=== PATIENT | male | born 1960 | race Two or more races ===

== ENCOUNTER 2021-09-04 03:56 | Emergency (ER) | payer MEDICAID, OTHER ==
[~2021-09-04] VITALS: Ht 170.2 cm; Wt 76.2 kg
[2021-09-04] MEDS ORDERED: HYDROcodone-ACET 5/325MG TAB PO ONE (05:15)
[2021-09-04 05:30] LABS: Basophils # (auto) 0.1 10 ^3/uL (0-0.2); Basophils % (auto) 1.8 % (0.0-2.0); Eosinophils # (auto) 0.2 10 ^3/uL (0-0.8); Eosinophils % (auto) 3.5 % (0.0-7.0); Hematocrit 42.6 % (41.0-53.0); Hemoglobin 14.8 g/dL (13.5-17.5); Lymphocytes # (auto) 1.6 10 ^3/uL (0.4-5.4); Lymphocytes % (auto) 29.8 % (10.0-50.0); Mean Corpuscular Hemoglobin 33.6 pg (28.0-32.0); Mean Corpuscular Hgb Conc. 34.7 g/dL (32.0-36.0); Mean Corpuscular Volume 96.8 fL (80.0-100.0); Monocytes # (auto) 0.4 10 ^3/uL (0-1.3); Monocytes % (auto) 7.5 % (0.0-12.0); Neutrophils # (auto) 3.1 10 ^3/uL (1.6-8.6); Neutrophils % (auto) 57.4 % (37.0-80.0); Nucleated Red Blood Cells % 0.2 %; Red Cell Distribution Width 12.7 % (11.8-14.3); White Blood Cell 5.4 10^3/uL (4.4-10.8)
[2021-09-04 05:43] LABS: Albumin 3.2 g/dL (3.4-5.0); Calcium 8.5 mg/dL (8.5-10.1); Potassium 3.3 mmol/L (3.5-5.1)
[2021-09-04 05:45] LABS: BUN/Creatinine Ratio 10.1
[2021-09-04 05:57] LABS: Bilirubin, Total 0.4 mg/dL (0.2-1.0); Total Protein 7.4 g/dL (6.4-8.2)
[2021-09-04] MEDS ORDERED: cefTRIAXone 1GM/50ML D5W 50 ML IV ONE (07:15)
[2021-09-04] MEDS ORDERED: CLINDAMYCIN 600MG IV 50 ML IV ONE (07:15)
[2021-09-04] MEDS ORDERED: ONDANSETRON HCL 4 MG/2 ML VIAL IV ONE (07:45)
[2021-09-04] MEDS ORDERED: MORPHINE SULFATE 4 MG/ML SYR/VIAL IV ONE (07:45)
[2021-09-04 07:57] LABS: Basophils # (auto) 0.1 10 ^3/uL (0-0.2); Basophils % (auto) 0.8 % (0.0-2.0); Eosinophils # (auto) 0.2 10 ^3/uL (0-0.8); Eosinophils % (auto) 2.9 % (0.0-7.0); Hematocrit 41.3 % (41.0-53.0); Hemoglobin 14.2 g/dL (13.5-17.5); Lymphocytes # (auto) 2.6 10 ^3/uL (0.4-5.4); Lymphocytes % (auto) 38.9 % (10.0-50.0); Mean Corpuscular Hemoglobin 33.5 pg (28.0-32.0); Mean Corpuscular Hgb Conc. 34.4 g/dL (32.0-36.0); Mean Corpuscular Volume 97.3 fL (80.0-100.0); Monocytes # (auto) 0.4 10 ^3/uL (0-1.3); Monocytes % (auto) 6.6 % (0.0-12.0); Neutrophils # (auto) 3.4 10 ^3/uL (1.6-8.6); Neutrophils % (auto) 50.8 % (37.0-80.0); Red Blood Cells 4.24 10^6/uL (4.5-5.90); Red Cell Distribution Width 12.9 % (11.8-14.3); White Blood Cell 6.6 10^3/uL (4.4-10.8)
[2021-09-04 08:14] LABS: Albumin 3.2 g/dL (3.4-5.0); Calcium 8.3 mg/dL (8.5-10.1)
[2021-09-04 08:18] LABS: BUN/Creatinine Ratio 11.2; Bilirubin, Total 0.3 mg/dL (0.2-1.0)
[2021-09-04 09:00] VITALS: BP 132/82
== END 2021-09-04 11:20 | disposition home or self-care (01) ==
LOC: ER 03:56
DX: L03.115 Cellulitis of right lower limb (principal); I10 Essential (primary) hypertension; F17.210 Nicotine dependence, cigarettes, uncomplicated
CPT/HCPCS: 36415; 71045; 73620; 80053; 83605; 83880; 84484; 85025; 93005; 96365; 96366; 96368; 96375; 99285; J0696; J2270; J2405; J3490

== ENCOUNTER 2023-06-13 05:48 | Inpatient (IN) | payer MEDICAID ==
[~2023-06-13] VITALS: Ht 170.2 cm; Wt 74.5 kg
[2023-06-13 06:21] LABS: Basophils # (auto) 0.1 10 ^3/uL (0-0.2); Basophils % (auto) 1.6 % (0.0-2.0); Eosinophils # (auto) 0.4 10 ^3/uL (0-0.8); Eosinophils % (auto) 6.2 % (0.0-7.0); Hematocrit 37.9 % (41.0-53.0); Hemoglobin 13.4 g/dL (13.5-17.5); Lymphocytes # (auto) 2.9 10 ^3/uL (0.4-5.4); Lymphocytes % (auto) 41.1 % (10.0-50.0); Mean Corpuscular Hgb Conc. 35.5 g/dL (32.0-36.0); Mean Corpuscular Volume 92.9 fL (80.0-100.0); Monocytes # (auto) 0.6 10 ^3/uL (0-1.3); Monocytes % (auto) 8.4 % (0.0-12.0); Neutrophils % (auto) 42.7 % (37.0-80.0); Red Blood Cells 4.08 10^6/uL (4.5-5.90); Red Cell Distribution Width 13.6 % (11.8-14.3); White Blood Cell 7.1 10^3/uL (4.4-10.8)
[2023-06-13 06:33] LABS: INR 1.06 (0.9-1.15); Partial Thromboplastin Time 26.2 SEC (24.5-34.5); Prothrombin Time 11.1 sec (9.3-11.8)
[2023-06-13 06:48] LABS: Alanine Aminotransferase 25 U/L (7-40); Albumin 4.8 g/dL (3.2-4.8); Alkaline Phosphatase 114 U/L (46-116); Anion Gap 9.9 (5-15); Aspartate Aminotransferase 37 U/L (13-40); BUN/Creatinine Ratio 8.7 (10.0-20.0); Blood Urea Nitrogen 11 mg/dL (9-23); Calcium 9.7 mg/dL (8.7-10.4); Carbon Dioxide 23.1 mmol/L (20-30); Chloride 104 mmol/L (98-107); Glucose 98 mg/dL (74-106); Magnesium 1.8 mg/dL (1.6-2.6); Potassium 3.6 mmol/L (3.5-5.1); Sodium 137 mmol/L (136-145)
[2023-06-13 06:49] LABS: Bilirubin, Total 0.6 mg/dL (0.2-1.0)
[2023-06-13] MEDS ORDERED: NITROGLYCERIN 0.4 MG SL TAB SL ONE (07:15)
[2023-06-13] MEDS ORDERED: ASPirin 325 MG TAB PO ONE (07:15)
[2023-06-13 08:57] VITALS: PULSE 90; RESP 18; O2SAT 95
[2023-06-13] MEDS ORDERED: MORPHINE SULFATE INJ 2 MG/ml SYRG IV PRN (10:15)
[2023-06-13] MEDS ORDERED: NITROGLYCERIN 0.4 MG SL TAB SL PRN (10:15)
[2023-06-13] MEDS ORDERED: DOCUSATE SOD 100 MG CAP PO PRN (10:15)
[2023-06-13] MEDS ORDERED: ACETAMINOPHEN 325 MG TAB PO PRN (10:15)
[2023-06-13 10:54] VITALS: PULSE 87; RESP 18; O2SAT 98
[2023-06-13] MEDS: ONDANSETRON HCL 4 MG/2 ML VIAL IV PRN ×3 (11:59→22:18)
[2023-06-13] MEDS: MORPHINE SULFATE INJ 2 MG/ml SYRG IV PRN ×2 (11:59→22:19)
[2023-06-13 12:21] LABS: Triglycerides 341 mg/dL (< 150)
[2023-06-13 12:22] LABS: LDL Cholesterol 108 mg/dL (< 100)
[2023-06-13 12:23] LABS: Cholesterol 196 mg/dL (< 200); HDL Cholesterol 57 mg/dL (40-59)
[2023-06-13] MEDS: HYDROcodone-ACET 5/325MG TAB PO PRN ×2 (13:19→18:00)
[2023-06-13 16:03] LABS: Urine Bacteria NONE SEEN /hpf (None Seen); Urine Blood Negative /uL (Negative); Urine Clarity Clear (Clear); Urine Color Colorless (Yellow); Urine Protein, UAD Negative (Negative); Urine Specific Gravity 1.008 (1.001-1.035); Urine Urobilinogen Normal (Negative); Urine WBC 1 /hpf (0 - 3); Urine pH 5.5 (5.0-8.0)
[2023-06-13 17:04] LABS: Amphetamine Screen, Urine Neg (NEGATIVE); Barbiturate Scree,Urine Neg (NEGATIVE); Benzodiazephine Screen, Urine Neg (NEGATIVE); Cannabinoid Screen, Urine Neg (NEGATIVE); Cocaine Screen, Urine Neg (NEGATIVE); Opiate Scree,Urine Neg (NEGATIVE); Phencyclidine Screen, Urine Neg (NEGATIVE)
[2023-06-13 19:25] VITALS: BP 119/73; PULSE 76; RESP 13; O2SAT 94
[2023-06-13 21:08] VITALS: PULSE 94; RESP 18; O2SAT 95
[2023-06-13 21:18] VITALS: PULSE 100; RESP 18; O2SAT 98
[2023-06-13] MEDS: IPRATROPIUM BROM 0.5 MG/2.5ML INH SOL NEB SCH (21:18)
[2023-06-13] MEDS: traZODone HCL 50 MG TAB PO SCH (22:11)
[2023-06-13] MEDS: CARVEDILOL 3.125 MG TAB PO SCH (22:12)
[2023-06-13] MEDS: ATORVASTATIN 20 MG TAB PO SCH (22:12)
[2023-06-14] VITALS (15 sets, daily range): BP systolic 106–147; BP diastolic 66–87; PULSE 58–91; RESP 15–22; TEMP 97.5–98.4; O2SAT 91–100
[2023-06-14] MEDS: IPRATROPIUM BROM 0.5 MG/2.5ML INH SOL NEB SCH ×3 (06:00→21:45)
[2023-06-14 06:36] LABS: Basophils # (auto) 0.1 10 ^3/uL (0-0.2); Eosinophils # (auto) 0.5 10 ^3/uL (0-0.8); Eosinophils % (auto) 8.2 % (0.0-7.0); Hematocrit 34.2 % (41.0-53.0); Hemoglobin 12.2 g/dL (13.5-17.5); Lymphocytes # (auto) 2.1 10 ^3/uL (0.4-5.4); Lymphocytes % (auto) 36.4 % (10.0-50.0); Mean Corpuscular Hemoglobin 33.1 pg (28.0-32.0); Mean Corpuscular Hgb Conc. 35.5 g/dL (32.0-36.0); Mean Corpuscular Volume 93.4 fL (80.0-100.0); Monocytes # (auto) 0.5 10 ^3/uL (0-1.3); Monocytes % (auto) 7.8 % (0.0-12.0); Neutrophils # (auto) 2.7 10 ^3/uL (1.6-8.6); Neutrophils % (auto) 46.6 % (37.0-80.0); Nucleated Red Blood Cells % 0.1 %; Red Blood Cells 3.67 10^6/uL (4.5-5.90); Red Cell Distribution Width 13.6 % (11.8-14.3); White Blood Cell 5.9 10^3/uL (4.4-10.8)
[2023-06-14 07:06] LABS: Alanine Aminotransferase 25 U/L (7-40); Alkaline Phosphatase 103 U/L (46-116); Anion Gap 8.8 (5-15); Blood Urea Nitrogen 15 mg/dL (9-23); Calcium 9.1 mg/dL (8.5-10.1); Carbon Dioxide 24.2 mmol/L (20-30); Chloride 107 mmol/L (98-107); Glucose 106 mg/dL (74-106); Magnesium 1.8 mg/dL (1.6-2.6); Potassium 3.9 mmol/L (3.5-5.1); Sodium 140 mmol/L (136-145)
[2023-06-14 07:07] LABS: Albumin 4.1 g/dL (3.2-4.8); Aspartate Aminotransferase 26 U/L (13-40); Bilirubin, Total 0.5 mg/dL (0.2-1.0)
[2023-06-14 07:08] LABS: Total Protein 6.7 g/dL (5.7-8.2)
[2023-06-14] MEDS ORDERED: IOHEXOL 350 MG/ML 100ML IJ ONE (07:32)
[2023-06-14] MEDS ORDERED: HEPARIN IN NS 1000Units/500mL 0 ML ONE (07:32)
[2023-06-14] MEDS ORDERED: LIDOCAINE 2%HCL (LOCAL ANESTH.) INJ 20ML MDV ONE ×2 (07:32→09:59)
[2023-06-14] MEDS: HYDROcodone-ACET 5/325MG TAB PO PRN ×4 (07:34→21:02)
[2023-06-14] MEDS: CARVEDILOL 3.125 MG TAB PO SCH ×3 (09:50→22:01)
[2023-06-14] MEDS: amLODIPine BESYLATE 5 MG TAB PO SCH (09:50)
[2023-06-14] MEDS: LOSARTAN POTASSIUM 50 MG TAB PO SCH (09:51)
[2023-06-14] MEDS ORDERED: HEPARIN SODIUM (PORCINE) 5000 UNITS/ML 1ML VIAL ONE (09:58)
[2023-06-14] MEDS ORDERED: ANGIOMAX 250 MG VIAL IV ONE (09:58)
[2023-06-14] MEDS ORDERED: VERAPAMIL 2.5MG/ML INJ 2ML VIAL IV ONE (09:58)
[2023-06-14] MEDS ORDERED: MIDAZOLAM HCL 2MG/2ML 2ml VIAL (1mg/ml) ONE (09:59)
[2023-06-14] MEDS ORDERED: fentaNYL CITRATE 100 MCG/2 ML VL ONE ×2 (09:59→11:12)
[2023-06-14] MEDS ORDERED: SODIUM CHL 0.9% 50 ML ONE ×2 (10:00→10:02)
[2023-06-14] MEDS: ENOXAPARIN SOD 40 MG/0.4 ML SYRINGE SC SCH (10:00)
[2023-06-14] MEDS: ASPirin 81 mg TAB PO SCH (10:00)
[2023-06-14] MEDS ORDERED: IODIXANOL 320MG/ML 100ML BTL IV ONE ×2 (10:00→10:43)
[2023-06-14] MEDS: LORATADINE 10 MG TAB PO SCH (10:00)
[2023-06-14] MEDS ORDERED: TICAGRELOR 90 MG TAB ONE (11:02)
[2023-06-14] MEDS ORDERED: ASPirin 325 MG TAB ONE (11:03)
[2023-06-14] MEDS: TICAGRELOR 90 MG TAB PO SCH (21:01)
[2023-06-14] MEDS: traZODone HCL 50 MG TAB PO SCH (21:01)
[2023-06-14] MEDS: ATORVASTATIN 20 MG TAB PO SCH (21:02)
[2023-06-15] VITALS (13 sets, daily range): BP systolic 100–139; BP diastolic 62–79; PULSE 71–95; RESP 14–20; TEMP 97.4–98.6; O2SAT 93–99
[2023-06-15 06:16] LABS: Basophils # (auto) 0.1 10 ^3/uL (0-0.2); Basophils % (auto) 0.8 % (0.0-2.0); Eosinophils # (auto) 0.5 10 ^3/uL (0-0.8); Eosinophils % (auto) 7.7 % (0.0-7.0); Hematocrit 34.8 % (41.0-53.0); Hemoglobin 12.1 g/dL (13.5-17.5); Lymphocytes # (auto) 2.3 10 ^3/uL (0.4-5.4); Mean Corpuscular Hemoglobin 32.7 pg (28.0-32.0); Mean Corpuscular Hgb Conc. 34.8 g/dL (32.0-36.0); Mean Corpuscular Volume 93.9 fL (80.0-100.0); Monocytes # (auto) 0.5 10 ^3/uL (0-1.3); Monocytes % (auto) 6.8 % (0.0-12.0); Neutrophils # (auto) 3.7 10 ^3/uL (1.6-8.6); Neutrophils % (auto) 52.7 % (37.0-80.0); Nucleated Red Blood Cells % 0.1 %; Red Blood Cells 3.71 10^6/uL (4.5-5.90); Red Cell Distribution Width 13.5 % (11.8-14.3); White Blood Cell 7.1 10^3/uL (4.4-10.8)
[2023-06-15 06:50] LABS: Alanine Aminotransferase 23 U/L (7-40); Albumin 4.3 g/dL (3.2-4.8); Alkaline Phosphatase 111 U/L (46-116); Anion Gap 6.7 (5-15); Aspartate Aminotransferase 25 U/L (13-40); Bilirubin, Total 0.6 mg/dL (0.2-1.0); Blood Urea Nitrogen 13 mg/dL (9-23); Calcium 9.2 mg/dL (8.7-10.4); Carbon Dioxide 25.3 mmol/L (20-30); Chloride 106 mmol/L (98-107); Glucose 104 mg/dL (74-106); Potassium 3.8 mmol/L (3.5-5.1); Sodium 138 mmol/L (136-145)
[2023-06-15 06:55] LABS: BUN/Creatinine Ratio 11.6 (10.0-20.0)
[2023-06-15] MEDS: IPRATROPIUM BROM 0.5 MG/2.5ML INH SOL NEB SCH ×3 (07:01→19:16)
[2023-06-15] MEDS: ASPirin 81 mg TAB PO SCH (08:46)
[2023-06-15] MEDS: LORazepam 0.5 MG TAB PO PRN ×2 (08:46→15:58)
[2023-06-15] MEDS: HYDROcodone-ACET 5/325MG TAB PO PRN ×3 (08:47→21:48)
[2023-06-15] MEDS: TICAGRELOR 90 MG TAB PO SCH ×2 (08:47→21:47)
[2023-06-15] MEDS: LOSARTAN POTASSIUM 50 MG TAB PO SCH (08:51)
[2023-06-15] MEDS: LORATADINE 10 MG TAB PO SCH (08:51)
[2023-06-15] MEDS: CARVEDILOL 3.125 MG TAB PO SCH (08:52)
[2023-06-15] MEDS: amLODIPine BESYLATE 5 MG TAB PO SCH (08:52)
[2023-06-15] MEDS: ENOXAPARIN SOD 40 MG/0.4 ML SYRINGE SC SCH (08:53)
[2023-06-15] MEDS ORDERED: AML5T PO (17:26)
[2023-06-15] MEDS ORDERED: TICA90TA PO (17:26)
[2023-06-15] MEDS ORDERED: ATOR20TA50 PO (17:26)
[2023-06-15] MEDS ORDERED: LOSA50TA46 PO (17:26)
[2023-06-15] MEDS ORDERED: ASPI-325 PO (17:26)
[2023-06-15] MEDS ORDERED: CAR3125T PO (17:26)
[2023-06-15] MEDS: traZODone HCL 50 MG TAB PO SCH (21:47)
[2023-06-15] MEDS: ATORVASTATIN 20 MG TAB PO SCH (21:47)
[2023-06-16] VITALS (10 sets, daily range): BP systolic 109–161; BP diastolic 63–96; PULSE 70–95; RESP 14–20; TEMP 98–98.7; O2SAT 94–99
[2023-06-16 06:27] LABS: Basophils # (auto) 0.1 10 ^3/uL (0-0.2); Basophils % (auto) 0.9 % (0.0-2.0); Eosinophils # (auto) 0.4 10 ^3/uL (0-0.8); Eosinophils % (auto) 6.7 % (0.0-7.0); Hematocrit 36.2 % (41.0-53.0); Hemoglobin 12.8 g/dL (13.5-17.5); Lymphocytes # (auto) 2.3 10 ^3/uL (0.4-5.4); Lymphocytes % (auto) 37.2 % (10.0-50.0); Mean Corpuscular Hgb Conc. 35.3 g/dL (32.0-36.0); Mean Corpuscular Volume 93.4 fL (80.0-100.0); Monocytes # (auto) 0.4 10 ^3/uL (0-1.3); Monocytes % (auto) 6.7 % (0.0-12.0); Neutrophils % (auto) 48.5 % (37.0-80.0); Red Blood Cells 3.88 10^6/uL (4.5-5.90); Red Cell Distribution Width 13.7 % (11.8-14.3); White Blood Cell 6.1 10^3/uL (4.4-10.8)
[2023-06-16 06:45] LABS: Calcium 9.7 mg/dL (8.7-10.4); Chloride 107 mmol/L (98-107); Potassium 3.7 mmol/L (3.5-5.1); Sodium 139 mmol/L (136-145)
[2023-06-16 06:46] LABS: Anion Gap 6.9 (5-15); Carbon Dioxide 25.1 mmol/L (20-30)
[2023-06-16 06:51] LABS: Glucose 98 mg/dL (74-106)
[2023-06-16 06:52] LABS: BUN/Creatinine Ratio 12.1 (10.0-20.0); Blood Urea Nitrogen 12 mg/dL (9-23)
[2023-06-16] MEDS: IPRATROPIUM BROM 0.5 MG/2.5ML INH SOL NEB SCH ×2 (07:11→14:09)
[2023-06-16] MEDS: TICAGRELOR 90 MG TAB PO SCH (10:06)
[2023-06-16] MEDS: LORATADINE 10 MG TAB PO SCH (10:06)
[2023-06-16] MEDS: LOSARTAN POTASSIUM 50 MG TAB PO SCH (10:06)
[2023-06-16] MEDS: ASPirin 81 mg TAB PO SCH (10:06)
[2023-06-16] MEDS: CARVEDILOL 3.125 MG TAB PO SCH (10:07)
[2023-06-16] MEDS: ENOXAPARIN SOD 40 MG/0.4 ML SYRINGE SC SCH (10:07)
[2023-06-16] MEDS: amLODIPine BESYLATE 5 MG TAB PO SCH (10:08)
[2023-06-16] MEDS: HYDROcodone-ACET 5/325MG TAB PO PRN ×2 (10:15→15:08)
[2023-06-16] MEDS: LORazepam 0.5 MG TAB PO PRN (10:15)
== END 2023-06-16 18:50 | disposition home or self-care (01) | DRG 175 ==
LOC: ER 05:48 → TELE 10:13 → TELE-WESTW 06-14 01:18
PROVIDERS: ADMIT Internal Medicine; ATTEND Student in an Organized Health Care Education/Training Program
PROC: 4A023N7 Measurement of Cardiac Sampling and Pressure, Left Heart, Percutaneous Approach (ICD-10-PCS; principal; 2023-06-14)
PROC: 027034Z Dilation of Coronary Artery, One Artery with Drug-eluting Intraluminal Device, Percutaneous Approach (ICD-10-PCS; 2023-06-14)
PROC: B211YZZ Fluoroscopy of Multiple Coronary Arteries using Other Contrast (ICD-10-PCS; 2023-06-14)
PROC: 4A033BC Measurement of Arterial Pressure, Coronary, Percutaneous Approach (ICD-10-PCS; 2023-06-14)
PROC: B240ZZ3 Ultrasonography of Single Coronary Artery, Intravascular (ICD-10-PCS; 2023-06-14)
DX: I20.0 Unstable angina (principal); E66.9 Obesity, unspecified; I10 Essential (primary) hypertension; E78.5 Hyperlipidemia, unspecified; F32.A Depression, unspecified; F41.9 Anxiety disorder, unspecified; Z68.25 Body mass index [BMI] 25.0-25.9, adult
CPT/HCPCS: 36415; 71045; 80048; 80053; 80061; 80307; 81001; 82306; 82607; 83036; 83735; 83880; 84443; 84484; 85025; 85379; 85610; 85730; 92928; 92978; 93005; 93306; 93458; 93571; 94640; 99152; 99153; G0378; J2250; J2405; Q9967

== ENCOUNTER → 2023-07-25 | Outpatient (CLI) | payer MEDICAID ==
[~2023-07-25] VITALS: Ht 170.2 cm; Wt 74.8 kg
[~2023-07-25] MED LIST: AML5T PO; ASPI-325 PO; ATOR20TA50 PO; CAR3125T PO; LOSA50TA46 PO; TICA90TA PO
== END | disposition home or self-care (01) ==
LOC: Rad HDHVI 08:11
PROVIDERS: ATTEND Internal Medicine Cardiovascular Disease
DX: I34.0 Nonrheumatic mitral (valve) insufficiency (principal); I10 Essential (primary) hypertension; I25.2 Old myocardial infarction; I25.10 Atherosclerotic heart disease of native coronary artery without angina pectoris; R06.02 Shortness of breath; E78.5 Hyperlipidemia, unspecified; Z98.61 Coronary angioplasty status; Z79.82 Long term (current) use of aspirin; Z79.899 Other long term (current) drug therapy
CPT/HCPCS: 78452; 93017; 96374; A9500

== ENCOUNTER 2023-11-02 08:16 | Emergency (ER) | payer MEDICAID ==
[~2023-11-02] VITALS: Ht 170.2 cm; Wt 75.0 kg
[2023-11-02] MEDS ORDERED: ASPirin 81 mg TAB PO ONE (12:15)
[2023-11-02] MEDS ORDERED: ALBUTEROL SULF 2.5 MG/0.5ML(0.5%) NEB SOLN NEB ONE (12:15)
[2023-11-02] MEDS ORDERED: LORazepam 0.5 MG TAB PO ONE (12:15)
[2023-11-02] MEDS ORDERED: SODIUM CHLORIDE 0.9% 1,000 ML IV ONE (12:15)
[2023-11-02] MEDS ORDERED: IPRATROPIUM BROM 0.5 MG/2.5ML INH SOL NEB ONE (12:15)
[2023-11-02 13:05] LABS: Basophils # (auto) 0.1 10 ^3/uL (0-0.2); Eosinophils # (auto) 0.4 10 ^3/uL (0-0.8); Eosinophils % (auto) 5.4 % (0.0-7.0); Hematocrit 40.7 % (41.0-53.0); Hemoglobin 13.8 g/dL (13.5-17.5); Lymphocytes # (auto) 3.2 10 ^3/uL (0.4-5.4); Lymphocytes % (auto) 43.3 % (10.0-50.0); Mean Corpuscular Hemoglobin 32.6 pg (28.0-32.0); Mean Corpuscular Volume 95.9 fL (80.0-100.0); Monocytes # (auto) 0.4 10 ^3/uL (0-1.3); Monocytes % (auto) 5.5 % (0.0-12.0); Neutrophils # (auto) 3.3 10 ^3/uL (1.6-8.6); Neutrophils % (auto) 44.8 % (37.0-80.0); Nucleated Red Blood Cells % 0.1 %; Red Blood Cells 4.24 10^6/uL (4.5-5.90); Red Cell Distribution Width 13.6 % (11.8-14.3); White Blood Cell 7.3 10^3/uL (4.4-10.8)
[2023-11-02 13:19] LABS: INR 1.06 (0.9-1.15); Partial Thromboplastin Time 26.9 SEC (24.5-34.5); Prothrombin Time 11.1 sec (9.3-11.8)
[2023-11-02 13:24] LABS: Alanine Aminotransferase 41 U/L (7-40); Albumin 5.1 g/dL (3.2-4.8); Alkaline Phosphatase 119 U/L (46-116); Anion Gap 11 (5-15); Aspartate Aminotransferase 32 U/L (13-40); BUN/Creatinine Ratio 14.1 (10.0-20.0); Blood Urea Nitrogen 13 mg/dL (9-23); Calcium 9.9 mg/dL (8.7-10.4); Carbon Dioxide 22 mmol/L (20-30); Chloride 107 mmol/L (98-107); Glucose 104 mg/dL (74-106); Magnesium 2.1 mg/dL (1.6-2.6); Potassium 3.8 mmol/L (3.5-5.1); Sodium 140 mmol/L (136-145)
[2023-11-02 13:25] LABS: Bilirubin, Total 0.8 mg/dL (0.2-1.0); Total Protein 7.9 g/dL (5.7-8.2)
[2023-11-02 14:39] LABS: Urine Bacteria NONE SEEN /hpf (None Seen); Urine Blood Negative /uL (Negative); Urine Clarity Clear (Clear); Urine Color Yellow (Yellow); Urine Mucus FEW (None Seen); Urine Protein, UAD 1+ (Negative); Urine Specific Gravity 1.022 (1.001-1.035); Urine Urobilinogen Normal (Negative); Urine WBC 1 /hpf (0 - 3); Urine pH 6.5 (5.0-8.0)
[2023-11-02] MEDS ORDERED: LORA-655 PO (16:42)
[2023-11-02] MEDS ORDERED: DEXT1SYP9 GT (16:42)
[2023-11-02] MEDS ORDERED: AZIT500T PO (16:42)
[2023-11-02 17:01] VITALS: BP 144/73; PULSE 88; RESP 16; TEMP 98.1; O2SAT 95
== END 2023-11-02 17:02 | disposition home or self-care (01) ==
LOC: ER 08:16
DX: J45.909 Unspecified asthma, uncomplicated (principal); R07.89 Other chest pain; F41.8 Other specified anxiety disorders; I25.10 Atherosclerotic heart disease of native coronary artery without angina pectoris; R74.8 Abnormal levels of other serum enzymes; I10 Essential (primary) hypertension; E78.5 Hyperlipidemia, unspecified; F17.210 Nicotine dependence, cigarettes, uncomplicated; Z79.82 Long term (current) use of aspirin; Z79.2 Long term (current) use of antibiotics; Z79.899 Other long term (current) drug therapy
CPT/HCPCS: 36415; 71046; 80053; 81001; 83735; 84443; 84484; 85025; 85379; 85610; 85730; 93005; 94640; 96360; 96361; 99285; J7030; J7644

== ENCOUNTER 2024-02-06 13:02 | Inpatient (IN) | payer MEDICAID ==
[~2024-02-06] VITALS: Ht 170.2 cm; Wt 72.6 kg
[~2024-02-06 13:02] MED LIST changes: +AZIT500T PO; -CAR3125T PO; +CARV-214 PO; +DEXT1SYP9 GT; +LORA-655 PO; +LOSA-534 PO; -LOSA50TA46 PO
[2024-02-06 13:37] LABS: Basophils # (auto) 0 10 ^3/uL (0-0.2); Basophils % (auto) 0.4 % (0.0-2.0); Eosinophils # (auto) 0 10 ^3/uL (0-0.8); Eosinophils % (auto) 0.2 % (0.0-7.0); Hematocrit 43.9 % (41.0-53.0); Hemoglobin 15.2 g/dL (13.5-17.5); Lymphocytes # (auto) 1.3 10 ^3/uL (0.4-5.4); Lymphocytes % (auto) 12.5 % (10.0-50.0); Mean Corpuscular Hemoglobin 31.4 pg (28.0-32.0); Mean Corpuscular Hgb Conc. 34.7 g/dL (32.0-36.0); Mean Corpuscular Volume 90.4 fL (80.0-100.0); Monocytes # (auto) 0.7 10 ^3/uL (0-1.3); Neutrophils # (auto) 8.1 10 ^3/uL (1.6-8.6); Neutrophils % (auto) 79.9 % (37.0-80.0); Red Blood Cells 4.86 10^6/uL (4.5-5.90); Red Cell Distribution Width 14.1 % (11.8-14.3); White Blood Cell 10.1 10^3/uL (4.4-10.8)
[2024-02-06 13:50] LABS: Alanine Aminotransferase 57 U/L (7-40); Albumin 4.9 g/dL (3.2-4.8); Alkaline Phosphatase 104 U/L (46-116); Anion Gap 11 (5-15); Aspartate Aminotransferase 64 U/L (13-40); BUN/Creatinine Ratio 10.3 (10.0-20.0); Blood Urea Nitrogen 12 mg/dL (9-23); Calcium 9.9 mg/dL (8.7-10.4); Carbon Dioxide 19 mmol/L (20-30); Chloride 106 mmol/L (98-107); Glucose 92 mg/dL (74-106); Sodium 136 mmol/L (136-145)
[2024-02-06 13:51] LABS: Bilirubin, Total 0.7 mg/dL (0.2-1.0); Total Protein 7.9 g/dL (5.7-8.2)
[2024-02-06] MEDS: IBUPROFEN 600 MG TAB PO ONE (18:12)
[2024-02-06 18:47] LABS: Urine Bacteria None Seen /hpf (None Seen)
[2024-02-06 19:16] LABS: Urine Blood TRACE /uL (Negative); Urine Clarity Clear (Clear); Urine Color Light-Yellow (Yellow); Urine Mucus FEW (None Seen); Urine Protein, UAD 1+ (Negative); Urine Urobilinogen Normal (Negative); Urine WBC 2 /hpf (0 - 3); Urine pH 5.5 (5.0-9.0)
[2024-02-06 21:29] VITALS: PULSE 89; RESP 20; O2SAT 95
[2024-02-06] MEDS ORDERED: NITROGLYCERIN 0.4 MG SL TAB SL PRN (21:30)
[2024-02-06] MEDS ORDERED: MORPHINE SULFATE 4 MG/ML SYR/VIAL IV ONE (21:30)
[2024-02-06] MEDS ORDERED: ONDANSETRON HCL 4 MG/2 ML VIAL IV PRN (21:30)
[2024-02-06] MEDS ORDERED: MORPHINE SULFATE INJ 2 MG/ml SYRG IV PRN (21:30)
[2024-02-06] MEDS ORDERED: LOS25T PO (21:31)
[2024-02-06 21:34] VITALS: BP 122/92; PULSE 112; RESP 18; TEMP 99.1; O2SAT 96
[2024-02-06] MEDS: MORPHINE SULFATE 4 MG/ML SYR/VIAL IV ONE (21:37)
[2024-02-06] MEDS: ONDANSETRON HCL 4 MG/2 ML VIAL IV ONE ×2 (21:38)
[2024-02-06] MEDS: CARVEDILOL 3.125 MG TAB PO SCH (21:42)
[2024-02-06] MEDS: methylPREDNISolone SOD SUCC 125 MG/2 ML VL IV ONE (21:42)
[2024-02-07] VITALS (16 sets, daily range): BP systolic 102–149; BP diastolic 68–81; PULSE 72–110; RESP 16–22; TEMP 97.4–98.7; O2SAT 94–100
[2024-02-07] MEDS: LEVALBUTEROL HCL 1.25 MG/3 ML NEB NEB SCH (00:03)
[2024-02-07] MEDS: IPRATROPIUM BROM 0.5 MG/2.5ML INH SOL NEB SCH (00:04)
[2024-02-07] MEDS: HYDROcodone-ACET 5/325MG TAB PO PRN (02:08)
[2024-02-07] MEDS ORDERED: ALBUTEROL SULF 2.5 MG/0.5ML(0.5%) NEB SOLN NEB SCH (06:00)
[2024-02-07] MEDS ORDERED: IPRATROPIUM BROM 0.5 MG/2.5ML INH SOL NEB SCH (06:00)
[2024-02-07 06:08] LABS: Basophils # (auto) 0 10 ^3/uL (0-0.2); Basophils % (auto) 0.1 % (0.0-2.0); Eosinophils # (auto) 0 10 ^3/uL (0-0.8); Hematocrit 43.4 % (41.0-53.0); Hemoglobin 15.1 g/dL (13.5-17.5); Lymphocytes % (auto) 11.2 % (10.0-50.0); Mean Corpuscular Hemoglobin 31.5 pg (28.0-32.0); Mean Corpuscular Hgb Conc. 34.8 g/dL (32.0-36.0); Mean Corpuscular Volume 90.6 fL (80.0-100.0); Monocytes # (auto) 0.2 10 ^3/uL (0-1.3); Monocytes % (auto) 2.6 % (0.0-12.0); Neutrophils # (auto) 7.7 10 ^3/uL (1.6-8.6); Neutrophils % (auto) 86.1 % (37.0-80.0); Red Blood Cells 4.79 10^6/uL (4.5-5.90); Red Cell Distribution Width 14.3 % (11.8-14.3)
[2024-02-07 06:23] LABS: Alanine Aminotransferase 46 U/L (7-40); Alkaline Phosphatase 94 U/L (46-116); Anion Gap 9 (5-15); BUN/Creatinine Ratio 10.9 (10.0-20.0); Blood Urea Nitrogen 15 mg/dL (9-23); Calcium 9.7 mg/dL (8.7-10.4); Carbon Dioxide 21 mmol/L (20-30); Chloride 100 mmol/L (98-107); Glucose 165 mg/dL (74-106); Potassium 4.1 mmol/L (3.5-5.1)
[2024-02-07 06:24] LABS: Albumin 4.9 g/dL (3.2-4.8); Aspartate Aminotransferase 56 U/L (13-40); Bilirubin, Total 0.6 mg/dL (0.2-1.0); Total Protein 8.2 g/dL (5.7-8.2)
[2024-02-07] MEDS: THROAT LOZENGES(CEPASTAT) MT PRN (06:34)
[2024-02-07 06:52] LABS: Sodium 130 mmol/L (136-145)
[2024-02-07] MEDS: MORPHINE SULFATE INJ 2 MG/ml SYRG IV PRN (07:32)
[2024-02-07] MEDS: ASPirin-EC 81 mg tab PO SCH (09:58)
[2024-02-07] MEDS: LOSARTAN POTASSIUM 25 MG TAB PO SCH (09:59)
[2024-02-07] MEDS ORDERED: AZITHROMYCIN 500MG/ 250ML 250 ML IV SCH (10:00)
[2024-02-07] MEDS: methylPREDNISolone SOD SUCC 40 MG/ML VL IV SCH ×2 (10:03→22:03)
[2024-02-07] MEDS: PANTOPRAZOLE 40 MG/10 ML VIAL INJ IV SCH (10:03)
[2024-02-07] MEDS: cefTRIAXone 1GM/50ML D5W 50 ML IV SCH (10:06)
[2024-02-07] MEDS: ENOXAPARIN SOD 40 MG/0.4 ML SYRINGE SC SCH (10:07)
[2024-02-07] MEDS: methylPREDNISolone SOD SUCC 125 MG/2 ML VL IV ONE (12:02)
[2024-02-07] MEDS: DOXYCYCLINE 100MG/250ML 250 ML IV SCH (12:08)
[2024-02-07] MEDS: SODIUM CHLORIDE 0.9% 1,000 ML IV SCH (12:14)
[2024-02-07] MEDS: LORazepam 2MG/ML-1ML VIAL IV PRN (17:52)
[2024-02-07] MEDS: ATORVASTATIN 20 MG TAB PO SCH (22:02)
[2024-02-07] MEDS: TICAGRELOR 90 MG TAB PO SCH (22:03)
[2024-02-08] VITALS (18 sets, daily range): BP systolic 86–132; BP diastolic 55–82; PULSE 72–123; RESP 17–23; TEMP 97.8–98.7; O2SAT 95–100
[2024-02-08 06:30] LABS: Basophils # (auto) 0 10 ^3/uL (0-0.2); Basophils % (auto) 0.1 % (0.0-2.0); Eosinophils # (auto) 0 10 ^3/uL (0-0.8); Hematocrit 37.5 % (41.0-53.0); Lymphocytes % (auto) 11.8 % (10.0-50.0); Mean Corpuscular Hemoglobin 31.3 pg (28.0-32.0); Mean Corpuscular Hgb Conc. 34.6 g/dL (32.0-36.0); Mean Corpuscular Volume 90.7 fL (80.0-100.0); Monocytes # (auto) 0.3 10 ^3/uL (0-1.3); Monocytes % (auto) 3.8 % (0.0-12.0); Neutrophils # (auto) 7.3 10 ^3/uL (1.6-8.6); Neutrophils % (auto) 84.3 % (37.0-80.0); Red Blood Cells 4.14 10^6/uL (4.5-5.90); White Blood Cell 8.7 10^3/uL (4.4-10.8)
[2024-02-08 06:38] LABS: Alanine Aminotransferase 38 U/L (7-40); Alkaline Phosphatase 77 U/L (46-116); Anion Gap 8 (5-15); BUN/Creatinine Ratio 18.4 (10.0-20.0); Blood Urea Nitrogen 21 mg/dL (9-23); Calcium 9.1 mg/dL (8.5-10.1); Carbon Dioxide 23 mmol/L (20-30); Chloride 102 mmol/L (98-107); Glucose 166 mg/dL (74-106); Potassium 4.3 mmol/L (3.5-5.1); Sodium 133 mmol/L (136-145)
[2024-02-08 06:39] LABS: Albumin 4.2 g/dL (3.2-4.8); Aspartate Aminotransferase 43 U/L (13-40); Bilirubin, Total 0.3 mg/dL (0.2-1.0); Total Protein 7.1 g/dL (5.7-8.2)
[2024-02-08] MEDS: guaiFENesin 200 MG/10 ML UD PO PRN (11:41)
[2024-02-08] MEDS: DOCUSATE SOD 100 MG CAP PO PRN (16:11)
[2024-02-08] MEDS: methylPREDNISolone SOD SUCC 40 MG/ML VL IV SCH (21:10)
[2024-02-09] VITALS (17 sets, daily range): BP systolic 109–132; BP diastolic 63–96; PULSE 67–126; RESP 17–20; TEMP 97.5–98.2; O2SAT 93–99
[2024-02-09 06:22] LABS: Basophils # (auto) 0 10 ^3/uL (0-0.2); Basophils % (auto) 0.1 % (0.0-2.0); Eosinophils # (auto) 0 10 ^3/uL (0-0.8); Hematocrit 40.6 % (41.0-53.0); Lymphocytes # (auto) 0.7 10 ^3/uL (0.4-5.4); Lymphocytes % (auto) 6.6 % (10.0-50.0); Mean Corpuscular Hemoglobin 31.3 pg (28.0-32.0); Mean Corpuscular Hgb Conc. 34.6 g/dL (32.0-36.0); Mean Corpuscular Volume 90.5 fL (80.0-100.0); Monocytes # (auto) 0.7 10 ^3/uL (0-1.3); Monocytes % (auto) 6.7 % (0.0-12.0); Neutrophils # (auto) 8.8 10 ^3/uL (1.6-8.6); Neutrophils % (auto) 86.6 % (37.0-80.0); Red Blood Cells 4.49 10^6/uL (4.5-5.90); Red Cell Distribution Width 13.6 % (11.8-14.3); White Blood Cell 10.2 10^3/uL (4.4-10.8)
[2024-02-09 06:32] LABS: Anion Gap 10 (5-15); Carbon Dioxide 20 mmol/L (20-30); Chloride 102 mmol/L (98-107); Potassium 4.4 mmol/L (3.5-5.1); Sodium 132 mmol/L (136-145)
[2024-02-09 06:34] LABS: Calcium 9.3 mg/dL (8.5-10.1)
[2024-02-09 06:39] LABS: BUN/Creatinine Ratio 16.8 (10.0-20.0); Blood Urea Nitrogen 17 mg/dL (9-23); Glucose 121 mg/dL (74-106)
[2024-02-09] MEDS: levoFLOXacin 750MG 150 ML IV SCH (10:33)
[2024-02-09] MEDS ORDERED: IOHEXOL 350 MG/ML 100ML IJ ONE (13:25)
[2024-02-09] MEDS: CARVEDILOL 3.125 MG TAB PO SCH (21:39)
[2024-02-09] MEDS: dilTIAZem 25 MG/5 ML VIAL IV ONE (23:45)
[2024-02-10] VITALS (28 sets, daily range): BP systolic 109–157; BP diastolic 63–101; PULSE 62–136; RESP 12–24; TEMP 97.4–100.8; O2SAT 91–100
[2024-02-10] MEDS: AMIODARONE BOLUS KIT 100 ML IV ONE (05:32)
[2024-02-10] MEDS: AMIODARONE 450mg/250ml AE 250 ML IV SCH ×2 (05:44→13:10)
[2024-02-10 07:16] LABS: Basophils # (auto) 0 10 ^3/uL (0-0.2); Basophils % (auto) 0.1 % (0.0-2.0); Eosinophils # (auto) 0 10 ^3/uL (0-0.8); Hematocrit 43.7 % (41.0-53.0); Hemoglobin 14.8 g/dL (13.5-17.5); Lymphocytes # (auto) 1.1 10 ^3/uL (0.4-5.4); Lymphocytes % (auto) 14.2 % (10.0-50.0); Mean Corpuscular Hemoglobin 30.7 pg (28.0-32.0); Mean Corpuscular Hgb Conc. 33.9 g/dL (32.0-36.0); Mean Corpuscular Volume 90.5 fL (80.0-100.0); Monocytes # (auto) 1.1 10 ^3/uL (0-1.3); Monocytes % (auto) 13.7 % (0.0-12.0); Neutrophils # (auto) 5.7 10 ^3/uL (1.6-8.6); Nucleated Red Blood Cells % 0.1 %; Red Blood Cells 4.83 10^6/uL (4.5-5.90); Red Cell Distribution Width 14.1 % (11.8-14.3)
[2024-02-10 07:22] LABS: Chloride 98 mmol/L (98-107); Potassium 4.3 mmol/L (3.5-5.1); Sodium 132 mmol/L (136-145)
[2024-02-10 07:23] LABS: Anion Gap 9 (5-15); Calcium 9.5 mg/dL (8.5-10.1); Carbon Dioxide 25 mmol/L (20-30)
[2024-02-10 07:26] LABS: INR 0.96 (0.9-1.15); Partial Thromboplastin Time 24.5 SEC (24.5-34.5); Prothrombin Time 10.2 sec (9.3-11.8)
[2024-02-10 07:28] LABS: BUN/Creatinine Ratio 12.5 (10.0-20.0); Blood Urea Nitrogen 13 mg/dL (9-23); Glucose 96 mg/dL (74-106)
[2024-02-10] MEDS: IODIXANOL 320MG/ML 100ML BTL IV ONE (08:22)
[2024-02-10] MEDS: LIDOCAINE 2%HCL (LOCAL ANESTH.) INJ 20ML MDV ONE (08:22)
[2024-02-10] MEDS: ANGIOMAX 250 MG VIAL IV ONE (08:29)
[2024-02-10] MEDS: HEPARIN SODIUM (PORCINE) 5000 UNITS/ML 1ML VIAL ONE (08:30)
[2024-02-10] MEDS: VERAPAMIL 2.5MG/ML INJ 2ML VIAL IV ONE (08:30)
[2024-02-10] MEDS: fentaNYL CITRATE 100 MCG/2 ML VL ONE (08:31)
[2024-02-10] MEDS: MIDAZOLAM HCL 2MG/2ML 2ml VIAL (1mg/ml) ONE (08:31)
[2024-02-10] MEDS: SODIUM CHL 0.9% 0 ML ONE (08:31)
[2024-02-10] MEDS: AMIODARONE HCL 200 MG TAB PO ONE (18:00)
[2024-02-10] MEDS: HYDROcodone-ACET 10/325MG TAB PO PRN (18:03)
[2024-02-10] MEDS: AMIODARONE HCL 200 MG TAB PO SCH (21:08)
[2024-02-10] MEDS: SACUBITRIL-VALSARTAN 24mg/26mg TAB PO SCH (21:08)
[2024-02-10] MEDS: APIXABAN 5 MG TAB PO SCH (21:09)
[2024-02-10] MEDS: METOPROLOL TARTRATE 25 MG TAB PO SCH (21:09)
[2024-02-10] MEDS: ACETAMINOPHEN 325 MG TAB PO PRN (21:11)
[2024-02-11] VITALS (20 sets, daily range): BP systolic 102–116; BP diastolic 64–76; PULSE 49–101; RESP 16–20; TEMP 97.3–98.9; O2SAT 87–99
[2024-02-11 01:32] LABS: Amphetamine Screen, Urine Neg (NEGATIVE); Barbiturate Scree,Urine Neg (NEGATIVE); Benzodiazephine Screen, Urine Pos (NEGATIVE); Cocaine Screen, Urine Neg (NEGATIVE); Opiate Scree,Urine Pos (NEGATIVE)
[2024-02-11 01:33] LABS: Cannabinoid Screen, Urine Neg (NEGATIVE); Phencyclidine Screen, Urine Neg (NEGATIVE)
[2024-02-11] MEDS: EMPAGLIFLOZIN 10 MG TAB PO SCH (09:37)
[2024-02-11] MEDS: SPIRONOLACTONE 25 MG TAB PO SCH (09:47)
[2024-02-11] MEDS: FUROSEMIDE 20 MG TAB PO SCH (09:47)
[2024-02-12] VITALS (20 sets, daily range): BP systolic 95–124; BP diastolic 56–83; PULSE 71–97; RESP 16–20; TEMP 97.4–98.7; O2SAT 90–100
[2024-02-12 05:22] LABS: Chloride 100 mmol/L (98-107); Potassium 4.3 mmol/L (3.5-5.1); Sodium 132 mmol/L (136-145)
[2024-02-12 05:23] LABS: Anion Gap 10 (5-15); Carbon Dioxide 22 mmol/L (20-30)
[2024-02-12 05:29] LABS: BUN/Creatinine Ratio 12.7 (10.0-20.0); Blood Urea Nitrogen 14 mg/dL (9-23); Glucose 161 mg/dL (74-106)
[2024-02-12 05:49] LABS: Basophils # (auto) 0 10 ^3/uL (0-0.2); Basophils % (auto) 0.1 % (0.0-2.0); Eosinophils # (auto) 0 10 ^3/uL (0-0.8); Hemoglobin 15.3 g/dL (13.5-17.5); Lymphocytes # (auto) 1.3 10 ^3/uL (0.4-5.4); Lymphocytes % (auto) 17.5 % (10.0-50.0); Mean Corpuscular Hemoglobin 30.7 pg (28.0-32.0); Mean Corpuscular Hgb Conc. 34.1 g/dL (32.0-36.0); Mean Corpuscular Volume 90.3 fL (80.0-100.0); Monocytes # (auto) 0.5 10 ^3/uL (0-1.3); Monocytes % (auto) 7.5 % (0.0-12.0); Neutrophils # (auto) 5.5 10 ^3/uL (1.6-8.6); Neutrophils % (auto) 74.9 % (37.0-80.0); Nucleated Red Blood Cells % 0.1 %; Red Blood Cells 4.99 10^6/uL (4.5-5.90); Red Cell Distribution Width 13.9 % (11.8-14.3); White Blood Cell 7.3 10^3/uL (4.4-10.8)
[2024-02-13] VITALS (14 sets, daily range): BP systolic 89–108; BP diastolic 56–73; PULSE 59–82; RESP 18–22; TEMP 96.9–98.4; O2SAT 92–100
[2024-02-13 06:24] LABS: Basophils # (auto) 0 10 ^3/uL (0-0.2); Basophils % (auto) 0.1 % (0.0-2.0); Eosinophils # (auto) 0 10 ^3/uL (0-0.8); Hematocrit 43.8 % (41.0-53.0); Hemoglobin 14.9 g/dL (13.5-17.5); Lymphocytes # (auto) 1.3 10 ^3/uL (0.4-5.4); Lymphocytes % (auto) 20.9 % (10.0-50.0); Mean Corpuscular Hemoglobin 30.6 pg (28.0-32.0); Mean Corpuscular Volume 89.9 fL (80.0-100.0); Monocytes # (auto) 0.5 10 ^3/uL (0-1.3); Monocytes % (auto) 8.9 % (0.0-12.0); Neutrophils # (auto) 4.3 10 ^3/uL (1.6-8.6); Neutrophils % (auto) 70.1 % (37.0-80.0); Nucleated Red Blood Cells % 0.1 %; Red Blood Cells 4.88 10^6/uL (4.5-5.90); Red Cell Distribution Width 13.8 % (11.8-14.3); White Blood Cell 6.2 10^3/uL (4.4-10.8)
[2024-02-13 06:29] LABS: Chloride 102 mmol/L (98-107); Potassium 4.5 mmol/L (3.5-5.1); Sodium 132 mmol/L (136-145)
[2024-02-13 06:30] LABS: Anion Gap 8 (5-15); Carbon Dioxide 22 mmol/L (20-30)
[2024-02-13 06:31] LABS: Calcium 9.6 mg/dL (8.7-10.4)
[2024-02-13 06:35] LABS: Glucose 136 mg/dL (74-106)
[2024-02-13 06:36] LABS: BUN/Creatinine Ratio 15.9 (10.0-20.0); Blood Urea Nitrogen 17 mg/dL (9-23)
[2024-02-13] MEDS: LIDOCAINE 5% TOPICAL PATCH TOP ONE (12:02)
[2024-02-14] VITALS (18 sets, daily range): BP systolic 98–142; BP diastolic 65–74; PULSE 69–93; RESP 14–22; TEMP 97.5–98; O2SAT 93–100
[2024-02-14 05:17] LABS: Basophils # (auto) 0 10 ^3/uL (0-0.2); Eosinophils # (auto) 0 10 ^3/uL (0-0.8); Hemoglobin 15.6 g/dL (13.5-17.5); Lymphocytes # (auto) 3.2 10 ^3/uL (0.4-5.4); Monocytes # (auto) 0.8 10 ^3/uL (0-1.3)
[2024-02-14 05:20] LABS: Basophils % (auto) 0.3 % (0.0-2.0); Eosinophils % (auto) 0.2 % (0.0-7.0); Lymphocytes % (auto) 38.7 % (10.0-50.0); Mean Corpuscular Hemoglobin 30.9 pg (28.0-32.0); Mean Corpuscular Hgb Conc. 34.7 g/dL (32.0-36.0); Mean Corpuscular Volume 89.3 fL (80.0-100.0); Monocytes % (auto) 10.3 % (0.0-12.0); Neutrophils # (auto) 4.2 10 ^3/uL (1.6-8.6); Neutrophils % (auto) 50.5 % (37.0-80.0); Nucleated Red Blood Cells % 0.1 %; Red Blood Cells 5.04 10^6/uL (4.5-5.90); Red Cell Distribution Width 14.1 % (11.8-14.3); White Blood Cell 8.2 10^3/uL (4.4-10.8)
[2024-02-14 05:27] LABS: Chloride 101 mmol/L (98-107); Potassium 4.3 mmol/L (3.5-5.1); Sodium 131 mmol/L (136-145)
[2024-02-14 05:28] LABS: Anion Gap 9 (5-15); Calcium 9.9 mg/dL (8.7-10.4); Carbon Dioxide 21 mmol/L (20-30)
[2024-02-14 05:33] LABS: BUN/Creatinine Ratio 17.5 (10.0-20.0); Blood Urea Nitrogen 20 mg/dL (9-23); Glucose 101 mg/dL (74-106)
[2024-02-14] MEDS: predniSONE 20 MG TAB PO SCH (09:51)
[2024-02-14] MEDS: PANTOPRAZOLE 40 MG TAB PO SCH (09:53)
[2024-02-14] MEDS: levoFLOXacin 500 MG TAB PO SCH (09:54)
[2024-02-14] MEDS: LIDOCAINE 5% TOPICAL PATCH TOP SCH (13:19)
[2024-02-15] VITALS (12 sets, daily range): BP systolic 92–112; BP diastolic 56–76; PULSE 70–87; RESP 14–18; TEMP 97–98.2; O2SAT 93–100
[2024-02-15] MEDS: predniSONE 20 MG TAB PO SCH (10:20)
[2024-02-15] MEDS ORDERED: EMPA1TAB PO (10:41)
[2024-02-15] MEDS ORDERED: PRED20TA2 PO (10:41)
[2024-02-15] MEDS ORDERED: FUR20T PO (10:41)
[2024-02-15] MEDS ORDERED: HYDR1TAB97 PO (10:41)
[2024-02-15] MEDS ORDERED: SPIR25TA PO (10:41)
[2024-02-15] MEDS ORDERED: AMIO200T33 PO (10:41)
[2024-02-15] MEDS ORDERED: SACU1TAB PO (10:41)
[2024-02-15] MEDS: diphenhdrAMINE HCL 50 MG/1 ML VL IV ONE (14:44)
[2024-02-15] MEDS ORDERED: IPRATROPIUM BROM 0.5 MG/2.5ML INH SOL ONE (17:58)
== END 2024-02-15 16:47 | disposition home or self-care (01) | DRG 720 ==
LOC: ER 13:02 → TELE 21:27 → TELE-EAST 02-07 05:23 → EAST 02-08 11:00 → TELE-EAST 02-09 23:06
PROVIDERS: ADMIT Nurse Practitioner Family; ATTEND Internal Medicine
PROC: 4A023N7 Measurement of Cardiac Sampling and Pressure, Left Heart, Percutaneous Approach (ICD-10-PCS; principal; 2024-02-10)
PROC: B211YZZ Fluoroscopy of Multiple Coronary Arteries using Other Contrast (ICD-10-PCS; 2024-02-10)
PROC: 4A033BC Measurement of Arterial Pressure, Coronary, Percutaneous Approach (ICD-10-PCS; 2024-02-10)
PROC: B41FYZZ Fluoroscopy of Right Lower Extremity Arteries using Other Contrast (ICD-10-PCS; 2024-02-10)
DX: A41.9 Sepsis, unspecified organism (principal); N17.0 Acute kidney failure with tubular necrosis; J96.01 Acute respiratory failure with hypoxia; I50.31 Acute diastolic (congestive) heart failure; J15.69 Pneumonia due to other Gram-negative bacteria; D68.69 Other thrombophilia; I24.9 Acute ischemic heart disease, unspecified; E87.1 Hypo-osmolality and hyponatremia; J15.9 Unspecified bacterial pneumonia; I25.110 Atherosclerotic heart disease of native coronary artery with unstable angina pectoris; J44.0 Chronic obstructive pulmonary disease with (acute) lower respiratory infection; J45.901 Unspecified asthma with (acute) exacerbation; I11.0 Hypertensive heart disease with heart failure; F17.210 Nicotine dependence, cigarettes, uncomplicated; J44.1 Chronic obstructive pulmonary disease with (acute) exacerbation; E78.5 Hyperlipidemia, unspecified; R74.01 Elevation of levels of liver transaminase levels; I48.0 Paroxysmal atrial fibrillation; Z79.84 Long term (current) use of oral hypoglycemic drugs; Z79.01 Long term (current) use of anticoagulants; Z79.899 Other long term (current) drug therapy; Z14.1 Cystic fibrosis carrier
CPT/HCPCS: 36415; 36600; 71045; 71046; 71275; 75710; 80048; 80053; 80307; 81001; 82805; 83880; 84484; 85025; 85379; 85610; 85730; 86850; 86900; 86901; 87070; 87205; 93005; 93306; 93458; 94640; 99152; C9113; G0378; J1956; J2250; J2405; J3490; Q9967

== ENCOUNTER 2024-02-21 23:48 | Inpatient (IN) | payer MEDICAID ==
[~2024-02-21] VITALS: Ht 171.4 cm; Wt 75.0 kg
[~2024-02-21 23:48] MED LIST changes: +AMIO200T33 PO; -AML5T PO; -ASPI-325 PO; -AZIT500T PO; +EMPA1TAB PO; +FUR20T PO; +HYDR1TAB97 PO; +HYDR2.5L TOP; -LOSA-534 PO; +PRED20TA2 PO; +SACU1TAB PO; +SPIR25TA PO
[2024-02-22] VITALS (7 sets, daily range): BP systolic 119; BP diastolic 71; PULSE 66–82; RESP 15–20; TEMP 97.5; O2SAT 96–100
[2024-02-22 00:28] LABS: Basophils # (auto) 0.1 10 ^3/uL (0-0.2); Eosinophils # (auto) 0.1 10 ^3/uL (0-0.8); Eosinophils % (auto) 0.9 % (0.0-7.0); Hematocrit 44.1 % (41.0-53.0); Hemoglobin 14.9 g/dL (13.5-17.5); Lymphocytes % (auto) 38.4 % (10.0-50.0); Mean Corpuscular Hemoglobin 30.6 pg (28.0-32.0); Mean Corpuscular Hgb Conc. 33.8 g/dL (32.0-36.0); Mean Corpuscular Volume 90.7 fL (80.0-100.0); Monocytes # (auto) 0.9 10 ^3/uL (0-1.3); Monocytes % (auto) 8.2 % (0.0-12.0); Neutrophils # (auto) 5.4 10 ^3/uL (1.6-8.6); Neutrophils % (auto) 51.5 % (37.0-80.0); Nucleated Red Blood Cells % 0.1 %; Red Blood Cells 4.86 10^6/uL (4.5-5.90); Red Cell Distribution Width 13.8 % (11.8-14.3); White Blood Cell 10.5 10^3/uL (4.4-10.8)
[2024-02-22 00:35] LABS: Chloride 95 mmol/L (98-107); Potassium 4.6 mmol/L (3.5-5.1); Sodium 126 mmol/L (136-145)
[2024-02-22 00:36] LABS: Anion Gap 10 (5-15); Calcium 9.3 mg/dL (8.7-10.4); Carbon Dioxide 21 mmol/L (20-30)
[2024-02-22 00:41] LABS: BUN/Creatinine Ratio 18.3 (10.0-20.0); Blood Urea Nitrogen 20 mg/dL (9-23); Glucose 106 mg/dL (74-106)
[2024-02-22] MEDS: MORPHINE SULFATE 4 MG/ML SYR/VIAL IV ONE (01:14)
[2024-02-22] MEDS: ONDANSETRON HCL 4 MG/2 ML VIAL IV ONE (01:16)
[2024-02-22] MEDS: SODIUM CHLORIDE 0.9% 500 ML IV ONE (03:25)
[2024-02-22 03:42] LABS: Urine Bacteria None Seen /hpf (None Seen); Urine WBC None Seen /hpf (0 - 3)
[2024-02-22 04:19] LABS: Urine Blood Negative /uL (Negative); Urine Clarity Clear (Clear); Urine Color Straw (Yellow); Urine Protein, UAD Negative (Negative); Urine Urobilinogen Normal (Negative)
[2024-02-22] MEDS: IOHEXOL 350 MG/ML 100ML IJ ONE (06:51)
[2024-02-22] MEDS: KETOROLAC TROMETH 30 MG/ML 1ML VIAL IV ONE (08:56)
[2024-02-22] MEDS ORDERED: ONDANSETRON HCL 4 MG/2 ML VIAL IV PRN (09:00)
[2024-02-22] MEDS ORDERED: MORPHINE SULFATE INJ 2 MG/ml SYRG IV PRN (09:00)
[2024-02-22] MEDS ORDERED: ACETAMINOPHEN 325 MG TAB PO PRN (09:00)
[2024-02-22] MEDS ORDERED: NITROGLYCERIN 0.4 MG SL TAB SL PRN (09:00)
[2024-02-22] MEDS ORDERED: SODIUM CHLORIDE 0.9% 1,000 ML IV SCH (09:00)
[2024-02-22] MEDS: ALBUMIN 5% 250 ML IV ONE (09:08)
[2024-02-22] MEDS: AMIODARONE HCL 200 MG TAB PO SCH (10:00)
[2024-02-22] MEDS: TICAGRELOR 90 MG TAB PO SCH (10:32)
[2024-02-22] MEDS: PANTOPRAZOLE 40 MG TAB PO SCH (10:33)
[2024-02-22] MEDS: HYDROcodone-ACET 5/325MG TAB PO PRN (11:33)
[2024-02-22] MEDS: ALBUTEROL SULF 2.5 MG/0.5ML(0.5%) NEB SOLN NEB PRN (13:29)
[2024-02-22] MEDS: IPRATROPIUM BROM 0.5 MG/2.5ML INH SOL NEB PRN (13:29)
[2024-02-22] MEDS: ATORVASTATIN 20 MG TAB PO SCH (21:19)
[2024-02-22] MEDS: MORPHINE SULFATE INJ 2 MG/ml SYRG IV PRN (21:19)
[2024-02-22] MEDS ORDERED: BUSP10TA90 PO (22:55)
[2024-02-22] MEDS ORDERED: QUET50TA27 PO (22:55)
[2024-02-22] MEDS ORDERED: HYDR-4902 PO (22:55)
[2024-02-22] MEDS ORDERED: FLUO10TA18 PO (22:55)
[2024-02-22] MEDS ORDERED: SPIR25TA8 PO (22:55)
[2024-02-23] VITALS (9 sets, daily range): BP systolic 105–147; BP diastolic 69–91; PULSE 70–85; RESP 18–22; TEMP 97.5–97.9; O2SAT 96–99
[2024-02-23] MEDS: HYDROcodone-ACET 7.5/325MG TAB PO ONE (02:33)
[2024-02-23 06:19] LABS: Basophils # (auto) 0.1 10 ^3/uL (0-0.2); Basophils % (auto) 0.9 % (0.0-2.0); Eosinophils # (auto) 0.1 10 ^3/uL (0-0.8); Eosinophils % (auto) 1.8 % (0.0-7.0); Hematocrit 38.2 % (41.0-53.0); Hemoglobin 12.9 g/dL (13.5-17.5); Lymphocytes # (auto) 1.5 10 ^3/uL (0.4-5.4); Lymphocytes % (auto) 26.5 % (10.0-50.0); Mean Corpuscular Hemoglobin 30.7 pg (28.0-32.0); Mean Corpuscular Hgb Conc. 33.8 g/dL (32.0-36.0); Mean Corpuscular Volume 90.9 fL (80.0-100.0); Monocytes # (auto) 0.4 10 ^3/uL (0-1.3); Monocytes % (auto) 7.5 % (0.0-12.0); Neutrophils # (auto) 3.6 10 ^3/uL (1.6-8.6); Neutrophils % (auto) 63.3 % (37.0-80.0); White Blood Cell 5.7 10^3/uL (4.4-10.8)
[2024-02-23 06:33] LABS: Alanine Aminotransferase 71 U/L (7-40); Albumin 3.8 g/dL (3.2-4.8); Alkaline Phosphatase 69 U/L (46-116); Anion Gap 8 (5-15); Aspartate Aminotransferase 37 U/L (13-40); BUN/Creatinine Ratio 15.9 (10.0-20.0); Bilirubin, Total 0.6 mg/dL (0.2-1.0); Blood Urea Nitrogen 17 mg/dL (9-23); Carbon Dioxide 21 mmol/L (20-30); Chloride 107 mmol/L (98-107); Glucose 91 mg/dL (74-106); Potassium 4.2 mmol/L (3.5-5.1); Sodium 136 mmol/L (136-145); Total Protein 6.2 g/dL (5.7-8.2)
[2024-02-23] MEDS ORDERED: ASPI1CHW5 PO (11:21)
[2024-02-23] MEDS ORDERED: HYDR-3682 PO (11:21)
[2024-02-23] MEDS ORDERED: LOSA-533 PO (11:21)
[2024-02-23] MEDS ORDERED: TRAM50TA2 PO (11:21)
[2024-02-23] MEDS: HYDROcodone-ACET 10/325MG TAB PO PRN (12:23)
[2024-02-23] MEDS: LORazepam 0.5 MG TAB PO PRN (14:34)
[2024-02-23] MEDS: CYCLOBENZAPRINE HCL 10 MG TAB PO PRN (16:11)
[2024-02-23] MEDS: SACUBITRIL-VALSARTAN 24mg/26mg TAB PO SCH (20:29)
[2024-02-24] VITALS (9 sets, daily range): BP systolic 98–134; BP diastolic 72–77; PULSE 73–90; RESP 16–22; TEMP 98–98.7; O2SAT 94–99
[2024-02-24] MEDS: FLUoxetine HCL 10 MG CAP PO SCH (09:58)
[2024-02-24] MEDS: busPIRone HCL 10 MG TAB PO SCH (09:59)
[2024-02-24] MEDS: SPIRONOLACTONE 25 MG TAB PO SCH (09:59)
[2024-02-24] MEDS ORDERED: LOSARTAN POTASSIUM 25 MG TAB PO SCH (10:00)
[2024-02-24] MEDS: EMPAGLIFLOZIN 10 MG TAB PO SCH (11:31)
[2024-02-25] VITALS (9 sets, daily range): BP systolic 106–120; BP diastolic 68–80; PULSE 75–83; RESP 18–20; TEMP 97.7–98.4; O2SAT 94–96
[2024-02-25] MEDS: CYCLOBENZAPRINE HCL 10 MG TAB PO PRN (08:49)
[2024-02-26] VITALS (8 sets, daily range): BP systolic 98–128; BP diastolic 61–89; PULSE 78–99; RESP 16–20; TEMP 97.5–98.4; O2SAT 94–98
[2024-02-27] VITALS (13 sets, daily range): BP systolic 100–120; BP diastolic 62–87; PULSE 76–96; RESP 16–18; TEMP 97.6–98.6; O2SAT 93–100
[2024-02-27] MEDS: DOCUSATE SOD 100 MG CAP PO PRN (09:21)
[2024-02-28] VITALS (11 sets, daily range): BP systolic 100–159; BP diastolic 64–83; PULSE 65–83; RESP 15–20; TEMP 97.6–97.9; O2SAT 95–98
[2024-02-28] MEDS: predniSONE 20 MG TAB PO SCH (09:11)
[2024-02-28] MEDS: GABAPENTIN 300 MG CAP PO ONE (13:22)
[2024-02-28] MEDS: GABAPENTIN 300 MG CAP PO SCH (22:17)
[2024-02-29] VITALS (8 sets, daily range): BP systolic 114–144; BP diastolic 70–93; PULSE 64–83; RESP 17–20; TEMP 97.9–98.4; O2SAT 94–96
[2024-02-29] MEDS ORDERED: ATOR20TA50 PO (14:08)
[2024-02-29] MEDS ORDERED: CYCL-839 PO (14:08)
[2024-02-29] MEDS ORDERED: EMPA1TAB PO (14:08)
[2024-02-29] MEDS ORDERED: AMIO200T33 PO (14:08)
[2024-02-29] MEDS ORDERED: SPIR25TA PO (14:08)
[2024-02-29] MEDS ORDERED: PRED20TA2 PO (14:08)
[2024-02-29] MEDS ORDERED: HYDR1TAB97 PO (14:08)
[2024-02-29] MEDS ORDERED: GABA-1250 PO (14:08)
[2024-02-29] MEDS ORDERED: SACU1TAB PO (14:08)
== END 2024-02-29 18:05 | disposition home or self-care (01) | DRG 347 ==
LOC: ER 23:48 → EDBD 23:48 → OVERFLOW 02-22 08:49 → WEST WING 02-22 22:38
PROVIDERS: ADMIT Internal Medicine; ATTEND Internal Medicine
DX: M54.50 Low back pain, unspecified (principal); D68.69 Other thrombophilia; I50.32 Chronic diastolic (congestive) heart failure; I11.0 Hypertensive heart disease with heart failure; M47.816 Spondylosis without myelopathy or radiculopathy, lumbar region; M48.061 Spinal stenosis, lumbar region without neurogenic claudication; E87.1 Hypo-osmolality and hyponatremia; I25.10 Atherosclerotic heart disease of native coronary artery without angina pectoris; I48.91 Unspecified atrial fibrillation; F17.210 Nicotine dependence, cigarettes, uncomplicated; J44.89 Other specified chronic obstructive pulmonary disease; E78.5 Hyperlipidemia, unspecified; I73.9 Peripheral vascular disease, unspecified; Z95.5 Presence of coronary angioplasty implant and graft
CPT/HCPCS: 36415; 71275; 72131; 72148; 75635; 80048; 80053; 81001; 82962; 83880; 84484; 85025; 85379; 87081; 93005; 93970; 94640; 96361; 96374; 96375; 97110; 97116; 97163; G0378; J1885; J2405

== ENCOUNTER 2024-08-16 04:22 | Inpatient (IN) | payer MEDICAID ==
[~2024-08-16] VITALS: Ht 172.7 cm; Wt 74.0 kg
[2024-08-16] VITALS (9 sets, daily range): BP systolic 131–133; BP diastolic 78–82; PULSE 81–99; RESP 16–22; TEMP 97.5–97.8; O2SAT 93–98
[~2024-08-16 04:22] MED LIST changes: +ASPI1CHW5 PO; +BUSP10TA90 PO; -CARV-214 PO; +CYCL-839 PO; -DEXT1SYP9 GT; +FLUO10TA18 PO; -FUR20T PO; +GABA-1250 PO; +HYDR-3682 PO; +HYDR-4902 PO; -HYDR2.5L TOP; +HYDR2.5L4 TOP; -LORA-655 PO; +LOSA-533 PO; +QUET50TA27 PO; -TICA90TA PO; +TRAM50TA2 PO
[2024-08-16] MEDS: ALBUTEROL SULF 2.5 MG/0.5ML(0.5%) NEB SOLN NEB ONE ×2 (05:03→09:59)
[2024-08-16] MEDS: IPRATROPIUM BROM 0.5 MG/2.5ML INH SOL NEB ONE (05:03)
[2024-08-16 05:23] LABS: Alanine Aminotransferase 47 U/L (7-40); Alkaline Phosphatase 155 U/L (46-116); Anion Gap 11 (5-15); Aspartate Aminotransferase 46 U/L (13-40); BUN/Creatinine Ratio 9.6 (10.0-20.0); Bilirubin, Total 0.8 mg/dL (0.2-1.0); Blood Urea Nitrogen 9 mg/dL (9-23); Calcium 9.5 mg/dL (8.7-10.4); Carbon Dioxide 20 mmol/L (20-31); Chloride 106 mmol/L (98-107); Glucose 122 mg/dL (74-106); Potassium 3.4 mmol/L (3.5-5.1); Sodium 137 mmol/L (136-145); Total Protein 7.9 g/dL (5.7-8.2)
[2024-08-16 05:31] LABS: Hematocrit 43.8 % (41.0-53.0); Mean Corpuscular Hemoglobin 33.1 pg (28.0-32.0); Mean Corpuscular Hgb Conc. 34.1 g/dL (32.0-36.0); Mean Corpuscular Volume 97.1 fL (80.0-100.0); Platelet Count (auto) 231 10^3/uL (140-450); Red Blood Cells 4.51 10^6/uL (4.5-5.90); Red Cell Distribution Width 14.3 % (11.8-14.3); White Blood Cell 8.9 10^3/uL (4.4-10.8)
[2024-08-16 05:45] LABS: Band Neutrophils % (manual) 0; Basophils % (manual) 0 (0.0-2.0); Blast Cells 0; Metamyelocytes % 0; Myelocytes % 0; Promyelocytes % 0; Reactive Lymphocytes 0
--- NOTE | 2024-08-16 06:24 | ECG ---
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
--- NOTE | 2024-08-16 06:29 | DVH ---
CHEST RADIOGRAPH Indication:CHEST PAIN Technique: Single frontal view of the chest was obtained Comparison: XY CHEST PORTABLE on DOS: 02/13/24 FINDINGS: Lines and Tubes: None Lungs: No focal consolidation. Pleura: No effusion. No pneumothorax. Cardiomediastinal contours: Unremarkable Bones: No acute osseous abnormality. IMPRESSION: 1. No acute cardiopulmonary disease.
[2024-08-16 07:20] LABS: Eosinophils % (manual) 24 (0-7); Lymphocytes % (manual) 25 (10.0-50.0); Monocytes % (manual) 14 (0-12)
--- NOTE | 2024-08-16 07:20 | ED.PDOC ---
HPI Comments 64y M who presents to the ED for chief complaint of chest pain. Pt states he has been having chest pain for the past 1 week but states earlie this AM, the pain woke him from his sleep. Pt states the pain is across his chest diffusely, constant, pressure like in nature, with pain radiating to the L arm and hand. Pt has associated L arm numbness and tingling and associated shortness of breath but denies diaphoresis, palpitaitons, nausea, vomiting, fever, cough, chills, headache or dizziness. Pt otherwise has noted vitals of 02 sat of 90% on room air and heart rate of 109 in the ED. Pt otherwise denies any other symptoms at this time. Chief Complaint: Chest Pain Time Seen by MD: 07:16 Primary Care Provider: JAMES Reviewed Notes: Medications, Allergies Allergies: Coded Allergies: NO KNOWN ALLERGIES (Unverified , 09/04/21) Home Meds Active Scripts Hydrocodone-Acetaminophen (Hydrocodone/Acetaminophen 5-325 mg) 1 Tab Tab, 1 TAB PO TIDP PRN for 8 Days, #24 TAB Prov:GUSTAVO FLOR MD 02/29/24 Cyclobenzaprine Hcl (Cyclobenzaprine Hcl) 10 Mg Tab, 10 MG PO TIDP PRN for 10 D ays, #30 TAB Prov:GUSTAVO FLOR MD 02/29/24 Amiodarone Hcl (Amiodarone Hcl) 200 Mg Tab, 200 MG PO BID for 30 Days, #60 TAB 3 Refills Prov:GUSTAVO FLOR MD 02/29/24 Gabapentin (Gabapentin) 300 Mg Cap, 300 MG PO BID for 30 Days, #60 CAP Prov:GUSTAVO FLOR MD 02/29/24 Atorvastatin Calcium (ATORVASTATIN CALCIUM) 20 Mg Tab, 40 MG PO HS for 30 Days, #30 TAB 3 Refills Prov:GUSTAVO FLOR MD 02/29/24 Spironolactone (Aldactone) 25 Mg Tab, 25 MG PO DAILY for 30 Days, #30 TAB 3 Refills Prov:GUSTAVO FLOR MD 02/29/24 Sacubitril-Valsartan (Entresto 24-26 mg) 1 Tab Tab, 0.5 TAB PO BID for 30 Days, #30 TAB 3 Refills Prov:GUSTAVO FLOR MD 02/29/24 Prednisone (Prednisone) 20 Mg Tab, 20 MG PO DAILY for 5 Days, #10 TAB Prov:GUSTAVO FLOR MD 02/29/24 Empagliflozin (Jardiance) 10 Mg Tab, 10 MG PO DAILY for 30 Days, #30 TAB 3 Refills Prov:GUSTAVO FLOR MD 02/29/24 Amiodarone Hcl (Amiodarone Hcl) 200 Mg Tab, 200 MG PO BID for 30 Days, #60 TAB 3 Refills Prov:GUSTAVO FLOR MD 02/15/24 Reported Medications Hydroxyzine Hcl (Hydroxyzine Hcl) 25 Mg Tab, 1 TAB PO TID PRN for ANXIETY 02/23/24 Losartan Potassium (Losartan Potassium) 25 Mg Tab, 1 TAB PO DAILY 02/23/24 Tramadol Hcl (Tramadol Hcl) 50 Mg Tab, 1 TAB PO DAILY PRN for PAIN 02/23/24 Aspirin (Chewable Aspirin) 81 Mg Chw, 1 TAB PO DAILY 02/23/24 Hydrocortisone (Topical) (Hydrocortisone) 2.5 % Lot, 1 APPLIC TOP BID APPLY EXTERNALLY TO THE AFFECTED AREA TWICE DAILY FOR 14 DAYS, THEN 2 WEEKS OFF. 02/23/24 Hydrocodone-Acetaminophen (Hydrocodone Bitartrate/AC 5-325 mg) 1 Tab Tab, 1 TAB PO Q4HP PRN for PAIN SCALE 7 THRU 10 02/22/24 Quetiapine Fumerate (QUETIAPINE FUMARATE) 50 Mg Tab, 1 TAB PO HS TAKE 1-2 TABS AT NIGHT. 02/22/24 Fluoxetine Hcl (Fluoxetine Hcl) 10 Mg Tab, 1 CAP PO DAILY 02/22/24 Buspirone Hcl (Buspirone Hcl) 10 Mg Tab, 1 TAB PO DAILY 02/22/24 Information Source: Patient Mode of Arrival: Wheelchair Brought in by: self Past Medical History PAST MEDICAL HISTORY: AFIB, CHF, COPD, High Lipids, HTN, [place] Surgical History: PTCA Family History Family History: No family hx of Heart gee Social History Smoker: Cigarettes Alcohol: Denies ETOH Use Drugs: Denies Drug Use Lives In: Home Constitutional: denies: chills, diaphoresis, fatigue, fever, malaise, sweats, weakness, others EENTM: denies: blurred vision, double vision, ear bleeding, ear discharge, ear drainage, ear pain, ear ringing, eye pain, eye redness, hearing loss, mouth pain, mouth swelling, nasal discharge, nose bleeding, nose congestion, nose pain, photophobia, tearing, throat pain, throat swelling, voice changes, others Respiratory: reports: shortness of breath; denies: cough, hemoptysis, orthopnea, SOB at rest, SOB with excertion, stridor, wheezing, others Cardiovascular: reports: chest pain; denies: dizzy spells, diaphoresis, Dyspnea on exertion, edema, irregular heart beat, left arm pain, lightheadedness, palpitations, PND, syncope, others Gastrointestinal: denies: abdomen distended, abdominal pain, blood streaked bowels, constipated, diarrhea, dysphagia, difficulty swallowing, hematemesis, melena, nausea, poor appetite, poor fluid intake, rectal bleeding, rectal pain, vomiting, others Genitourinary: denies: burning, dysuria, flank pain, frequency, hematuria, incontinence, penile discharge, penile sore, pain, testicle pain, testicle swelling, urgency, others Neurological: reports: numbness (L arm and hand); denies: dizziness, fainting, headache, left sided numbness, left sided weakness, paresthesia, pre-existing deficit, right sided numbness, right sided weakness, seizure, speech problems, tingling, tremors, weakness, others Musculoskeletal: denies: back pain, gout, joint pain, joint swelling, muscle pain, muscle stiffness, neck pain, others Integumetry: denies: bruises, change in color, change in hair/nails, dryness, laceration, lesions, lumps, rash, wounds, others Allergic/Immunocompromised: denies: Difficulty Healing, Frequent Infections, Hi ves, Itching, others Hematologic/Lymphatic: denies: anemia, blood clots, easy bleeding, easy bruising, swollen glands, others Endocrine: denies: excessive hunger, excessive sweating, excessive thirst, excessive urination, flushing, intolerance to cold, intolerance to heat, unexplained weight gain, unexplained weight loss, others Psychiatric: denies: anxiety, bipolar disorder, depression, hopeless, panic disorder, schizophrenia, sleepless, suicidal, others All Other Systems: Reviewed and Negative Physical Exam General Appearance: Moderate Distress HEENT: Normal ENT Inspection, Pharynx Normal, TMs Normal Neck: Full Range of Motion, Non-Tender, Normal, Normal Inspection Respiratory: Chest Non-Tender, No Accessory Muscle Use, Wheezing Cardiovascular: No Edema, No JVD, No Murmur, No Gallop, Normal Peripheral Pulses, Regular Rate/Rhythm Breast Exam: Deferred Gastrointestinal: No Organomegaly, Non Tender, No Pulsatile Mass, Normal Bowel Sounds, Soft Genitalia: Deferred Pelvic: Deferred Rectal: Deferred Extremities: No calf tenderness, Normal capillary refill, Normal inspection, Normal range of motion, Non-tender, No pedal edema Musculoskeletal : Apperance: Normal Neurologic: Alert, plug cutter II-XII nml as Tested, No Motor Deficits, Normal Affect, Normal Mood, No Sensory Deficits Cerebellar Function: NOT DONE Reflexes: NOT DONE Skin: Dry, Normal Color, Warm Peripheral Pulses: 3+ Radial (R), 3+ Radial (L) Lymphatic: No Adenopathy Was a procedure done? Was a procedure done?: No CP Differential Dx Differential Diagnosis: A-fib, A-Flutter, Angina, Atrial Dysrhythmia, AV Block 1st Degree, AV Block 2nd Degree, Electrolyte Disorder, Heart Failure, PVC's, Sinus Tachycardia Other Differential Diagnosis acute coronary syndrome Differential Diagnosis: HTN Essential, HTN Accelerated Differential Diagnosis: Chest Wall Pain, Costochondritis, Pericarditis, Pneumonia X-Ray, Labs, Meds, VS Vital Signs Date Time Temp Pulse Resp B/P (MAP) Pulse Ox O2 Delivery O2 Flow Rate FiO2 08/16/24 09:18 99 18 131/78 08/16/24 08:57 123/70 08/16/24 08:52 94 18 123/70 08/16/24 08:00 84 08/16/24 05:42 97.8 92 20 122/80 (94) 98 97.8 08/16/24 05:42 92 22 97 Nasal Cannula* 2 28 08/16/24 05:04 20 96 Nasal Cannula* 2 28 08/16/24 04:30 97.8 109 22 116/70 (85) 90 08/16/24 04:30 106 Lab Test 08/16/24 07:50 08/16/24 05:45 08/16/24 04:45 Range/Units Troponin I High Sensitivity < 3 L < 3 L < 3 L </=54 ng/L White Blood Count 8.9 4.4-10.8 10^3/uL Red Blood Count 4.51 4.5-5.90 10^6/uL Hemoglobin 15.0 13.5-17.5 g/dL Hematocrit 43.8 41.0-53.0 % Mean Corpuscular Volume 97.1 80.0-100.0 fL Mean Corpuscular Hemoglobin 33.1 H 28.0-32.0 pg Mean Corpuscular Hemoglobin Concent 34.1 32.0-36.0 g/dL Red Cell Distribution Width 14.3 11.8-14.3 % Platelet Count 231 140-450 10^3/uL Mean Platelet Volume 8.4 6.9-10.8 fL Neutrophils (%) (Auto) 37.0-80.0 % Lymphocytes (%) (Auto) 10.0-50.0 % Monocytes (%) (Auto) 0.0-12.0 % Eosinophils (%) (Auto) 0.0-7.0 % Basophils (%) (Auto) 0.0-2.0 % Neutrophils # (Auto) 1.6-8.6 10 ^3/uL Lymphocytes # (Auto) 0.4-5.4 10 ^3/uL Monocytes # (Auto) 0-1.3 10 ^3/uL Differential Total Cells Counted 100.0 100 Neutrophils % (Manual) 37 37.0-80.0 Band Neutrophils % (Manual) 0 Lymphocytes % (Manual) 25 10.0-50.0 Monocytes % (Manual) 14 H 0-12 Eosinophils % (Manual) 24 H 0-7 Basophils % (Manual) 0 0.0-2.0 Metamyelocytes % (manual) 0 Myelocytes % (Manual) 0 Promyelocytes % (Manual) 0 Blast Cells % (Manual) 0 Reactive Lymphocytes 0 Platelet Estimate Adequate Sodium Level 137 136-145 mmol/L Potassium Level 3.4 L 3.5-5.1 mmol/L Chloride Level 106 98-107 mmol/L Carbon Dioxide Level 20 20-31 mmol/L Anion Gap 11 5-15 Blood Urea Nitrogen 9 9-23 mg/dL Creatinine 0.94 0.700-1.30 mg/dL Glomerular Filtration Rate Calc 91 >90 mL/min BUN/Creatinine Ratio 9.6 L 10.0-20.0 Serum Glucose 122 H 74-106 mg/dL Calcium Level 9.5 8.7-10.4 mg/dL Total Bilirubin 0.8 0.2-1.0 mg/dL Aspartate Amino Transferase (AST) 46 H 13-40 U/L Alanine Aminotransferase (ALT) 47 H 7-40 U/L Alkaline Phosphatase 155 H 46-116 U/L Total Protein 7.9 5.7-8.2 g/dL Albumin 5.0 H 3.2-4.8 g/dL Current Medications Medications (Trade) Dose Ordered Sig/Parul Route Start Time Stop Time Status Last Admin Ipratropium [place] (Atrovent Medneb) 0.5 mg ONCE ONCE NEB 08/16/24 05:00 08/16/24 05:01 DC 08/16/24 05:03 Aspirin 325 mg ONCE ONCE PO 08/16/24 07:45 08/16/24 07:46 DC 08/16/24 08:51 Nitroglycerin (Ntrostat Sublingual) 0.4 mg ONCE ONCE SL 08/16/24 07:45 08/16/24 07:46 DC 08/16/24 08:57 Morphine Sulfate 4 mg ONCE ONCE IV 08/16/24 07:45 08/16/24 07:46 DC 08/16/24 08:52 Ondansetron HCl (Zofran) 4 mg ONCE ONCE IV 08/16/24 07:45 08/16/24 07:46 DC 08/16/24 08:53 Potassium Bicarbonate (Klor-Con/Ef) 50 meq ONCE ONCE PO 08/16/24 09:00 08/16/24 09:01 DC 08/16/24 09:02 CHEST RADIOGRAPH IMPRESSION: 1. No acute cardiopulmonary disease. Patient alert. Complaining of chest discomfort. Vitals stable. Answering all questions. Was given morphine. Was given Zofran. WBC within normal limits. Hemoglobin within normal limits. Chest x-ray reviewed does not show any acute changes. Liver profile elevated. Continues to have chest discomfort. EKG reviewed does not show any acute changes. Reviewed his previous visit. Explained to the patient. Time of 1ST Reevaluation: 07:45 Reevaluation 1ST: Unchanged Patient Education/Counseling: Diagnosis, Treatment Family Education/Counseling: No Family Present Departure 1 Departure Time of Disposition: 07:33 Impression: Primary Impression: Chest pain of unknown etiology Additional Impressions: Elevated liver enzymes Asthmatic bronchitis Qualified Codes: J45.40 - Moderate persistent asthma, uncomplicated Disposition: ADMITTED INPATIENT Admit to: Med Surg Condition: Guarded Critical Care Note Critical Care Time?: Yes (45 min-critical care time only) Stability Stability form required: No Heart Score Heart Score: Heart Score Response (Comments) Value History Slightly Suspicious 0 EKG Normal 0 Age 45-64 1 Risk Factors >3 or Hx ASHD 2 Troponin Normal limit 0 Total 3 I personally scribed for AMANDA MCCABE MD ([facility]) on 08/16/24 at 07:20. Electronically submitted by Uli Magana ([facility]). AMANDA MCCABE MD Aug 16, 2024 07:20
[2024-08-16 07:22] LABS: Platelet Estimate Adequate
[2024-08-16] MEDS: ASPirin 325 MG TAB PO ONE (08:51)
[2024-08-16] MEDS: MORPHINE SULFATE 4 MG/ML SYR/VIAL IV ONE (08:52)
[2024-08-16] MEDS: ONDANSETRON HCL 4 MG/2 ML VIAL IV ONE (08:53)
[2024-08-16] MEDS: NITROGLYCERIN 0.4 MG SL TAB SL ONE (08:57)
[2024-08-16] MEDS: POTASSIUM EFFERVESENT TAB 25 MEQ PO ONE (09:02)
--- NOTE | 2024-08-16 09:42 | DVHHP2 ---
Admitting Diagnosis: Chest pain History of Present Illness 64y M who presents to the ED for chief complaint of chest pain. Pt states he has been having chest pain for the past 1 week but states earlie this AM, the pain woke him from his sleep. Pt states the pain is across his chest diffusely, constant, pressure like in nature, with pain radiating to the L arm and hand. Pt has associated L arm numbness and tingling and associated shortness of breath but denies diaphoresis, palpitaitons, nausea, vomiting, fever, cough, chills, headache or dizziness. Pt otherwise has noted vitals of 02 sat of 90% on room air and heart rate of 109 in the ED. Pt otherwise denies any other symptoms at this time. PAST MEDICAL HISTORY: CHF, COPD, High Lipids, HTN, [place] Surgical History: PTCA Family History: No family hx of Heart gee Social History Smoker: Cigarettes Alcohol: Denies ETOH Use Drugs: Denies Drug Use Lives In: Home Patient Family History: Dementia G8 FATHER Allergies: Coded Allergies: NO KNOWN ALLERGIES (Unverified , 09/04/21) Home Meds Active Scripts Hydrocodone-Acetaminophen (Hydrocodone/Acetaminophen 5-325 mg) 1 Tab Tab, 1 TAB PO TIDP PRN for 8 Days, #24 TAB Prov:GUSTAVO FLOR MD 02/29/24 Cyclobenzaprine Hcl (Cyclobenzaprine Hcl) 10 Mg Tab, 10 MG PO TIDP PRN for 10 Days, #30 TAB Prov:GUSTAVO FLOR MD 02/29/24 Amiodarone Hcl (Amiodarone Hcl) 200 Mg Tab, 200 MG PO BID for 30 Days, #60 TAB 3 Refills Prov:GUSTAVO FLOR MD 02/29/24 Gabapentin (Gabapentin) 300 Mg Cap, 300 MG PO BID for 30 Days, #60 CAP Prov:GUSTAVO FLOR MD 02/29/24 Atorvastatin Calcium (ATORVASTATIN CALCIUM) 20 Mg Tab, 40 MG PO HS for 30 Days, #30 TAB 3 Refills Prov:GUSTAVO FLOR MD 02/29/24 Spironolactone (Aldactone) 25 Mg Tab, 25 MG PO DAILY for 30 Days, #30 TAB 3 Refills Prov:GUSTAVO FLOR MD 02/29/24 Sacubitril-Valsartan (Entresto 24-26 mg) 1 Tab Tab, 0.5 TAB PO BID for 30 Days, #30 TAB 3 Refills Prov:GUSTAVO FLOR MD 02/29/24 Prednisone (Prednisone) 20 Mg Tab, 20 MG PO DAILY for 5 Days, #10 TAB Prov:GUSTAVO FLOR MD 02/29/24 Empagliflozin (Jardiance) 10 Mg Tab, 10 MG PO DAILY for 30 Days, #30 TAB 3 Refills Prov:GUSTAVO FLOR MD 02/29/24 Amiodarone Hcl (Amiodarone Hcl) 200 Mg Tab, 200 MG PO BID for 30 Days, #60 TAB 3 Refills Prov:GUSTAVO FLOR MD 02/15/24 Reported Medications Hydroxyzine Hcl (Hydroxyzine Hcl) 25 Mg Tab, 1 TAB PO TID PRN for ANXIETY 02/23/24 Losartan Potassium (Losartan Potassium) 25 Mg Tab, 1 TAB PO DAILY 02/23/24 Tramadol Hcl (Tramadol Hcl) 50 Mg Tab, 1 TAB PO DAILY PRN for PAIN 02/23/24 Aspirin (Chewable Aspirin) 81 Mg Chw, 1 TAB PO DAILY 02/23/24 Hydrocortisone (Topical) (Hydrocortisone) 2.5 % Lot, 1 APPLIC TOP BID APPLY EXTERNALLY TO THE AFFECTED AREA TWICE DAILY FOR 14 DAYS, THEN 2 WEEKS OFF. 02/23/24 Hydrocodone-Acetaminophen (Hydrocodone Bitartrate/AC 5-325 mg) 1 Tab Tab, 1 TAB PO Q4HP PRN for PAIN SCALE 7 THRU 10 02/22/24 Quetiapine Fumerate (QUETIAPINE FUMARATE) 50 Mg Tab, 1 TAB PO HS TAKE 1-2 TABS AT NIGHT. 02/22/24 Fluoxetine Hcl (Fluoxetine Hcl) 10 Mg Tab, 1 CAP PO DAILY 02/22/24 Buspirone Hcl (Buspirone Hcl) 10 Mg Tab, 1 TAB PO DAILY 02/22/24 Current Medications Current Medications Medications (Trade) Dose Ordered Sig/Parul Route PRN Reason Start Time Stop Time Status Last Admin Albuterol (Ventolin Medneb) 2.5 mg Q6H NEB 08/16/24 09:45 UNV Ipratropium [place] (Atrovent Medneb) 0.5 mg Q6H NEB 08/16/24 09:45 UNV Methylprednisolone Sodium Succinate (Solu Medrol) 62.5 mg Q6H IV 08/16/24 09:45 UNV Sodium Chloride (Saline Lock Ns) 10 ml Q8HR IV 08/16/24 14:00 UNV Docusate Sodium (Colace Capsule) 100 mg BIDPRN PRN PO FOR CONSTIPATION 08/16/24 09:45 UNV Acetaminophen (Tylenol Tablet) 650 mg Q6HP PRN PO PAIN SCALE 1-3 OR TEMP>100.4 08/16/24 09:45 UNV Acetaminophen/ Hydrocodone Bitart ([place] 5/325MG Tab) 1 tab Q4HP PRN PO MODERATE PAIN (4-6 PAIN SCALE) 08/16/24 09:45 UNV Hydromorphone HCl (Dilaudid Injection) 0.5 mg Q4HP PRN IV SEVERE PAIN (7-10 PAIN SCALE) 08/16/24 09:45 UNV Ondansetron HCl (Zofran) 4 mg Q4HP PRN IV NAUSEA / VOMITING 08/16/24 09:45 UNV Enoxaparin Sodium (Lovenox) 40 mg DAILY SC 08/16/24 10:00 UNV Nitroglycerin (Ntrostat Sublingual) 0.4 mg Q5MINP PRN SL FOR CHEST PAIN 08/16/24 09:45 UNV Morphine Sulfate 2 mg Q30M PRN IV FOR CHEST PAIN 08/16/24 09:45 UNV Amiodarone HCl (Cordarone Tablet) 200 mg BID PO 08/16/24 10:00 UNV Buspirone HCl (Buspar Tablet) 10 mg DAILY PO 08/16/24 10:00 UNV Empaglifozin (Jardiance) 10 mg DAILY PO 08/16/24 10:00 UNV Spironolactone (Aldactone) 25 mg DAILY PO 08/16/24 10:00 UNV Patient Own Medication 1 tab DAILY PO 08/16/24 10:00 UNV Patient Own Medication 1 tab HS PO 08/16/24 22:00 UNV Vital Signs Vital Signs Date Time Temp Pulse Resp B/P (MAP) Pulse Ox O2 Delivery O2 Flow Rate FiO2 08/16/24 09:42 131/78 08/16/24 09:18 99 18 08/16/24 05:42 97.8 98 97.8 10/31/24 05:42 Nasal Cannula* 2 28 Physical Exam 64 years old man, well nourished well developed. Mild distress HEENT-atraumatic normocephalic Heart-regular rate and rhythm Lungs diffuse wheezing Abdomen soft nontender nondistended Musculoskeletal-no edema cyanosis Neuro-AO x3, no focal deficits Results Labs Test 08/16/24 07:50 08/16/24 04:45 Range/Units Troponin I High Sensitivity < 3 L </=54 ng/L White Blood Count 8.9 4.4-10.8 10^3/uL Red Blood Count 4.51 4.5-5.90 10^6/uL Hemoglobin 15.0 13.5-17.5 g/dL Hematocrit 43.8 41.0-53.0 % Mean Corpuscular Volume 97.1 80.0-100.0 fL Mean Corpuscular Hemoglobin 33.1 H 28.0-32.0 pg Mean Corpuscular Hemoglobin Concent 34.1 32.0-36.0 g/dL Red Cell Distribution Width 14.3 11.8-14.3 % Platelet Count 231 140-450 10^3/uL Mean Platelet Volume 8.4 6.9-10.8 fL Neutrophils (%) (Auto) 37.0-80.0 % Lymphocytes (%) (Auto) 10.0-50.0 % Monocytes (%) (Auto) 0.0-12.0 % Eosinophils (%) (Auto) 0.0-7.0 % Basophils (%) (Auto) 0.0-2.0 % Neutrophils # (Auto) 1.6-8.6 10 ^3/uL Lymphocytes # (Auto) 0.4-5.4 10 ^3/uL Monocytes # (Auto) 0-1.3 10 ^3/uL Differential Total Cells Counted 100.0 100 Neutrophils % (Manual) 37 37.0-80.0 Band Neutrophils % (Manual) 0 Lymphocytes % (Manual) 25 10.0-50.0 Monocytes % (Manual) 14 H 0-12 Eosinophils % (Manual) 24 H 0-7 Basophils % (Manual) 0 0.0-2.0 Metamyelocytes % (manual) 0 Myelocytes % (Manual) 0 Promyelocytes % (Manual) 0 Blast Cells % (Manual) 0 Reactive Lymphocytes 0 Platelet Estimate Adequate Sodium Level 137 136-145 mmol/L Potassium Level 3.4 L 3.5-5.1 mmol/L Chloride Level 106 98-107 mmol/L Carbon Dioxide Level 20 20-31 mmol/L Anion Gap 11 5-15 Blood Urea Nitrogen 9 9-23 mg/dL Creatinine 0.94 0.700-1.30 mg/dL Glomerular Filtration Rate Calc 91 >90 mL/min BUN/Creatinine Ratio 9.6 L 10.0-20.0 Serum Glucose 122 H 74-106 mg/dL Calcium Level 9.5 8.7-10.4 mg/dL Total Bilirubin 0.8 0.2-1.0 mg/dL Aspartate Amino Transferase (AST) 46 H 13-40 U/L Alanine Aminotransferase (ALT) 47 H 7-40 U/L Alkaline Phosphatase 155 H 46-116 U/L Total Protein 7.9 5.7-8.2 g/dL Albumin 5.0 H 3.2-4.8 g/dL Primary Diagnosis Chest pain rule out ACS Elevated LFTs Acute on chronic COPD exacerbation Plan Troponin negative. EKG shows sinus rhythm with a prolonged QT. Held Seroquel Cardiology consult Check echo of the heart Status post Solu-Medrol and in ED. Continue Solu-Medrol 62.5 mg q.6 hours, ipratropium and albuterol nebulizer q.6 hours Pulmonology consult for acute hypoxic respiratory failure due to acute on chronic COPD exacerbation Oxygen saturation greater than 90% Check BNP. If elevated start Lasix 40 mg b.i.d. for CHF Full code Cardiac diet Lovenox for DVT prophylaxis PPI for GI ppx Plan discussed with: Patient Problems List: (1) Chest pain, rule out acute myocardial infarction (2) Acute exacerbation of chronic obstructive pulmonary disease (COPD) (3) Acute hypoxic respiratory failure (4) Elevated liver enzymes Status: Acute Date of Service: Aug 16, 2024 Billing Provider: DONNA SORENSEN MD Common Visit Codes: [id number] INP/OBS CARE (HIGH) DONNA SORENSEN MD Aug 16, 2024 09:42
[2024-08-16] MEDS ORDERED: ALBUTEROL SULF 2.5 MG/0.5ML(0.5%) NEB SOLN NEB SCH ×2 (09:45→12:00)
[2024-08-16] MEDS ORDERED: IPRATROPIUM BROM 0.5 MG/2.5ML INH SOL NEB SCH (09:45)
[2024-08-16] MEDS ORDERED: NITROGLYCERIN 0.4 MG SL TAB SL PRN (09:45)
[2024-08-16] MEDS ORDERED: ONDANSETRON HCL 4 MG/2 ML VIAL IV PRN (09:45)
[2024-08-16] MEDS: methylPREDNISolone SOD SUCC 125 MG/2 ML VL IV SCH (09:45)
[2024-08-16] MEDS ORDERED: PATIENTS OWN MEDICATION (Aspirin (Chewable Aspirin) 1 TAB) PO SCH (10:00)
[2024-08-16] MEDS: EMPAGLIFLOZIN 10 MG TAB PO SCH (10:00)
[2024-08-16] MEDS: ENOXAPARIN SOD 40 MG/0.4 ML SYRINGE SC SCH (10:54)
[2024-08-16] MEDS: methylPREDNISolone SOD SUCC 125 MG/2 ML VL IV ONE (10:55)
[2024-08-16] MEDS: PANTOPRAZOLE 40 MG/10 ML VIAL INJ IV SCH (10:55)
[2024-08-16] MEDS: FLUoxetine HCL 10 MG CAP PO SCH (10:56)
[2024-08-16] MEDS: busPIRone HCL 10 MG TAB PO SCH (10:56)
[2024-08-16] MEDS: GABAPENTIN 300 MG CAP PO SCH (10:56)
[2024-08-16] MEDS: AMIODARONE HCL 200 MG TAB PO SCH (10:56)
[2024-08-16] MEDS: SPIRONOLACTONE 25 MG TAB PO SCH (10:57)
[2024-08-16] MEDS: SACUBITRIL-VALSARTAN 24mg/26mg TAB PO SCH (11:00)
[2024-08-16 11:41] LABS: Urine Bacteria None Seen /hpf (None Seen)
[2024-08-16] MEDS: HYDROcodone-ACET 5/325MG TAB PO PRN (11:45)
[2024-08-16 11:51] LABS: Urine Blood Negative /uL (Negative); Urine Clarity Clear (Clear); Urine Color Light-Yellow (Yellow); Urine Protein, UAD Negative (Negative); Urine Specific Gravity 1.012 (1.001-1.035); Urine Urobilinogen Normal (Negative); Urine WBC 1 /hpf (0 - 3); Urine pH 5.5 (5.0-9.0)
[2024-08-16] MEDS: LEVALBUTEROL HCL 1.25 MG/3 ML NEB NEB SCH (12:15)
[2024-08-16] MEDS: IPRATROPIUM BROM 0.5 MG/2.5ML INH SOL NEB SCH (12:16)
[2024-08-16] MEDS: SODIUM CHLOR 0.9% PF (SALINE LOCK) 10ML VIAL/SYR IV SCH (14:06)
[2024-08-16] MEDS: HYDROmorphone HCL 2 MG/ML VL/or syr IV PRN (15:24)
--- NOTE | 2024-08-16 17:05 | DVHINCON2 ---
Date Seen: Aug 16, 2024 Referring Physician MD Bobby Reason for Consultation Chest pain History of Present Illness This is a 64-year-old man who presented to the emergency room with a chief complaint of chest pain for one week. Describes his chest pain as left-sided, stabbing like, intermittent, radiating to his left arm as a numbness sensation, associated with shortness of breath with exhalation making his chest pain worse. The pain was reproducible upon palpation over the left chest wall area. Serial troponin levels are negative. A 12 lead electrocardiogram revealed a sinus rhythm with a evidence of ischemia and a prolonged QTc at 525 ms. Follows up in the outpatient setting with Dr. Carrion with last appointment on 07/02/2024. At that time, he was scheduled for a cardiac catheterization which is pending at this time. Significant medical history includes PTCA and IVUS guided PCI of the proximal to mid diagonal branch including 1DES on 06/14/2023 and on Plavix therapy, paroxysmal atrial fibrillation on amiodarone and Eliquis therapy, i schemic cardiomyopathy, hypertension, dyslipidemia, COPD, depression, and history of tobacco use. Past Medical History Past medical history reviewed. No other significant than mentioned above. Past Surgical History PTCA with stent placement on 05/2023 Family History: Dementia G8 FATHER Family History Family history reviewed. Social History Denies the use of illicit drugs, alcohol, or tobacco use. Allergies: Coded Allergies: NO KNOWN ALLERGIES (Unverified , 09/04/21) Home Meds Active Scripts Hydrocodone-Acetaminophen (Hydrocodone/Acetaminophen 5-325 mg) 1 Tab Tab, 1 TAB PO TIDP PRN for 8 Days, #24 TAB Prov:GUSTAVO FLOR MD 02/29/24 Cyclobenzaprine Hcl (Cyclobenzaprine Hcl) 10 Mg Tab, 10 MG PO TIDP PRN for 10 Days, #30 TAB Prov:GUSTAVO FLOR MD 02/29/24 Amiodarone Hcl (Amiodarone Hcl) 200 Mg Tab, 200 MG PO BID for 30 Days, #60 TAB 3 Refills Prov:GUSTAVO FLOR MD 02/29/24 Gabapentin (Gabapentin) 300 Mg Cap, 300 MG PO BID for 30 Days, #60 CAP Prov:GUSTAVO FLOR MD 02/29/24 Atorvastatin Calcium (ATORVASTATIN CALCIUM) 20 Mg Tab, 40 MG PO HS for 30 Days, #30 TAB 3 Refills Prov:GUSTAVO FLOR MD 02/29/24 Spironolactone (Aldactone) 25 Mg Tab, 25 MG PO DAILY for 30 Days, #30 TAB 3 Refills Prov:GUSTAVO FLOR MD 02/29/24 Sacubitril-Valsartan (Entresto 24-26 mg) 1 Tab Tab, 0.5 TAB PO BID for 30 Days, #30 TAB 3 Refills Prov:GUSTAVO FLOR MD 02/29/24 Prednisone (Prednisone) 20 Mg Tab, 20 MG PO DAILY for 5 Days, #10 TAB Prov:GUSTAVO FLOR MD 02/29/24 Empagliflozin (Jardiance) 10 Mg Tab, 10 MG PO DAILY for 30 Days, #30 TAB 3 Refills Prov:GUSTAVO FLOR MD 02/29/24 Amiodarone Hcl (Amiodarone Hcl) 200 Mg Tab, 200 MG PO BID for 30 Days, #60 TAB 3 Refills Prov:GUSTAVO FLOR MD 02/15/24 Reported Medications Hydroxyzine Hcl (Hydroxyzine Hcl) 25 Mg Tab, 1 TAB PO TID PRN for ANXIETY 02/23/24 Losartan Potassium (Losartan Potassium) 25 Mg Tab, 1 TAB PO DAILY 02/23/24 Tramadol Hcl (Tramadol Hcl) 50 Mg Tab, 1 TAB PO DAILY PRN for PAIN 02/23/24 Aspirin (Chewable Aspirin) 81 Mg Chw, 1 TAB PO DAILY 02/23/24 Hydrocortisone (Topical) (Hydrocortisone) 2.5 % Lot, 1 APPLIC TOP BID APPLY EXTERNALLY TO THE AFFECTED AREA TWICE DAILY FOR 14 DAYS, THEN 2 WEEKS OFF. 02/23/24 Hydrocodone-Acetaminophen (Hydrocodone Bitartrate/AC 5-325 mg) 1 Tab Tab, 1 TAB PO Q4HP PRN for PAIN SCALE 7 THRU 10 02/22/24 Quetiapine Fumerate (QUETIAPINE FUMARATE) 50 Mg Tab, 1 TAB PO HS TAKE 1-2 TABS AT NIGHT. 02/22/24 Fluoxetine Hcl (Fluoxetine Hcl) 10 Mg Tab, 1 CAP PO DAILY 02/22/24 Buspirone Hcl (Buspirone Hcl) 10 Mg Tab, 1 TAB PO DAILY 02/22/24 Home Meds Home medications reviewed. Current Medications Current Medications Medications (Trade) Dose Ordered Sig/Parul Route PRN Reason Start Time Stop Time Status Last Admin Albuterol (Ventolin Medneb) 2.5 mg Q6H NEB 08/16/24 09:45 08/16/24 10:38 DC Ipratropium [place] (Atrovent Medneb) 0.5 mg Q6H NEB 08/16/24 09:45 08/16/24 10:37 DC Methylprednisolone Sodium Succinate (Solu Medrol) 62.5 mg Q6H IV 08/16/24 09:45 08/16/24 15:17 Sodium Chloride (Saline Lock Ns) 10 ml Q8HR IV 08/16/24 14:00 08/16/24 14:06 Docusate Sodium (Colace Capsule) 100 mg BIDPRN PRN PO FOR CONSTIPATION 08/16/24 09:45 Acetaminophen (Tylenol Tablet) 650 mg Q6HP PRN PO PAIN SCALE 1-3 OR TEMP>100.4 08/16/24 09:45 Acetaminophen/ Hydrocodone Bitart ([place] 5/325MG Tab) 1 tab Q4HP PRN PO MODERATE PAIN (4-6 PAIN SCALE) 08/16/24 09:45 08/16/24 11:45 Hydromorphone HCl (Dilaudid Injection) 0.5 mg Q4HP PRN IV SEVERE PAIN (7-10 PAIN SCALE) 08/16/24 09:45 08/16/24 15:24 Ondansetron HCl (Zofran) 4 mg Q4HP PRN IV NAUSEA / VOMITING 08/16/24 09:45 Enoxaparin Sodium (Lovenox) 40 mg DAILY SC 08/16/24 10:00 08/16/24 10:54 Nitroglycerin (Ntrostat Sublingual) 0.4 mg Q5MINP PRN SL FOR CHEST PAIN 08/16/24 09:45 Morphine Sulfate 2 mg Q30M PRN IV FOR CHEST PAIN 08/16/24 09:45 Amiodarone HCl (Cordarone Tablet) 200 mg BID PO 08/16/24 10:00 08/16/24 10:56 Buspirone HCl (Buspar Tablet) 10 mg DAILY PO 08/16/24 10:00 08/16/24 10:56 Empaglifozin (Jardiance) 10 mg DAILY PO 08/16/24 10:00 08/16/24 10:00 Fluoxetine HCl (PROzac CAPSULE) 10 mg DAILY PO 08/16/24 10:00 08/16/24 10:56 Gabapentin (Neurontin Capsule) 300 mg BID PO 08/16/24 10:00 08/16/24 10:56 Sacubitril/ Valsartan (Entresto 24-26 Mg tab) 0.5 tab BID PO 08/16/24 10:00 08/16/24 11:00 Spironolactone (Aldactone) 25 mg DAILY PO 08/16/24 10:00 08/16/24 10:57 Patient Own Medication 1 tab DAILY PO 08/16/24 10:00 UNV Patient Own Medication 1 tab HS PO 08/16/24 22:00 08/16/24 09:43 DC Pantoprazole Sodium (Protonix) 40 mg DAILY IV 08/16/24 10:00 08/16/24 10:55 Albuterol (Ventolin Medneb) 2.5 mg Q6H NEB 08/16/24 12:00 Cancel Ipratropium [place] (Atrovent Medneb) 0.5 mg Q6H NEB 08/16/24 12:00 08/16/24 12:16 Aspirin 81 mg DAILY PO 08/17/24 10:00 Levalbuterol HCl (Xopenex Medneb) 0.625 mg Q6HR NEB 08/16/24 12:00 08/16/24 12:15 Review of Systems Constitutional: No symptom reported Ears, Nose, & Throat: No symptom reported Eyes: No symptom reported Neurological: No symptoms reported Pulmonary/Respiratory: SOB Cardiovascular: Chest pain Gastrointestinal: No symptom reported Genitourinary: No symptom reported Musculoskeletal: No symptom reported Skin: No symptom reported Psychiatric: No symptom reported Endocrine: No symptom reported Hemotologic/Lymphatic: No symptom reported Vital Signs Vital Signs Date Time Temp Pulse Resp B/P (MAP) Pulse Ox O2 Delivery O2 Flow Rate FiO2 08/16/24 15:24 97 16 113/67 08/16/24 13:52 97.8 97 97.8 08/16/24 13:52 Room Air 08/16/24 12:16 2 28 Physical Exam General Appearance: Cooperative. Well developed. Well nourished. In no acute distress Head Exam: Normal inspection Neck Exam: Normal inspection. Non-tender. Normal alignment Pulmonary/Respiratory: Chest non-tender. Expiratory wheezing/coarse to bilateral breath sounds Cardiovascular/Chest: Regular rate and rhythm. S1, S2. Sinus tachycardia with prolonged QTc at 525 ms. No murmurs. No JVD. Peripheral Pulses: 2+ Radial (R). 2+ Radial (L). 2+ Pedal (R). 2+ Pedal (L) Abdominal Exam: Normal bowel sounds. Soft. Nontender. No hepatospenomegaly. No masses Ankle Exam: Negative ankle edema Lower extremities: Negative lower extremity edema Neuro/Mental Status: A&O x4. Coherent Thoughts/Psych: Normal thought pattern. Appropriate mood and affect. Anxious Appearance: In no acute distress Skin Exam: Normal inspection. Normal color. Warm. Dry Labs/Diagnostic Data Labs Test 08/16/24 10:32 08/16/24 07:50 08/16/24 04:45 Range/Units Urine Color Light-yellow Yellow Urine Clarity Clear Clear Urine pH 5.5 5.0-9.0 Urine Specific [place] 1.012 1.001-1.035 Urine Protein Negative Negative Urine Ketones Negative Negative Urine Blood Negative Negative /uL Urine Nitrite Negative Negative Urine Bilirubin Negative Negative Urine Urobilinogen Normal Negative mg/dL Urine Leukocyte Esterase Negative Negative /uL Urine RBC 1 0 - 3 /hpf Urine WBC 1 0 - 3 /hpf Urine Squamous Epithelial Cells None seen <5 /hpf Urine Bacteria None seen None Seen /hpf Urine Glucose Normal Normal mg/dL Troponin I High Sensitivity < 3 L </=54 ng/L White Blood Count 8.9 4.4-10.8 10^3/uL Red Blood Count 4.51 4.5-5.90 10^6/uL Hemoglobin 15.0 13.5-17.5 g/dL Hematocrit 43.8 41.0-53.0 % Mean Corpuscular Volume 97.1 80.0-100.0 fL Mean Corpuscular Hemoglobin 33.1 H 28.0-32.0 pg Mean Corpuscular Hemoglobin Concent 34.1 32.0-36.0 g/dL Red Cell Distribution Width 14.3 11.8-14.3 % Platelet Count 231 140-450 10^3/uL Mean Platelet Volume 8.4 6.9-10.8 fL Neutrophils (%) (Auto) 37.0-80.0 % Lymphocytes (%) (Auto) 10.0-50.0 % Monocytes (%) (Auto) 0.0-12.0 % Eosinophils (%) (Auto) 0.0-7.0 % Basophils (%) (Auto) 0.0-2.0 % Neutrophils # (Auto) 1.6-8.6 10 ^3/uL Lymphocytes # (Auto) 0.4-5.4 10 ^3/uL Monocytes # (Auto) 0-1.3 10 ^3/uL Differential Total Cells Counted 100.0 100 Neutrophils % (Manual) 37 37.0-80.0 Band Neutrophils % (Manual) 0 Lymphocytes % (Manual) 25 10.0-50.0 Monocytes % (Manual) 14 H 0-12 Eosinophils % (Manual) 24 H 0-7 Basophils % (Manual) 0 0.0-2.0 Metamyelocytes % (manual) 0 Myelocytes % (Manual) 0 Promyelocytes % (Manual) 0 Blast Cells % (Manual) 0 Reactive Lymphocytes 0 Platelet Estimate Adequate Sodium Level 137 136-145 mmol/L Potassium Level 3.4 L 3.5-5.1 mmol/L Chloride Level 106 98-107 mmol/L Carbon Dioxide Level 20 20-31 mmol/L Anion Gap 11 5-15 Blood Urea Nitrogen 9 9-23 mg/dL Creatinine 0.94 0.700-1.30 mg/dL Glomerular Filtration Rate Calc 91 >90 mL/min BUN/Creatinine Ratio 9.6 L 10.0-20.0 Serum Glucose 122 H 74-106 mg/dL Calcium Level 9.5 8.7-10.4 mg/dL Total Bilirubin 0.8 0.2-1.0 mg/dL Aspartate Amino Transferase (AST) 46 H 13-40 U/L Alanine Aminotransferase (ALT) 47 H 7-40 U/L Alkaline Phosphatase 155 H 46-116 U/L B-Type Natriuretic Peptide 20.21 0-100 pg/mL Total Protein 7.9 5.7-8.2 g/dL Albumin 5.0 H 3.2-4.8 g/dL Assessment Pleuritic chest pain COPD exacerbation with acute hypoxic respiratory failure Compensated ischemic cardiomyopathy with an EF of 40% Paroxysmal atrial fibrillation, on amiodarone/Eliquis at home Coronary artery disease status post PTCA including one JOSIANE Hypertension Dyslipidemia Hx tobacco use Plan/Recommendation (Dr. Carrion) The patient presents with pleuritic chest pain likely secondary to COPD exacerbation. Nevertheless, this patient was scheduled for an outpatient cardiac catheterization and coronary angiogram which will be completed during this hospital stay. We will also obtain a transthoracic echocardiogram to reassess left ventricular function. In the meantime, continue single- antiplatelet therapy, lipid lowering agent, and therapeutic Lovenox (hold day of procedure). Continue GDMT for CHF and uptitrate as tolerated. Monitor ECG changes and notify. Thank you for allowing us to participate in this patient's care. Please call if you have any questions or concerns. This medical document was created using an electronic medical record system with voice recognition software and computerized dictation system. Although this document has been carefully reviewed, there might still be some phonetic and typographical errors. Occasional wrong-word or ``sound-alike substitutions may have occurred due to the inherent limitations of voice recognition software. These areas are purely typographical due to imperfections of the software programs and do not reflect any compromise in the patient's medical care. Please read the chart carefully and recognize, using context, where these substitutions have occurred. Plan discussed with: Patient, Other Date of Service: Aug 16, 2024 Billing Provider: SHELLY CARRION MD Cardiology Common Codes: 68561-[id number] INP/OBS CARE (High) MICHAEL WHEELER [facility] Aug 16, 2024 17:05
[2024-08-16 17:22] LABS: Magnesium 2.1 mg/dL (1.6-2.6)
--- NOTE | 2024-08-16 17:26 | DVHINCON2 ---
Date of service: Aug 16, [address] Quevedo Reason for Consultation Asthma exacerbation History of Present Illness 64-year-old man history of atrial fibrillation, CHF, COPD, hyperlipidemia, hypertension, myocardial infarction, CAD status post PTCA who presented with a chief complaint of chest pain. The pain woke him up from sleep. It has been going on for the last week. The pain is across his chest diffusely. It was a constant pressure-like in nature. It radiates to his left arm and hand. It was associated with left arm numbness and tingling. It was associated with shortness of breath. Pulmonary consultation is called due to hypoxia and shortness of breath. Review of systems: 14 point review of systems is negative unless otherwise noted above. Past medical history:atrial fibrillation, CHF, COPD, hyperlipidemia, hypertension, myocardial infarction, Past surgical history: CAD status post PTCA Medications: Reviewed Allergies: No known drug allergies. Family history: No family history of premature CAD. No family history of lung disease Social history: Cigarette smoker. No alcohol or illicit drug use. Lives at home. Family History: Dementia G8 FATHER Allergies: Coded Allergies: NO KNOWN ALLERGIES (Unverified , 09/04/21) Home Meds Active Scripts Hydrocodone-Acetaminophen (Hydrocodone/Acetaminophen 5-325 mg) 1 Tab Tab, 1 TAB PO TIDP PRN for 8 Days, #24 TAB Prov:GUSTAVO FLOR MD 02/29/24 Cyclobenzaprine Hcl (Cyclobenzaprine Hcl) 10 Mg Tab, 10 MG PO TIDP PRN for 10 Days, #30 TAB Prov:GUSTAVO FLOR MD 02/29/24 Amiodarone Hcl (Amiodarone Hcl) 200 Mg Tab, 200 MG PO BID for 30 Days, #60 TAB 3 Refills Prov:GUSTAVO FLOR MD 02/29/24 Gabapentin (Gabapentin) 300 Mg Cap, 300 MG PO BID for 30 Days, #60 CAP Prov:GUSTAVO FLOR MD 02/29/24 Atorvastatin Calcium (ATORVASTATIN CALCIUM) 20 Mg Tab, 40 MG PO HS for 30 Days, #30 TAB 3 Refills Prov:GUSTAVO FLOR MD 02/29/24 Spironolactone (Aldactone) 25 Mg Tab, 25 MG PO DAILY for 30 Days, #30 TAB 3 Refills Prov:GUSTAVO FLOR MD 02/29/24 Sacubitril-Valsartan (Entresto 24-26 mg) 1 Tab Tab, 0.5 TAB PO BID for 30 Days, #30 TAB 3 Refills Prov:GUSTAVO FLOR MD 02/29/24 Prednisone (Prednisone) 20 Mg Tab, 20 MG PO DAILY for 5 Days, #10 TAB Prov:GUSTAVO FLOR MD 02/29/24 Empagliflozin (Jardiance) 10 Mg Tab, 10 MG PO DAILY for 30 Days, #30 TAB 3 Refills Prov:GUSTAVO FLOR MD 02/29/24 Amiodarone Hcl (Amiodarone Hcl) 200 Mg Tab, 200 MG PO BID for 30 Days, #60 TAB 3 Refills Prov:GUSTAVO FLOR MD 02/15/24 Reported Medications Hydroxyzine Hcl (Hydroxyzine Hcl) 25 Mg Tab, 1 TAB PO TID PRN for ANXIETY 02/23/24 Losartan Potassium (Losartan Potassium) 25 Mg Tab, 1 TAB PO DAILY 02/23/24 Tramadol Hcl (Tramadol Hcl) 50 Mg Tab, 1 TAB PO DAILY PRN for PAIN 02/23/24 Aspirin (Chewable Aspirin) 81 Mg Chw, 1 TAB PO DAILY 02/23/24 Hydrocortisone (Topical) (Hydrocortisone) 2.5 % Lot, 1 APPLIC TOP BID APPLY EXTERNALLY TO THE AFFECTED AREA TWICE DAILY FOR 14 DAYS, THEN 2 WEEKS OFF. 02/23/24 Hydrocodone-Acetaminophen (Hydrocodone Bitartrate/AC 5-325 mg) 1 Tab Tab, 1 TAB PO Q4HP PRN for PAIN SCALE 7 THRU 10 02/22/24 Quetiapine Fumerate (QUETIAPINE FUMARATE) 50 Mg Tab, 1 TAB PO HS TAKE 1-2 TABS AT NIGHT. 02/22/24 Fluoxetine Hcl (Fluoxetine Hcl) 10 Mg Tab, 1 CAP PO DAILY 02/22/24 Buspirone Hcl (Buspirone Hcl) 10 Mg Tab, 1 TAB PO DAILY 02/22/24 Current Medications Current Medications Medications (Trade) Dose Ordered Sig/Parul Route PRN Reason Start Time Stop Time Status Last Admin Albuterol (Ventolin Medneb) 2.5 mg Q6H NEB 08/16/24 09:45 08/16/24 10:38 DC Ipratropium [place] (Atrovent Medneb) 0.5 mg Q6H NEB 08/16/24 09:45 08/16/24 10:37 DC Methylprednisolone Sodium Succinate (Solu Medrol) 62.5 mg Q6H IV 08/16/24 09:45 08/16/24 15:17 Sodium Chloride (Saline Lock Ns) 10 ml Q8HR IV 08/16/24 14:00 08/16/24 14:06 Docusate Sodium (Colace Capsule) 100 mg BIDPRN PRN PO FOR CONSTIPATION 08/16/24 09:45 Acetaminophen (Tylenol Tablet) 650 mg Q6HP PRN PO PAIN SCALE 1-3 OR TEMP>100.4 08/16/24 09:45 Acetaminophen/ Hydrocodone Bitart ([place] 5/325MG Tab) 1 tab Q4HP PRN PO MODERATE PAIN (4-6 PAIN SCALE) 08/16/24 09:45 08/16/24 11:45 Hydromorphone HCl (Dilaudid Injection) 0.5 mg Q4HP PRN IV SEVERE PAIN (7-10 PAIN SCALE) 08/16/24 09:45 08/16/24 17:00 DC 08/16/24 15:24 Ondansetron HCl (Zofran) 4 mg Q4HP PRN IV NAUSEA / VOMITING 08/16/24 09:45 Enoxaparin Sodium (Lovenox) 40 mg DAILY SC 08/16/24 10:00 08/16/24 17:00 DC 08/16/24 10:54 Nitroglycerin (Ntrostat Sublingual) 0.4 mg Q5MINP PRN SL FOR CHEST PAIN 08/16/24 09:45 Morphine Sulfate 2 mg Q30M PRN IV FOR CHEST PAIN 08/16/24 09:45 Amiodarone HCl (Cordarone Tablet) 200 mg BID PO 08/16/24 10:00 08/16/24 10:56 Buspirone HCl (Buspar Tablet) 10 mg DAILY PO 08/16/24 10:00 08/16/24 10:56 Empaglifozin (Jardiance) 10 mg DAILY PO 08/16/24 10:00 08/16/24 10:00 Fluoxetine HCl (PROzac CAPSULE) 10 mg DAILY PO 08/16/24 10:00 08/16/24 10:56 Gabapentin (Neurontin Capsule) 300 mg BID PO 08/16/24 10:00 08/16/24 10:56 Sacubitril/ Valsartan (Entresto 24-26 Mg tab) 0.5 tab BID PO 08/16/24 10:00 08/16/24 11:00 Spironolactone (Aldactone) 25 mg DAILY PO 08/16/24 10:00 08/16/24 17:04 DC 08/16/24 10:57 Patient Own Medication 1 tab DAILY PO 08/16/24 10:00 UNV Patient Own Medication 1 tab HS PO 08/16/24 22:00 08/16/24 09:43 DC Pantoprazole Sodium (Protonix) 40 mg DAILY IV 08/16/24 10:00 08/16/24 10:55 Albuterol (Ventolin Medneb) 2.5 mg Q6H NEB 08/16/24 12:00 Cancel Ipratropium [place] (Atrovent Medneb) 0.5 mg Q6H NEB 08/16/24 12:00 08/16/24 12:16 Aspirin 81 mg DAILY PO 08/17/24 10:00 08/16/24 17:00 DC Levalbuterol HCl (Xopenex Medneb) 0.625 mg Q6HR NEB 08/16/24 12:00 08/16/24 12:15 Clopidogrel Bisulfate (Plavix) 75 mg DAILY PO 08/17/24 10:00 Enoxaparin Sodium (Lovenox) 80 mg Q12HR SC 08/16/24 22:00 UNV Furosemide (Lasix Tablet) 20 mg DAILY PO 08/17/24 10:00 Spironolactone (Aldactone) 12.5 mg DAILY PO 08/17/24 10:00 Metoprolol Succinate (Toprol Xl) 25 mg DAILY PO 08/17/24 10:00 Vital Signs Vital Signs Date Time Temp Pulse Resp B/P (MAP) Pulse Ox O2 Delivery O2 Flow Rate FiO2 08/16/24 16:38 89 16 101/69 (80) 95 08/16/24 13:52 97.8 97.8 08/16/24 13:52 Room Air 08/16/24 12:16 2 28 Physical Exam Gen.: Patient lying in bed in no apparent distress. On supplemental oxygen. Head: Normocephalic, atraumatic Eyes: EOMI/PERRLA. Ears: Normal hearing. Normal anatomy. Neck/trachea: Trachea midline, supple. Nose: Normal external anatomy. Mouth: Moist mucous membranes. Chest: Fair air entry bilaterally. Positive wheezing. No rhonchi. Cardio vascular: Positive S1, positive S2. Regular rate and rhythm. Abdomen: Positive bowel sounds in all 4 quadrants. Soft, non-tender, non- distended. : Deferred. Rectal: Deferred Skin: Warm, dry. Extremities: 2+ radial pulses bilaterally. No lower extremity edema. Neuro: Awake, alert, oriented x3. No gross motor or sensory deficits. Cranial nerves II through XII intact. Gait not assessed. Labs/Diagnostic Data Labs Test 08/16/24 10:32 08/16/24 07:50 08/16/24 04:45 Range/Units Urine Color Light-yellow Yellow Urine Clarity Clear Clear Urine pH 5.5 5.0-9.0 Urine Specific [place] 1.012 1.001-1.035 Urine Protein Negative Negative Urine Ketones Negative Negative Urine Blood Negative Negative /uL Urine Nitrite Negative Negative Urine Bilirubin Negative Negative Urine Urobilinogen Normal Negative mg/dL Urine Leukocyte Esterase Negative Negative /uL Urine RBC 1 0 - 3 /hpf Urine WBC 1 0 - 3 /hpf Urine Squamous Epithelial Cells None seen <5 /hpf Urine Bacteria None seen None Seen /hpf Urine Glucose Normal Normal mg/dL Troponin I High Sensitivity < 3 L </=54 ng/L White Blood Count 8.9 4.4-10.8 10^3/uL Red Blood Count 4.51 4.5-5.90 10^6/uL Hemoglobin 15.0 13.5-17.5 g/dL Hematocrit 43.8 41.0-53.0 % Mean Corpuscular Volume 97.1 80.0-100.0 fL Mean Corpuscular Hemoglobin 33.1 H 28.0-32.0 pg Mean Corpuscular Hemoglobin Concent 34.1 32.0-36.0 g/dL Red Cell Distribution Width 14.3 11.8-14.3 % Platelet Count 231 140-450 10^3/uL Mean Platelet Volume 8.4 6.9-10.8 fL Neutrophils (%) (Auto) 37.0-80.0 % Lymphocytes (%) (Auto) 10.0-50.0 % Monocytes (%) (Auto) 0.0-12.0 % Eosinophils (%) (Auto) 0.0-7.0 % Basophils (%) (Auto) 0.0-2.0 % Neutrophils # (Auto) 1.6-8.6 10 ^3/uL Lymphocytes # (Auto) 0.4-5.4 10 ^3/uL Monocytes # (Auto) 0-1.3 10 ^3/uL Differential Total Cells Counted 100.0 100 Neutrophils % (Manual) 37 37.0-80.0 Band Neutrophils % (Manual) 0 Lymphocytes % (Manual) 25 10.0-50.0 Monocytes % (Manual) 14 H 0-12 Eosinophils % (Manual) 24 H 0-7 Basophils % (Manual) 0 0.0-2.0 Metamyelocytes % (manual) 0 Myelocytes % (Manual) 0 Promyelocytes % (Manual) 0 Blast Cells % (Manual) 0 Reactive Lymphocytes 0 Platelet Estimate Adequate Sodium Level 137 136-145 mmol/L Potassium Level 3.4 L 3.5-5.1 mmol/L Chloride Level 106 98-107 mmol/L Carbon Dioxide Level 20 20-31 mmol/L Anion Gap 11 5-15 Blood Urea Nitrogen 9 9-23 mg/dL Creatinine 0.94 0.700-1.30 mg/dL Glomerular Filtration Rate Calc 91 >90 mL/min BUN/Creatinine Ratio 9.6 L 10.0-20.0 Serum Glucose 122 H 74-106 mg/dL Calcium Level 9.5 8.7-10.4 mg/dL Total Bilirubin 0.8 0.2-1.0 mg/dL Aspartate Amino Transferase (AST) 46 H 13-40 U/L Alanine Aminotransferase (ALT) 47 H 7-40 U/L Alkaline Phosphatase 155 H 46-116 U/L B-Type Natriuretic Peptide 20.21 0-100 pg/mL Total Protein 7.9 5.7-8.2 g/dL Albumin 5.0 H 3.2-4.8 g/dL Assessment Impression: Acute hypoxic respiratory failure 2/2 AE COPD COPD exacerbation Nicotine dependence Chest pain, rule out ACS Elevated liver function tests CAD s/p PTCA Plan: Chest x-ray imaging report reviewed. No acute opacities. No pleural effusion or pneumothorax. Supplemental oxygen on 2 liters/minute via nasal cannula earlier today. Taper to room air. Monitor O2 saturations closely. Wheezing noted Recommend bronchodilators Steroids On amnio p.o. Cardiology recommendations appreciated. Currently on therapeutic Lovenox. Maintain euvolemia with Lasix Monitor ins and outs. Monitor renal function Monitor electrolytes Supplement as necessary. Bronchodilators Smoking cessation discussed for greater than 10 minutes. IV steroids for asthma versus COPD exacerbation. GI prophylaxis-Protonix DVT prophylaxis-on therapeutic Lovenox Prognosis: Poor given multiple comorbidities. Rest of plan per hospitalist and other consultants. Thank you Dr. Quevedo for allowing me to participate in this patient's care. Further recommendations will depend on patient's clinical course. Please do not hesitate to contact me if you have any questions or concerns. This medical document was created using an electronic medical record system with [employer] dictation system. Although this document has been carefully reviewed, there may still be some phonetic and typographical errors. These areas are purely typographical due to imperfections of the software programs, and do not reflect any compromise in the patient's medical care. Plan discussed with: Patient, Other (RN, MD) BRIANDA KAY MD Aug 16, 2024 17:26
[2024-08-16] MEDS ORDERED: PATIENTS OWN MEDICATION (Quetiapine Fumerate (Quetiapine Fumarate) 1 TAB) PO SCH (22:00)
[2024-08-16] MEDS: ENOXAPARIN SOD 80 MG/0.8ML SYRINGE SC SCH (22:18)
[2024-08-16] MEDS: MORPHINE SULFATE INJ 2 MG/ml SYRG IV PRN (23:27)
[2024-08-16] MEDS: LORazepam 0.5 MG TAB PO PRN (23:28)
[2024-08-17] VITALS (21 sets, daily range): BP systolic 100–115; BP diastolic 60–76; PULSE 80–139; RESP 12–22; TEMP 97.7–99.4; O2SAT 92–100
[2024-08-17 06:02] LABS: Basophils # (auto) 0 10 ^3/uL (0-0.2); Basophils % (auto) 0.1 % (0.0-2.0); Eosinophils # (auto) 0 10 ^3/uL (0-0.8); Eosinophils % (auto) 0.1 % (0.0-7.0); Hematocrit 40.8 % (41.0-53.0); Hemoglobin 14.2 g/dL (13.5-17.5); Lymphocytes # (auto) 1.1 10 ^3/uL (0.4-5.4); Lymphocytes % (auto) 14.3 % (10.0-50.0); Mean Corpuscular Hemoglobin 33.7 pg (28.0-32.0); Mean Corpuscular Hgb Conc. 34.8 g/dL (32.0-36.0); Mean Corpuscular Volume 96.9 fL (80.0-100.0); Monocytes # (auto) 0.1 10 ^3/uL (0-1.3); Monocytes % (auto) 1.1 % (0.0-12.0); Neutrophils # (auto) 6.3 10 ^3/uL (1.6-8.6); Neutrophils % (auto) 84.4 % (37.0-80.0); Platelet Count (auto) 250 10^3/uL (140-450); Red Blood Cells 4.21 10^6/uL (4.5-5.90); Red Cell Distribution Width 13.9 % (11.8-14.3); White Blood Cell 7.5 10^3/uL (4.4-10.8)
[2024-08-17 06:18] LABS: INR 1.08 (0.9-1.15); Partial Thromboplastin Time 27.6 SEC (24.5-34.5); Prothrombin Time 11.4 sec (9.3-11.8)
[2024-08-17 06:24] LABS: Alanine Aminotransferase 45 U/L (7-40); Albumin 4.7 g/dL (3.2-4.8); Alkaline Phosphatase 130 U/L (46-116); Anion Gap 13 (5-15); Aspartate Aminotransferase 41 U/L (13-40); BUN/Creatinine Ratio 16.1 (10.0-20.0); Bilirubin, Total 0.7 mg/dL (0.2-1.0); Blood Urea Nitrogen 18 mg/dL (9-23); Calcium 9.6 mg/dL (8.7-10.4); Carbon Dioxide 20 mmol/L (20-31); Chloride 103 mmol/L (98-107); Glucose 180 mg/dL (74-106); Potassium 3.7 mmol/L (3.5-5.1); Sodium 136 mmol/L (136-145); Total Protein 7.8 g/dL (5.7-8.2)
[2024-08-17] MEDS: LEVALBUTEROL HCL 1.25 MG/3 ML NEB NEB SCH (07:01)
[2024-08-17] MEDS: IPRATROPIUM BROM 0.5 MG/2.5ML INH SOL NEB SCH (07:01)
[2024-08-17] MEDS: CLOPIDOGREL BISULFATE 75 MG TAB PO SCH (10:00)
[2024-08-17] MEDS: METOPROLOL SUCCINATE XL 50 MG TAB PO SCH (10:00)
[2024-08-17] MEDS ORDERED: ASPirin 81 mg TAB PO SCH (10:00)
[2024-08-17] MEDS: FUROSEMIDE 20 MG TAB PO SCH (10:00)
--- NOTE | 2024-08-17 10:08 | DVHPNRES ---
Progress Note Date Seen: Aug 17, 2024 Resident Creating Document: MALACHI BRITTON RESIDENT Medical Necessity Reason Pt with a Central, PICC or Fol: No Subjective Review of Systems Patient is a 64-year-old male with past medical history of COPD, paroxysmal atrial fibrillation, chronic diastolic heart failure, CAD s/p PCI, 1 stent in May 2023, hypertension, dyslipidemia, depression who came in due to dyspnea and shortness of breaths. Patient says that for the past 2 weeks he has also been experiencing a chest pain that has been progressively worsening and increasing in intensity. According to the patient, on 08/16/2024 his chest pain got worse and he could not get up, he describes the pain as sharp, constant and localized to midepigastric area. Shortly after as he finished a breathing treatment for his COPD, he started feeling more and more shortness of breath along with gasping for air which prompted this visit to the hospital. Past surgical history: PTCA Home medications: Amiodarone, simvastatin, buspirone, Jardiance, gabapentin, losartan, prednisolone, quetiapine, Entresto, spironolactone, tramadol Past Hospitalization: In February 2024 for COPD exacerbation Social & Personal history: Patient lives with his . Quit smoking 2 years ago, prior to that was smoking 3 cigarettes per day for 12 years. Denies using alcohol or drugs. Allergies: Denies Patient seen and examined at bedside. Patient is alert and oriented to time, place person and responding to all questions. Patient is short of breaths, having frequent coughing spells accompanied with chest pain. General: Fatigue and fevers Eyes: No Pain, No Vision change, No Conjunctivae inflammation, No Eyelid inflammation, No Other, No Redness ENT: No Ear pain, No Ear discharge, No Nose pain, No Nose discharge, No Nose congestion, No Mouth pain, No Mouth swelling, No Throat pain, No Throat swelling, No Other Cardiovascular: Chest Pain, Palpitations, No Orthopnea, Dyspnea, No Edema, No Lt Headedness, No Other Respiratory: Cough productive of yellowish phlegm, Shortness of breath, SOB with exertion, No Wheezing, No Hemoptysis, No Pleuritic Pain, No Sputum, No Other Gastrointestinal: No Nausea, No Vomiting, No Abdominal Pain, No Diarrhea, No Constipation, No Melena, No Hematochezia, No Other Genitourinary: No Dysuria, No Frequency, No Incontinence, No Hematuria, No Retention, No Other Musculoskeletal: No other, No neck pain, No shoulder pain, No arm pain, No back pain, No hand pain, No leg pain, No foot pain Skin: No Rash, No Lesions, No Jaundice, No Bruising, No Other Objective vital signs Vital Sign Date Time Temp Pulse Resp B/P (MAP) Pulse Ox O2 Delivery O2 Flow Rate FiO2 08/17/24 08:50 98.4 93 22 109/71 (84) 93 98.4 08/17/24 07:01 Nasal Cannula 4.0 08/17/24 07:01 36 Total Intake and Output 08/16/24 08/16/24 08/17/24 15:00 23:00 07:00 Intake Total 700 ml Balance 700 ml medications Current Medications Medications Dose Ordered Sig/Parul Route Start Time Stop Time Status Last Admin Dose Admin Methylprednisolone Sodium Succinate 62.5 mg Q6H IV 08/16/24 09:45 08/17/24 03:31 62.5 MG Sodium Chloride 10 ml Q8HR IV 08/16/24 14:00 08/17/24 06:00 10 ML Docusate Sodium 100 mg BIDPRN PRN PO 08/16/24 09:45 Acetaminophen 650 mg Q6HP PRN PO 08/16/24 09:45 Acetaminophen/ Hydrocodone Bitart 1 tab Q4HP PRN PO 08/16/24 09:45 08/16/24 21:14 1 TAB Ondansetron HCl 4 mg Q4HP PRN IV 08/16/24 09:45 Nitroglycerin 0.4 mg Q5MINP PRN SL 08/16/24 09:45 Morphine Sulfate 2 mg Q30M PRN IV 08/16/24 09:45 08/17/24 04:45 2 MG Amiodarone HCl 200 mg BID PO 08/16/24 10:00 08/16/24 22:18 200 MG Buspirone HCl 10 mg DAILY PO 08/16/24 10:00 08/16/24 10:56 10 MG Empaglifozin 10 mg DAILY PO 08/16/24 10:00 08/16/24 10:00 10 MG Fluoxetine HCl 10 mg DAILY PO 08/16/24 10:00 08/16/24 10:56 10 MG Gabapentin 300 mg BID PO 08/16/24 10:00 08/16/24 22:18 300 MG Sacubitril/ Valsartan 0.5 tab BID PO 08/16/24 10:00 08/16/24 22:18 0.5 TAB Patient Own Medication 1 tab DAILY PO 08/16/24 10:00 UNV Pantoprazole Sodium 40 mg DAILY IV 08/16/24 10:00 08/16/24 10:55 40 MG Albuterol 2.5 mg Q6H NEB 08/16/24 12:00 Cancel Clopidogrel Bisulfate 75 mg DAILY PO 08/17/24 10:00 Enoxaparin Sodium 80 mg Q12HR SC 08/16/24 22:00 08/16/24 22:18 80 MG Furosemide 20 mg DAILY PO 08/17/24 10:00 Spironolactone 12.5 mg DAILY PO 08/17/24 10:00 Metoprolol Succinate 25 mg DAILY PO 08/17/24 10:00 Lorazepam 0.5 mg Q8HP PRN PO 08/16/24 23:15 08/17/24 09:37 0.5 MG Ipratropium [place] 0.5 mg Q4HR [facility] 08/17/24 10:00 08/17/24 07:01 0.5 MG Levalbuterol HCl 0.625 mg Q4HR NEB 08/17/24 10:00 08/17/24 07:01 0.625 MG Examination General Appearance: Cooperative. Well developed. Well nourished. In moderate distress, coughing Head Exam: Normal inspection Neck Exam: Normal inspection. Non-tender. Normal alignment Pulmonary/Respiratory: Chest non-tender. Decreased bilateral breath sounds, no crackles, wheezing. Cardiovascular/Chest: Regular rate and rhythm. No murmurs. No JVD. Peripheral Pulses: 2+ Radial (R). 2+ Radial (L). 2+ Pedal (R). 2+ Pedal (L) Abdominal Exam: Normal bowel sounds. Soft. normal abdomen, no visible veins, Nontender. No hepatospenomegaly. No masses Ankle Exam: Negative ankle edema Lower extremities: Negative lower extremity edema Neuro/Mental Status: A&O x4. Coherent. Thoughts/Psych: Normal thought pattern. Appropriate mood and affect. Good judgement and insight Skin Exam: Normal inspection. Normal color. Warm. Dry laboratory and microbiology Laboratory Tests 08/17/24 05:04 Test 08/17/24 05:04 Range/Units Serum Glucose 180 H 74-106 mg/dL Problem List/Assessment/Plan Problem List/Assessment/Plan Acute hypoxic respiratory failure Acute exacerbation of COPD Pruritic Chest pain - CXR: No acute cardiopulmonary disease - ipratropium and levalbuterol med nebs - IV methylprednisolone 40 mg Q 8 hours Acute on chronic diastolic heart failure with ejection fraction 40% Coronary artery disease, s/p PTCA x1 stent in May 2023 Possible coronary stent thrombosis, ruled out - IV furosemide 40 mg b.i.d. - metoprolol succinate 25 mg p.o. daily, Entresto 0.5 mg b.i.d., spironolactone 12.5 mg p.o. daily - completed left heart catheterization with successful PCI to mid LAD lesion using a single drug-eluting stent. Widely patent stent to the diagonal branch from previous angioplasty. Paroxysmal atrial fibrillation, currently in sinus rhythm - amiodarone 200 mg p.o. b.i.d. - apixaban 5 mg p.o. b.i.d. Hypertension Dyslipidemia - clopidogrel 75 mg p.o. daily Depression, likely MDD vs atypical depression - buspirone 10 mg p.o. daily - fluoxetine 10 mg p.o. daily - quetiapine p.o. daily PUD prophylaxis: protonix 40mg DVT prophylaxis: Patient already on Eliquis 5 mg p.o. b.i.d. Goals of care: Full code, discussed for >16 minutes on 08/17/24 Plan discussed with patient Plan discussed with Dr. Yeager Plan discussed with: Patient, Spouse, Other (RN) Date of Service: Aug 17, 2024 Billing Provider: RODNEY YEAGER MD Common Visit Codes: [id number] INP/OBS CARE (HIGH) MALACHI BRITTON Aug 17, 2024 10:08 RODNEY YEAGER MD Aug 18, 2024 12:41
[2024-08-17] MEDS: HEPARIN IN NS 1000Units/500mL 1,500 ML ONE (10:51)
[2024-08-17] MEDS: LIDOCAINE 2%HCL (LOCAL ANESTH.) INJ 20ML MDV ONE (10:51)
[2024-08-17] MEDS: ANGIOMAX 250 MG VIAL IV ONE (10:59)
[2024-08-17] MEDS: HEPARIN SODIUM (PORCINE) 5000 UNITS/ML 1ML VIAL ONE (10:59)
[2024-08-17] MEDS: VERAPAMIL 2.5MG/ML INJ 2ML VIAL IV ONE (10:59)
[2024-08-17] MEDS: fentaNYL CITRATE 100 MCG/2 ML VL ONE (11:00)
[2024-08-17] MEDS: NITROGLYCERIN 50MG/250ML 250 ML IV ONE (11:00)
[2024-08-17] MEDS: MIDAZOLAM HCL 2MG/2ML 2ml VIAL (1mg/ml) ONE ×2 (11:00→11:15)
[2024-08-17] MEDS: SODIUM CHL 0.9% 50 ML ONE (11:00)
[2024-08-17] MEDS: IODIXANOL 320MG/ML 100ML BTL IV ONE ×2 (11:30→11:42)
[2024-08-17] MEDS: CLOPIDOGREL BISULFATE 75 MG TAB ONE (11:46)
--- NOTE | 2024-08-17 11:56 | DVHOP2 ---
Operative Report -Cardiology Report Details Date: 08/17/24 Preop Diagnosis: Angina pectoralis Postop Diagnosis: Coronary angiography revealed widely patent stent in the diagonal branch, however there is a mid lesion to the mid LAD at 80-90% for which was stented with a single drug-eluting stent. He has borderline left main 30%. Patient needs aggressive medical therapy with a crit protocol. Surgeon: Que aHy MD Anesthesiologist: Conscious sedation using25 mcg of fentanyl as well as a mg IV midazolam. It was given under the direct supervision of myself the primary deposit clerk as well as the attending nurses. Patient observed for total of35 minutes without obvious complication. Anesthesia: Local Consent: The patient was informed of the risks and benefits of the procedure. These include but are not limited to complications of anesthesia, postoperative infection, incomplete relief of symptoms, recurrence of symptoms, damage to blood vessels, nerves and tendons, deep venous thrombosis, pulmonary embolism and possible need for repeat surgery in the future. Indications for Surgery: This is a 64-year-old man who presented to the emergency room with a chief complaint of chest pain for one week. Describes his chest pain as left-sided, stabbing like, intermittent, radiating to his left arm as a numbness sensation, associated with shortness of breath with exhalation making his chest pain worse. The pain was reproducible upon palpation over the left chest wall area. Serial troponin levels are negative. A 12 lead electrocardiogram revealed a sinus rhythm with a evidence of ischemia and a prolonged QTc at 525 ms. Follows up in the outpatient setting with Dr. Hay with last appointment on 07/02/2024. At that time, he was scheduled for a cardiac catheterization which is pending at this time. Significant medical history includes PTCA and IVUS guided PCI of the proximal to mid diagonal branch including 1DES on 06/14/2023 and on Plavix therapy, paroxysmal atrial fibrillation on amiodarone and Eliquis therapy, ischemic cardiomyopathy, hypertension, dyslipidemia, COPD, depression, and history of tobacco use. Name of Procedure Performed 1. Left heart catheterization with left ventricular end-diastolic pressure measurement. 2. Selective right and left coronary angiography utilizing right transradial approach. 3. Conscious sedation using25 mcg of fentanyl as well as a mg of midazolam. 4. PCI to mid LAD lesion with single drug-eluting stent it was 2.5 x 26 akira [place] JOSIANE Procedure Details Procedure Details: Procedure note: After informed consent was obtained, risks, benefits, complications, and alternatives were discussed in details with the patient who agrees to have the procedure done. At the beginning of the procedure, the right wrist in the right groin area were prepped and draped in the regular sterile fashion. Patient received conscious sedation with 25 mcg of fentanyl as well as a mg IV midazolam. He then received total of 2 cc of 1% xylocaine to the right wrist area before a six [place] sheath was placed using modified Seldinger technique. A cocktail of 2.5 mg of verapamil as well as 100 mcg of nitrogly cerin were given intra-arterial to prevent vasospasm. Patient received 3000 heparin once the J-tip wire across the aortic arch. Findings were as follows: 1. Left heart catheterization with left ventricular end-diastolic pressure measurement: With the help of a tiger five [place] catheter as well as a J-tip wire we were able to cross the aortic valve and measured left ventricular end-diastolic pressure which was elevated at 17 mm of mercury. There was no gradient across the aortic valve on the pullback. 2. Selective right and left coronary angiography utilizing right transradial approach: 1. The right coronary artery comes off the right coronary cusp it is a large dominant system it bifurcated distally into large posterior descending artery as well as large posterolateral branch. At the proximal part of the right coronary artery there is mild disease of 30-40%. 2. The left main comes off the left coronary cusp it is a large vessels at the distal part of the left main there is a disease at 30%. It bifurcates then into a large LAD as well as medium-sized left circumflex vessel. 3. The left anterior descending artery is a large vessel with transapical course, it gives rise to a very large diagonal branch that had bifurcates into two branches. There is a stent is widely patent in the diagonal branch. However in the mid segment of the LAD after the takeoff of the diagonal branch there is a disease at 80-90% with a haziness. Likely the culprit of the rhonda ent's presentation. 4. The left circumflex artery is a medium-sized vessel it gives rise to two obtuse marginal branches has no significant atherosclerotic stenosis or disease. 3. Angioplasty to the mid LAD using single drug-eluting stent: The diagnostic catheter was exchanged for an XB 3-0 guiding catheter, a two wires of Rui nadine wires were used to engage the diagonal as well as the LAD. The lesion to the LAD was then pre-dilated using two 0 x 20 balloon up to 12 atmospheric pressure and then stented using 2.5 x 26 mm stent with excellent final result. No obvious complication was noted. ED flow re-established. Patient has no chest pain. Antiplatelet and anticoagulation during the procedure: Patient received loading dose of 300 of Plavix in addition to 162 mg of aspirin. Anticoagulation achieved using continuous infusion of IV bivalirudin Angiomax during the procedure without complication. Impression and plan: 1. Successful PCI to mid LAD lesion using single drug-eluting stent. 2. Widely patent stent to the diagonal branch from previous angioplasty. 3. [id number] left main disease at 30% for continuous colon cancer surveillance. 4. Patient would need aggressive medical therapy with risk factor modification LDL target of less than 50 mg/dL. Condition Good [facility] Clinical Frailty Scale [facility] Clinical Frailty Scale: Managing Well Stress Test Stress Test Performed: No Dominance Dominance: Right ED ED Flow: Post- Intervention (ED-3), Pre-Intervention (ED-2) Lesion Lesion Complexity: High/C Residual Stenosis post procedu: 0% Disposition QUE HAY MD Aug 17, 2024 11:56
[2024-08-17] MEDS: SPIRONOLACTONE 25 MG TAB PO SCH (14:08)
--- NOTE | 2024-08-17 14:55 | DVHPN2 ---
Consult Progress Note Date Seen: Aug 17, 2024 Subjective Review of Systems: CVS:Normal, RESPIRATORY:Abnormal, NEURO:Normal Other Systems: C/o pleuritic chest pain Objective vital signs Vital Sign Date Time Temp Pulse Resp B/P (MAP) Pulse Ox O2 Delivery O2 Flow Rate FiO2 08/17/24 13:56 97.7 88 20 101/65 (77) 95 97.7 08/17/24 07:01 Nasal Cannula 4.0 08/17/24 07:01 36 Total Intake and Output 08/16/24 08/16/24 08/17/24 15:00 23:00 07:00 Intake Total 700 ml Balance 700 ml medications Current Medications Medications Dose Ordered Sig/Parul Route Start Time Stop Time Status Last Admin Dose Admin Methylprednisolone Sodium Succinate 62.5 mg Q6H IV 08/16/24 09:45 08/17/24 14:07 62.5 MG Sodium Chloride 10 ml Q8HR IV 08/16/24 14:00 08/17/24 14:22 10 ML Docusate Sodium 100 mg BIDPRN PRN PO 08/16/24 09:45 Acetaminophen 650 mg Q6HP PRN PO 08/16/24 09:45 Acetaminophen/ Hydrocodone Bitart 1 tab Q4HP PRN PO 08/16/24 09:45 08/17/24 13:10 1 TAB Ondansetron HCl 4 mg Q4HP PRN IV 08/16/24 09:45 Nitroglycerin 0.4 mg Q5MINP PRN SL 08/16/24 09:45 Morphine Sulfate 2 mg Q30M PRN IV 08/16/24 09:45 08/17/24 04:45 2 MG Amiodarone HCl 200 mg BID PO 08/16/24 10:00 08/16/24 22:18 200 MG Buspirone HCl 10 mg DAILY PO 08/16/24 10:00 08/17/24 14:07 10 MG Empaglifozin 10 mg DAILY PO 08/16/24 10:00 08/16/24 10:00 10 MG Fluoxetine HCl 10 mg DAILY PO 08/16/24 10:00 08/16/24 10:56 10 MG Gabapentin 300 mg BID PO 08/16/24 10:00 08/17/24 14:06 300 MG Sacubitril/ Valsartan 0.5 tab BID PO 08/16/24 10:00 11/1/24 14:07 0.5 TAB Patient Own Medication 1 tab DAILY PO 08/16/24 10:00 UNV Pantoprazole Sodium 40 mg DAILY IV 08/16/24 10:00 08/17/24 14:06 40 MG Albuterol 2.5 mg Q6H NEB 08/16/24 12:00 Cancel Clopidogrel Bisulfate 75 mg DAILY PO 08/17/24 10:00 Enoxaparin Sodium 80 mg Q12HR SC 08/16/24 22:00 08/16/24 22:18 80 MG Furosemide 20 mg DAILY PO 08/17/24 10:00 Spironolactone 12.5 mg DAILY PO 08/17/24 10:00 08/17/24 14:08 12.5 MG Metoprolol Succinate 25 mg DAILY PO 08/17/24 10:00 Lorazepam 0.5 mg Q8HP PRN PO 08/16/24 23:15 08/17/24 13:10 0.5 MG Ipratropium [place] 0.5 mg Q4HR NEB 08/17/24 10:00 08/17/24 14:27 0.5 MG Levalbuterol HCl 0.625 mg Q4HR NEB 08/17/24 10:00 08/17/24 14:27 0.625 MG Examination: LUNGS:Abnormal (+wheezing, coarse), CVS:Normal, NEURO:Normal laboratory and microbiology Laboratory Tests 08/17/24 05:04 Test 08/17/24 05:04 Range/Units Serum Glucose 180 H 74-106 mg/dL Problem List/Assessment/Plan Problem List/Assessment/Plan Pleuritic chest pain COPD exacerbation with acute hypoxic respiratory failure Compensated ischemic cardiomyopathy with an EF of 40% Paroxysmal atrial fibrillation, on amiodarone/Eliquis at home Coronary artery disease status post PTCA including two JOSIANE (05/2023, 08/2024) Hypertension Dyslipidemia Hx tobacco use Plan/Recommendation (Dr. Carrion) The patient presents with pleuritic chest pain likely secondary to COPD exacerbation. Nevertheless, he underwent a cardiac catheterization and coronary angiogram which was scheduled as an outpatient. He underwent a successful PCI to the mid LAD lesion using a single JOSIANE. The study also showed a widely patent stent to the diagonal branch from a previous PCI. Transthoracic echocardiogram is pending at this time. Continue Plavix and Eliquis therapy. Continue lipid lowering agent, amiodarone, and GDMT for CHF (up-titrate as tolerated). Follow- up on echocardiogram results with Dr. Carrion on 08/27/2024 at 1445. There is no further cardiac work-up indicated at this time. Please call if in need to re-consult. Thank you for allowing us to participate in this patient's care. This medical document was created using an electronic medical record system with voice recognition software and computerized dictation system. Although this document has been carefully reviewed, there might still be some phonetic and typographical errors. Occasional wrong-word or ``sound-alike substitutions may have occurred due to the inherent limitations of voice recognition software. These areas are purely typographical due to imperfections of the software programs and do not reflect any compromise in the patient's medical care. Please read the chart carefully and recognize, using context, where these substitutions have occurred. Plan discussed with: Patient, Spouse, Other Date of Service: Aug 17, 2024 Billing Provider: SHELLY CARRION MD Cardiology Common Codes: [id number] INP/OBS CARE(Mod) MICHAEL WHEELER [facility] Aug 17, 2024 14:55
--- NOTE | 2024-08-17 14:56 | DVH ---
CHEST RADIOGRAPH Indication:dyspnea Technique: Single frontal view of the chest was obtained Comparison: XY CHEST PORTABLE on DOS: 08/16/24, XY CHEST PORTABLE on DOS: 02/13/24, XY CHEST PORTABLE on DOS: 02/08/24, XY CHEST PORTABLE on DOS: 06/13/23, CHEST PORTABLE on DOS: 09/04/21 FINDINGS: Lines and Tubes: None Lungs: No focal consolidation. Pleura: No effusion. No pneumothorax. Cardiomediastinal contours: Unremarkable Bones: No acute osseous abnormality. IMPRESSION: No acute cardiopulmonary disease.
[2024-08-17] MEDS: FUROSEMIDE 40 MG/4 ML VIAL IV SCH (18:11)
[2024-08-17] MEDS: methylPREDNISolone SOD SUCC 40 MG/ML VL IV SCH (21:02)
[2024-08-17] MEDS: APIXABAN 5 MG TAB PO SCH (21:03)
--- NOTE | 2024-08-17 22:12 | DVHPN2 ---
Progress Note - Dictate Medical Necessity Reason Pt with a Central, PICC or Fol: No vital signs Vital Sign Date Time Temp Pulse Resp B/P (MAP) Pulse Ox O2 Delivery O2 Flow Rate FiO2 08/17/24 20:58 98.1 100 18 103/63 (76) 93 98.1 08/17/24 20:00 Nasal Cannula* 4 36 Total Intake and Output 08/16/24 08/16/24 08/17/24 14:59 22:59 06:59 Intake Total 700 ml Balance 700 ml medications Current Medications Medications Dose Ordered Sig/Parul Route Start Time Stop Time Status Last Admin Dose Admin Sodium Chloride 10 ml Q8HR IV 08/16/24 14:00 08/17/24 21:03 10 ML Docusate Sodium 100 mg BIDPRN PRN PO 08/16/24 09:45 Acetaminophen 650 mg Q6HP PRN PO 08/16/24 09:45 Acetaminophen/ Hydrocodone Bitart 1 tab Q4HP PRN PO 08/16/24 09:45 08/17/24 13:10 1 TAB Ondansetron HCl 4 mg Q4HP PRN IV 08/16/24 09:45 Nitroglycerin 0.4 mg Q5MINP PRN SL 08/16/24 09:45 Morphine Sulfate 2 mg Q30M PRN IV 08/16/24 09:45 08/17/24 20:03 2 MG Amiodarone HCl 200 mg BID PO 08/16/24 10:00 08/17/24 21:03 200 MG Buspirone HCl 10 mg DAILY PO 08/16/24 10:00 08/17/24 14:07 10 MG Fluoxetine HCl 10 mg DAILY PO 08/16/24 10:00 08/17/24 15:40 10 MG Sacubitril/ Valsartan 0.5 tab BID PO 08/16/24 10:00 08/17/24 21:02 0.5 TAB Patient Own Medication 1 tab DAILY PO 08/16/24 10:00 UNV Pantoprazole Sodium 40 mg DAILY IV 08/16/24 10:00 08/17/24 14:06 40 MG Albuterol 2.5 mg Q6H NEB 08/16/24 12:00 Cancel Clopidogrel Bisulfate 75 mg DAILY PO 08/17/24 10:00 Spironolactone 12.5 mg DAILY PO 08/17/24 10:00 08/17/24 14:08 12.5 MG Metoprolol Succinate 25 mg DAILY PO 08/17/24 10:00 Lorazepam 0.5 mg Q8HP PRN PO 08/16/24 23:15 08/17/24 21:03 0.5 MG Ipratropium [place] 0.5 mg Q4HR NEB 08/17/24 10:00 08/17/24 22:09 0.5 MG Levalbuterol HCl 0.625 mg Q4HR NEB 08/17/24 10:00 08/17/24 22:10 0.625 MG Apixaban 5 mg BID PO 08/17/24 22:00 08/17/24 21:03 5 MG Furosemide 40 mg BIDD IV 08/17/24 18:00 08/17/24 18:11 40 MG Methylprednisolone Sodium Succinate 40 mg Q8HR IV 08/17/24 22:00 08/17/24 21:02 40 MG laboratory and microbiology Laboratory Tests 08/17/24 05:04 Test 08/17/24 05:04 Range/Units Serum Glucose 180 H 74-106 mg/dL MICHAEL HARLEY [facility] Aug 17, 2024 22:11
--- NOTE | 2024-08-17 22:14 | DVHPN2 ---
Progress Note - Dictate Date Seen: Aug 17, 2024 Medical Necessity Reason Pt with a Central, PICC or Fol: No vital signs Vital Sign Date Time Temp Pulse Resp B/P (MAP) Pulse Ox O2 Delivery O2 Flow Rate FiO2 08/17/24 20:58 98.1 100 18 103/63 (76) 93 98.1 08/17/24 20:00 Nasal Cannula* 4 36 Total Intake and Output 08/16/24 08/16/24 08/17/24 14:59 22:59 06:59 Intake Total 700 ml Balance 700 ml medications Current Medications Medications Dose Ordered Sig/Parul Route Start Time Stop Time Status Last Admin Dose Admin Sodium Chloride 10 ml Q8HR IV 08/16/24 14:00 08/17/24 21:03 10 ML Docusate Sodium 100 mg BIDPRN PRN PO 08/16/24 09:45 Acetaminophen 650 mg Q6HP PRN PO 08/16/24 09:45 Acetaminophen/ Hydrocodone Bitart 1 tab Q4HP PRN PO 08/16/24 09:45 08/17/24 13:10 1 TAB Ondansetron HCl 4 mg Q4HP PRN IV 08/16/24 09:45 Nitroglycerin 0.4 mg Q5MINP PRN SL 08/16/24 09:45 Morphine Sulfate 2 mg Q30M PRN IV 08/16/24 09:45 08/17/24 20:03 2 MG Amiodarone HCl 200 mg BID PO 08/16/24 10:00 08/17/24 21:03 200 MG Buspirone HCl 10 mg DAILY PO 08/16/24 10:00 08/17/24 14:07 10 MG Fluoxetine HCl 10 mg DAILY PO 08/16/24 10:00 08/17/24 15:40 10 MG Sacubitril/ Valsartan 0.5 tab BID PO 08/16/24 10:00 08/17/24 21:02 0.5 TAB Patient Own Medication 1 tab DAILY PO 08/16/24 10:00 UNV Pantoprazole Sodium 40 mg DAILY IV 08/16/24 10:00 08/17/24 14:06 40 MG Albuterol 2.5 mg Q6H NEB 08/16/24 12:00 Cancel Clopidogrel Bisulfate 75 mg DAILY PO 08/17/24 10:00 Spironolactone 12.5 mg DAILY PO 08/17/24 10:00 08/17/24 14:08 12.5 MG Metoprolol Succinate 25 mg DAILY PO 08/17/24 10:00 Lorazepam 0.5 mg Q8HP PRN PO 08/16/24 23:15 08/17/24 21:03 0.5 MG Ipratropium [place] 0.5 mg Q4HR NEB 08/17/24 10:00 08/17/24 22:09 0.5 MG Levalbuterol HCl 0.625 mg Q4HR NEB 08/17/24 10:00 08/17/24 22:10 0.625 MG Apixaban 5 mg BID PO 08/17/24 22:00 08/17/24 21:03 5 MG Furosemide 40 mg BIDD IV 08/17/24 18:00 08/17/24 18:11 40 MG Methylprednisolone Sodium Succinate 40 mg Q8HR IV 08/17/24 22:00 08/17/24 21:02 40 MG laboratory and microbiology Laboratory Tests 08/17/24 05:04 Test 08/17/24 05:04 Range/Units Serum Glucose 180 H 74-106 mg/dL MICHAEL HARLEY [facility] Aug 17, 2024 22:14
[2024-08-17] MEDS: guaiFENesin-DM 100/10mg/5ml SYR PO PRN (22:58)
[2024-08-18] VITALS (20 sets, daily range): BP systolic 92–136; BP diastolic 51–86; PULSE 83–130; RESP 16–20; TEMP 97.8–98.1; O2SAT 90–100
[2024-08-18 06:09] LABS: Basophils # (auto) 0 10 ^3/uL (0-0.2); Basophils % (auto) 0.1 % (0.0-2.0); Eosinophils # (auto) 0 10 ^3/uL (0-0.8); Hematocrit 39.5 % (41.0-53.0); Hemoglobin 13.7 g/dL (13.5-17.5); Lymphocytes % (auto) 8.4 % (10.0-50.0); Mean Corpuscular Hemoglobin 33.6 pg (28.0-32.0); Mean Corpuscular Hgb Conc. 34.6 g/dL (32.0-36.0); Mean Corpuscular Volume 97.1 fL (80.0-100.0); Monocytes # (auto) 0.4 10 ^3/uL (0-1.3); Monocytes % (auto) 3.7 % (0.0-12.0); Neutrophils # (auto) 10.1 10 ^3/uL (1.6-8.6); Neutrophils % (auto) 87.8 % (37.0-80.0); Nucleated Red Blood Cells % 0.1 %; Platelet Count (auto) 255 10^3/uL (140-450); Red Blood Cells 4.07 10^6/uL (4.5-5.90); Red Cell Distribution Width 13.9 % (11.8-14.3); White Blood Cell 11.5 10^3/uL (4.4-10.8)
[2024-08-18 06:36] LABS: Alanine Aminotransferase 49 U/L (7-40); Albumin 4.8 g/dL (3.2-4.8); Alkaline Phosphatase 117 U/L (46-116); Anion Gap 11 (5-15); Aspartate Aminotransferase 37 U/L (13-40); Blood Urea Nitrogen 23 mg/dL (9-23); Calcium 9.7 mg/dL (8.7-10.4); Carbon Dioxide 21 mmol/L (20-31); Chloride 102 mmol/L (98-107); Glucose 153 mg/dL (74-106); Potassium 3.9 mmol/L (3.5-5.1); Sodium 134 mmol/L (136-145)
[2024-08-18 06:37] LABS: Bilirubin, Total 0.6 mg/dL (0.2-1.0); Total Protein 7.5 g/dL (5.7-8.2)
--- NOTE | 2024-08-18 10:24 | DVHPN2 ---
Progress Note - Dictate Date Seen: Aug 17, 2024 Medical Necessity Reason Pt with a Central, PICC or Fol: No Subjective Patient seen and examined at bedside. Remains on supplemental oxygen Overnight events reviewed. vital signs Vital Sign Date Time Temp Pulse Resp B/P (MAP) Pulse Ox O2 Delivery O2 Flow Rate FiO2 08/18/24 09:57 95 20 100 08/18/24 09:51 Nasal Cannula 2.0 08/18/24 09:51 28 08/18/24 09:35 112/67 08/18/24 09:35 97.8 97.8 Total Intake and Output 08/17/24 08/17/24 08/18/24 15:00 23:00 07:00 Intake Total 331 ml 400 ml Balance 331 ml 400 ml medications Current Medications Medications Dose Ordered Sig/Parul Route Start Time Stop Time Status Last Admin Dose Admin Sodium Chloride 10 ml Q8HR IV 08/16/24 14:00 08/18/24 04:51 10 ML Docusate Sodium 100 mg BIDPRN PRN PO 08/16/24 09:45 Acetaminophen 650 mg Q6HP PRN PO 08/16/24 09:45 Acetaminophen/ Hydrocodone Bitart 1 tab Q4HP PRN PO 08/16/24 09:45 08/18/24 03:15 1 TAB Ondansetron HCl 4 mg Q4HP PRN IV 08/16/24 09:45 Nitroglycerin 0.4 mg Q5MINP PRN SL 08/16/24 09:45 Morphine Sulfate 2 mg Q30M PRN IV 08/16/24 09:45 08/18/24 09:35 2 MG Amiodarone HCl 200 mg BID PO 08/16/24 10:00 08/18/24 09:38 200 MG Buspirone HCl 10 mg DAILY PO 08/16/24 10:00 08/18/24 09:38 10 MG Fluoxetine HCl 10 mg DAILY PO 08/16/24 10:00 08/17/24 15:40 10 MG Sacubitril/ Valsartan 0.5 tab BID PO 08/16/24 10:00 08/18/24 09:36 0.5 TAB Patient Own Medication 1 tab DAILY PO 08/16/24 10:00 UNV Pantoprazole Sodium 40 mg DAILY IV 08/16/24 10:00 08/18/24 09:35 40 MG Albuterol 2.5 mg Q6H NEB 08/16/24 12:00 Cancel Clopidogrel Bisulfate 75 mg DAILY PO 08/17/24 10:00 08/18/24 09:38 75 MG Spironolactone 12.5 mg DAILY PO 08/17/24 10:00 08/18/24 09:39 12.5 MG Metoprolol Succinate 25 mg DAILY PO 08/17/24 10:00 Lorazepam 0.5 mg Q8HP PRN PO 08/16/24 23:15 08/17/24 21:03 0.5 MG Ipratropium [place] 0.5 mg Q4HR NEB 08/17/24 10:00 08/18/24 09:51 0.5 MG Levalbuterol HCl 0.625 mg Q4HR NEB 08/17/24 10:00 08/18/24 09:51 0.625 MG Apixaban 5 mg BID PO 08/17/24 22:00 08/18/24 09:39 5 MG Furosemide 40 mg BIDD IV 08/17/24 18:00 08/18/24 04:51 40 MG Methylprednisolone Sodium Succinate 40 mg Q8HR IV 08/17/24 22:00 08/18/24 04:51 40 MG Guaifenesin/ Dextromethorphan 10 ml Q6HPRN PRN PO 08/17/24 23:00 08/18/24 04:51 10 ML objective Gen.: Patient lying in bed in no apparent distress. On supplemental oxygen Head: Normocephalic, atraumatic. Eyes: EOMI/PERRLA. Ears: Normal hearing. Normal anatomy. Neck/trachea: Trachea midline, supple. Nose: Normal external anatomy. Mouth: Moist mucous membranes. Chest: Decreased air entry bilaterally. Expiratory wheezing throughout. No rhonchi. Cardiovascular: Positive S1, positive S2. Regular rate and rhythm. Abdomen: Positive bowel sounds in all 4 quadrants. Soft, non-tender, non- distended. : Deferred. Rectal: Deferred. Skin: Warm, dry. Intact. Extremities: 2+ radial pulses bilaterally. No lower extremity edema. Neuro: Awake, alert, oriented x3. No gross motor or sensory deficits. Cranial nerves II through XII intact. Gait not assessed. laboratory and microbiology Laboratory Tests 08/18/24 05:36 Test 08/18/24 05:36 Range/Units Serum Glucose 153 H 74-106 mg/dL Assessment/Plan Impression: Acute hypoxic respiratory failure 2/2 AE COPD COPD exacerbation Nicotine dependence Chest pain, rule out ACS Elevated liver function tests CAD s/p PTCA Events: Remains on supplemental oxygen on 3.5 LPM NC. Taper O2 as tolerated Continue bronchodilators - Xopenex, Atrovent Continue steroids - Solu-Medrol Productive cough - Antitussive PRN. Incentive spirometry F/u sputum cultures Protonix for GI prophylaxis Diurese w/ Lasix QD Monitor renal function Plan: Chest x-ray imaging report reviewed. No acute opacities. No pleural effusion or pneumothorax. Supplemental oxygen on 3.5 liters/minute via nasal cannula Taper O2 as tolerated Wheezing noted Bronchodilators Steroids On amiodarone PO. Cardiology recommendations appreciated. Currently on therapeutic Lovenox. Maintain euvolemia with Lasix Monitor ins and outs. Monitor renal function Monitor electrolytes Supplement as necessary. Bronchodilators Smoking cessation discussed for greater than 10 minutes. IV steroids for asthma versus COPD exacerbation. GI prophylaxis-Protonix DVT prophylaxis-on therapeutic Lovenox Prognosis: Poor given multiple comorbidities. Rest of plan per hospitalist and other consultants. Thank you Dr. Quevedo for allowing me to participate in this patient's care. Further recommendations will depend on patient's clinical course. Please do not hesitate to contact me if you have any questions or concerns. This medical document was created using an electronic medical record system with [employer] dictation system. Although this document has been carefully reviewed, there may still be some phonetic and typographical errors. These areas are purely typographical due to imperfections of the software programs, and do not reflect any compromise in the patient's medical care. Plan discussed with: Patient, Other (JONO Rodriguez) BRIANDA KAY MD Aug 18, 2024 10:24
--- NOTE | 2024-08-18 10:52 | DVHPNRES ---
Progress Note Date Seen: Aug 18, 2024 Resident Creating Document: JENNY MEZA RESIDENT Medical Necessity Reason Pt with a Central, PICC or Fol: No Subjective Review of Systems Saw the patient at bedside. Patient is violently coughing, productive cough with occasional phlegm yellow color. Patient looks flushed and uncomfortable with cough. Otherwise hemodynamically stable, on 2-3 L of nasal cannula oxygen. Patient reports: No new complaints, Feels better Changes from previous H/P or p: No Changes Review of Systems: HEENT:Normal, CVS:Normal, RESPIRATORY:Abnormal (Continued to have cough, dry throat, constantly dictation dyspnea, shortness of breath), GI:Normal, :Normal, MSK:Normal, NEURO:Normal Objective vital signs Vital Sign Date Time Temp Pulse Resp B/P (MAP) Pulse Ox O2 Delivery O2 Flow Rate FiO2 08/18/24 09:57 95 20 100 08/18/24 09:51 Nasal Cannula 2.0 08/18/24 09:51 28 08/18/24 09:35 112/67 08/18/24 09:35 97.8 97.8 Total Intake and Output 08/17/24 08/17/24 08/18/24 15:00 23:00 07:00 Intake Total 331 ml 400 ml Balance 331 ml 400 ml medications Current Medications Medications Dose Ordered Sig/Parul Route Start Time Stop Time Status Last Admin Dose Admin Sodium Chloride 10 ml Q8HR IV 08/16/24 14:00 08/18/24 04:51 10 ML Docusate Sodium 100 mg BIDPRN PRN PO 08/16/24 09:45 Acetaminophen 650 mg Q6HP PRN PO 08/16/24 09:45 Acetaminophen/ Hydrocodone Bitart 1 tab Q4HP PRN PO 08/16/24 09:45 08/18/24 03:15 1 TAB Ondansetron HCl 4 mg Q4HP PRN IV 08/16/24 09:45 Nitroglycerin 0.4 mg Q5MINP PRN SL 08/16/24 09:45 Morphine Sulfate 2 mg Q30M PRN IV 08/16/24 09:45 08/18/24 09:35 2 MG Amiodarone HCl 200 mg BID PO 08/16/24 10:00 08/18/24 09:38 200 MG Buspirone HCl 10 mg DAILY PO 08/16/24 10:00 08/18/24 09:38 10 MG Fluoxetine HCl 10 mg DAILY PO 08/16/24 10:00 08/17/24 15:40 10 MG Sacubitril/ Valsartan 0.5 tab BID PO 08/16/24 10:00 08/18/24 09:36 0.5 TAB Patient Own Medication 1 tab DAILY PO 08/16/24 10:00 UNV Pantoprazole Sodium 40 mg DAILY IV 08/16/24 10:00 08/18/24 09:35 40 MG Albuterol 2.5 mg Q6H NEB 08/16/24 12:00 Cancel Clopidogrel Bisulfate 75 mg DAILY PO 08/17/24 10:00 08/18/24 09:38 75 MG Spironolactone 12.5 mg DAILY PO 08/17/24 10:00 08/18/24 09:39 12.5 MG Metoprolol Succinate 25 mg DAILY PO 08/17/24 10:00 Lorazepam 0.5 mg Q8HP PRN PO 08/16/24 23:15 08/17/24 21:03 0.5 MG Ipratropium [place] 0.5 mg Q4HR NEB 08/17/24 10:00 08/18/24 09:51 0.5 MG Levalbuterol HCl 0.625 mg Q4HR NEB 08/17/24 10:00 08/18/24 09:51 0.625 MG Apixaban 5 mg BID PO 08/17/24 22:00 08/18/24 09:39 5 MG Furosemide 40 mg BIDD IV 08/17/24 18:00 08/18/24 04:51 40 MG Methylprednisolone Sodium Succinate 40 mg Q8HR IV 08/17/24 22:00 08/18/24 04:51 40 MG Guaifenesin/ Dextromethorphan 10 ml Q6HPRN PRN PO 08/17/24 23:00 08/18/24 04:51 10 ML Examination: GENERAL:Normal, HEENT:Normal, NECK:Normal, LUNGS:Normal, LUNGS:Abnormal (On 3.5 L to 2 L of oxygen throughout the day. Bilateral crackles, rales and bronchial breath sounds noted), CVS:Normal, ABDOMEN:Normal, MSK:Normal (Right wrist catheter port site normal, no distal complication noted.), SKIN:Normal, NEURO:Normal laboratory and microbiology Laboratory Tests 08/18/24 05:36 Test 08/18/24 05:36 Range/Units Serum Glucose 153 H 74-106 mg/dL Microbiology Date/Time Source Procedure Growth Status 08/17/24 07:40 Sputum Gram Stain Pending Resulted 08/17/24 07:40 Sputum Respiratory Culture - Preliminary Resulted Labs and/or images reviewed: Labs reviewed by me, Image(s) reviewed by me Problem List/Assessment/Plan Problem List/Assessment/Plan Hospital course: 64-year-old male with a history of COPD, paroxysmal atrial fibrillation, chronic diastolic heart failure, CAD with a stent placed in May 2023, hypertension, dyslipidemia, and depression. He presented with dyspnea and worsening chest pain over the past two weeks, which became severe on 08/16/2024, described as sharp and constant in the midepigastric area. After a COPD breathing treatment, he experienced increased shortness of breath and gasping for air, prompting his hospital visit. His past surgical history includes PTCA, and his home medications are amiodarone, simvastatin, buspirone, Jardiance, gabapentin, losartan, prednisolone, quetiapine, Entresto, spironolactone, and tramadol. He was hospitalized in February 2024 for a COPD exacerbation. He lives with his , quit smoking two years ago after smoking three cigarettes per day for 12 years, and denies alcohol or drug use # Acute exacerbation of COPD: wheezing noted,CXR shows no acute cardiopulmonary disease; treated with ipratropium and levalbuterol> albuterol med nebs, and IV methylprednisolone 40 mg Q 8 hours. pulmonology on board appreciate input. Incentive spirometry to continue. Acetylcysteine nebulization along with Robitussin to continue, # ?aspiration pneumonia/CAP: Previous chest x-ray unremarkable, elevating white count likely due to steroid use but increasing productive cough with noted yellow thick phlegm (could be due to the underlying COPD as well), we will start on IV ceftriaxone and azithromycin with presumed community-acquired pneumonia. Respiratory culture pending, in case of negative culture consider discontinuing antibiotics. # Acute on Chronic Diastolic Heart Failure with Ejection Fraction 40%: IV furosemide 40 mg b.i.d. continue, change to IV furosemide 20 b.i.d. GDM T Metoprolol succinate 25 mg p.o. daily, Entresto 0.5 mg b.i.d., spironolactone 12.5 mg p.o. daily # Extensive coronary artery disease: Completed left heart catheterization with successful PCI to mid LAD lesion using a single drug-eluting stent. Widely patent stent to the diagonal branch from previous angioplasty . # Acute Hypoxic Respiratory Failure: likely Multifactorial, Due to Above. Remains on supplemental oxygen on 3.5 LPM NC. Taper O2 as tolerated to keep SpO2 around 92%. sputum culture to follow. # Coronary artery disease, s/p PTCA x1 stent: in May 2023 on clopidogrel and Eliquis # Pruritic chest pain: ? pleurisy: likely steroid we will help, as needed Tylenol. Check CRP ESR # coronary stent thrombosis, ruled out # Paroxysmal Atrial Fibrillation, Currently in Sinus Rhythm: Amiodarone 200 mg p.o. b.i.d., Apixaban 5 mg p.o. b.i.d. atenolol # Dyslipidemia : Statin to continue # Prior history of smoking, as per patient quit smoking 2 years ago. # Depression, Likely MDD vs Atypical Depression: Buspirone 10 mg p.o. daily, Fluoxetine 10 mg p.o. daily, Quetiapine p.o. daily # PUD Prophylaxis: Protonix 40 mg IV daily # DVT Prophylaxis: Patient already on Eliquis 5 mg p.o. b.i.d. Off of Lovenox Discussed with Dr. Hernandez Code status: Full code. Care discussion needed 41 minutes of discussion. Barriers to discharge: Medical workup and management are ongoing. Earliest discharge planning at recovery. patient lives at home with his . Plan discussed with: Patient, Other (Primary team, RN.) Laboratory Results Laboratory Tests 08/18/24 05:36 Chemistry Test 08/18/24 05:36 Albumin 4.8 g/dL (3.2-4.8) Calcium Level 9.7 mg/dL (8.7-10.4) Total Protein 7.5 g/dL (5.7-8.2) LFT Test 08/18/24 05:36 Alanine Aminotransferase (ALT) 49 U/L (7-40) H Alkaline Phosphatase 117 U/L (46-116) H Aspartate Amino Transferase (AST) 37 U/L (13-40) Total Bilirubin 0.6 mg/dL (0.2-1.0) Urinalysis Test 08/16/24 10:32 Urine Color Light-yellow (Yellow) Urine Clarity Clear (Clear) Urine pH 5.5 (5.0-9.0) Urine Specific [place] 1.012 (1.001-1.035) Urine Protein Negative (Negative) Urine Ketones Negative (Negative) Urine Blood Negative /uL (Negative) Urine Nitrite Negative (Negative) Urine Bilirubin Negative (Negative) Urine Urobilinogen Normal mg/dL (Negative) Urine Leukocyte Esterase Negative /uL (Negative) Urine RBC 1 /hpf (0 - 3) Urine WBC 1 /hpf (0 - 3) Urine Squamous Epithelial Cells None seen /hpf (<5) Urine Bacteria None seen /hpf (None Seen) Urine Glucose Normal mg/dL (Normal) Microbiology Microbiology Date/Time Source Procedure Growth Status 08/17/24 07:40 Sputum Gram Stain Pending Resulted 08/17/24 07:40 Sputum Respiratory Culture - Preliminary Resulted Date of Service: Aug 18, 2024 Billing Provider: STEFFANY HERNANDEZ MD Common Visit Codes: [id number] INP/OBS CARE(HIGH) JENNY MEZA RESIDENT Aug 18, 2024 10:52 STEFFANY HERNANDEZ MD Aug 18, 2024 21:04
--- NOTE | 2024-08-18 13:26 | DVHSR ---
APPROVED REPORT EXAM: LIMITED Two-dimensional and M-mode echocardiogram with Doppler and color Doppler. Blood Pressure: 121/70 mmHg INDICATION Chest Pain rule out ACS RISK FACTORS Height: 5' 8", Weight: 165 DIMENSIONS LVDd4.6 (3.8-5.7cm)LA (2D)3.7 (1.9-4.0cm)Aortic Root2.8 (2.0-3.7cm) LVDs3.4 (2.5-4.0cm)LA (MM) (1.9-4.0cm)Aortic Cusp Exc1.6 (1.5-2.0cm) EF (%) 50.0 (55-70%)Rt. Atrium3.9 (1.9-4.0cm)Asc. Aorta cm IVSd0.9 (0.7-1.1cm)RV (D) (1.8-2.4cm) PWd0.9 (0.7-1.1cm) Mitral Valve MitralMitral Stenosis E wave0.70m/sMV Mean GR.mmHg A wave0.80m/sMV Peak GR.mmHg E/A ratio0.92D MVAcm2 Aortic Valve Aortic ValveAortic Stenosis V11.00m/Larry Mean GR.3mmHg V21.10m/[place] GR.5mmHg LVOT Diameter2.2 (1.8-2.4cm)Doppler AVA3.45cm2 Conclusion Normal left ventricular size and dimension. Normal left ventricular systolic function with ejection fraction estimated at 50%. There is grade 1 diastolic dysfunction. Normal right ventricular size and dimension. Normal right ventricular systolic function. Normal biatrial size and dimension. Normal aortic valve structure and function. Normal mitral valve structure and function. Normal tricuspid valve structure and function. The pulmonary valve is grossly normal. No pericardial effusion.
[2024-08-18] MEDS: guaiFENesin-DM 100/10mg/5ml SYR PO PRN (18:03)
[2024-08-18 18:18] LABS: Erythrocyte Sedimentation Rate 7 mm/hr (0-20)
[2024-08-18] MEDS: ALBUTEROL SULF 2.5 MG/0.5ML(0.5%) NEB SOLN NEB SCH (19:02)
[2024-08-18] MEDS: ACETYLCYSTEINE 20%(200MG/ML) SOL 4ML NEB ONE (19:02)
[2024-08-18] MEDS: AZITHROMYCIN 500MG/ 250ML 250 ML IV SCH (19:05)
[2024-08-19] VITALS (19 sets, daily range): BP systolic 104–118; BP diastolic 52–88; PULSE 74–114; RESP 17–20; TEMP 97.9–98.2; O2SAT 90–99
[2024-08-19 07:14] LABS: Basophils # (auto) 0 10 ^3/uL (0-0.2); Basophils % (auto) 0.1 % (0.0-2.0); Eosinophils # (auto) 0 10 ^3/uL (0-0.8); Hemoglobin 15.1 g/dL (13.5-17.5); Lymphocytes # (auto) 2.2 10 ^3/uL (0.4-5.4); Mean Corpuscular Hemoglobin 33.4 pg (28.0-32.0); Mean Corpuscular Hgb Conc. 34.4 g/dL (32.0-36.0); Mean Corpuscular Volume 97.2 fL (80.0-100.0); Monocytes # (auto) 0.8 10 ^3/uL (0-1.3); Monocytes % (auto) 6.7 % (0.0-12.0); Neutrophils # (auto) 9.2 10 ^3/uL (1.6-8.6); Neutrophils % (auto) 75.2 % (37.0-80.0); Nucleated Red Blood Cells % 0.1 %; Platelet Count (auto) 330 10^3/uL (140-450); Red Blood Cells 4.53 10^6/uL (4.5-5.90); Red Cell Distribution Width 14.4 % (11.8-14.3); White Blood Cell 12.3 10^3/uL (4.4-10.8)
[2024-08-19 07:35] LABS: Alanine Aminotransferase 59 U/L (7-40); Albumin 5.3 g/dL (3.2-4.8); Alkaline Phosphatase 119 U/L (46-116); Anion Gap 11 (5-15); Aspartate Aminotransferase 41 U/L (13-40); BUN/Creatinine Ratio 24.1 (10.0-20.0); Bilirubin, Total 0.5 mg/dL (0.2-1.0); Blood Urea Nitrogen 27 mg/dL (9-23); Calcium 10.2 mg/dL (8.7-10.4); Carbon Dioxide 22 mmol/L (20-31); Chloride 102 mmol/L (98-107); Glucose 137 mg/dL (74-106); Potassium 3.9 mmol/L (3.5-5.1); Sodium 135 mmol/L (136-145); Total Protein 8.2 g/dL (5.7-8.2)
--- NOTE | 2024-08-19 08:53 | ECG ---
[facility] Test Date: 2024-08-18 Test Time: 04:18:21 Pat Name: NATHALIE WEBBER Department: Respiratoy Room: [address] [place] [address] 8 Gender: M [employer] Bal[employer] Technician: STEVEN DE LA CRUZ : 1960 Requested By: MICHAEL WHEELER Order Number: [id number] Reading MD: Que Hay Measurements Intervals [place] Rate: 149 P: 0 ID: 0 QRS: 83 QRSD: 100 T: 39 QT: 318 QTc: 501 Interpretive Statements Atrial fibrillation Ventricular premature complex Borderline right axis deviation Abnormal R-wave progression, early transition Prolonged QT interval Baseline wander in lead(s) V1,V2 Electronically Signed On 08-20-2024 17:24:37 PST by Que Hay Please click the below link to view image of tracing.
[2024-08-19] MEDS: cefTRIAXone 1GM/50ML D5W 50 ML IV SCH (09:08)
[2024-08-19] MEDS: DOCUSATE SOD 100 MG CAP PO PRN (09:08)
--- NOTE | 2024-08-19 14:55 | DVHPNRES ---
Progress Note Date Seen: Aug 19, 2024 Resident Creating Document: MALACHI BRITTON RESIDENT Medical Necessity Reason Pt with a Central, PICC or Fol: No Subjective Review of Systems Patient is a 64-year-old male with past medical history of COPD, paroxysmal atrial fibrillation, chronic diastolic heart failure, CAD s/p PCI, 1 stent in May 2023, hypertension, dyslipidemia, depression who came in due to dyspnea and shortness of breaths. Patient says that for the past 2 weeks he has also been experiencing a chest pain that has been progressively worsening and increasing in intensity. According to the patient, on 08/16/2024 his chest pain got worse and he could not get up, he describes the pain as sharp, constant and localized to midepigastric area. Shortly after as he finished a breathing treatment for his COPD, he started feeling more and more shortness of breath along with gasping for air which prompted this visit to the hospital. Past surgical history: PTCA Home medications: Amiodarone, simvastatin, buspirone, Jardiance, gabapentin, losartan, prednisolone, quetiapine, Entresto, spironolactone, tramadol Past Hospitalization: In February 2024 for COPD exacerbation Social & Personal history: Patient lives with his . Quit smoking 2 years ago, prior to that was smoking 3 cigarettes per day for 12 years. Denies using alcohol or drugs. Allergies: Denies Patient seen and examined at bedside. Patient is alert and oriented to time, place person and responding to all questions. Patient is short of breaths, having frequent coughing spells accompanied with chest pain. Objective vital signs Vital Sign Date Time Temp Pulse Resp B/P (MAP) Pulse Ox O2 Delivery O2 Flow Rate FiO2 08/19/24 10:34 82 18 99 08/19/24 10:28 Nasal Cannula 3.0 08/19/24 10:28 32 08/19/24 09:55 117/72 08/19/24 09:10 98.0 98.0 Total Intake and Output 08/18/24 08/18/24 08/19/24 15:00 23:00 07:00 Intake Total 1000 ml 500 ml Balance 1000 ml 500 ml medications Current Medications Medications Dose Ordered Sig/Parul Route Start Time Stop Time Status Last Admin Dose Admin Sodium Chloride 10 ml Q8HR IV 08/16/24 14:00 08/19/24 14:00 10 ML Docusate Sodium 100 mg BIDPRN PRN PO 08/16/24 09:45 08/19/24 09:08 100 MG Acetaminophen 650 mg Q6HP PRN PO 08/16/24 09:45 Acetaminophen/ Hydrocodone Bitart 1 tab Q4HP PRN PO 08/16/24 09:45 08/19/24 13:21 1 TAB Ondansetron HCl 4 mg Q4HP PRN IV 08/16/24 09:45 Nitroglycerin 0.4 mg Q5MINP PRN SL 08/16/24 09:45 Morphine Sulfate 2 mg Q30M PRN IV 08/16/24 09:45 08/19/24 09:25 2 MG Amiodarone HCl 200 mg BID PO 08/16/24 10:00 08/19/24 09:08 200 MG Buspirone HCl 10 mg DAILY PO 08/16/24 10:00 08/19/24 09:08 10 MG Fluoxetine HCl 10 mg DAILY PO 08/16/24 10:00 08/19/24 10:05 10 MG Sacubitril/ Valsartan 0.5 tab BID PO 08/16/24 10:00 08/19/24 10:05 0.5 TAB Patient Own Medication 1 tab DAILY PO 08/16/24 10:00 UNV Pantoprazole Sodium 40 mg DAILY IV 08/16/24 10:00 08/19/24 09:13 40 MG Albuterol 2.5 mg Q6H NEB 08/16/24 12:00 Cancel Clopidogrel Bisulfate 75 mg DAILY PO 08/17/24 10:00 08/19/24 09:12 75 MG Spironolactone 12.5 mg DAILY PO 08/17/24 10:00 08/19/24 09:09 12.5 MG Metoprolol Succinate 25 mg DAILY PO 08/17/24 10:00 08/19/24 09:09 25 MG Lorazepam 0.5 mg Q8HP PRN PO 08/16/24 23:15 08/19/24 13:21 0.5 MG Ipratropium [place] 0.5 mg Q4HR NEB 08/17/24 10:00 08/19/24 14:50 0.5 MG Apixaban 5 mg BID PO 08/17/24 22:00 08/19/24 09:08 5 MG Furosemide 40 mg BIDD IV 08/17/24 18:00 08/19/24 05:57 40 MG Methylprednisolone Sodium Succinate 40 mg Q8HR IV 08/17/24 22:00 08/19/24 05:50 40 MG Guaifenesin/ Dextromethorphan 10 ml Q4HP PRN PO 08/18/24 17:30 08/19/24 10:06 10 ML Albuterol 1.25 mg Q4HR NEB 08/18/24 18:00 08/19/24 14:50 1.25 MG Piperacillin Sod/ Tazobactam Sod 100 ml @ 25 mls/hr Q8HR IV 08/19/24 18:00 Morphine Sulfate 2 mg Q2HPRN PRN IV 08/19/24 14:45 UNV Examination General Appearance: Cooperative. Well developed. Well nourished. In moderate distress, coughing Head Exam: Normal inspection Neck Exam: Normal inspection. Non-tender. Normal alignment Pulmonary/Respiratory: Chest non-tender. Decreased bilateral breath sounds, no crackles, wheezing. Cardiovascular/Chest: Regular rate and rhythm. No murmurs. No JVD. Peripheral Pulses: 2+ Radial (R). 2+ Radial (L). 2+ Pedal (R). 2+ Pedal (L) Abdominal Exam: Normal bowel sounds. Soft. normal abdomen, no visible veins, Nontender. No hepatospenomegaly. No masses Ankle Exam: Negative ankle edema Lower extremities: Negative lower extremity edema Neuro/Mental Status: A&O x4. Coherent. Thoughts/Psych: Normal thought pattern. Appropriate mood and affect. Good judgement and insight Skin Exam: Normal inspection. Normal color. Warm. Dry laboratory and microbiology Laboratory Tests 08/19/24 06:20 Test 08/19/24 06:20 Range/Units Serum Glucose 137 H 74-106 mg/dL Microbiology Date/Time Source Procedure Growth Status 08/17/24 07:40 Sputum Gram Stain - Final Complete 08/17/24 07:40 Respiratory Culture - Final Pseudomonas aeruginosa Complete Problem List/Assessment/Plan Problem List/Assessment/Plan Acute hypoxic respiratory failure Acute exacerbation of COPD Pruritic Chest pain - CXR: No acute cardiopulmonary disease - ipratropium and levalbuterol med nebs - IV methylprednisolone 40 mg Q 8 hours - respiratory culture came back positive for Pseudomonas aeruginosa - -discontinued azithromycin and Rocephin - started on IV Zosyn - guaifenesin-codeine 10 mL q.6 as needed Acute on chronic diastolic heart failure with ejection fraction 40% Coronary artery disease, s/p PTCA x1 stent in May 2023 Possible coronary stent thrombosis, ruled out - IV furosemide 40 mg b.i.d. - metoprolol succinate 25 mg p.o. daily, Entresto 0.5 mg b.i.d., spironolactone 12.5 mg p.o. daily - completed left heart catheterization with successful PCI to mid LAD lesion using a single drug-eluting stent. Widely patent stent to the diagonal branch from previous angioplasty. Paroxysmal atrial fibrillation, currently in sinus rhythm - amiodarone 200 mg p.o. b.i.d. - apixaban 5 mg p.o. b.i.d. Hypertension Dyslipidemia - clopidogrel 75 mg p.o. daily Depression, likely MDD vs atypical depression - buspirone 10 mg p.o. daily - fluoxetine 10 mg p.o. daily - quetiapine p.o. daily - resumed home dose gabapentin 300 mg b.i.d. PUD prophylaxis: protonix 40mg DVT prophylaxis: Patient already on Eliquis 5 mg p.o. b.i.d. Goals of care: Full code, discussed for >16 minutes on 08/17/24 Plan discussed with patient Plan discussed with Dr. Hernandez Plan discussed with: Patient, Other (RN) My Orders My Orders Orders - MALACHI BRITTON Procedure Category Date Status Time Piperacillin-Tazob PHA 08/19/24 In Process 3.375gm (Zosyn 3.375g 18:00 Date of Service: Aug 19, 2024 Billing Provider: STEFFANY HERNANDEZ MD Common Visit Codes: [id number] INP/OBS CARE(HIGH) MALACHI BRITTON Aug 19, 2024 14:55 STEFFANY HERNANDEZ MD Aug 20, 2024 20:53
[2024-08-19] MEDS: MORPHINE SULFATE INJ 2 MG/ml SYRG IV PRN (16:19)
[2024-08-19] MEDS: guaiFENesin-CODEINE Liq 5 ML UD PO PRN (17:45)
[2024-08-19] MEDS: PIPERACILLIN-TAZOB 3.375GM 100 ML IV SCH (17:46)
[2024-08-19] MEDS: GABAPENTIN 300 MG CAP PO SCH (17:47)
[2024-08-19] MEDS ORDERED: PIPERACILLIN-TAZO 4.5GM 100 ML IV SCH (18:00)
[2024-08-20] VITALS (21 sets, daily range): BP systolic 101–107; BP diastolic 59–71; PULSE 67–86; RESP 14–24; TEMP 97.4–97.9; O2SAT 92–100
[2024-08-20 06:46] LABS: Basophils # (auto) 0 10 ^3/uL (0-0.2); Eosinophils # (auto) 0 10 ^3/uL (0-0.8); Eosinophils % (auto) 0.1 % (0.0-7.0); Hematocrit 40.4 % (41.0-53.0); Hemoglobin 13.8 g/dL (13.5-17.5); Lymphocytes # (auto) 1.2 10 ^3/uL (0.4-5.4); Lymphocytes % (auto) 16.3 % (10.0-50.0); Mean Corpuscular Hemoglobin 33.4 pg (28.0-32.0); Mean Corpuscular Hgb Conc. 34.2 g/dL (32.0-36.0); Mean Corpuscular Volume 97.7 fL (80.0-100.0); Monocytes # (auto) 0.5 10 ^3/uL (0-1.3); Neutrophils # (auto) 5.8 10 ^3/uL (1.6-8.6); Neutrophils % (auto) 76.6 % (37.0-80.0); Nucleated Red Blood Cells % 0.1 %; Platelet Count (auto) 263 10^3/uL (140-450); Red Blood Cells 4.13 10^6/uL (4.5-5.90); Red Cell Distribution Width 14.1 % (11.8-14.3); White Blood Cell 7.6 10^3/uL (4.4-10.8)
[2024-08-20 07:00] LABS: Alanine Aminotransferase 65 U/L (7-40); Albumin 4.6 g/dL (3.2-4.8); Alkaline Phosphatase 96 U/L (46-116); Anion Gap 9 (5-15); Aspartate Aminotransferase 38 U/L (13-40); BUN/Creatinine Ratio 25.4 (10.0-20.0); Bilirubin, Total 0.5 mg/dL (0.2-1.0); Blood Urea Nitrogen 30 mg/dL (9-23); Calcium 9.3 mg/dL (8.7-10.4); Carbon Dioxide 26 mmol/L (20-31); Chloride 101 mmol/L (98-107); Glucose 129 mg/dL (74-106); Potassium 3.7 mmol/L (3.5-5.1); Sodium 136 mmol/L (136-145)
[2024-08-20] MEDS: ALBUTEROL SULF 2.5 MG/0.5ML(0.5%) NEB SOLN NEB SCH (10:06)
--- NOTE | 2024-08-20 13:29 | DVHPNRES ---
Progress Note Date Seen: Aug 20, 2024 Resident Creating Document: MALACHI BRITTON RESIDENT Medical Necessity Reason Pt with a Central, PICC or Fol: No Subjective Review of Systems Patient is a 64-year-old male with past medical history of COPD, paroxysmal atrial fibrillation, chronic diastolic heart failure, CAD s/p PCI, 1 stent in May 2023, hypertension, dyslipidemia, depression who came in due to dyspnea and shortness of breaths. Patient says that for the past 2 weeks he has also been experiencing a chest pain that has been progressively worsening and increasing in intensity. According to the patient, on 08/16/2024 his chest pain got worse and he could not get up, he describes the pain as sharp, constant and localized to midepigastric area. Shortly after as he finished a breathing treatment for his COPD, he started feeling more and more shortness of breath along with gasping for air which prompted this visit to the hospital. Past surgical history: PTCA Home medications: Amiodarone, simvastatin, buspirone, Jardiance, gabapentin, losartan, prednisolone, quetiapine, Entresto, spironolactone, tramadol Past Hospitalization: In February 2024 for COPD exacerbation Social & Personal history: Patient lives with his . Quit smoking 2 years ago, prior to that was smoking 3 cigarettes per day for 12 years. Denies using alcohol or drugs. Allergies: Denies Patient seen and examined at bedside. Patient is alert and oriented to time, place person and responding to all questions. Patient is short of breaths, having frequent coughing spells. Complains of anterior abdominal wall and anterior chest pain, reproducible on palpation Objective vital signs Vital Sign Date Time Temp Pulse Resp B/P (MAP) Pulse Ox O2 Delivery O2 Flow Rate FiO2 08/20/24 10:14 77 16 100 08/20/24 09:28 112/65 08/20/24 09:00 97.6 97.6 08/20/24 07:38 Nasal Cannula* 4 36 Total Intake and Output 08/19/24 08/19/24 08/20/24 15:00 23:00 07:00 Intake Total 900 ml 600 ml Output Total 401 ml Balance 900 ml 199 ml medications Current Medications Medications Dose Ordered Sig/Parul Route Start Time Stop Time Status Last Admin Dose Admin Sodium Chloride 10 ml Q8HR IV 08/16/24 14:00 08/20/24 06:31 10 ML Docusate Sodium 100 mg BIDPRN PRN PO 08/16/24 09:45 08/19/24 09:08 100 MG Acetaminophen 650 mg Q6HP PRN PO 08/16/24 09:45 Acetaminophen/ Hydrocodone Bitart 1 tab Q4HP PRN PO 08/16/24 09:45 08/20/24 12:29 1 TAB Ondansetron HCl 4 mg Q4HP PRN IV 08/16/24 09:45 Nitroglycerin 0.4 mg Q5MINP PRN SL 08/16/24 09:45 Morphine Sulfate 2 mg Q30M PRN IV 08/16/24 09:45 08/19/24 09:25 2 MG Amiodarone HCl 200 mg BID PO 08/16/24 10:00 08/20/24 09:20 200 MG Buspirone HCl 10 mg DAILY PO 08/16/24 10:00 08/20/24 09:23 10 MG Fluoxetine HCl 10 mg DAILY PO 08/16/24 10:00 08/20/24 12:29 10 MG Sacubitril/ Valsartan 0.5 tab BID PO 08/16/24 10:00 08/19/24 21:56 0.5 TAB Patient Own Medication 1 tab DAILY PO 08/16/24 10:00 UNV Pantoprazole Sodium 40 mg DAILY IV 08/16/24 10:00 08/20/24 09:19 40 MG Albuterol 2.5 mg Q6H NEB 08/16/24 12:00 Cancel Clopidogrel Bisulfate 75 mg DAILY PO 08/17/24 10:00 08/20/24 09:21 75 MG Spironolactone 12.5 mg DAILY PO 08/17/24 10:00 08/20/24 09:20 12.5 MG Metoprolol Succinate 25 mg DAILY PO 08/17/24 10:00 08/20/24 09:22 25 MG Lorazepam 0.5 mg Q8HP PRN PO 08/16/24 23:15 08/20/24 06:41 0.5 MG Ipratropium [place] 0.5 mg Q4HR NEB 08/17/24 10:00 08/20/24 10:06 0.5 MG Apixaban 5 mg BID PO 08/17/24 22:00 08/20/24 09:19 5 MG Furosemide 40 mg BIDD IV 08/17/24 18:00 08/20/24 06:30 40 MG Methylprednisolone Sodium Succinate 40 mg Q8HR IV 08/17/24 22:00 08/20/24 06:30 40 MG Piperacillin Sod/ Tazobactam Sod 100 ml @ 25 mls/hr Q8HR IV 08/19/24 18:00 08/20/24 06:25 25 MLS/HR Morphine Sulfate 2 mg Q2HPRN PRN IV 08/19/24 14:45 08/20/24 09:28 2 MG Gabapentin 300 mg BID PO 08/19/24 22:00 08/20/24 09:21 300 MG Guaifenesin/ Codeine Phosphate 10 ml Q6HPRN PRN PO 08/19/24 15:00 08/20/24 09:19 10 ML Albuterol 2.5 mg Q4HR NEB 08/20/24 10:00 08/20/24 10:06 2.5 MG Examination General Appearance: Cooperative. Well developed. Well nourished. In moderate distress, coughing Head Exam: Normal inspection Neck Exam: Normal inspection. Non-tender. Normal alignment Pulmonary/Respiratory: Chest non-tender. Decreased bilateral breath sounds, no crackles, wheezing. Cardiovascular/Chest: Regular rate and rhythm. No murmurs. No JVD. Peripheral Pulses: 2+ Radial (R). 2+ Radial (L). 2+ Pedal (R). 2+ Pedal (L) Abdominal Exam: Normal bowel sounds. Soft. normal abdomen, no visible veins, Nontender. No hepatospenomegaly. No masses Ankle Exam: Negative ankle edema Lower extremities: Negative lower extremity edema Neuro/Mental Status: A&O x4. Coherent. Thoughts/Psych: Normal thought pattern. Appropriate mood and affect. Good judgement and insight Skin Exam: Normal inspection. Normal color. Warm. Dry laboratory and microbiology Laboratory Tests 08/20/24 06:20 Test 08/20/24 06:20 Range/Units Serum Glucose 129 H 74-106 mg/dL Microbiology Date/Time Source Procedure Growth Status 08/17/24 07:40 Sputum Gram Stain - Final Complete 08/17/24 07:40 Respiratory Culture - Final Pseudomonas aeruginosa Complete Problem List/Assessment/Plan Problem List/Assessment/Plan Acute hypoxic respiratory failure Acute exacerbation of COPD possible gram -ve pneumonia Pruritic Chest pain - CXR: No acute cardiopulmonary disease - ipratropium and levalbuterol med nebs - IV methylprednisolone 40 mg Q 8 hours - respiratory culture came back positive for Pseudomonas aeruginosa - -discontinued azithromycin and Rocephin - started on IV Zosyn - guaifenesin-codeine 10 mL q.6 as needed - chest physical therapy Acute on chronic diastolic heart failure with ejection fraction 40% Coronary artery disease, s/p PTCA x1 stent in May 2023 Possible coronary stent thrombosis, ruled out - IV furosemide 40 mg b.i.d. - metoprolol succinate 25 mg p.o. daily, Entresto 0.5 mg b.i.d., spironolactone 12.5 mg p.o. daily - completed left heart catheterization with successful PCI to mid LAD lesion using a single drug-eluting stent. Widely patent stent to the diagonal branch from previous angioplasty. Paroxysmal atrial fibrillation, currently in sinus rhythm - amiodarone 200 mg p.o. b.i.d. - apixaban 5 mg p.o. b.i.d. Hypertension Dyslipidemia - clopidogrel 75 mg p.o. daily Depression, likely MDD vs atypical depression - buspirone 10 mg p.o. daily - fluoxetine 10 mg p.o. daily - quetiapine p.o. daily - resumed home dose gabapentin 300 mg b.i.d. PUD prophylaxis: protonix 40mg DVT prophylaxis: Patient already on Eliquis 5 mg p.o. b.i.d. Goals of care: Full code, discussed for >16 minutes on 08/17/24 Plan discussed with patient Plan discussed with Dr. Garcia Plan discussed with: Patient, Spouse, Other (RN) My Orders My Orders Orders - MALACHI BRITTON Procedure Category Date Status Time Piperacillin-Tazob PHA 08/19/24 In Process 3.375gm (Zosyn 3.375g 18:00 Gabapentin Capsule PHA 08/19/24 In Process (Neurontin Capsule) 22:00 Guaifenesin-Codeine PHA 08/19/24 In Process Liquid (Robitussin/C 15:00 Date of Service: Aug 20, 2024 Billing Provider: LUIS GARCIA MD Common Visit Codes: [id number] INP/OBS CARE(HIGH), PROCEDURE ONLY (Chest point of care ultrasound [id number]) Coding Comment Comment I saw and evaluated the patient. I reviewed the residents note and agree with findings and plan as documented in the residents note. POCUS done today and interpreted by me Lung: No B-lines, no pleural effusion Abdomen: Bilateral kidney equal in size, no marcella hydronephrosis, small acoustic shadow? MALACHI BRITTON Aug 20, 2024 13:29 ULIS GARCIA MD Aug 20, 2024 21:12
[2024-08-20] MEDS: LEVALBUTEROL HCL 1.25 MG/3 ML NEB NEB SCH (18:49)
[2024-08-20] MEDS: ACETYLCYSTEINE 20%(200MG/ML) SOL 4ML NEB SCH (18:50)
--- NOTE | 2024-08-20 20:25 | DVHPN2 ---
Progress Note - Dictate Date Seen: Aug 20, 2024 Medical Necessity Reason Pt with a Central, PICC or Fol: No Subjective Patient seen and examined at bedside. Remains on supplemental oxygen Overnight events reviewed. vital signs Vital Sign Date Time Temp Pulse Resp B/P (MAP) Pulse Ox O2 Delivery O2 Flow Rate FiO2 08/20/24 19:04 82 22 98 08/20/24 18:49 Nasal Cannula 3.0 08/20/24 18:49 32 08/20/24 18:08 112/65 08/20/24 17:32 97.4 97.4 Total Intake and Output 08/19/24 08/19/24 08/20/24 15:00 23:00 07:00 Intake Total 900 ml 600 ml Output Total 401 ml Balance 900 ml 199 ml medications Current Medications Medications Dose Ordered Sig/Parul Route Start Time Stop Time Status Last Admin Dose Admin Sodium Chloride 10 ml Q8HR IV 08/16/24 14:00 08/20/24 14:00 10 ML Docusate Sodium 100 mg BIDPRN PRN PO 08/16/24 09:45 08/19/24 09:08 100 MG Acetaminophen 650 mg Q6HP PRN PO 08/16/24 09:45 Acetaminophen/ Hydrocodone Bitart 1 tab Q4HP PRN PO 08/16/24 09:45 08/20/24 19:31 1 TAB Ondansetron HCl 4 mg Q4HP PRN IV 08/16/24 09:45 Nitroglycerin 0.4 mg Q5MINP PRN SL 08/16/24 09:45 Morphine Sulfate 2 mg Q30M PRN IV 08/16/24 09:45 08/20/24 18:07 2 MG Amiodarone HCl 200 mg BID PO 08/16/24 10:00 08/20/24 09:20 200 MG Buspirone HCl 10 mg DAILY PO 08/16/24 10:00 08/20/24 09:23 10 MG Fluoxetine HCl 10 mg DAILY PO 08/16/24 10:00 08/20/24 12:29 10 MG Sacubitril/ Valsartan 0.5 tab BID PO 08/16/24 10:00 08/19/24 21:56 0.5 TAB Patient Own Medication 1 tab DAILY PO 08/16/24 10:00 UNV Pantoprazole Sodium 40 mg DAILY IV 08/16/24 10:00 11/4/24 09:19 40 MG Albuterol 2.5 mg Q6H NEB 08/16/24 12:00 Cancel Clopidogrel Bisulfate 75 mg DAILY PO 08/17/24 10:00 08/20/24 09:21 75 MG Spironolactone 12.5 mg DAILY PO 08/17/24 10:00 08/20/24 09:20 12.5 MG Metoprolol Succinate 25 mg DAILY PO 08/17/24 10:00 08/20/24 09:22 25 MG Lorazepam 0.5 mg Q8HP PRN PO 08/16/24 23:15 08/20/24 15:49 0.5 MG Ipratropium [place] 0.5 mg Q4HR NEB 08/17/24 10:00 08/20/24 18:49 0.5 MG Apixaban 5 mg BID PO 08/17/24 22:00 08/20/24 09:19 5 MG Furosemide 40 mg BIDD IV 08/17/24 18:00 08/20/24 18:08 40 MG Methylprednisolone Sodium Succinate 40 mg Q8HR IV 08/17/24 22:00 08/20/24 15:49 40 MG Piperacillin Sod/ Tazobactam Sod 100 ml @ 25 mls/hr Q8HR IV 08/19/24 18:00 08/20/24 15:49 25 MLS/HR Morphine Sulfate 2 mg Q2HPRN PRN IV 08/19/24 14:45 08/20/24 14:03 2 MG Gabapentin 300 mg BID PO 08/19/24 22:00 08/20/24 09:21 300 MG Guaifenesin/ Codeine Phosphate 10 ml Q6HPRN PRN PO 08/19/24 15:00 08/20/24 15:48 10 ML Levalbuterol HCl 1.25 mg Q4HR NEB 08/20/24 18:00 08/20/24 18:49 1.25 MG Acetylcysteine 200 mg Q8HR NEB 08/20/24 15:30 08/20/24 18:50 200 MG objective Gen.: Patient lying in bed in no apparent distress. On supplemental oxygen Head: Normocephalic, atraumatic. Eyes: EOMI/PERRLA. Ears: Normal hearing. Normal anatomy. Neck/trachea: Trachea midline, supple. Nose: Normal external anatomy. Mouth: Moist mucous membranes. Chest: Decreased air entry bilaterally. Wheezing noted. No rhonchi. Cardiovascular: Positive S1, positive S2. Regular rate and rhythm. Abdomen: Positive bowel sounds in all 4 quadrants. Soft, non-tender, non- distended. : Deferred. Rectal: Deferred. Skin: Warm, dry. Intact. Extremities: 2+ radial pulses bilaterally. No lower extremity edema. Neuro: Awake, alert, oriented x3. No gross motor or sensory deficits. Cranial nerves II through XII intact. Gait not assessed. laboratory and microbiology Laboratory Tests 08/20/24 06:20 Test 08/20/24 06:20 Range/Units Serum Glucose 129 H 74-106 mg/dL Assessment/Plan Impression: Acute hypoxic respiratory failure 2/2 AE COPD COPD exacerbation Nicotine dependence Chest pain, rule out ACS Elevated liver function tests CAD s/p PTCA Events: Remains on supplemental oxygen on 3 LPM NC. Taper O2 as tolerated Continue bronchodilators - Xopenex, Atrovent Mucomyst Continue abx - Zosyn Continue IV steroids d/t wheezing- Solu-Medrol Productive cough - Antitussive PRN. Incentive spirometry Sputum cultures grew Pseudomonas aeruginosa. Protonix for GI prophylaxis Diurese to euvolemia w/ Lasix QD Monitor renal function Plan: Chest x-ray imaging report reviewed. No acute opacities. No pleural effusion or pneumothorax. Supplemental oxygen on 3 liters/minute via nasal cannula Taper O2 as tolerated Wheezing noted Bronchodilators Steroids On amiodarone PO. Cardiology recommendations appreciated. Currently on therapeutic Lovenox. Maintain euvolemia with Lasix Monitor ins and outs. Monitor renal function Monitor electrolytes Supplement as necessary. Bronchodilators Smoking cessation discussed for greater than 10 minutes. IV steroids for asthma versus COPD exacerbation. GI prophylaxis-Protonix DVT prophylaxis-on therapeutic Lovenox Prognosis: Poor given multiple comorbidities. Rest of plan per hospitalist and other consultants. Thank you Dr. Quevedo for allowing me to participate in this patient's care. Further recommendations will depend on patient's clinical course. Please do not hesitate to contact me if you have any questions or concerns. This medical document was created using an electronic medical record system with [email or web address] system. Although this document has been carefully reviewed, there may still be some phonetic and typographical errors. These areas are purely typographical due to imperfections of the software programs, and do not reflect any compromise in the patient's medical care. Plan discussed with: Patient, Other (JONO Barrera) BRIANDA KAY MD Aug 20, 2024 20:25
[2024-08-21] VITALS (19 sets, daily range): BP systolic 103–118; BP diastolic 63–71; PULSE 66–90; RESP 14–22; TEMP 97.6–98.3; O2SAT 92–100
[2024-08-21 06:39] LABS: Basophils # (auto) 0 10 ^3/uL (0-0.2); Eosinophils # (auto) 0 10 ^3/uL (0-0.8); Hematocrit 38.8 % (41.0-53.0); Hemoglobin 13.4 g/dL (13.5-17.5); Lymphocytes # (auto) 1.1 10 ^3/uL (0.4-5.4); Lymphocytes % (auto) 18.2 % (10.0-50.0); Mean Corpuscular Hemoglobin 33.5 pg (28.0-32.0); Mean Corpuscular Hgb Conc. 34.5 g/dL (32.0-36.0); Mean Corpuscular Volume 97.3 fL (80.0-100.0); Monocytes # (auto) 0.4 10 ^3/uL (0-1.3); Monocytes % (auto) 7.6 % (0.0-12.0); Neutrophils # (auto) 4.4 10 ^3/uL (1.6-8.6); Neutrophils % (auto) 74.2 % (37.0-80.0); Nucleated Red Blood Cells % 0.1 %; Platelet Count (auto) 259 10^3/uL (140-450); Red Blood Cells 3.99 10^6/uL (4.5-5.90); Red Cell Distribution Width 13.9 % (11.8-14.3); White Blood Cell 5.9 10^3/uL (4.4-10.8)
[2024-08-21 06:57] LABS: Alanine Aminotransferase 70 U/L (7-40); Albumin 4.4 g/dL (3.2-4.8); Alkaline Phosphatase 88 U/L (46-116); Anion Gap 7 (5-15); Aspartate Aminotransferase 34 U/L (13-40); BUN/Creatinine Ratio 23.3 (10.0-20.0); Blood Urea Nitrogen 28 mg/dL (9-23); Calcium 8.9 mg/dL (8.7-10.4); Carbon Dioxide 27 mmol/L (20-31); Chloride 100 mmol/L (98-107); Glucose 142 mg/dL (74-106); Sodium 134 mmol/L (136-145)
[2024-08-21 06:58] LABS: Bilirubin, Total 0.5 mg/dL (0.2-1.0); Total Protein 6.8 g/dL (5.7-8.2)
[2024-08-21] MEDS ORDERED: HYDROcodone-ACET 5/325MG TAB PO PRN (11:00)
--- NOTE | 2024-08-21 11:13 | DVH ---
Exam: CT CHST AB PEL WO CON-NO IV/ORAL History: Chest pain and cough Comparison Study: None available at time of dictation. Technique: Multidetector spiral CT of the chest, abdomen and pelvis was performed from lower neck to pubic symphysis Axial, coronal and sagittal multiplanar reformats were performed by the technologist on a separate workstation. Radiation Dose : 1. Chest/Abdomen/Pelvis: CTDIvol 8.49 mGy, DLP 647.97 mGy*cm. Findings: Lower neck: Normal thyroid. Lungs: No focal consolidation, pleural effusion or pneumothorax. Heart/Vascular Structures: Normal heart size. No pericardial effusion. Moderate coronary artery disea se. Lymph Nodes: No adenopathy Pleura: No pleural effusion or significant pneumothorax. Liver: Subcentimeter hepatic cyst. Gallbladder and Biliary Tree: Sludge in the gallbladder. Spleen: Unremarkable Pancreas: The pancreas is normal in appearance without focal lesions or abnormal enhancement. Adrenal Glands: Unremarkable Kidneys: Subcentimeter right renal cyst. No hydronephrosis. Bladder: Unremarkable Bowel: The stomach is grossly normal in appearance. Small bowel and colon are normal in caliber and d istribution. The appendix is not visualized; however, no secondary findings of acute appendicitis id entified. Ascites: Absent Lymphadenopathy: No mesenteric, retroperitoneal or periportal lymphadenopathy. Abdominal Wall and Mesentery: Small bilateral inguinal hernias containing fat and bladder on the left . Vasculature: Focal ectasis of the infrarenal abdominal aortic measuring up to 26mm. Calcified atheros clerotic disease. Pelvic Organs: Unremarkable Musculoskeletal: No aggressive focal bony lesions, acute fractures or dislocation. IMPRESSION: 1. No acute findings involving the chest, abdomen or pelvis. Tiny hepatic cyst. Sludge in the gallbla dder. Right renal cyst. Focal ectasis of the infrarenal abdominal aorta. Bilateral inguinal hernias. HS:Y
[2024-08-21] MEDS: ACETAMINOPHEN 325 MG TAB PO PRN (12:14)
[2024-08-21] MEDS: KETOROLAC TROMETH 30 MG/ML 1ML VIAL IV SCH (14:36)
--- NOTE | 2024-08-21 15:34 | DVHPNRES ---
Progress Note Date Seen: Aug 21, 2024 Resident Creating Document: MALACHI BRITTON RESIDENT Medical Necessity Reason Pt with a Central, PICC or Fol: No Subjective Review of Systems Patient is a 64-year-old male with past medical history of COPD, paroxysmal atrial fibrillation, chronic diastolic heart failure, CAD s/p PCI, 1 stent in May 2023, hypertension, dyslipidemia, depression who came in due to dyspnea and shortness of breaths. Patient says that for the past 2 weeks he has also been experiencing a chest pain that has been progressively worsening and increasing in intensity. According to the patient, on 08/16/2024 his chest pain got worse and he could not get up, he describes the pain as sharp, constant and localized to midepigastric area. Shortly after as he finished a breathing treatment for his COPD, he started feeling more and more shortness of breath along with gasping for air which prompted this visit to the hospital. Past surgical history: PTCA Home medications: Amiodarone, simvastatin, buspirone, Jardiance, gabapentin, losartan, prednisolone, quetiapine, Entresto, spironolactone, tramadol Past Hospitalization: In February 2024 for COPD exacerbation Social & Personal history: Patient lives with his . Quit smoking 2 years ago, prior to that was smoking 3 cigarettes per day for 12 years. Denies using alcohol or drugs. Allergies: Denies Patient seen and examined at bedside. Patient is alert and oriented to time, place person and responding to all questions. Frequency of coughing episodes decreasing. Complains of anterior abdominal wall and anterior chest pain, reproducible on palpation. Objective vital signs Vital Sign Date Time Temp Pulse Resp B/P (MAP) Pulse Ox O2 Delivery O2 Flow Rate FiO2 08/21/24 14:32 78 14 100 08/21/24 13:14 98.3 08/21/24 10:39 121/63 08/21/24 08:00 Nasal Cannula* 4 36 Total Intake and Output 08/20/24 08/20/24 08/21/24 15:00 23:00 07:00 Intake Total 1100 ml 1900 ml Output Total 404 ml 1200 ml Balance 696 ml 700 ml medications Current Medications Medications Dose Ordered Sig/Parul Route Start Time Stop Time Status Last Admin Dose Admin Sodium Chloride 10 ml Q8HR IV 08/16/24 14:00 08/21/24 14:00 10 ML Docusate Sodium 100 mg BIDPRN PRN PO 08/16/24 09:45 08/19/24 09:08 100 MG Acetaminophen 650 mg Q6HP PRN PO 08/16/24 09:45 08/21/24 12:14 650 MG Ondansetron HCl 4 mg Q4HP PRN IV 08/16/24 09:45 Nitroglycerin 0.4 mg Q5MINP PRN SL 08/16/24 09:45 Morphine Sulfate 2 mg Q30M PRN IV 08/16/24 09:45 08/21/24 06:32 2 MG Amiodarone HCl 200 mg BID PO 08/16/24 10:00 08/21/24 10:10 200 MG Buspirone HCl 10 mg DAILY PO 08/16/24 10:00 08/21/24 10:10 10 MG Fluoxetine HCl 10 mg DAILY PO 08/16/24 10:00 08/21/24 12:05 10 MG Sacubitril/ Valsartan 0.5 tab BID PO 08/16/24 10:00 08/19/24 21:56 0.5 TAB Patient Own Medication 1 tab DAILY PO 08/16/24 10:00 UNV Pantoprazole Sodium 40 mg DAILY IV 08/16/24 10:00 08/21/24 10:11 40 MG Albuterol 2.5 mg Q6H NEB 08/16/24 12:00 Cancel Clopidogrel Bisulfate 75 mg DAILY PO 08/17/24 10:00 08/21/24 10:10 75 MG Spironolactone 12.5 mg DAILY PO 08/17/24 10:00 08/21/24 10:10 12.5 MG Metoprolol Succinate 25 mg DAILY PO 08/17/24 10:00 08/21/24 10:09 25 MG Lorazepam 0.5 mg Q8HP PRN PO 08/16/24 23:15 08/21/24 12:05 0.5 MG Ipratropium [place] 0.5 mg Q4HR NEB 08/17/24 10:00 08/21/24 14:17 0.5 MG Apixaban 5 mg BID PO 08/17/24 22:00 08/21/24 10:09 5 MG Furosemide 40 mg BIDD IV 08/17/24 18:00 08/21/24 06:24 40 MG Methylprednisolone Sodium Succinate 40 mg Q8HR IV 08/17/24 22:00 08/21/24 14:36 40 MG Piperacillin Sod/ Tazobactam Sod 100 ml @ 25 mls/hr Q8HR IV 08/19/24 18:00 08/21/24 14:35 25 MLS/HR Morphine Sulfate 2 mg Q2HPRN PRN IV 08/19/24 14:45 08/21/24 10:09 2 MG Gabapentin 300 mg BID PO 08/19/24 22:00 08/21/24 10:10 300 MG Guaifenesin/ Codeine Phosphate 10 ml Q6HPRN PRN PO 08/19/24 15:00 08/21/24 12:05 10 ML Levalbuterol HCl 1.25 mg Q4HR NEB 08/20/24 18:00 08/21/24 14:17 1.25 MG Acetylcysteine 200 mg Q8HR NEB 08/20/24 15:30 08/21/24 06:21 200 MG Acetaminophen/ Hydrocodone Bitart 1 tab BID PO 08/21/24 22:00 Acetaminophen/ Hydrocodone Bitart 1 tab Q12HP PRN PO 08/21/24 11:00 Ketorolac Tromethamine 15 mg BID IV 08/21/24 11:00 08/26/24 10:59 08/21/24 14:36 15 MG Examination General Appearance: Cooperative. Well developed. Well nourished. NAD Head Exam: Normal inspection Neck Exam: Normal inspection. Non-tender. Normal alignment Pulmonary/Respiratory: Chest non-tender. Decreased bilateral breath sounds, no crackles, wheezing. Cardiovascular/Chest: Regular rate and rhythm. No murmurs. No JVD. Peripheral Pulses: 2+ Radial (R). 2+ Radial (L). 2+ Pedal (R). 2+ Pedal (L) Abdominal Exam: Normal bowel sounds. Soft. normal abdomen, no visible veins, Nontender. No hepatospenomegaly. No masses Ankle Exam: Negative ankle edema Lower extremities: Negative lower extremity edema Neuro/Mental Status: A&O x4. Coherent. Thoughts/Psych: Normal thought pattern. Appropriate mood and affect. Good judgement and insight Skin Exam: Normal inspection. Normal color. Warm. Dry laboratory and microbiology Laboratory Tests 08/21/24 05:46 Test 08/21/24 05:46 Range/Units Serum Glucose 142 H 74-106 mg/dL Microbiology Date/Time Source Procedure Growth Status 08/17/24 07:40 Sputum Gram Stain - Final Complete 08/17/24 07:40 Respiratory Culture - Final Pseudomonas aeruginosa Complete Labs and/or images reviewed: Labs reviewed by me, Image(s) reviewed by me Problem List/Assessment/Plan Problem List/Assessment/Plan Acute hypoxic respiratory failure Acute exacerbation of COPD possible gram -ve pneumonia Pleuritic Chest pain - CXR: No acute cardiopulmonary disease - ipratropium and levalbuterol med nebs - IV methylprednisolone 40 mg Q 8 hours - respiratory culture came back positive for Pseudomonas aeruginosa - -discontinued azithromycin and Rocephin - started on IV Zosyn - guaifenesin-codeine 10 mL q.6 as needed - chest physical therapy - CT abdomen pelvis: No acute findings involving the chest, abdomen or pelvis. Tiny hepatic cysts. Sludge in the gallbladder. Right renal cyst. Focal ectasis of the infrarenal abdominal aorta. Bilateral inguinal hernias. Anterior chest wall/anterior abdominal pain, likely due to repeated coughing - IV Toradol 15 mg b.i.d. - [place] 5 b.i.d. scheduled - [place] 5 mg q.12 hours as needed for severe pain Acute on chronic diastolic heart failure with ejection fraction 40% Coronary artery disease, s/p PTCA x1 stent in May 2023 Possible coronary stent thrombosis, ruled out - IV furosemide 40 mg b.i.d. - metoprolol succinate 25 mg p.o. daily, Entresto 0.5 mg b.i.d., spironolactone 12.5 mg p.o. daily - completed left heart catheterization with successful PCI to mid LAD lesion using a single drug-eluting stent. Widely patent stent to the diagonal branch from previous angioplasty. Paroxysmal atrial fibrillation, currently in sinus rhythm - amiodarone 200 mg p.o. b.i.d. - apixaban 5 mg p.o. b.i.d. Hypertension Dyslipidemia - clopidogrel 75 mg p.o. daily Depression, likely MDD vs atypical depression - buspirone 10 mg p.o. daily - fluoxetine 10 mg p.o. daily - quetiapine p.o. daily - resumed home dose gabapentin 300 mg b.i.d. PUD prophylaxis: protonix 40mg DVT prophylaxis: Patient already on Eliquis 5 mg p.o. b.i.d. Goals of care: Full code, discussed for >16 minutes on 08/17/24 Plan discussed with patient Plan discussed with Dr. Garcia Plan discussed with: Patient My Orders My Orders Orders - MALACHI BRITTON RESIDENT Procedure Category Date Status Time Hydrocodone-Acet PHA 08/21/24 In Process 5/325mg Tab ([place] 22:00 Hydrocodone-Acet PHA 08/21/24 In Process 5/325mg Tab ([place] 11:00 Ketorolac Injection PHA 08/21/24 In Process (Toradol Injection) 11:00 Dietary Evaluation Review Comments: Continue current plan of care Expected Outcomes/Goals: F/U in 3-5 days Date of Service: Aug 21, 2024 Billing Provider: LUIS GARCIA MD Common Visit Codes: [id number] INP/OBS CARE(HIGH) Coding Comment Comment I saw and evaluated the patient. I reviewed the residents note and agree with findings and plan as documented in the residents note. MALACHI BRITTON RESIDENT Aug 21, 2024 15:34 LUIS GARCIA MD Aug 21, 2024 20:34
--- NOTE | 2024-08-21 20:55 | DVHPN2 ---
Progress Note - Dictate Date Seen: Aug 21, 2024 Medical Necessity Reason Pt with a Central, PICC or Fol: No Subjective Patient seen and examined at bedside. Remains on supplemental oxygen Overnight events reviewed. vital signs Vital Sign Date Time Temp Pulse Resp B/P (MAP) Pulse Ox O2 Delivery O2 Flow Rate FiO2 08/21/24 20:12 98.3 70 16 114/66 (82) 97 98.3 08/21/24 19:50 Nasal Cannula* 3 32 Total Intake and Output 08/20/24 08/20/24 08/21/24 15:00 23:00 07:00 Intake Total 1100 ml 1900 ml Output Total 404 ml 1200 ml Balance 696 ml 700 ml medications Current Medications Medications Dose Ordered Sig/Parul Route Start Time Stop Time Status Last Admin Dose Admin Sodium Chloride 10 ml Q8HR IV 08/16/24 14:00 08/21/24 14:00 10 ML Docusate Sodium 100 mg BIDPRN PRN PO 08/16/24 09:45 08/19/24 09:08 100 MG Acetaminophen 650 mg Q6HP PRN PO 08/16/24 09:45 08/21/24 12:14 650 MG Ondansetron HCl 4 mg Q4HP PRN IV 08/16/24 09:45 Nitroglycerin 0.4 mg Q5MINP PRN SL 08/16/24 09:45 Morphine Sulfate 2 mg Q30M PRN IV 08/16/24 09:45 08/21/24 06:32 2 MG Amiodarone HCl 200 mg BID PO 08/16/24 10:00 08/21/24 10:10 200 MG Buspirone HCl 10 mg DAILY PO 08/16/24 10:00 08/21/24 10:10 10 MG Fluoxetine HCl 10 mg DAILY PO 08/16/24 10:00 08/21/24 12:05 10 MG Sacubitril/ Valsartan 0.5 tab BID PO 08/16/24 10:00 08/19/24 21:56 0.5 TAB Patient Own Medication 1 tab DAILY PO 08/16/24 10:00 UNV Pantoprazole Sodium 40 mg DAILY IV 08/16/24 10:00 08/21/24 10:11 40 MG Albuterol 2.5 mg Q6H NEB 08/16/24 12:00 Cancel Clopidogrel Bisulfate 75 mg DAILY PO 08/17/24 10:00 08/21/24 10:10 75 MG Spironolactone 12.5 mg DAILY PO 08/17/24 10:00 08/21/24 10:10 12.5 MG Metoprolol Succinate 25 mg DAILY PO 08/17/24 10:00 08/21/24 10:09 25 MG Lorazepam 0.5 mg Q8HP PRN PO 08/16/24 23:15 08/21/24 20:09 0.5 MG Ipratropium [place] 0.5 mg Q4HR NEB 08/17/24 10:00 08/21/24 18:48 0.5 MG Apixaban 5 mg BID PO 08/17/24 22:00 08/21/24 10:09 5 MG Furosemide 40 mg BIDD IV 08/17/24 18:00 08/21/24 17:54 40 MG Methylprednisolone Sodium Succinate 40 mg Q8HR IV 08/17/24 22:00 08/21/24 14:36 40 MG Piperacillin Sod/ Tazobactam Sod 100 ml @ 25 mls/hr Q8HR IV 08/19/24 18:00 08/21/24 14:35 25 MLS/HR Morphine Sulfate 2 mg Q2HPRN PRN IV 08/19/24 14:45 08/21/24 17:54 2 MG Gabapentin 300 mg BID PO 08/19/24 22:00 08/21/24 10:10 300 MG Guaifenesin/ Codeine Phosphate 10 ml Q6HPRN PRN PO 08/19/24 15:00 08/21/24 12:05 10 ML Levalbuterol HCl 1.25 mg Q4HR NEB 08/20/24 18:00 08/21/24 18:48 1.25 MG Acetylcysteine 200 mg Q8HR NEB 08/20/24 15:30 08/21/24 06:21 200 MG Acetaminophen/ Hydrocodone Bitart 1 tab BID PO 08/21/24 22:00 Acetaminophen/ Hydrocodone Bitart 1 tab Q12HP PRN PO 08/21/24 11:00 Ketorolac Tromethamine 15 mg BID IV 08/21/24 11:00 08/26/24 10:59 08/21/24 14:36 15 MG objective Gen.: Patient lying in bed in no apparent distress. On supplemental oxygen Head: Normocephalic, atraumatic. Eyes: EOMI/PERRLA. Ears: Normal hearing. Normal anatomy. Neck/trachea: Trachea midline, supple. Nose: Normal external anatomy. Mouth: Moist mucous membranes. Chest: Decreased air entry bilaterally. Wheezing noted. No rhonchi. Cardiovascular: Positive S1, positive S2. Regular rate and rhythm. Abdomen: Positive bowel sounds in all 4 quadrants. Soft, non-tender, non- distended. : Deferred. Rectal: Deferred. Skin: Warm, dry. Intact. Extremities: 2+ radial pulses bilaterally. No lower extremity edema. Neuro: Awake, alert, oriented x3. No gross motor or sensory deficits. Cranial nerves II through XII intact. Gait not assessed. laboratory and microbiology Laboratory Tests 08/21/24 05:46 Test 08/21/24 05:46 Range/Units Serum Glucose 142 H 74-106 mg/dL Assessment/Plan Impression: Acute hypoxic respiratory failure 2/2 AE COPD COPD exacerbation Nicotine dependence Chest pain, rule out ACS Elevated liver function tests CAD s/p PTCA Events: Remains on supplemental oxygen on 4 LPM NC. Taper O2 as tolerated CT chest demonstrates no acute opacities;sludge in the gallbladder. Continue bronchodilators - Xopenex, Atrovent Mucomyst Sputum cultures grew Pseudomonas aeruginosa. Continue abx - Zosyn WBC within normal limits. Continue IV steroids - Solu-Medrol Antitussive PRN. Incentive spirometry Continue Eliquis and Amiodarone for AFib. Diurese to euvolemia w/ Lasix QD Monitor renal function Pain control Avoid oversedation Protonix for GI prophylaxis Eliquis for DVT prophylaxis. Rest of plan as noted below. Plan: Chest x-ray imaging report reviewed. No acute opacities. No pleural effusion or pneumothorax. Supplemental oxygen on 4 liters/minute via nasal cannula Taper O2 as tolerated Wheezing noted Bronchodilators Steroids On amiodarone PO. Cardiology recommendations appreciated. Currently on therapeutic Lovenox. Maintain euvolemia with Lasix Monitor ins and outs. Monitor renal function Monitor electrolytes Supplement as necessary. Bronchodilators Smoking cessation discussed for greater than 10 minutes. IV steroids for asthma versus COPD exacerbation. GI prophylaxis-Protonix Eliquis for DVT prophylaxis Prognosis: Poor given multiple comorbidities. Rest of plan per hospitalist and other consultants. Thank you Dr. Quevedo for allowing me to participate in this patient's care. Further recommendations will depend on patient's clinical course. Please do not hesitate to contact me if you have any questions or concerns. This medical document was created using an electronic medical record system with [employer] dictation system. Although this document has been carefully reviewed, there may still be some phonetic and typographical errors. These areas are purely typographical due to imperfections of the software programs, and do not reflect any compromise in the patient's medical care. Dietary Evaluation Review Comments: Continue current plan of care Expected Outcomes/Goals: F/U in 3-5 days Plan discussed with: Patient, Other (RN) BRIANDA KAY MD Aug 21, 2024 20:55
[2024-08-21] MEDS: HYDROcodone-ACET 5/325MG TAB PO SCH (22:17)
[2024-08-22] VITALS (19 sets, daily range): BP systolic 75–135; BP diastolic 45–78; PULSE 63–94; RESP 17–20; TEMP 97.6–97.9; O2SAT 90–99
[2024-08-22 06:45] LABS: Basophils # (auto) 0 10 ^3/uL (0-0.2); Basophils % (auto) 0.1 % (0.0-2.0); Eosinophils # (auto) 0 10 ^3/uL (0-0.8); Hematocrit 40.4 % (41.0-53.0); Hemoglobin 14.1 g/dL (13.5-17.5); Lymphocytes # (auto) 1.4 10 ^3/uL (0.4-5.4); Mean Corpuscular Hemoglobin 33.6 pg (28.0-32.0); Mean Corpuscular Volume 96.1 fL (80.0-100.0); Monocytes # (auto) 0.8 10 ^3/uL (0-1.3); Monocytes % (auto) 8.8 % (0.0-12.0); Neutrophils # (auto) 6.6 10 ^3/uL (1.6-8.6); Neutrophils % (auto) 75.1 % (37.0-80.0); Nucleated Red Blood Cells % 0.1 %; Platelet Count (auto) 291 10^3/uL (140-450); Red Blood Cells 4.21 10^6/uL (4.5-5.90); Red Cell Distribution Width 13.8 % (11.8-14.3); White Blood Cell 8.7 10^3/uL (4.4-10.8)
[2024-08-22] MEDS ORDERED: guaiFENesin-CODEINE Liq 5 ML UD PO PRN (08:00)
[2024-08-22] MEDS: BUDESONIDE (INHALATION) 0.5 MG/2 ML NEB NEB SCH (09:41)
[2024-08-22] MEDS: guaiFENesin-CODEINE Liq 5 ML UD PO SCH (13:19)
[2024-08-22] MEDS ORDERED: CLOP75TA28 PO (13:24)
[2024-08-22] MEDS ORDERED: APIX5TAB PO (13:24)
[2024-08-22] MEDS ORDERED: PRED20TA2 PO (13:24)
[2024-08-22] MEDS ORDERED: CEFD300C2 PO (13:24)
[2024-08-22] MEDS ORDERED: SACU1TAB PO (13:38)
[2024-08-22] MEDS ORDERED: METO25TA93 PO (13:38)
[2024-08-22] MEDS ORDERED: ATOR40TA52 PO (13:38)
[2024-08-22] MEDS ORDERED: AMIO200T33 PO (13:38)
[2024-08-22] MEDS ORDERED: SPIR25TA8 PO (13:38)
[2024-08-22] MEDS ORDERED: EMPA1TAB PO (13:38)
[2024-08-22] MEDS ORDERED: ALBU0.084 NEB (15:35)
[2024-08-22] MEDS ORDERED: SILDENAFIL CITRATE 20 MG TAB PO ONE (15:45)
--- NOTE | 2024-08-22 16:57 | DVHDSRES ---
Discharge Summary Date of Admission Resident Creating Document: MALACHI BRITTON RESIDENT Aug 16, 2024 at 09:41 Date of Discharge: Aug 22, 2024 Admitting Diagnosis Shortness of breath Labs/Diagnostic Data: Laboratory Results Test 08/22/24 05:56 08/21/24 05:46 08/18/24 05:36 08/17/24 05:04 White Blood Count 8.7 10^3/uL (4.4-10.8) Red Blood Count 4.21 10^6/uL (4.5-5.90) Hemoglobin 14.1 g/dL (13.5-17.5) Hematocrit 40.4 % (41.0-53.0) Mean Corpuscular Volume 96.1 fL (80.0-100.0) Mean Corpuscular Hemoglobin 33.6 pg (28.0-32.0) Mean Corpuscular Hemoglobin Concent 35.0 g/dL (32.0-36.0) Red Cell Distribution Width 13.8 % (11.8-14.3) Platelet Count 291 10^3/uL (140-450) Mean Platelet Volume 8.7 fL (6.9-10.8) Neutrophils (%) (Auto) 75.1 % (37.0-80.0) Lymphocytes (%) (Auto) 16.0 % (10.0-50.0) Monocytes (%) (Auto) 8.8 % (0.0-12.0) Eosinophils (%) (Auto) 0.0 % (0.0-7.0) Basophils (%) (Auto) 0.1 % (0.0-2.0) Neutrophils # (Auto) 6.6 10 ^3/uL (1.6-8.6) Lymphocytes # (Auto) 1.4 10 ^3/uL (0.4-5.4) Monocytes # (Auto) 0.8 10 ^3/uL (0-1.3) Eosinophils # (Auto) 0 10 ^3/uL (0-0.8) Basophils # (Auto) 0 10 ^3/uL (0-0.2) Nucleated Red Blood Cells 0.1 % Sodium Level 134 mmol/L (136-145) Potassium Level 4.0 mmol/L (3.5-5.1) Chloride Level 100 mmol/L (98-107) Carbon Dioxide Level 27 mmol/L (20-31) Anion Gap 7 (5-15) Blood Urea Nitrogen 28 mg/dL (9-23) Creatinine 1.20 mg/dL (0.700-1.30) Glomerular Filtration Rate Calc 68 mL/min (>90) BUN/Creatinine Ratio 23.3 (10.0-20.0) Serum Glucose 142 mg/dL (74-106) Calcium Level 8.9 mg/dL (8.7-10.4) Total Bilirubin 0.5 mg/dL (0.2-1.0) Aspartate Amino Transferase (AST) 34 U/L (13-40) Alanine Aminotransferase (ALT) 70 U/L (7-40) Alkaline Phosphatase 88 U/L (46-116) Total Protein 6.8 g/dL (5.7-8.2) Albumin 4.4 g/dL (3.2-4.8) Erythrocyte Sedimentation Rate 7 mm/hr (0-20) C-Reactive Protein High Sensitivity 0.03 mg/dL (<1.0) Prothrombin Time 11.4 sec (9.3-11.8) Prothrombin Time INR 1.08 (0.9-1.15) Activated Partial Thromboplast Time 27.6 SEC (24.5-34.5) Test 08/16/24 10:32 08/16/24 07:50 08/16/24 04:45 Urine Color Light-yellow (Yellow) Urine Clarity Clear (Clear) Urine pH 5.5 (5.0-9.0) Urine Specific [place] 1.012 (1.001-1.035) Urine Protein Negative (Negative) Urine Ketones Negative (Negative) Urine Blood Negative /uL (Negative) Urine Nitrite Negative (Negative) Urine Bilirubin Negative (Negative) Urine Urobilinogen Normal mg/dL (Negative) Urine Leukocyte Esterase Negative /uL (Negative) Urine RBC 1 /hpf (0 - 3) Urine WBC 1 /hpf (0 - 3) Urine Squamous Epithelial Cells None seen /hpf (<5) Urine Bacteria None seen /hpf (None Seen) Urine Glucose Normal mg/dL (Normal) Troponin I High Sensitivity < 3 ng/L (</=54) Differential Total Cells Counted 100.0 (100) Neutrophils % (Manual) 37 (37.0-80.0) Band Neutrophils % (Manual) 0 Lymphocytes % (Manual) 25 (10.0-50.0) Monocytes % (Manual) 14 (0-12) Eosinophils % (Manual) 24 (0-7) Basophils % (Manual) 0 (0.0-2.0) Metamyelocytes % (manual) 0 Myelocytes % (Manual) 0 Promyelocytes % (Manual) 0 Blast Cells % (Manual) 0 Reactive Lymphocytes 0 Platelet Estimate Adequate Hemoglobin A1c 5.5 % A1C (<5.7) Magnesium Level 2.1 mg/dL (1.6-2.6) B-Type Natriuretic Peptide 20.21 pg/mL (0-100) Triglycerides Level 245 mg/dL (< 150) Cholesterol Level 240 mg/dL (< 200) LDL Cholesterol 148 mg/dL (< 100) HDL Cholesterol 73 mg/dL (40-59) Thyroid Stimulating Hormone (TSH) 0.99 uIU/mL (0.55-4.78) Other Laboratory Tests 08/22/24 05:56 08/21/24 05:46 Brief Hx & Hospital Course: Patient is a 64-year-old male with past medical history of COPD, paroxysmal atrial fibrillation, chronic diastolic heart failure, CAD s/p PCI, 1 stent in May 2023, hypertension, dyslipidemia, depression who came in due to dyspnea and shortness of breaths. Patient says that for the past 2 weeks he has also been experiencing a chest pain that has been progressively worsening and increasing in intensity. According to the patient, on 08/16/2024 his chest pain got worse and he could not get up, he describes the pain as sharp, constant and localized to midepigastric area. Shortly after as he finished a breathing treatment for his COPD, he started feeling more and more shortness of breath along with gasping for air which prompted this visit to the hospital. Hospital course: Patient completed left heart catheterization with the placement of successful PCI to mid LAD using using a single drug-eluting stent along with a widely patent stent to the diagonal branch from previous angioplasty. Chest x-ray showed no acute cardiopulmonary disease, CT abdomen pelvis showed no acute findings involving the chest, abdomen or pelvis. Tiny hepatic cysts. Sludge in the gallbladder. Right renal cyst. Focal ectasia is of the infrarenal abdominal aorta. Bilateral inguinal hernias. Patient was started on ipratropium and levalbuterol med nebs along with IV methylprednisolone 40 mg Q 8 hours. Respiratory cultures came back positive for Pseudomonas which led to discontinuation of azithromycin and Rocephin and starting of IV Zosyn. Patient was also given Robitussin with codeine 10 mL for intractable cough along with chest physical therapy. Violent coughing paroxysms led to patient having anterior chest wall anterior abdominal pain which was managed with IV Toradol 50 mg b.i.d., [place] 5 mg b.i.d. scheduled and [place] 5 mg q.12 hours as needed for severe pain. Patient was also diuresed to euvolemia with IV furosemide 40 mg b.i.d.. He was also continued on metoprolol succinate, Entresto and spironolactone. For his paroxysmal atrial fibrillation, patient was managed with amiodarone 200 mg p.o. b.i.d. and apixaban 5 mg p.o. b.i.d.. Patient was also continued on home medication buspirone, fluoxetine, quetiapine and gabapentin. On the day of discharge, patient appeared well and had stable vital signs. Patient is medication Plavix, statin, amiodarone, Eliquis, spironolactone, Entresto, Jardiance and metoprolol was prescribed an ordered at bedside for patient. His hospital course was uncomplicated. General Appearance: Cooperative. Well developed. Well nourished. NAD Head Exam: Normal inspection Neck Exam: Normal inspection. Non-tender. Normal alignment Pulmonary/Respiratory: Chest non-tender. Decreased bilateral breath sounds, no crackles, wheezing. Cardiovascular/Chest: Regular rate and rhythm. No murmurs. No JVD. Peripheral Pulses: 2+ Radial (R). 2+ Radial (L). 2+ Pedal (R). 2+ Pedal (L) Abdominal Exam: Normal bowel sounds. Soft. normal abdomen, no visible veins, Nontender. No hepatospenomegaly. No masses Ankle Exam: Negative ankle edema Lower extremities: Negative lower extremity edema Neuro/Mental Status: A&O x4. Coherent. Thoughts/Psych: Normal thought pattern. Appropriate mood and affect. Good judgement and insight Skin Exam: Normal inspection. Normal color. Warm. Dry Condition at Discharge: Good Final Diagnosis/Problems List Acute hypoxic respiratory failure Acute exacerbation of COPD possible gram -ve pneumonia Pleuritic Chest pain Anterior chest wall/entire abdominal pain, likely due to repeated coughing Acute on chronic diastolic heart failure with ejection fraction 40% Coronary artery disease, s/p PTCA x1 stent in May 2023 Possible coronary stent thrombosis, ruled out Paroxysmal atrial fibrillation, currently in sinus rhythm Hypertension Dyslipidemia Depression, likely MDD vs atypical depression Discharge Disposition: Home Discharge Instruct/Medications Diet: Consistent carbohydrate Activity: No Restrictions, As Tolerated Follow Up/Referral: Please follow up with Cardiology on 08/27/2024 Please follow up with primary care in 1-2 weeks Please follow up in discharge clinic Medications: Amiodarone 200 mg twice a day Apixaban 5 mg twice a day Atorvastatin 40 mg once a day Cefdinir 300 mg twice a day for 5 days Clopidogrel 75 mg once a day Empagliflozin 10 mg once daily Metoprolol succinate 25 mg twice a day Prednisolone 20 mg, 2 tablets daily for 5 days Entresto half a tablet daily Spironolactone half a tablet daily Discharge Statement: "Patient was advised to return to the ER or call 911 if any headaches, dizziness, shortness of breath, chest pain, abdominal pain, bleeding, fevers, or worsening of medical condition. Patient was counseled about treatment plan, medications, possible side effects, patientverbalized understanding. All questions were answered to the best of my ability. This discharge took greater then 30 minutes in planning, reviewing documentation, counseling the patient, and discussing with other team members." ASSESSMENT ASSESSMENT Assessment Coronary angiography revealed widely patent stent in the diagonal branch,however there is a mid lesion to the mid LAD at 80-90% for which wasstented with a single drug-eluting stent. He has borderline left main30%. Patient needs aggressive medical therapy with a crit protocol. Date of Service: Aug 22, 2024 Billing Provider: LUIS GARCIA MD Common Visit Codes: 22584-ORE/OBS DISCH DAY >30min Coding Comment Comment I saw and evaluated the patient. I reviewed the residents note and agree with findings and plan as documented in the residents note. MALACHI BRITTON Aug 22, 2024 16:56 LUIS GARCIA MD Aug 22, 2024 20:54
[2024-08-22] MEDS: BUDESONIDE (INHALATION) 0.5 MG/2 ML NEB ONE (18:05)
[2024-08-22] MEDS: LEVALBUTEROL HCL 1.25 MG/3 ML NEB ONE (18:05)
[2024-08-22] MEDS: IPRATROPIUM BROM 0.5 MG/2.5ML INH SOL ONE (18:05)
--- NOTE | 2024-08-22 19:49 | DVHPN2 ---
Progress Note - Dictate Date Seen: Aug 22, 2024 Medical Necessity Reason Pt with a Central, PICC or Fol: No Subjective Patient seen and examined at bedside. Remains on supplemental oxygen Overnight events reviewed. vital signs Vital Sign Date Time Temp Pulse Resp B/P (MAP) Pulse Ox O2 Delivery O2 Flow Rate FiO2 08/22/24 18:18 77 18 97 08/22/24 18:05 Room Air* 0 21 08/22/24 17:10 99/75 08/22/24 17:00 97.6 97.6 Total Intake and Output 08/21/24 08/21/24 08/22/24 15:00 23:00 07:00 Intake Total 950 ml 995 ml Balance 950 ml 995 ml medications Current Medications Medications Dose Ordered Sig/Parul Route Start Time Stop Time Status Last Admin Dose Admin Sodium Chloride 10 ml Q8HR IV 08/16/24 14:00 08/22/24 14:00 10 ML Docusate Sodium 100 mg BIDPRN PRN PO 08/16/24 09:45 08/19/24 09:08 100 MG Acetaminophen 650 mg Q6HP PRN PO 08/16/24 09:45 08/21/24 12:14 650 MG Ondansetron HCl 4 mg Q4HP PRN IV 08/16/24 09:45 Nitroglycerin 0.4 mg Q5MINP PRN SL 08/16/24 09:45 Morphine Sulfate 2 mg Q30M PRN IV 08/16/24 09:45 08/22/24 16:40 2 MG Amiodarone HCl 200 mg BID PO 08/16/24 10:00 08/22/24 09:46 200 MG Buspirone HCl 10 mg DAILY PO 08/16/24 10:00 08/22/24 09:46 10 MG Fluoxetine HCl 10 mg DAILY PO 08/16/24 10:00 08/22/24 09:45 10 MG Sacubitril/ Valsartan 0.5 tab BID PO 08/16/24 10:00 08/19/24 21:56 0.5 TAB Patient Own Medication 1 tab DAILY PO 08/16/24 10:00 UNV Pantoprazole Sodium 40 mg DAILY IV 08/16/24 10:00 08/22/24 09:45 40 MG Albuterol 2.5 mg Q6H NEB 08/16/24 12:00 Cancel Clopidogrel Bisulfate 75 mg DAILY PO 08/17/24 10:00 08/22/24 09:46 75 MG Spironolactone 12.5 mg DAILY PO 08/17/24 10:00 08/22/24 09:47 12.5 MG Metoprolol Succinate 25 mg DAILY PO 08/17/24 10:00 08/22/24 09:48 25 MG Lorazepam 0.5 mg Q8HP PRN PO 08/16/24 23:15 08/21/24 20:09 0.5 MG Ipratropium [place] 0.5 mg Q4HR NEB 08/17/24 10:00 08/22/24 18:05 0.5 MG Apixaban 5 mg BID PO 08/17/24 22:00 08/22/24 09:46 5 MG Furosemide 40 mg BIDD IV 08/17/24 18:00 08/22/24 16:41 40 MG Methylprednisolone Sodium Succinate 40 mg Q8HR IV 08/17/24 22:00 08/22/24 16:39 40 MG Piperacillin Sod/ Tazobactam Sod 100 ml @ 25 mls/hr Q8HR IV 08/19/24 18:00 08/22/24 16:39 25 MLS/HR Morphine Sulfate 2 mg Q2HPRN PRN IV 08/19/24 14:45 08/22/24 11:31 2 MG Gabapentin 300 mg BID PO 08/19/24 22:00 08/22/24 09:46 300 MG Levalbuterol HCl 1.25 mg Q4HR NEB 08/20/24 18:00 08/22/24 18:05 1.25 MG Acetylcysteine 200 mg Q8HR NEB 08/20/24 15:30 08/22/24 13:53 200 MG Acetaminophen/ Hydrocodone Bitart 1 tab BID PO 08/21/24 22:00 08/22/24 18:12 1 TAB Acetaminophen/ Hydrocodone Bitart 1 tab Q12HP PRN PO 08/21/24 11:00 Ketorolac Tromethamine 15 mg BID IV 08/21/24 11:00 08/26/24 10:59 08/22/24 09:45 15 MG Budesonide 0.5 mg BID NEB 08/22/24 10:00 08/22/24 18:05 0.5 MG Guaifenesin/ Codeine Phosphate 10 ml BID PO 08/22/24 11:45 08/22/24 13:19 10 ML objective Gen.: Patient lying in bed in no apparent distress. On supplemental oxygen Head: Normocephalic, atraumatic. Eyes: EOMI/PERRLA. Ears: Normal hearing. Normal anatomy. Neck/trachea: Trachea midline, supple. Nose: Normal external anatomy. Mouth: Moist mucous membranes. Chest: Decreased air entry bilaterally. Wheezing noted. No rhonchi. Cardiovascular: Positive S1, positive S2. Regular rate and rhythm. Abdomen: Positive bowel sounds in all 4 quadrants. Soft, non-tender, non- distended. : Deferred. Rectal: Deferred. Skin: Warm, dry. Intact. Extremities: 2+ radial pulses bilaterally. No lower extremity edema. Neuro: Awake, alert, oriented x3. No gross motor or sensory deficits. Cranial nerves II through XII intact. Gait not assessed. laboratory and microbiology Laboratory Tests 08/22/24 05:56 08/21/24 05:46 Test 08/21/24 05:46 Range/Units Serum Glucose 142 H 74-106 mg/dL Assessment/Plan Impression: Acute hypoxic respiratory failure 2/2 AE COPD COPD exacerbation Nicotine dependence Chest pain, rule out ACS Elevated liver function tests CAD s/p PTCA Events: Remains on supplemental oxygen on 3 LPM NC. Arrange for home O2. Continue bronchodilators - Xopenex, Atrovent Mucomyst Continue abx - Zosyn Continue IV steroids - Solu-Medrol Started Pulmicort BID Antitussive PRN. Incentive spirometry Continue Eliquis and Amiodarone for AFib. Diurese to euvolemia w/ Lasix QD Monitor renal function Pain control Avoid oversedation Protonix for GI prophylaxis Eliquis for DVT prophylaxis. Patient is stable for discharge from the pulmonary standpoint. Follow up in 1-2 weeks in Pulmonary Clinic. F/u with Rheumatology, Dr. Obando. Rest of plan as noted below. Plan: Chest x-ray imaging report reviewed. No acute opacities. No pleural effusion or pneumothorax. Supplemental oxygen on 3 liters/minute via nasal cannula Taper O2 as tolerated Wheezing noted Bronchodilators Steroids On amiodarone PO. Cardiology recommendations appreciated. Currently on therapeutic Lovenox. Maintain euvolemia with Lasix Monitor ins and outs. Monitor renal function Monitor electrolytes Supplement as necessary. Bronchodilators Smoking cessation discussed for greater than 10 minutes. IV steroids for asthma versus COPD exacerbation. GI prophylaxis-Protonix Eliquis for DVT prophylaxis Prognosis: Poor given multiple comorbidities. Rest of plan per hospitalist and other consultants. Thank you Dr. Quevedo for allowing me to participate in this patient's care. Further recommendations will depend on patient's clinical course. Please do not hesitate to contact me if you have any questions or concerns. This medical document was created using an electronic medical record system with [employer] dictation system. Although this document has been carefully reviewed, there may still be some phonetic and typographical errors. These areas are purely typographical due to imperfections of the software programs, and do not reflect any compromise in the patient's medical care. Dietary Evaluation Review Comments: Continue current plan of care Expected Outcomes/Goals: F/U in 3-5 days Plan discussed with: Patient, Other (JONO Enciso) BRIANDA KAY MD Aug 22, 2024 19:49
== END 2024-08-22 20:20 | disposition home or self-care (01) | DRG 175 ==
LOC: ER 04:22 → TELE 09:41 → TELE-E-ADS 22:40 → TELE-EAST 08-21 19:57
PROVIDERS: ADMIT Student in an Organized Health Care Education/Training Program; ATTEND Emergency Medicine
PROC: 027034Z Dilation of Coronary Artery, One Artery with Drug-eluting Intraluminal Device, Percutaneous Approach (ICD-10-PCS; principal; 2024-08-17)
PROC: B211YZZ Fluoroscopy of Multiple Coronary Arteries using Other Contrast (ICD-10-PCS; 2024-08-17)
PROC: 4A023N7 Measurement of Cardiac Sampling and Pressure, Left Heart, Percutaneous Approach (ICD-10-PCS; 2024-08-17)
PROC: B215YZZ Fluoroscopy of Left Heart using Other Contrast (ICD-10-PCS; 2024-08-17)
DX: I11.0 Hypertensive heart disease with heart failure (principal); J96.01 Acute respiratory failure with hypoxia; J15.69 Pneumonia due to other Gram-negative bacteria; J44.0 Chronic obstructive pulmonary disease with (acute) lower respiratory infection; J44.1 Chronic obstructive pulmonary disease with (acute) exacerbation; I25.10 Atherosclerotic heart disease of native coronary artery without angina pectoris; I50.33 Acute on chronic diastolic (congestive) heart failure; I25.5 Ischemic cardiomyopathy; I48.0 Paroxysmal atrial fibrillation; E78.5 Hyperlipidemia, unspecified; F17.210 Nicotine dependence, cigarettes, uncomplicated; F32.9 Major depressive disorder, single episode, unspecified; Z95.5 Presence of coronary angioplasty implant and graft; Z79.01 Long term (current) use of anticoagulants; I25.2 Old myocardial infarction; Z79.899 Other long term (current) drug therapy; Z79.82 Long term (current) use of aspirin; Z81.8 Family history of other mental and behavioral disorders
CPT/HCPCS: 36415; 71045; 71250; 74176; 80053; 80061; 81001; 83036; 83735; 83880; 84443; 84484; 85007; 85025; 85027; 85610; 85652; 85730; 86141; 86850; 86900; 86901; 87070; 87077; 87186; 87205; 92920; 93005; 93306; 93458; 94640; 94668; 99152; 99291; C1874; G0378; J1885; J2250; J2405; J2470; J2543; Q9967

== ENCOUNTER 2025-01-22 08:58 | Inpatient (IN) | payer MEDICAID ==
[~2025-01-22] VITALS: Ht 170.2 cm; Wt 80.0 kg
[~2025-01-22 08:58] MED LIST changes: +ALBU0.084 NEB; +APIX5TAB PO; -ATOR20TA50 PO; +ATOR40TA52 PO; +CEFD300C2 PO; +CLOP75TA28 PO; -HYDR-4902 PO; -HYDR1TAB97 PO; -HYDR2.5L4 TOP; +METO25TA93 PO; -SPIR25TA PO; +SPIR25TA8 PO
--- NOTE | 2025-01-22 09:27 | ED.PDOC ---
HPI Comments 64 year old male presents to the ED with a chief complaint of chest pain onset 1 month. Patient states he has been experiencing chest pain for the past month as well as nausea, vomiting, loss of appetite, shortness of breath. Last full meal was Tuesday afternoon, has not been able to eat due to nausea/vomiting. Patient had cardiac stents placed 08/24/2024, feels a pressure sensation on chest. PMHx KS, HTN, HLD, a-fib, CHF, COPD. Denies headache, dizziness, abdominal pain, dysuria, hematuria, fever, chills. No other symptoms or modifying factors present at this time. Chief Complaint: Chest Pain Time Seen by MD: 09:10 Primary Care Provider: RAMIREZ Reviewed Notes: Medications, Allergies Allergies: Coded Allergies: NO KNOWN ALLERGIES (Unverified , 09/04/21) Home Meds Active Scripts Albuterol Sulfate (Albuterol Sulfate) 0.083 % Neb, 1 VIAL NEB Q4HPRN for 14 Days, #50 VIAL Prov:MALACHI BRITTON [facility] 08/22/24 Empagliflozin (Jardiance) 10 Mg Tab, 10 MG PO DAILY for 30 Days, #30 TAB Prov:MALACHI BRITTON [facility] 08/22/24 Spironolactone (Spironolactone) 25 Mg Tab, 0.5 TAB PO DAILY for 30 Days, #15 TAB 1 Refill Prov:MALACHI BRITTON [facility] 08/22/24 Sacubitril-Valsartan (Entresto 24-26 mg) 1 Tab Tab, 0.5 TAB PO DAILY for 30 Days, #15 TAB Prov:MALACHI BRITTON [facility] 08/22/24 Metoprolol Succinate (Metoprolol Succinate Er) 25 Mg Tab, 1 TAB PO BID for 30 Days, #60 TAB 5 Refills Prov:MALACHI BRITTON [facility] 08/22/24 Atorvastatin Calcium (ATORVASTATIN CALCIUM) 40 Mg Tab, 1 TAB PO QPM for 30 Days, #30 TAB 3 Refills Prov:MALACHI BRITTON [facility] 08/22/24 Amiodarone Hcl (Amiodarone Hcl) 200 Mg Tab, 1 TAB PO BID for 30 Days, #60 TAB 1 Refill Prov:MALACHI BRITTON [facility] 08/22/24 Prednisone (Prednisone) 20 Mg Tab, 20 MG PO ONCE for 5 Days, #10 MG Prov:MALACHI BRITTON [facility] 08/22/24 Cefdinir (Cefdinir) 300 Mg Cap, 1 CAP PO BID for 5 Days, #14 CAP Prov:MALACHI BRITTON [facility] 08/22/24 Clopidogrel Bisulfate (Plavix) 75 Mg Tab, 1 TAB PO DAILY for 30 Days, #30 TAB 1 Refill Prov:MALACHI BRITTON [facility] 08/22/24 Apixaban Base (ELIQUIS) 5 Mg Tab, 5 MG PO BID for 30 Days, #60 TAB Prov:MALACHI BRITTON [facility] 08/22/24 Cyclobenzaprine Hcl (Cyclobenzaprine Hcl) 10 Mg Tab, 10 MG PO TIDP PRN for 10 Days, #30 TAB Prov:GUSTAVO FLOR MD 02/29/24 Gabapentin (Gabapentin) 300 Mg Cap, 300 MG PO BID for 30 Days, #60 CAP Prov:GUSTAVO FLOR MD 02/29/24 Reported Medications Hydroxyzine Hcl (Hydroxyzine Hcl) 25 Mg Tab, 1 TAB PO TID PRN for ANXIETY 02/23/24 Losartan Potassium (Losartan Potassium) 25 Mg Tab, 1 TAB PO DAILY 02/23/24 Tramadol Hcl (Tramadol Hcl) 50 Mg Tab, 1 TAB PO DAILY PRN for PAIN 02/23/24 Aspirin (Chewable Aspirin) 81 Mg Chw, 1 TAB PO DAILY 02/23/24 Quetiapine Fumerate (QUETIAPINE FUMARATE) 50 Mg Tab, 1 TAB PO HS TAKE 1-2 TABS AT NIGHT. 02/22/24 Fluoxetine Hcl (Fluoxetine Hcl) 10 Mg Tab, 1 CAP PO DAILY 02/22/24 Buspirone Hcl (Buspirone Hcl) 10 Mg Tab, 1 TAB PO DAILY 02/22/24 Information Source: Patient Mode of Arrival: Ambulatory Severity: Moderate Timing: Months Duration: Since onset Prehospital treatment: None Location: Chest (L) Radiation: No Radiation Quality: Pressure Onset: At Rest Cardiac Risk Factors: Smoker, Hyperlipidemia, HTN PE Risk Factors: None History of: KS Modifying Factors: Nothing Associated Signs and Symptoms: SOB, N/V Past Medical History PAST MEDICAL HISTORY: AFIB, CHF, COPD, High Lipids, HTN, KS Surgical History: PTCA Family History Family History: No family hx of Heart gee Social History Smoker: Cigarettes Alcohol: Denies ETOH Use Drugs: Denies Drug Use Lives In: Home Constitutional: denies: chills, diaphoresis, fatigue, fever, malaise, sweats, weakness, others EENTM: denies: blurred vision, double vision, ear bleeding, ear discharge, ear drainage, ear pain, ear ringing, eye pain, eye redness, hearing loss, mouth pain, mouth swelling, nasal discharge, nose bleeding, nose congestion, nose pain, photophobia, tearing, throat pain, throat swelling, voice changes, others Respiratory: reports: shortness of breath; denies: cough, hemoptysis, orthopnea, SOB at rest, SOB with excertion, stridor, wheezing, others Cardiovascular: reports: chest pain; denies: dizzy spells, diaphoresis, Dyspnea on exertion, edema, irregular heart beat, left arm pain, lightheadedness, palpitations, PND, syncope, others Gastrointestinal: reports: nausea, poor appetite, vomiting; denies: abdomen distended, abdominal pain, blood streaked bowels, constipated, diarrhea, dysphagia, difficulty swallowing, hematemesis, melena, poor fluid intake, rectal bleeding, rectal pain, others Genitourinary: denies: burning, dysuria, flank pain, frequency, hematuria, in continence, penile discharge, penile sore, pain, testicle pain, testicle swelling, urgency, others Neurological: denies: dizziness, fainting, headache, left sided numbness, left sided weakness, numbness, paresthesia, pre-existing deficit, right sided numbness, right sided weakness, seizure, speech problems, tingling, tremors, weakness, others Musculoskeletal: denies: back pain, gout, joint pain, joint swelling, muscle pain, muscle stiffness, neck pain, others Integumetry: denies: bruises, change in color, change in hair/nails, dryness, laceration, lesions, lumps, rash, wounds, others Allergic/Immunocompromised: denies: Difficulty Healing, Frequent Infections, Hives, Itching, others Hematologic/Lymphatic: denies: anemia, blood clots, easy bleeding, easy bruising, swollen glands, others Endocrine: denies: excessive hunger, excessive sweating, excessive thirst, excessive urination, flushing, intolerance to cold, intolerance to heat, unexplained weight gain, unexplained weight loss, others Psychiatric: denies: anxiety, bipolar disorder, depression, hopeless, panic disorder, schizophrenia, sleepless, suicidal, others All Other Systems: Reviewed and Negative Physical Exam General Appearance: No Apparent Distress, Normal HEENT: Normal ENT Inspection, Pharynx Normal, TMs Normal Neck: Full Range of Motion, Non-Tender, Normal, Normal Inspection Respiratory: Chest Non-Tender, Lungs Clear, No Accessory Muscle Use, No Respiratory Distress, Normal Breath Sounds Cardiovascular: No Edema, No JVD, No Murmur, No Gallop, Normal Peripheral Pulses, Regular Rate/Rhythm Breast Exam: Deferred Gastrointestinal: No Organomegaly, Non Tender, No Pulsatile Mass, Normal Bowel Sounds, Soft Genitalia: Deferred Pelvic: Deferred Rectal: Deferred Extremities: No calf tenderness, Normal capillary refill, Normal inspection, Normal range of motion, Non-tender, No pedal edema Musculoskeletal : Apperance: Normal 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 Was a procedure done?: No CP Differential Dx Differential Diagnosis: KS, PAC's Differential Diagnosis: HTN Essential, HTN Accelerated Differential Diagnosis: Chest Wall Pain, Gastritis, Myocardial Infarction X-Ray, Labs, Meds, VS Vital Signs Date Time Temp Pulse Resp B/P (MAP) Pulse Ox O2 Delivery O2 Flow Rate FiO2 01/22/25 10:52 61 22 149/98 01/22/25 10:07 97 01/22/25 09:10 98.0 110 17 147/88 (107) 95 98.0 01/22/25 09:06 101 Lab Test 01/22/25 10:13 01/22/25 09:11 Range/Units Troponin I High Sensitivity < 3 L < 3 L </=54 ng/L White Blood Count 6.8 4.4-10.8 10^3/uL Red Blood Count 4.42 L 4.5-5.90 10^6/uL Hemoglobin 15.1 13.5-17.5 g/dL Hematocrit 43.2 41.0-53.0 % Mean Corpuscular Volume 97.7 80.0-100.0 fL Mean Corpuscular Hemoglobin 34.2 H 28.0-32.0 pg Mean Corpuscular Hemoglobin Concent 35.0 32.0-36.0 g/dL Red Cell Distribution Width 14.5 H 11.8-14.3 % Platelet Count 215 140-450 10^3/uL Mean Platelet Volume 8.3 6.9-10.8 fL Neutrophils (%) (Auto) 35.1 L 37.0-80.0 % Lymphocytes (%) (Auto) 46.4 10.0-50.0 % Monocytes (%) (Auto) 4.7 0.0-12.0 % Eosinophils (%) (Auto) 12.8 H 0.0-7.0 % Basophils (%) (Auto) 1.0 0.0-2.0 % Neutrophils # (Auto) 2.4 1.6-8.6 10 ^3/uL Lymphocytes # (Auto) 3.2 0.4-5.4 10 ^3/uL Monocytes # (Auto) 0.3 0-1.3 10 ^3/uL Eosinophils # (Auto) 0.9 H 0-0.8 10 ^3/uL Basophils # (Auto) 0.1 0-0.2 10 ^3/uL Nucleated Red Blood Cells 0.2 % Sodium Level 139 136-145 mmol/L Potassium Level 3.2 L 3.5-5.1 mmol/L Chloride Level 105 98-107 mmol/L Carbon Dioxide Level 22 20-31 mmol/L Anion Gap 12 5-15 Blood Urea Nitrogen 10 9-23 mg/dL Creatinine 1.04 0.700-1.30 mg/dL Glomerular Filtration Rate Calc 80 >90 mL/min BUN/Creatinine Ratio 9.6 L 10.0-20.0 Serum Glucose 150 H 74-106 mg/dL Calcium Level 9.9 8.7-10.4 mg/dL Current Medications Medications (Trade) Dose Ordered Sig/Parul Route Start Time Stop Time Status Last Admin Morphine Sulfate 4 mg ONCE ONCE IV 01/22/25 10:30 01/22/25 10:32 DC 01/22/25 10:52 Ondansetron HCl (Zofran) 4 mg ONCE ONCE IV 01/22/25 10:30 01/22/25 10:32 DC 01/22/25 10:52 Time of 1ST Reevaluation: 09:40 Reevaluation 1ST: Unchanged Patient Education/Counseling: Diagnosis, Treatment, Prognosis Family Education/Counseling: No Family Present Additional Information The following tests were ordered, and results were reviewed by me: TROP -x3, EKG -x3, BMP, CBC, XY CHEST I reviewed and agreed with the following test results read by other providers: XY CHEST I discussed treatment and results with medical personnel and: Patient Comprehensive systems review obtained and negative except for what is stated in the HPI. Departure 1 Departure Time of Disposition: 11:01 (Patient presented with acute shortness of breath concerning for acute on chronic COPD Exacerbation, Pneumonia, ACS, CHF, Pneumothorax. Less likely PE, Dissection. Data: 1. I ordered and reviewed the result of at least 3 labs including a CBC, BMP, and Troponin. 2. I independently interpreted the following tests: Chest X-ray shows benign chest .Risk:This patient has a high risk of morbidity due to further diagnostic testing or treatment and may suffer from respiratory or cardiac etiology . Workup reveals a likely COPD Exacerbation and patient should be admitted for further workup. and possible expert consultation.) Impression: Primary Impression: Chest pain, rule out acute myocardial infarction Additional Impression: Acute exacerbation of chronic obstructive pulmonary disease (COPD) Disposition: ADMITTED INPATIENT Admit to: Med Surg Condition: Serious Critical Care Note Critical Care Time?: Yes Critical care comment: Acute chest pain Authorized and Performed by: Leslie Simons MD Total critical care time: Approximately 39 minutes Due to a high probability of clinically significant, life threatening deterioration, the patient required my highest level of preparedness to intervene emergently and I personally spent this critical care time directly and personally managing the patient. This critical care time included obtaining a history; examining the patient; pulse oximetry; ordering and review of studies; arranging urgent treatment with development of a management plan; evaluation of patient's response to treatment; frequent reassessment; and, discussions with other providers. This critical care time was performed to assess and manage the high probability of imminent, life-threatening deterioration that could result in multi-organ failure. It was exclusive of separately billable procedures and treating other patients and teaching time. Please see my other sections and the rest of the note for further information on patient assessment and treatment. Stability Stability form required: No Heart Score Heart Score: Heart Score Response (Comments) Value History Slightly Suspicious 0 EKG Repolarization Disturb 1 Age 45-64 1 Risk Factors >3 or Hx ASHD 2 Troponin Normal limit 0 Total 4 I personally scribed for LESLIE SIMONS MD ([email or web address]) on 01/22/25 at 09:26. Electronically submitted by Anya Sims ([email or web address]). I personally scribed for LESLIE SIMONS MD ([email or web address]) on 01/22/25 at 09:36. Electronically submitted by Anya Sims ([email or web address]). LESLIE SIMONS MD Jan 22, 2025 09:26
--- NOTE | 2025-01-22 09:48 | DVH ---
CHEST RADIOGRAPH Indication: chest pain, sob Technique: Single frontal view of the chest was obtained Comparison: XY CHEST XRAY 1 VIEW on DOS: 08/17/24 FINDINGS: Lines and Tubes: None Lungs: No focal consolidation. Pleura: No effusion. No pneumothorax. Cardiomediastinal contours: Unremarkable Bones: No acute osseous abnormality. IMPRESSION: 1. No acute cardiopulmonary disease.
[2025-01-22 09:52] LABS: Basophils # (auto) 0.1 10 ^3/uL (0-0.2); Eosinophils # (auto) 0.9 10 ^3/uL (0-0.8); Hemoglobin 15.1 g/dL (13.5-17.5)
[2025-01-22 09:54] LABS: Eosinophils % (auto) 12.8 % (0.0-7.0); Hematocrit 43.2 % (41.0-53.0); Lymphocytes # (auto) 3.2 10 ^3/uL (0.4-5.4); Lymphocytes % (auto) 46.4 % (10.0-50.0); Mean Corpuscular Hemoglobin 34.2 pg (28.0-32.0); Mean Corpuscular Volume 97.7 fL (80.0-100.0); Monocytes # (auto) 0.3 10 ^3/uL (0-1.3); Monocytes % (auto) 4.7 % (0.0-12.0); Neutrophils # (auto) 2.4 10 ^3/uL (1.6-8.6); Neutrophils % (auto) 35.1 % (37.0-80.0); Nucleated Red Blood Cells % 0.2 %; Platelet Count (auto) 215 10^3/uL (140-450); Red Blood Cells 4.42 10^6/uL (4.5-5.90); Red Cell Distribution Width 14.5 % (11.8-14.3); White Blood Cell 6.8 10^3/uL (4.4-10.8)
[2025-01-22 10:07] LABS: Chloride 105 mmol/L (98-107); Sodium 139 mmol/L (136-145)
[2025-01-22 10:08] LABS: Anion Gap 12 (5-15); Calcium 9.9 mg/dL (8.7-10.4); Carbon Dioxide 22 mmol/L (20-31); Potassium 3.2 mmol/L (3.5-5.1)
[2025-01-22 10:13] LABS: BUN/Creatinine Ratio 9.6 (10.0-20.0); Blood Urea Nitrogen 10 mg/dL (9-23); Glucose 150 mg/dL (74-106)
[2025-01-22 10:45] VITALS: PULSE 61; RESP 22; O2SAT 97
[2025-01-22] MEDS: MORPHINE SULFATE 4 MG/ML SYR/VIAL IV ONE (10:52)
[2025-01-22] MEDS: ONDANSETRON HCL 4 MG/2 ML VIAL IV ONE (10:52)
[2025-01-22] MEDS: AZITHROMYCIN 250 MG TAB PO ONE (11:11)
[2025-01-22] MEDS: methylPREDNISolone SOD SUCC 125 MG/2 ML VL IV ONE (11:12)
[2025-01-22] MEDS: ALBUTEROL SULF 2.5 MG/0.5ML(0.5%) NEB SOLN NEB ONE (11:20)
[2025-01-22] MEDS: IPRATROPIUM BROM 0.5 MG/2.5ML INH SOL NEB ONE ×2 (11:20→15:45)
--- NOTE | 2025-01-22 14:23 | DVHHP2 ---
History of Present Illness Reason for Visit: Chest pain History of Present Illness 64-year-old male past medical history cardiac stents August 24, 2024 [place] hypertension hyperlipidemia AFib with CHF COPD PTCA chief complaint patient comes in with chest pain and pressure he has been going on for about one month. Patient states the pain in his chest is like a pressure-like pain. Nothing makes it worse nothing makes it better he states lately he has been a nausea or vomiting with this pain patient states he did have stent placed in August of [address] Maxwell. When evaluating patient's chart patient had an echo August 18, 2024 EF 50% he currently still smoking. CBC was unremarkable potassium was 3.2 glucose was 150 troponin x3 was negative chest x-ray was unremarkable. With these findings we will admit patient for further workup and care and ask for Cardiology evaluation Past Medical History See HPI above Past Surgical History PTCA cardiac stent x2 in August of 2024 Family History Reviewed, non-contributory to the management of this case. Past Social History Patient was smoking by history but denies drug or alcohol use Review of Systems Constitutional: No: Fever, Chills, Sweats, Weakness, Malaise, Other Eyes: No: Pain, Vision change, Conjunctivae inflammation, Eyelid inflammation, Other, Redness ENT: No: Ear pain, Ear discharge, Nose pain, Nose discharge, Nose congestion, Mouth pain, Mouth swelling, Throat pain, Throat swelling, Other Respiratory: Shortness of breath, SOB with excertion; No: Cough, Dry, Wheezing, Hemoptysis, Pleuritic Pain, Sputum, Wheezing, Other Cardiovascular: Chest Pain; No: Palpitations, Orthopnea, Paroxysmal Noc. Dyspnea, Edema, Lt Headedness, Other Gastrointestinal: No: Nausea, Vomiting, Abdominal Pain, Diarrhea, Constipation, Melena, Hematochezia, Other Genitourinary: No Dysuria, No Frequency, No Incontinence, No Hematuria, No Retention, No Other Musculoskeletal: No: other, neck pain, shoulder pain, arm pain, back pain, hand pain, leg pain, foot pain Skin: No: Rash, Lesions, Jaundice, Bruising, Other Neurological: No: Weakness, Numbness, Incoordination, Change in speech, Confusion, Seizures, Other Allergies: Coded Allergies: NO KNOWN ALLERGIES (Unverified , 09/04/21) Exam Vital Signs Vital Signs Date Time Temp Pulse Resp B/P (MAP) Pulse Ox O2 Delivery O2 Flow Rate FiO2 01/22/25 12:01 83 01/22/25 11:45 18 134/79 01/22/25 11:15 95 Nasal Cannula* 2 28 01/22/25 10:45 97.7 97.7 General Appearance: Alert, Oriented X3, Cooperative, mild distress HEENT: Atraumatic, PERRLA, EOMI, Mucous membr. moist/pink Respiratory: Other (coarse wheezes throughout) Cardiovascular: Regular rate, Normal S1, Normal S2, No murmurs Abdominal: Normal bowel sounds, Soft, No tenderness, No hepatospenomegaly, No masses Extremities: No clubbing, No cyanosis, No edema, Normal pulses, No tenderness/swelling Skin: No rashes, No breakdown, No significant lesion Neuro: Normal gait, Normal speech, Strength at 5/5 X4 ext, Normal tone, Sensation intact, Cranial nerves 3-12 NL Psych/Mental Status: Mental status NL, Mood NL Labs/Xrays Chest x-ray unremarkable I reviewed labs, imaging CT scan abdomen pelvis, EKG and all diagnostic studies on this patient from ED records and the medical chart Labs Test 01/22/25 11:59 01/22/25 09:11 Range/Units Troponin I High Sensitivity < 3 L </=54 ng/L White Blood Count 6.8 4.4-10.8 10^3/uL Red Blood Count 4.42 L 4.5-5.90 10^6/uL Hemoglobin 15.1 13.5-17.5 g/dL Hematocrit 43.2 41.0-53.0 % Mean Corpuscular Volume 97.7 80.0-100.0 fL Mean Corpuscular Hemoglobin 34.2 H 28.0-32.0 pg Mean Corpuscular Hemoglobin Concent 35.0 32.0-36.0 g/dL Red Cell Distribution Width 14.5 H 11.8-14.3 % Platelet Count 215 140-450 10^3/uL Mean Platelet Volume 8.3 6.9-10.8 fL Neutrophils (%) (Auto) 35.1 L 37.0-80.0 % Lymphocytes (%) (Auto) 46.4 10.0-50.0 % Monocytes (%) (Auto) 4.7 0.0-12.0 % Eosinophils (%) (Auto) 12.8 H 0.0-7.0 % Basophils (%) (Auto) 1.0 0.0-2.0 % Neutrophils # (Auto) 2.4 1.6-8.6 10 ^3/uL Lymphocytes # (Auto) 3.2 0.4-5.4 10 ^3/uL Monocytes # (Auto) 0.3 0-1.3 10 ^3/uL Eosinophils # (Auto) 0.9 H 0-0.8 10 ^3/uL Basophils # (Auto) 0.1 0-0.2 10 ^3/uL Nucleated Red Blood Cells 0.2 % Sodium Level 139 136-145 mmol/L Potassium Level 3.2 L 3.5-5.1 mmol/L Chloride Level 105 98-107 mmol/L Carbon Dioxide Level 22 20-31 mmol/L Anion Gap 12 5-15 Blood Urea Nitrogen 10 9-23 mg/dL Creatinine 1.04 0.700-1.30 mg/dL Glomerular Filtration Rate Calc 80 >90 mL/min BUN/Creatinine Ratio 9.6 L 10.0-20.0 Serum Glucose 150 H 74-106 mg/dL Calcium Level 9.9 8.7-10.4 mg/dL Assessment/Plan Assessment/Plan Acute chest pain r/o nstemi trop x3 negative ekg no stemi ordered Cards consult pending eval and recs ordered asa atorvastatin echo completed 08/18/24 ef 50% ordered ddimer fu results ordered morphine as needed for pain, ordered nitro prn acute hypokalemia ordered replete k ordered mag fu results tobacco dependence enc abstinence chronic problems with continuation of home medication cardiac stents mi htn hld afib cont eliquis chf copd ordered albuterol/atrovent prn sob and solumedrol atc FEN/PPx protonix eliquis SCDs Diet Plan admit to telemetry cards consult follow-up recs Plan discussed with: Patient Date of Service: Jan 22, 2025 Billing Provider: LIZET DOS SANTOS DNP Common Visit Codes: [id number] INP/OBS CARE (HIGH) LIZET DOS SANTOS DNP Jan 22, 2025 14:23
--- NOTE | 2025-01-22 14:29 | ECG ---
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
[2025-01-22] MEDS: MORPHINE SULFATE INJ 2 MG/ml SYRG IV ONE (15:17)
[2025-01-22] MEDS: LEVALBUTEROL HCL 1.25 MG/3 ML NEB NEB ONE (15:45)
[2025-01-22] MEDS ORDERED: ONDANSETRON HCL 4 MG/2 ML VIAL IV PRN (16:00)
[2025-01-22] MEDS ORDERED: NITROGLYCERIN 0.4 MG SL TAB SL PRN (16:00)
[2025-01-22] MEDS: POTASSIUM EFFERVESENT TAB 25 MEQ PO ONE (17:11)
--- NOTE | 2025-01-22 17:22 | DVHINCON2 ---
Date Seen: Jan 22, 2025 Referring Physician GERRY Dee Reason for Consultation Chest pain History of Present Illness This is a 64-year-old male patient who presents to emergency room with chief complaint of chest pain for 10 days. He describes the pain as unprovoked, intermittent, pressure-like in nature, left-sided and nonradiating. Associated symptoms include nausea, vomiting, and shortness of breath. Initial twelve lead electrocardiogram reveals sinus tachycardia with prolonged QTc and artifact seen in multiple leads. Serial troponin levels have been negative. Significant past medical history includes coronary artery disease status post multiple PTCAs X 2 JOSIANE (Plavix), paroxysmal atrial fibrillation (on Eliquis), congestive heart failure, hypertension, dyslipidemia, COPD, anxiety, depression, and history of tobacco use. 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 Past Medical History Past medical history reviewed. No other significant than mentioned above. Past Surgical History Denies all previous surgeries Family History: Dementia G8 FATHER FH: smoking G8 FATHER FH: throat cancer G8 FATHER Hypertension G8 MOTHER Family History Family history reviewed. Social History Patient has a seven pack-year history, quit smoking approximately 1.5 years ago Denies any illicit drug use Denies any alcohol use Allergies: Coded Allergies: NO KNOWN ALLERGIES (Unverified , 09/04/21) Home Meds Active Scripts Albuterol Sulfate (Albuterol Sulfate) 0.083 % Neb, 1 VIAL NEB Q4HPRN for 14 Days, #50 VIAL Prov:MALACHI BRITTON RESIDENT 08/22/24 Empagliflozin (Jardiance) 10 Mg Tab, 10 MG PO DAILY for 30 Days, #30 TAB Prov:MALACHI BRITTON RESIDENT 08/22/24 Spironolactone (Spironolactone) 25 Mg Tab, 0.5 TAB PO DAILY for 30 Days, #15 TAB 1 Refill Prov:MALACHI BRITTON [facility] 08/22/24 Sacubitril-Valsartan (Entresto 24-26 mg) 1 Tab Tab, 0.5 TAB PO DAILY for 30 Days, #15 TAB Prov:MALACHI BRITTON [facility] 08/22/24 Metoprolol Succinate (Metoprolol Succinate Er) 25 Mg Tab, 1 TAB PO BID for 30 Days, #60 TAB 5 Refills Prov:MALACHI BRITTON [facility] 08/22/24 Atorvastatin Calcium (ATORVASTATIN CALCIUM) 40 Mg Tab, 1 TAB PO QPM for 30 Days, #30 TAB 3 Refills Prov:MALACHI BRITTON [facility] 08/22/24 Amiodarone Hcl (Amiodarone Hcl) 200 Mg Tab, 1 TAB PO BID for 30 Days, #60 TAB 1 Refill Prov:MALACHI BRITTON [facility] 08/22/24 Prednisone (Prednisone) 20 Mg Tab, 20 MG PO ONCE for 5 Days, #10 MG Prov:MALACHI BRITTON [facility] 08/22/24 Cefdinir (Cefdinir) 300 Mg Cap, 1 CAP PO BID for 5 Days, #14 CAP Prov:MALACHI BRITTON [facility] 08/22/24 Clopidogrel Bisulfate (Plavix) 75 Mg Tab, 1 TAB PO DAILY for 30 Days, #30 TAB 1 Refill Prov:MALACHI BRITTON [facility] 08/22/24 Apixaban Base (ELIQUIS) 5 Mg Tab, 5 MG PO BID for 30 Days, #60 TAB Prov:MALACHI BRITTON [facility] 08/22/24 Cyclobenzaprine Hcl (Cyclobenzaprine Hcl) 10 Mg Tab, 10 MG PO TIDP PRN for 10 Days, #30 TAB Prov:GUSTAVO FLOR MD 02/29/24 Gabapentin (Gabapentin) 300 Mg Cap, 300 MG PO BID for 30 Days, #60 CAP Prov:GUSTAVO FLOR MD 02/29/24 Reported Medications Hydroxyzine Hcl (Hydroxyzine Hcl) 25 Mg Tab, 1 TAB PO TID PRN for ANXIETY 02/23/24 Losartan Potassium (Losartan Potassium) 25 Mg Tab, 1 TAB PO DAILY 02/23/24 Tramadol Hcl (Tramadol Hcl) 50 Mg Tab, 1 TAB PO DAILY PRN for PAIN 02/23/24 Aspirin (Chewable Aspirin) 81 Mg Chw, 1 TAB PO DAILY 02/23/24 Quetiapine Fumerate (QUETIAPINE FUMARATE) 50 Mg Tab, 1 TAB PO HS TAKE 1-2 TABS AT NIGHT. 02/22/24 Fluoxetine Hcl (Fluoxetine Hcl) 10 Mg Tab, 1 CAP PO DAILY 02/22/24 Buspirone Hcl (Buspirone Hcl) 10 Mg Tab, 1 TAB PO DAILY 02/22/24 Home Meds Home medications reviewed. Current Medications Current Medications Medications (Trade) Dose Ordered Sig/Parul Route PRN Reason Start Time Stop Time Status Last Admin Levalbuterol HCl (Xopenex Medneb) 0.625 mg Q4HR NEB 01/22/25 18:00 UNV Ipratropium [place] (Atrovent Medneb) 0.5 mg Q4HR NEB 01/22/25 18:00 UNV Amiodarone HCl (Cordarone Tablet) 200 mg BID PO 01/22/25 22:00 UNV Apixaban (Eliquis) 5 mg BID PO 01/22/25 22:00 UNV Buspirone HCl (Buspar Tablet) 10 mg DAILY PO 01/23/25 10:00 UNV Clopidogrel Bisulfate (Plavix) 75 mg DAILY PO 01/23/25 10:00 UNV Cyclobenzaprine HCl (Flexeril Tablet) 10 mg TIDP PRN PO PAIN SCALE 7 THRU 10 01/22/25 16:00 UNV Empaglifozin (Jardiance) 10 mg DAILY PO 01/23/25 10:00 UNV Fluoxetine HCl (PROzac CAPSULE) 10 mg DAILY PO 01/23/25 10:00 UNV Gabapentin (Neurontin Capsule) 300 mg BID PO 01/22/25 22:00 UNV Losartan Potassium (Cozaar Tablet) 25 mg DAILY PO 01/23/25 10:00 UNV Sacubitril/ Valsartan (Entresto 24-26 Mg tab) 0.5 tab DAILY PO 01/23/25 10:00 UNV Spironolactone (Aldactone) 12.5 mg DAILY PO 01/23/25 10:00 UNV Patient Own Medication 1 tab DAILY PO 01/23/25 10:00 UNV Patient Own Medication 1 tab QPM PO 01/22/25 18:00 UNV Patient Own Medication 1 tab BID PO 01/22/25 22:00 UNV Patient Own Medication 1 tab HS PO 01/22/25 22:00 UNV Atorvastatin Calcium (Lipitor) 40 mg HS PO 01/22/25 22:00 UNV Morphine Sulfate 2 mg Q30MP PRN IV FOR CHEST PAIN 01/22/25 16:00 UNV Nitroglycerin (Ntrostat Sublingual) 0.4 mg Q5MINP PRN SL FOR CHEST PAIN 01/22/25 16:00 01/22/25 16:13 DC Ondansetron HCl (Zofran) 4 mg Q4HP PRN IV NAUSEA / VOMITING 01/22/25 16:00 UNV Nitroglycerin (Ntrostat Sublingual) 0.4 mg Q5MINP PRN SL FOR CHEST PAIN 01/22/25 16:00 UNV Methylprednisolone Sodium Succinate (Solu Medrol) 40 mg Q8HR IV 01/22/25 22:00 UNV Review of Systems Constitutional: No symptom reported Ears, Nose, & Throat: No symptom reported Eyes: No symptom reported Neurological: No symptoms reported Pulmonary/Respiratory: Shortness of breath Cardiovascular: Chest pain Gastrointestinal: Nausea and vomiting Genitourinary: No symptom reported Musculoskeletal: No symptom reported Skin: No symptom reported Psychiatric: No symptom reported Endocrine: No symptom reported Hematologic/Lymphatic: No symptom reported Vital Signs Vital Signs Date Time Temp Pulse Resp B/P (MAP) Pulse Ox O2 Delivery O2 Flow Rate FiO2 01/22/25 15:45 19 97 Nasal Cannula* 2 28 01/22/25 15:17 89 130/86 01/22/25 15:10 98.0 98.0 Physical Exam General Appearance: Cooperative. Well-developed. Well-nourished. No acute distress. Pulmonary/Respiratory: Bilateral expiratory wheezes Cardiovascular/Chest: Regular rate and rhythm. Peripheral Pulses: 2+ Radial (R). 2+ Radial (L). 2+ Pedal (R). 2+ Pedal (L) Abdominal Exam: Normal bowel sounds. Ankle Exam: Negative ankle edema Lower extremities: Negative lower extremity edema Neuro/Mental Status: A/OX4, coherent. Thoughts/Psych: Normal thought pattern. Appropriate mood and affect. Good judgment and insight. Appearance: No acute distress. Skin Exam: Normal inspection. Normal color. Warm and dry. Labs/Diagnostic Data Labs Test 01/22/25 16:18 01/22/25 09:11 Range/Units White Blood Count 6.8 4.4-10.8 10^3/uL Red Blood Count 4.42 L 4.5-5.90 10^6/uL Hemoglobin 15.1 13.5-17.5 g/dL Hematocrit 43.2 41.0-53.0 % Mean Corpuscular Volume 97.7 80.0-100.0 fL Mean Corpuscular Hemoglobin 34.2 H 28.0-32.0 pg Mean Corpuscular Hemoglobin Concent 35.0 32.0-36.0 g/dL Red Cell Distribution Width 14.5 H 11.8-14.3 % Platelet Count 215 140-450 10^3/uL Mean Platelet Volume 8.3 6.9-10.8 fL Neutrophils (%) (Auto) 35.1 L 37.0-80.0 % Lymphocytes (%) (Auto) 46.4 10.0-50.0 % Monocytes (%) (Auto) 4.7 0.0-12.0 % Eosinophils (%) (Auto) 12.8 H 0.0-7.0 % Basophils (%) (Auto) 1.0 0.0-2.0 % Neutrophils # (Auto) 2.4 1.6-8.6 10 ^3/uL Lymphocytes # (Auto) 3.2 0.4-5.4 10 ^3/uL Monocytes # (Auto) 0.3 0-1.3 10 ^3/uL Eosinophils # (Auto) 0.9 H 0-0.8 10 ^3/uL Basophils # (Auto) 0.1 0-0.2 10 ^3/uL Nucleated Red Blood Cells 0.2 % Sodium Level 139 136-145 mmol/L Potassium Level 3.2 L 3.5-5.1 mmol/L Chloride Level 105 98-107 mmol/L Carbon Dioxide Level 22 20-31 mmol/L Anion Gap 12 5-15 Blood Urea Nitrogen 10 9-23 mg/dL Creatinine 1.04 0.700-1.30 mg/dL Glomerular Filtration Rate Calc 80 >90 mL/min BUN/Creatinine Ratio 9.6 L 10.0-20.0 Serum Glucose 150 H 74-106 mg/dL Calcium Level 9.9 8.7-10.4 mg/dL Assessment Chest pain, rule out coronary ischemia Coronary artery disease status post multiple PTCAs X 2 JOSIANE (on Plavix) Paroxysmal atrial fibrillation (on Eliquis) Chronic compensated HFimEF, NYHA class II (last echo 08/18/24 EF 50%, previous echo 02/07/24 EF 40%) Hypertension Dyslipidemia COPD Anxiety History of tobacco use Plan/Recommendation We will continue with the following plan/recommendations (Dr. Dougherty): * Transthoracic echocardiogram from 08/18/2024 reveals EF 50% * Chest pain protocol * HEART score: 4 points * Continue single antiplatelet therapy and lipid-lowering agent * BP control * Close Cardiac surveillance * Nuclear stress The patient was recently seen in the Cardiology outpatient Clinic with on 12/21/2024. During that time, the patient was also complaining of chest pain in which he was scheduled for an outpatient stress test. Since the patient comes now to the emergency room and is admitted, we will proceed with doing a nuclear stress test while inpatient. Thank you for allowing us to care for this patient. Please call with any questions or concerns. Critical care time spent: 44 minutes This medical document was created using an electronic medical record system with voice recognition software and computerized dictation system. Although this document has been carefully reviewed, there might still be some phonetic and typographical errors. Occasional wrong-word or ``sound-alike substitutions may have occurred due to the inherent limitations of voice recognition software. These areas are purely typographical due to imperfections of the software programs and do not reflect any compromise in the patient's medical care. Please read the chart carefully and recognize, using context, where these substitutions have occurred. Plan discussed with: Patient NYHA Physical activity limitations: Class2(Slight)fatigue,sob (palpitatns, angina w activityv) Date of Service: Jan 22, 2025 Billing Provider: KEYUR MOLINA Cardiology Common Codes: [id number] INP/OBS CARE (High) Cardiology Consultation Codes: [id number] CONSULT <45MIN KEYUR MOLINA Jan 22, 2025 17:22
[2025-01-22] MEDS ORDERED: PATIENTS OWN MEDICATION (Atorvastatin Calcium 1 TAB) PO SCH (18:00)
[2025-01-22 19:46] VITALS: PULSE 92; RESP 18; O2SAT 98
[2025-01-22] MEDS: IPRATROPIUM BROM 0.5 MG/2.5ML INH SOL NEB SCH (19:48)
[2025-01-22] MEDS: LEVALBUTEROL HCL 1.25 MG/3 ML NEB NEB SCH (19:48)
[2025-01-22 19:56] VITALS: PULSE 98; RESP 19; O2SAT 100
[2025-01-22 21:15] VITALS: BP 118/71; PULSE 98; RESP 19; TEMP 97.6; O2SAT 100
[2025-01-22] MEDS: PANTOPRAZOLE 40 MG/10 ML VIAL INJ IV ONE (21:28)
[2025-01-22] MEDS ORDERED: PATIENTS OWN MEDICATION (Metoprolol Succinate (Metoprolol Succinate Er) 1 TAB) PO SCH (22:00)
[2025-01-22] MEDS ORDERED: PATIENTS OWN MEDICATION (Quetiapine Fumerate (Quetiapine Fumarate) 1 TAB) PO SCH (22:00)
[2025-01-22] MEDS: ATORVASTATIN 20 MG TAB PO SCH ×2 (22:00→23:13)
[2025-01-22 22:16] VITALS: PULSE 86; RESP 16; O2SAT 97
[2025-01-22 22:25] VITALS: PULSE 88; RESP 16; O2SAT 100
[2025-01-22] MEDS: methylPREDNISolone SOD SUCC 40 MG/ML VL IV SCH (23:11)
[2025-01-22] MEDS: CYCLOBENZAPRINE HCL 10 MG TAB PO PRN (23:12)
[2025-01-22] MEDS: GABAPENTIN 300 MG CAP PO SCH (23:13)
[2025-01-22] MEDS: METOPROLOL SUCCINATE XL 50 MG TAB PO SCH (23:16)
[2025-01-22] MEDS: AMIODARONE HCL 200 MG TAB PO SCH (23:16)
[2025-01-22] MEDS: APIXABAN 5 MG TAB PO SCH (23:16)
[2025-01-22] MEDS: QUEtiapine FUMARATE 25 MG TAB PO SCH (23:16)
[2025-01-23] VITALS (19 sets, daily range): BP systolic 95–118; BP diastolic 58–69; PULSE 70–95; RESP 16–20; TEMP 96.7–98.7; O2SAT 94–100
[2025-01-23] MEDS: NITROGLYCERIN 0.4 MG SL TAB SL PRN (05:14)
--- NOTE | 2025-01-23 06:46 | ECG ---
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
--- NOTE | 2025-01-23 06:46 | ECG ---
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
[2025-01-23 07:20] LABS: Basophils # (auto) 0 10 ^3/uL (0-0.2); Basophils % (auto) 0.2 % (0.0-2.0); Eosinophils # (auto) 0 10 ^3/uL (0-0.8); Lymphocytes # (auto) 1.4 10 ^3/uL (0.4-5.4); Monocytes # (auto) 0.1 10 ^3/uL (0-1.3); Red Cell Distribution Width 13.9 % (11.8-14.3)
[2025-01-23 07:24] LABS: Hematocrit 38.4 % (41.0-53.0); Hemoglobin 13.5 g/dL (13.5-17.5); Lymphocytes % (auto) 22.3 % (10.0-50.0); Mean Corpuscular Hemoglobin 34.5 pg (28.0-32.0); Mean Corpuscular Hgb Conc. 35.2 g/dL (32.0-36.0); Mean Corpuscular Volume 98.1 fL (80.0-100.0); Monocytes % (auto) 1.7 % (0.0-12.0); Neutrophils # (auto) 4.7 10 ^3/uL (1.6-8.6); Neutrophils % (auto) 75.8 % (37.0-80.0); Platelet Count (auto) 213 10^3/uL (140-450); Red Blood Cells 3.92 10^6/uL (4.5-5.90); White Blood Cell 6.2 10^3/uL (4.4-10.8)
[2025-01-23 07:46] LABS: Alanine Aminotransferase 36 U/L (7-40); Albumin 4.6 g/dL (3.2-4.8); Alkaline Phosphatase 90 U/L (46-116); Anion Gap 10 (5-15); BUN/Creatinine Ratio 14.4 (10.0-20.0); Blood Urea Nitrogen 14 mg/dL (9-23); Calcium 9.4 mg/dL (8.7-10.4); Chloride 105 mmol/L (98-107); Magnesium 2.2 mg/dL (1.6-2.6); Potassium 4.1 mmol/L (3.5-5.1); Total Protein 7.2 g/dL (5.7-8.2)
[2025-01-23 07:47] LABS: Bilirubin, Total 0.4 mg/dL (0.2-1.0)
[2025-01-23 07:48] LABS: Aspartate Aminotransferase 46 U/L (13-40); Carbon Dioxide 20 mmol/L (20-31); Glucose 162 mg/dL (74-106); Sodium 135 mmol/L (136-145)
[2025-01-23 08:11] LABS: Triglycerides 117 mg/dL (< 150)
[2025-01-23 08:13] LABS: Cholesterol 227 mg/dL (< 200); LDL Cholesterol 154 mg/dL (< 100)
[2025-01-23 08:16] LABS: HDL Cholesterol 63 mg/dL (40-59)
--- NOTE | 2025-01-23 08:25 | ECG ---
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
[2025-01-23] MEDS: REGADENOSON 0.4 MG/5 ML SYRG IV ONE ×2 (09:49→09:50)
[2025-01-23] MEDS ORDERED: SACUBITRIL-VALSARTAN 24mg/26mg TAB PO SCH (10:00)
[2025-01-23] MEDS ORDERED: ASPirin 81 mg TAB PO SCH (10:00)
[2025-01-23] MEDS ORDERED: LOSARTAN POTASSIUM 25 MG TAB PO SCH (10:00)
[2025-01-23] MEDS ORDERED: PATIENTS OWN MEDICATION (Aspirin (Chewable Aspirin) 1 TAB) PO SCH (10:00)
[2025-01-23] MEDS: EMPAGLIFLOZIN 10 MG TAB PO SCH (10:31)
[2025-01-23] MEDS: busPIRone HCL 10 MG TAB PO SCH (10:32)
[2025-01-23] MEDS: CLOPIDOGREL BISULFATE 75 MG TAB PO SCH (10:32)
[2025-01-23] MEDS: FLUoxetine HCL 10 MG CAP PO SCH (10:32)
[2025-01-23] MEDS: PANTOPRAZOLE 40 MG/10 ML VIAL INJ IV SCH (10:33)
[2025-01-23] MEDS: ENOXAPARIN SOD 80 MG/0.8ML SYRINGE SC SCH (10:33)
[2025-01-23] MEDS: SPIRONOLACTONE 25 MG TAB PO SCH (10:33)
[2025-01-23] MEDS: guaiFENesin-DM 100/10mg/5ml SYR PO PRN (17:47)
[2025-01-24] VITALS (20 sets, daily range): BP systolic 96–122; BP diastolic 58–74; PULSE 71–92; RESP 14–20; TEMP 97.5–98.8; O2SAT 93–100
[2025-01-24] MEDS: MORPHINE SULFATE 4 MG/ML SYR/VIAL IV PRN (11:52)
--- NOTE | 2025-01-24 11:56 | DVHPN2 ---
Subjective The patient is seen and examined at bedside. Still complain of severe chest pain. Reviewed: Care Plan, H&P, Labs, Medications, Previous Orders, Radiology Changes from previous H/P or p: No Changes Eyes: No Pain, No Vision change, No Conjunctivae inflammation, No Eyelid inflammation, No Other, No Redness ENT: No Ear pain, No Ear discharge, No Nose pain, No Nose discharge, No Nose congestion, No Mouth pain, No Mouth swelling, No Throat pain, No Throat swelling, No Other Cardiovascular: Chest Pain; No Palpitations, No Orthopnea, No Paroxysmal Noc. Dyspnea, No Edema, No Lt Headedness, No Other Respiratory: No Cough, No Dry; Shortness of breath, SOB with excertion; No Wheezing, No Hemoptysis, No Pleuritic Pain, No Sputum, No Other Gastrointestinal: No Nausea, No Vomiting, No Abdominal Pain, No Diarrhea, No Constipation, No Melena, No Hematochezia, No Other Genitourinary: No Dysuria, No Frequency, No Incontinence, No Hematuria, No Retention, No Other Musculoskeletal: No other, No neck pain, No shoulder pain, No arm pain, No back pain, No hand pain, No leg pain, No foot pain Skin: No Rash, No Lesions, No Jaundice, No Bruising, No Other Objective Vitals Vital Signs Date Time Temp Pulse Resp B/P (MAP) Pulse Ox O2 Delivery O2 Flow Rate FiO2 01/24/25 11:52 80 18 100/60 01/24/25 10:55 94 01/24/25 10:55 Room Air* 0 21 01/24/25 09:00 98.3 98.3 Intake/Output Intake and Output 01/24/25 07:00 Intake Total 2250 ml Balance 2250 ml Intake Oral 2250 ml # Voids 4 General Appearance: Alert, Oriented X3, Cooperative, No acute distress HEENT: Atraumatic, PERRLA, EOMI, Mucous membr. moist/pink Neck: Supple Lungs: Clear to auscultation, Normal air movement Cardiovascular: Regular rate, Normal S1, Normal S2, No murmurs, Gallops, Rubs Abdomen: Normal bowel sounds, Soft, No tenderness, No hepatospenomegaly Neuro: Cranial nerves 3-12 NL Psych/Mental Status: Mental status NL Medications Current Medications Medications Dose Ordered Sig/Parul Route Start Time Stop Time Status Last Admin Dose Admin Levalbuterol HCl 0.625 mg Q4HR NEB 01/22/25 18:00 01/24/25 10:55 0.625 MG Ipratropium [place] 0.5 mg Q4HR NEB 01/22/25 18:00 01/24/25 10:53 0.5 MG Amiodarone HCl 200 mg BID PO 01/22/25 22:00 01/24/25 09:39 200 MG Buspirone HCl 10 mg DAILY PO 01/23/25 10:00 01/24/25 09:39 10 MG Clopidogrel Bisulfate 75 mg DAILY PO 01/23/25 10:00 01/24/25 09:40 75 MG Cyclobenzaprine HCl 10 mg TIDP PRN PO 01/22/25 16:00 01/24/25 06:27 10 MG Empaglifozin 10 mg DAILY PO 01/23/25 10:00 Fluoxetine HCl 10 mg DAILY PO 01/23/25 10:00 01/24/25 09:40 10 MG Gabapentin 300 mg BID PO 01/22/25 22:00 01/24/25 09:39 300 MG Losartan Potassium 25 mg DAILY PO 01/23/25 10:00 Hold Sacubitril/ Valsartan 0.5 tab DAILY PO 01/23/25 10:00 Hold Spironolactone 12.5 mg DAILY PO 01/23/25 10:00 01/24/25 09:39 12.5 MG Patient Own Medication 1 tab DAILY PO 01/23/25 10:00 UNV Patient Own Medication 1 tab QPM PO 01/22/25 18:00 UNV Patient Own Medication 1 tab BID PO 01/22/25 22:00 UNV Patient Own Medication 1 tab HS PO 01/22/25 22:00 UNV Atorvastatin Calcium 40 mg HS PO 01/22/25 22:00 01/23/25 22:32 40 MG Morphine Sulfate 2 mg Q30MP PRN IV 01/22/25 16:00 01/24/25 11:52 2 MG Ondansetron HCl 4 mg Q4HP PRN IV 01/22/25 16:00 Nitroglycerin 0.4 mg Q5MINP PRN SL 01/22/25 16:00 01/23/25 05:14 0.4 MG Methylprednisolone Sodium Succinate 40 mg Q8HR IV 01/22/25 22:00 01/24/25 06:22 40 MG Quetiapine Fumarate 50 mg HS PO 01/22/25 22:00 01/23/25 22:32 50 MG Metoprolol Succinate 25 mg BID PO 01/22/25 22:00 01/23/25 22:53 25 MG Pantoprazole Sodium 40 mg DAILY IV 01/23/25 10:00 01/24/25 09:39 40 MG Enoxaparin Sodium 80 mg Q12HR SC 01/23/25 10:00 01/24/25 09:40 80 MG Guaifenesin/ Dextromethorphan 10 ml Q4HP PRN PO 01/23/25 17:45 01/24/25 09:41 10 ML Acetaminophen/ Hydrocodone Bitart 1 tab Q4HPRN PRN PO 01/24/25 11:30 UNV Laboratory Results Laboratory Tests 01/23/25 05:22 Labs and/or images reviewed: Labs reviewed by me Assessment/Plan Assessment/Plan Acute chest pain r/o nstemi trop x3 negative ekg no stemi acute hypokalemia tobacco dependence Coronary artery disease status post cardiac stents History of [place] Hypertension Hyperlipidemia Atrial fibrillation Congestive heart failure COPD Continuing current management. Advised the patient to stop smoking more than 15 minutes. Continuing with aspirin, pain medication, anticoagulation, hypertensive medication, Solu-Medrol and nebulizer. Waiting for property disposal officer to see the patient. Replace electrolytes as needed. This medical document was created using an electronic medical record system with [employer] direct computerized dictation system. Although this document has been carefully reviewed, there may still be some phonetic and typographical errors. These areas are purely typographical due to imperfections of the software programs, and do not reflect any compromise in the patient's medical care. Plan discussed with: Patient My Orders Orders - STEFFANY VARGAS MD Procedure Category Date Status Time Guaifenesin-Dextromet PHA 01/23/25 In Process Liquid (Robitussin 17:45 Hydrocodone-Acet PHA 01/24/25 Logged 5/325mg Tab ([place] 11:30 Date of Service: Jan 24, 2025 Billing Provider: STEFFANY VARGAS MD Common Visit Codes: [id number] INP/OBS CARE(HIGH) STEFFANY VARGAS MD Jan 24, 2025 11:56
--- NOTE | 2025-01-24 11:56 | DVHPN2 ---
Subjective The patient is seen and examined at bedside. Complain of severe chest pain. Reviewed: Care Plan, H&P, Labs, Medications, Previous Orders, Radiology Changes from previous H/P or p: No Changes Eyes: No Pain, No Vision change, No Conjunctivae inflammation, No Eyelid inflammation, No Other, No Redness ENT: No Ear pain, No Ear discharge, No Nose pain, No Nose discharge, No Nose congestion, No Mouth pain, No Mouth swelling, No Throat pain, No Throat swelling, No Other Cardiovascular: Chest Pain; No Palpitations, No Orthopnea, No Paroxysmal Noc. Dyspnea, No Edema, No Lt Headedness, No Other Respiratory: No Cough, No Dry; Shortness of breath, SOB with excertion; No Wheezing, No Hemoptysis, No Pleuritic Pain, No Sputum, No Other Gastrointestinal: No Nausea, No Vomiting, No Abdominal Pain, No Diarrhea, No Constipation, No Melena, No Hematochezia, No Other Genitourinary: No Dysuria, No Frequency, No Incontinence, No Hematuria, No Retention, No Other Musculoskeletal: No other, No neck pain, No shoulder pain, No arm pain, No back pain, No hand pain, No leg pain, No foot pain Skin: No Rash, No Lesions, No Jaundice, No Bruising, No Other Objective Vitals Vital Signs Date Time Temp Pulse Resp B/P (MAP) Pulse Ox O2 Delivery O2 Flow Rate FiO2 01/23/25 11:52 80 18 100/60 01/23/25 10:55 94 01/23/25 10:55 Room Air* 0 21 01/23/25 09:00 98.3 98.3 Intake/Output Intake and Output 01/24/25 07:00 Intake Total 2250 ml Balance 2250 ml Intake Oral 2250 ml # Voids 4 General Appearance: Alert, Oriented X3, Cooperative, No acute distress Neck: Supple Lungs: Clear to auscultation, Normal air movement Cardiovascular: Regular rate, Normal S1, Normal S2, No murmurs, Gallops, Rubs Abdomen: Normal bowel sounds, Soft, No tenderness Neuro: Cranial nerves 3-12 NL Psych/Mental Status: Mental status NL Medications Current Medications Medications Dose Ordered Sig/Parul Route Start Time Stop Time Status Last Admin Dose Admin Levalbuterol HCl 0.625 mg Q4HR NEB 01/22/25 18:00 01/24/25 10:55 0.625 MG Ipratropium [place] 0.5 mg Q4HR NEB 01/22/25 18:00 01/24/25 10:53 0.5 MG Amiodarone HCl 200 mg BID PO 01/22/25 22:00 01/24/25 09:39 200 MG Buspirone HCl 10 mg DAILY PO 01/23/25 10:00 01/24/25 09:39 10 MG Clopidogrel Bisulfate 75 mg DAILY PO 01/23/25 10:00 01/24/25 09:40 75 MG Cyclobenzaprine HCl 10 mg TIDP PRN PO 01/22/25 16:00 01/24/25 06:27 10 MG Empaglifozin 10 mg DAILY PO 01/23/25 10:00 Fluoxetine HCl 10 mg DAILY PO 01/23/25 10:00 01/24/25 09:40 10 MG Gabapentin 300 mg BID PO 01/22/25 22:00 01/24/25 09:39 300 MG Losartan Potassium 25 mg DAILY PO 01/23/25 10:00 Hold Sacubitril/ Valsartan 0.5 tab DAILY PO 01/23/25 10:00 Hold Spironolactone 12.5 mg DAILY PO 01/23/25 10:00 01/24/25 09:39 12.5 MG Patient Own Medication 1 tab DAILY PO 01/23/25 10:00 UNV Patient Own Medication 1 tab QPM PO 01/22/25 18:00 UNV Patient Own Medication 1 tab BID PO 01/22/25 22:00 UNV Patient Own Medication 1 tab HS PO 01/22/25 22:00 UNV Atorvastatin Calcium 40 mg HS PO 01/22/25 22:00 01/23/25 22:32 40 MG Morphine Sulfate 2 mg Q30MP PRN IV 01/22/25 16:00 01/24/25 11:52 2 MG Ondansetron HCl 4 mg Q4HP PRN IV 01/22/25 16:00 Nitroglycerin 0.4 mg Q5MINP PRN SL 01/22/25 16:00 01/23/25 05:14 0.4 MG Methylprednisolone Sodium Succinate 40 mg Q8HR IV 01/22/25 22:00 01/24/25 06:22 40 MG Quetiapine Fumarate 50 mg HS PO 01/22/25 22:00 01/23/25 22:32 50 MG Metoprolol Succinate 25 mg BID PO 01/22/25 22:00 01/23/25 22:53 25 MG Pantoprazole Sodium 40 mg DAILY IV 01/23/25 10:00 01/24/25 09:39 40 MG Enoxaparin Sodium 80 mg Q12HR SC 01/23/25 10:00 01/24/25 09:40 80 MG Guaifenesin/ Dextromethorphan 10 ml Q4HP PRN PO 01/23/25 17:45 01/24/25 09:41 10 ML Acetaminophen/ Hydrocodone Bitart 1 tab Q4HPRN PRN PO 01/24/25 11:30 UNV Laboratory Results Laboratory Tests 01/23/25 05:22 Labs and/or images reviewed: Labs reviewed by me Assessment/Plan Assessment/Plan Acute chest pain r/o nstemi trop x3 negative ekg no stemi acute hypokalemia tobacco dependence Coronary artery disease status post cardiac stents History of [place] Hypertension Hyperlipidemia Atrial fibrillation Congestive heart failure COPD Continuing current management. Advised the patient to stop smoking more than 15 minutes. Continuing with aspirin, pain medication, anticoagulation, hypertensive medication, Solu-Medrol and nebulizer. Waiting for identification officer to see the patient. Replace electrolytes as needed. This medical document was created using an electronic medical record system with [employer] direct computerized dictation system. Although this document has been carefully reviewed, there may still be some phonetic and typographical errors. These areas are purely typographical due to imperfections of the software programs, and do not reflect any compromise in the patient's medical care. Plan discussed with: Patient My Orders Orders - STEFFANY VARGAS MD Procedure Category Date Status Time Guaifenesin-Dextromet PHA 01/23/25 In Process Liquid (Robitussin 17:45 Hydrocodone-Acet PHA 01/24/25 Logged 5/325mg Tab ([place] 11:30 Date of Service: Jan 23, 2025 Billing Provider: STEFFANY VARGAS MD Common Visit Codes: [id number] INP/OBS CARE(HIGH) STEFFANY VARGAS MD Jan 24, 2025 11:56
[2025-01-24] MEDS: HYDROcodone-ACET 5/325MG TAB PO PRN (15:06)
--- NOTE | 2025-01-24 15:31 | DVHPN2 ---
Consult Progress Note Subjective Other Systems: The patient is still experiencing intermittent chest pain. Objective vital signs Vital Sign Date Time Temp Pulse Resp B/P (MAP) Pulse Ox O2 Delivery O2 Flow Rate FiO2 01/24/25 13:55 98.1 85 20 109/73 (85) 94 98.1 01/24/25 13:35 Room Air* 0 21 Total Intake and Output 01/23/25 01/23/25 01/24/25 15:00 23:00 07:00 Intake Total 1300 ml 950 ml Balance 1300 ml 950 ml medications Current Medications Medications Dose Ordered Sig/Parul Route Start Time Stop Time Status Last Admin Dose Admin Levalbuterol HCl 0.625 mg Q4HR NEB 01/22/25 18:00 01/24/25 13:31 0.625 MG Ipratropium [place] 0.5 mg Q4HR NEB 01/22/25 18:00 01/24/25 13:31 0.5 MG Amiodarone HCl 200 mg BID PO 01/22/25 22:00 01/24/25 09:39 200 MG Buspirone HCl 10 mg DAILY PO 01/23/25 10:00 01/24/25 09:39 10 MG Clopidogrel Bisulfate 75 mg DAILY PO 01/23/25 10:00 01/24/25 09:40 75 MG Cyclobenzaprine HCl 10 mg TIDP PRN PO 01/22/25 16:00 01/24/25 06:27 10 MG Empaglifozin 10 mg DAILY PO 01/23/25 10:00 Fluoxetine HCl 10 mg DAILY PO 01/23/25 10:00 01/24/25 09:40 10 MG Gabapentin 300 mg BID PO 01/22/25 22:00 01/24/25 09:39 300 MG Losartan Potassium 25 mg DAILY PO 01/23/25 10:00 Hold Sacubitril/ Valsartan 0.5 tab DAILY PO 01/23/25 10:00 Hold Spironolactone 12.5 mg DAILY PO 01/23/25 10:00 01/24/25 09:39 12.5 MG Patient Own Medication 1 tab DAILY PO 01/23/25 10:00 UNV Patient Own Medication 1 tab QPM PO 01/22/25 18:00 UNV Patient Own Medication 1 tab BID PO 01/22/25 22:00 UNV Patient Own Medication 1 tab HS PO 01/22/25 22:00 UNV Atorvastatin Calcium 40 mg HS PO 01/22/25 22:00 01/23/25 22:32 40 MG Morphine Sulfate 2 mg Q30MP PRN IV 01/22/25 16:00 01/24/25 11:52 2 MG Ondansetron HCl 4 mg Q4HP PRN IV 01/22/25 16:00 Nitroglycerin 0.4 mg Q5MINP PRN SL 01/22/25 16:00 01/23/25 05:14 0.4 MG Methylprednisolone Sodium Succinate 40 mg Q8HR IV 01/22/25 22:00 01/24/25 14:40 40 MG Quetiapine Fumarate 50 mg HS PO 01/22/25 22:00 01/23/25 22:32 50 MG Metoprolol Succinate 25 mg BID PO 01/22/25 22:00 01/23/25 22:53 25 MG Pantoprazole Sodium 40 mg DAILY IV 01/23/25 10:00 01/24/25 09:39 40 MG Enoxaparin Sodium 80 mg Q12HR SC 01/23/25 10:00 01/24/25 09:40 80 MG Guaifenesin/ Dextromethorphan 10 ml Q4HP PRN PO 01/23/25 17:45 01/24/25 09:41 10 ML Acetaminophen/ Hydrocodone Bitart 1 tab Q4HPRN PRN PO 01/24/25 11:30 01/24/25 15:06 1 TAB Examination: GENERAL:Normal, LUNGS:Normal, CVS:Normal, NEURO:Normal laboratory and microbiology Laboratory Tests 01/23/25 05:22 Test 01/23/25 05:22 Range/Units Serum Glucose 162 H 74-106 mg/dL Problem List/Assessment/Plan Problem List/Assessment/Plan Chest pain, rule out progressive coronary artery disease Positive nuclear stress test Coronary artery disease status post multiple PTCAs X 2 JOSIANE (on Plavix) Paroxysmal atrial fibrillation (on Eliquis) Chronic compensated HFimEF, NYHA class II (last echo 08/18/24 EF 50%, previous echo 02/07/24 EF 40%) Hypertension Dyslipidemia COPD Anxiety History of tobacco use Plan/Recommendation (Dr. Dougherty): Case discussed with . Transthoracic echocardiogram from 08/18/2024 reveals an EF of 50%. The patient underwent a nuclear stress test in which findings are positive for ischemia. We will recommend for the patient undergo a coronary angiogram with left heart catheterization.The procedure was discussed with the patient in full detail including risks and benefits. Risks include but are not limited to bleeding, contrast-induced nephropathy, stroke, and even . The patient understands and is agreeable to undergo the procedure. We will schedule the patient at first availability on 01/25/2025. In the meantime, continue with chest pain protocol, continue with guideline directed medical therapy for CHF, single antiplatelet therapy, lipid-lowering agent, and closely monitor ECG for any changes. Thank you for allowing us to care for this patient. Please call with any questions or concerns. This medical document was created using an electronic medical record system with voice recognition software and computerized dictation system. Although this document has been carefully reviewed, there might still be some phonetic and typographical errors. Occasional wrong-word or ``sound-alike substitutions may have occurred due to the inherent limitations of voice recognition software. These areas are purely typographical due to imperfections of the software programs and do not reflect any compromise in the patient's medical care. Please read the chart carefully and recognize, using context, where these substitutions have occurred. Plan discussed with: Patient, Spouse Date of Service: Jan 24, 2025 Billing Provider: KEYUR MOLINA Common Visit Codes: [id number] INP/OBS CARE(HIGH) KEYUR MOLINA Jan 24, 2025 15:31
--- NOTE | 2025-01-24 16:09 | DVHSR ---
APPROVED REPORT Exam: Nuclear Stress Test Indication: CHEST PAIN BMI: 0 Medical History Medical History: HTN, HLD, Atrial Fibrillation, VA, CHF, COPD Stress Test Details Stress Test: Pharmacologic stress testing performed using 0.4 mg of regadenoson per 5 mL given IV ov er 10 seconds. HR Resting HR: 74 bpmMax Heart Rate (APMHR): 156.400480 bpm Max HR Achieved: 92 bpmTarget HR (85% APMHR): 132.768916 bpm % of APMHR: 58.97 Recovery HR: 82 bpm BP Resting BP: 100/61 mmHg Recovery BP: 113/62 mmHg ECG Resting ECG: Sinus Rhythm Clinical Reason for Termination: Completed protocol Stress ECG Conclusion lvef 46% inferior wall ischemia is noted NM EXAM: Myocardial Perfusion REST/STRESS Imaging Protocol: Rest Tc-99m/Stress Tc-99m 1 day Resting Data Rest SPECT myocardial perfusion imaging was performed in supine position 60 minutes following the int ravenous injection of 14 mCi of Tc-99m Sestamibi. Time of rest injection: 07:47 Time of rest imagin:47 Administration Route: IV Administration Site: Left Arm Pharmacologic Stress Pharmacologic stress test was performed by injecting Regadenoson 0.4 mg IV push followed by the intra venous injection of 32 mCi of Tc-99m Sestamibi. Time of stress injection: 09:50 Time of stress imagin:50 Administration Route: IV Administration Site: Left Arm Gated Stress SPECT was performed 60 minutes after stress injection. The images were gated to evaluate regional wall motion and calculate left ventricular ejection fracti on. Stress only was performed in the Supine position. Nuclear Conclusion Nuclear Findings: positive for ischemia lvef 46% inferior wall ischemia is noted
[2025-01-25] VITALS (20 sets, daily range): BP systolic 111–138; BP diastolic 69–90; PULSE 63–88; RESP 12–20; TEMP 97.4–98.9; O2SAT 90–100
[2025-01-25] MEDS ORDERED: MELATONIN 5 MG TAB PO ONE (01:58)
[2025-01-25 06:54] LABS: Basophils # (auto) 0 10 ^3/uL (0-0.2); Basophils % (auto) 0.1 % (0.0-2.0); Eosinophils # (auto) 0 10 ^3/uL (0-0.8); Hematocrit 40.5 % (41.0-53.0); Hemoglobin 13.4 g/dL (13.5-17.5); Lymphocytes % (auto) 14.5 % (10.0-50.0); Mean Corpuscular Hemoglobin 33.3 pg (28.0-32.0); Mean Corpuscular Volume 100.9 fL (80.0-100.0); Monocytes # (auto) 0.3 10 ^3/uL (0-1.3); Monocytes % (auto) 3.6 % (0.0-12.0); Neutrophils # (auto) 5.9 10 ^3/uL (1.6-8.6); Neutrophils % (auto) 81.8 % (37.0-80.0); Nucleated Red Blood Cells % 0.1 %; Platelet Count (auto) 198 10^3/uL (140-450); Red Blood Cells 4.01 10^6/uL (4.5-5.90); Red Cell Distribution Width 14.5 % (11.8-14.3); White Blood Cell 7.2 10^3/uL (4.4-10.8)
[2025-01-25 07:00] LABS: Anion Gap 10 (5-15); Carbon Dioxide 21 mmol/L (20-31); Chloride 106 mmol/L (98-107); Potassium 4.5 mmol/L (3.5-5.1); Sodium 137 mmol/L (136-145)
[2025-01-25 07:07] LABS: BUN/Creatinine Ratio 26.4 (10.0-20.0)
[2025-01-25 07:09] LABS: INR 1.06 (0.9-1.15); Partial Thromboplastin Time 24.4 SEC (24.5-34.5); Prothrombin Time 11.2 sec (9.3-11.8)
[2025-01-25 07:12] LABS: Blood Urea Nitrogen 28 mg/dL (9-23); Glucose 158 mg/dL (74-106)
--- NOTE | 2025-01-25 12:22 | DVHSR ---
APPROVED REPORT EXAM: LIMITED Two-dimensional and M-mode echocardiogram. Blood Pressure: 100/60 mmHg INDICATION Chest Pain Positive stress test RISK FACTORS Height: 5' 7", Weight: 179 DIMENSIONS LVDd4.7 (3.8-5.7cm)LA (2D)3.9 (1.9-4.0cm)Aortic Root (2.0-3.7cm) LVDs3.4 (2.5-4.0cm)LA (MM) (1.9-4.0cm)Aortic Cusp Exc (1.5-2.0cm) EF (%) 53.0 (55-70%)Rt. Atrium3.9 (1.9-4.0cm)Asc. Aorta cm IVSd0.9 (0.7-1.1cm)RV (D) (1.8-2.4cm) PWd0.9 (0.7-1.1cm) Mitral Valve MitralMitral Stenosis E/A ratio0.02D MVAcm2 Other Information Quality : LimitedRhythm : Conclusion lvef 55% by visual estimate normal RV function biatrial enlargement mild no severe valve abnormalities noted limited study, poor image quality
--- NOTE | 2025-01-25 12:27 | DVHPN2 ---
Subjective The patient is seen and examined at bedside. Still complain of chest pain. Stress test was done and was abnormal. Reviewed: Care Plan, H&P, Labs, Medications, Previous Orders, Radiology Changes from previous H/P or p: No Changes Eyes: No Pain, No Vision change, No Conjunctivae inflammation, No Eyelid inflammation, No Other, No Redness ENT: No Ear pain, No Ear discharge, No Nose pain, No Nose discharge, No Nose congestion, No Mouth pain, No Mouth swelling, No Throat pain, No Throat swelling, No Other Cardiovascular: Chest Pain; No Palpitations, No Orthopnea, No Paroxysmal Noc. Dyspnea, No Edema, No Lt Headedness, No Other Respiratory: No Cough, No Dry; Shortness of breath, SOB with excertion; No Wheezing, No Hemoptysis, No Pleuritic Pain, No Sputum, No Other Gastrointestinal: No Nausea, No Vomiting, No Abdominal Pain, No Diarrhea, No Constipation, No Melena, No Hematochezia, No Other Genitourinary: No Dysuria, No Frequency, No Incontinence, No Hematuria, No Retention, No Other Musculoskeletal: No other, No neck pain, No shoulder pain, No arm pain, No back pain, No hand pain, No leg pain, No foot pain Skin: No Rash, No Lesions, No Jaundice, No Bruising, No Other Objective Vitals Vital Signs Date Time Temp Pulse Resp B/P (MAP) Pulse Ox O2 Delivery O2 Flow Rate FiO2 01/25/25 11:14 142/83 01/25/25 09:49 68 18 100 01/25/25 09:43 Room Air* 0 21 01/25/25 08:30 98.0 98.0 Intake/Output Intake and Output 01/25/25 07:00 Intake Total 2000 ml Output Total 300 ml Balance 1700 ml Intake Oral 2000 ml Output Urine Total 300 ml # Voids 3 # Bowel Movements 1 General Appearance: Alert, Oriented X3, Cooperative, No acute distress HEENT: Atraumatic, PERRLA, EOMI, Mucous membr. moist/pink Neck: Supple Cardiovascular: Regular rate, Normal S1, Normal S2, No murmurs, Gallops, Rubs Abdomen: Normal bowel sounds, Soft, No tenderness Neuro: Cranial nerves 3-12 NL Psych/Mental Status: Mental status NL Medications Current Medications Medications Dose Ordered Sig/Parul Route Start Time Stop Time Status Last Admin Dose Admin Levalbuterol HCl 0.625 mg Q4HR NEB 01/22/25 18:00 01/25/25 09:43 0.625 MG Ipratropium [place] 0.5 mg Q4HR NEB 01/22/25 18:00 01/25/25 09:43 0.5 MG Amiodarone HCl 200 mg BID PO 01/22/25 22:00 01/24/25 09:39 200 MG Buspirone HCl 10 mg DAILY PO 01/23/25 10:00 01/25/25 09:24 10 MG Clopidogrel Bisulfate 75 mg DAILY PO 01/23/25 10:00 01/24/25 09:40 75 MG Cyclobenzaprine HCl 10 mg TIDP PRN PO 01/22/25 16:00 01/24/25 06:27 10 MG Empaglifozin 10 mg DAILY PO 01/23/25 10:00 01/25/25 09:24 10 MG Fluoxetine HCl 10 mg DAILY PO 01/23/25 10:00 01/25/25 09:24 10 MG Gabapentin 300 mg BID PO 01/22/25 22:00 01/25/25 09:24 300 MG Losartan Potassium 25 mg DAILY PO 01/23/25 10:00 Hold Sacubitril/ Valsartan 0.5 tab DAILY PO 01/23/25 10:00 Hold Spironolactone 12.5 mg DAILY PO 01/23/25 10:00 01/24/25 09:39 12.5 MG Patient Own Medication 1 tab DAILY PO 01/23/25 10:00 UNV Patient Own Medication 1 tab QPM PO 01/22/25 18:00 UNV Patient Own Medication 1 tab BID PO 01/22/25 22:00 UNV Patient Own Medication 1 tab HS PO 01/22/25 22:00 UNV Atorvastatin Calcium 40 mg HS PO 01/22/25 22:00 01/24/25 23:39 40 MG Morphine Sulfate 2 mg Q30MP PRN IV 01/22/25 16:00 01/24/25 19:08 2 MG Ondansetron HCl 4 mg Q4HP PRN IV 01/22/25 16:00 Nitroglycerin 0.4 mg Q5MINP PRN SL 01/22/25 16:00 01/25/25 11:14 0.4 MG Methylprednisolone Sodium Succinate 40 mg Q8HR IV 01/22/25 22:00 01/25/25 06:50 40 MG Quetiapine Fumarate 50 mg HS PO 01/22/25 22:00 01/24/25 23:39 50 MG Metoprolol Succinate 25 mg BID PO 01/22/25 22:00 01/24/25 23:40 25 MG Pantoprazole Sodium 40 mg DAILY IV 01/23/25 10:00 01/25/25 09:24 40 MG Guaifenesin/ Dextromethorphan 10 ml Q4HP PRN PO 01/23/25 17:45 01/25/25 11:04 10 ML Acetaminophen/ Hydrocodone Bitart 1 tab Q4HPRN PRN PO 01/24/25 11:30 01/25/25 11:05 1 TAB Laboratory Results Laboratory Tests 01/25/25 05:37 Chemistry Test 01/25/25 05:37 Calcium Level 10.0 mg/dL (8.7-10.4) Coagulation Test 01/25/25 05:37 Prothrombin Time 11.2 sec (9.3-11.8) Prothrombin Time INR 1.06 (0.9-1.15) Activated Partial Thromboplast Time 24.4 SEC (24.5-34.5) L Labs and/or images reviewed: Labs reviewed by me Assessment/Plan Assessment/Plan Acute chest pain r/o nstemi trop x3 negative ekg no stemi acute hypokalemia tobacco dependence Coronary artery disease status post cardiac stents History of [place] Hypertension Hyperlipidemia Atrial fibrillation Congestive heart failure COPD Continuing current management. Advised the patient to stop smoking more than 15 minutes. Continuing with aspirin, pain medication, anticoagulation, hypertensive medication, Solu-Medrol and nebulizer. Replace electrolytes as needed. Per quality assurance supervisor trim's his stress test is abnormal. Recommend cardiac catheterization. The patient is hesitant but finally agreed for cardiac catheterization. Waiting for results of the catheterization today. This medical document was created using an electronic medical record system with M*M fluVaunte direct computerized dictation system. Although this document has been carefully reviewed, there may still be some phonetic and typographical errors. These areas are purely typographical due to imperfections of the software programs, and do not reflect any compromise in the patient's medical care. Plan discussed with: Patient Date of Service: Jan 25, 2025 Billing Provider: STEFFANY VARGAS MD Common Visit Codes: [id number] INP/OBS CARE(HIGH) STEFFANY VARGAS MD Jan 25, 2025 12:27
[2025-01-25] MEDS: IODIXANOL 320MG/ML 100ML BTL IV ONE (16:08)
[2025-01-25] MEDS: HEPARIN SODIUM (PORCINE) 5000 UNITS/ML 1ML VIAL ONE (16:10)
[2025-01-25] MEDS: VERAPAMIL 2.5MG/ML INJ 2ML VIAL IV ONE (16:10)
[2025-01-25] MEDS: ANGIOMAX 250 MG VIAL IV ONE (16:10)
[2025-01-25] MEDS: LIDOCAINE 2%HCL (LOCAL ANESTH.) INJ 20ML MDV ONE (16:11)
[2025-01-25] MEDS: fentaNYL CITRATE 100 MCG/2 ML VL ONE (16:11)
[2025-01-25] MEDS: SODIUM CHL 0.9% 50 ML ONE (16:11)
[2025-01-25] MEDS: MIDAZOLAM HCL 2MG/2ML 2ml VIAL (1mg/ml) ONE (16:11)
--- NOTE | 2025-01-25 16:57 | DVHOP2 ---
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 PREOPERATIVE DIAGNOSES: Abnormal stress test with CCS class 3 angina, POSTOP DIAGNOSIS: cad DESCRIPTION OF PROCEDURE: The patient or appropriate family signed informed consent understanding the risks, benefits and alternatives of the procedure, they wished to proceed. The patient was brought to the cardiac high density press laborer in n.p.o. state. The patient was prepped in a sterile fashion. Sedation was used per cardiac cath protocol. I administered 2 mL of 2% lidocaine to the right wrist. With an antegrade front wall puncture. I cannulated the right radial artery and placed a 6-[place] slender. Next, an intra-arterial spasmolytic was administered. Next, a - 6French [place] catheter and JR 4X guide and were used for coronary angiogram and LVEDP measurement and pressure pullback. At the completion of procedure, all guides and wires were removed, and there were no immediate complications. FINDINGS: RCA: Moderate vessel off the right sinus of Valsalva, there is a focal prox to mid vessel 50% stenosis unchanged from previous angiogram, dominant vessel with mild diffuse distal plaque LEFT MAIN: Moderate size left main, it bifurcates into LAD and circumflex. patent. distal LM mild stenosis 20-30% unchanged from 2023 CIRCUMFLEX: Moderate caliber vessel coming off the left main with no flow limiting stenosis. LAD: LAD is a moderate caliber vessel coming of the left main. prox LAD is patent. mid LAD has 30% stenosis prior to stent which is in mid to distal lad and is widely patent. apical LAD is patent. Diag vessel has patent stent LVEDP of 15 mmhg CONCLUSIONS: 1. patent LAD and Diag stent 2. moderate non critical LM and RCA disease (reviewed images of 2023 prior to this cath) PLAN: Aggressive risk factor modification and medical management for the patient. DAPT x 1 year uninterrupted high dose statin consider adding PCSK 9 to drop LDL <50 as per previous ITV cards TRINH BOSWELL MD Jan 25, 2025 16:57
[2025-01-26] VITALS (19 sets, daily range): BP systolic 100–136; BP diastolic 70–86; PULSE 64–94; RESP 16–22; TEMP 37.1; O2SAT 92–100
[2025-01-26] MEDS: AZITHROMYCIN 500MG/ 250ML 250 ML IV SCH (09:29)
[2025-01-26] MEDS ORDERED: METO-6 PO (11:43)
--- NOTE | 2025-01-26 11:44 | DVHDS2 ---
Discharge Summary Date of Admission Jan 22, 2025 at 15:53 Labs/Diagnostic Data: Laboratory Results Test 01/25/25 05:37 01/23/25 05:22 01/22/25 16:18 White Blood Count 7.2 10^3/uL (4.4-10.8) Red Blood Count 4.01 10^6/uL (4.5-5.90) Hemoglobin 13.4 g/dL (13.5-17.5) Hematocrit 40.5 % (41.0-53.0) Mean Corpuscular Volume 100.9 fL (80.0-100.0) Mean Corpuscular Hemoglobin 33.3 pg (28.0-32.0) Mean Corpuscular Hemoglobin Concent 33.0 g/dL (32.0-36.0) Red Cell Distribution Width 14.5 % (11.8-14.3) Platelet Count 198 10^3/uL (140-450) Mean Platelet Volume 8.5 fL (6.9-10.8) Neutrophils (%) (Auto) 81.8 % (37.0-80.0) Lymphocytes (%) (Auto) 14.5 % (10.0-50.0) Monocytes (%) (Auto) 3.6 % (0.0-12.0) Eosinophils (%) (Auto) 0.0 % (0.0-7.0) Basophils (%) (Auto) 0.1 % (0.0-2.0) Neutrophils # (Auto) 5.9 10 ^3/uL (1.6-8.6) Lymphocytes # (Auto) 1.0 10 ^3/uL (0.4-5.4) Monocytes # (Auto) 0.3 10 ^3/uL (0-1.3) Eosinophils # (Auto) 0 10 ^3/uL (0-0.8) Basophils # (Auto) 0 10 ^3/uL (0-0.2) Nucleated Red Blood Cells 0.1 % Prothrombin Time 11.2 sec (9.3-11.8) Prothrombin Time INR 1.06 (0.9-1.15) Activated Partial Thromboplast Time 24.4 SEC (24.5-34.5) Sodium Level 137 mmol/L (136-145) Potassium Level 4.5 mmol/L (3.5-5.1) Chloride Level 106 mmol/L (98-107) Carbon Dioxide Level 21 mmol/L (20-31) Anion Gap 10 (5-15) Blood Urea Nitrogen 28 mg/dL (9-23) Creatinine 1.06 mg/dL (0.700-1.30) Glomerular Filtration Rate Calc 78 mL/min (>90) BUN/Creatinine Ratio 26.4 (10.0-20.0) Serum Glucose 158 mg/dL (74-106) Calcium Level 10.0 mg/dL (8.7-10.4) Hemoglobin A1c 5.5 % A1C (<5.7) Magnesium Level 2.2 mg/dL (1.6-2.6) Total Bilirubin 0.4 mg/dL (0.2-1.0) Aspartate Amino Transferase (AST) 46 U/L (13-40) Alanine Aminotransferase (ALT) 36 U/L (7-40) Alkaline Phosphatase 90 U/L (46-116) Total Protein 7.2 g/dL (5.7-8.2) Albumin 4.6 g/dL (3.2-4.8) Triglycerides Level 117 mg/dL (< 150) Cholesterol Level 227 mg/dL (< 200) LDL Cholesterol 154 mg/dL (< 100) HDL Cholesterol 63 mg/dL (40-59) Thyroid Stimulating Hormone (TSH) 0.39 uIU/mL (0.55-4.78) Troponin I High Sensitivity < 3 ng/L (</=54) Other Laboratory Tests 01/25/25 05:37 Discharge Statement: "Patient was advised to return to the ER or call 911 if any headaches, dizziness, shortness of breath, chest pain, abdominal pain, bleeding, fevers, or worsening of medical condition. Patient was counseled about treatment plan, medications, possible side effects, patientverbalized understanding. All questions were answered to the best of my ability. This discharge took greater then 30 minutes in planning, reviewing documentation, counseling the patient, and discussing with other team members." ASSESSMENT ASSESSMENT Assessment STEFFANY VARGAS MD Jan 26, 2025 11:44
[2025-01-26] MEDS ORDERED: HYDR-4902 PO (11:45)
--- NOTE | 2025-01-26 11:48 | DVHDS2 ---
Discharge Summary Date of Admission Jan 22, 2025 at 15:53 Date of Discharge: Jan 26, 2025 Labs/Diagnostic Data: Laboratory Results Test 01/25/25 05:37 01/23/25 05:22 01/22/25 16:18 White Blood Count 7.2 10^3/uL (4.4-10.8) Red Blood Count 4.01 10^6/uL (4.5-5.90) Hemoglobin 13.4 g/dL (13.5-17.5) Hematocrit 40.5 % (41.0-53.0) Mean Corpuscular Volume 100.9 fL (80.0-100.0) Mean Corpuscular Hemoglobin 33.3 pg (28.0-32.0) Mean Corpuscular Hemoglobin Concent 33.0 g/dL (32.0-36.0) Red Cell Distribution Width 14.5 % (11.8-14.3) Platelet Count 198 10^3/uL (140-450) Mean Platelet Volume 8.5 fL (6.9-10.8) Neutrophils (%) (Auto) 81.8 % (37.0-80.0) Lymphocytes (%) (Auto) 14.5 % (10.0-50.0) Monocytes (%) (Auto) 3.6 % (0.0-12.0) Eosinophils (%) (Auto) 0.0 % (0.0-7.0) Basophils (%) (Auto) 0.1 % (0.0-2.0) Neutrophils # (Auto) 5.9 10 ^3/uL (1.6-8.6) Lymphocytes # (Auto) 1.0 10 ^3/uL (0.4-5.4) Monocytes # (Auto) 0.3 10 ^3/uL (0-1.3) Eosinophils # (Auto) 0 10 ^3/uL (0-0.8) Basophils # (Auto) 0 10 ^3/uL (0-0.2) Nucleated Red Blood Cells 0.1 % Prothrombin Time 11.2 sec (9.3-11.8) Prothrombin Time INR 1.06 (0.9-1.15) Activated Partial Thromboplast Time 24.4 SEC (24.5-34.5) Sodium Level 137 mmol/L (136-145) Potassium Level 4.5 mmol/L (3.5-5.1) Chloride Level 106 mmol/L (98-107) Carbon Dioxide Level 21 mmol/L (20-31) Anion Gap 10 (5-15) Blood Urea Nitrogen 28 mg/dL (9-23) Creatinine 1.06 mg/dL (0.700-1.30) Glomerular Filtration Rate Calc 78 mL/min (>90) BUN/Creatinine Ratio 26.4 (10.0-20.0) Serum Glucose 158 mg/dL (74-106) Calcium Level 10.0 mg/dL (8.7-10.4) Hemoglobin A1c 5.5 % A1C (<5.7) Magnesium Level 2.2 mg/dL (1.6-2.6) Total Bilirubin 0.4 mg/dL (0.2-1.0) Aspartate Amino Transferase (AST) 46 U/L (13-40) Alanine Aminotransferase (ALT) 36 U/L (7-40) Alkaline Phosphatase 90 U/L (46-116) Total Protein 7.2 g/dL (5.7-8.2) Albumin 4.6 g/dL (3.2-4.8) Triglycerides Level 117 mg/dL (< 150) Cholesterol Level 227 mg/dL (< 200) LDL Cholesterol 154 mg/dL (< 100) HDL Cholesterol 63 mg/dL (40-59) Thyroid Stimulating Hormone (TSH) 0.39 uIU/mL (0.55-4.78) Troponin I High Sensitivity < 3 ng/L (</=54) Other Laboratory Tests 01/25/25 05:37 Final Diagnosis/Problems List chest pain/angina Discharge Disposition: Home Discharge Instruct/Medications Diet: Cardiac 2g Na,low cholest Activity: No Restrictions, As Tolerated Follow Up/Referral: 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 Patient was counseled about treatment plan, medications, possible side effects, patientverbalized understanding. All questions were answered to the best of my ability. This discharge took greater then 30 minutes in planning, reviewing documentation, counseling the patient, and discussing with other team members." ASSESSMENT ASSESSMENT Assessment chest pain/angina STEFFANY VARGAS MD Jan 26, 2025 11:48
[2025-01-27] VITALS (19 sets, daily range): BP systolic 103–138; BP diastolic 63–97; PULSE 69–99; RESP 16–20; TEMP 97.4–97.9; O2SAT 90–100
--- NOTE | 2025-01-27 11:48 | DVHPN2 ---
Subjective The patient is seen and examined at bedside. Still complain of shortness a breath. Waiting for mortgage consultant to see the patient. Reviewed: Care Plan, H&P, Labs, Medications, Previous Orders, Radiology Changes from previous H/P or p: No Changes Eyes: No Pain, No Vision change, No Conjunctivae inflammation, No Eyelid inflammation, No Other, No Redness ENT: No Ear pain, No Ear discharge, No Nose pain, No Nose discharge, No Nose congestion, No Mouth pain, No Mouth swelling, No Throat pain, No Throat swelling, No Other Cardiovascular: Chest Pain; No Palpitations, No Orthopnea, No Paroxysmal Noc. Dyspnea, No Edema, No Lt Headedness, No Other Respiratory: No Cough, No Dry; Shortness of breath, SOB with excertion; No Wheezing, No Hemoptysis, No Pleuritic Pain, No Sputum, No Other Gastrointestinal: No Nausea, No Vomiting, No Abdominal Pain, No Diarrhea, No Constipation, No Melena, No Hematochezia, No Other Genitourinary: No Dysuria, No Frequency, No Incontinence, No Hematuria, No Retention, No Other Musculoskeletal: No other, No neck pain, No shoulder pain, No arm pain, No back pain, No hand pain, No leg pain, No foot pain Skin: No Rash, No Lesions, No Jaundice, No Bruising, No Other Objective Vitals Vital Signs Date Time Temp Pulse Resp B/P (MAP) Pulse Ox O2 Delivery O2 Flow Rate FiO2 01/27/25 10:08 77 138/97 01/27/25 09:36 18 100 01/27/25 09:30 Room Air* 0 21 01/27/25 09:00 97.5 97.5 Intake/Output Intake and Output 01/27/25 07:00 Intake Total 1950 ml Balance 1950 ml Intake Oral 1700 ml IV Total 250 ml # Voids 3 General Appearance: Alert, Oriented X3, Cooperative, No acute distress HEENT: Atraumatic, PERRLA, EOMI, Mucous membr. moist/pink Neck: Supple Cardiovascular: Regular rate, Normal S1, Normal S2, No murmurs, Gallops, Rubs Abdomen: Normal bowel sounds, Soft, No tenderness Neuro: Cranial nerves 3-12 NL Psych/Mental Status: Mental status NL Medications Current Medications Medications Dose Ordered Sig/Parul Route Start Time Stop Time Status Last Admin Dose Admin Levalbuterol HCl 0.625 mg Q4HR NEB 01/22/25 18:00 01/27/25 09:30 0.625 MG Ipratropium [place] 0.5 mg Q4HR NEB 01/22/25 18:00 01/27/25 09:29 0.5 MG Amiodarone HCl 200 mg BID PO 01/22/25 22:00 01/27/25 10:00 200 MG Buspirone HCl 10 mg DAILY PO 01/23/25 10:00 01/27/25 10:00 10 MG Clopidogrel Bisulfate 75 mg DAILY PO 01/23/25 10:00 01/27/25 10:01 75 MG Cyclobenzaprine HCl 10 mg TIDP PRN PO 01/22/25 16:00 01/24/25 06:27 10 MG Empaglifozin 10 mg DAILY PO 01/23/25 10:00 01/27/25 10:00 10 MG Fluoxetine HCl 10 mg DAILY PO 01/23/25 10:00 01/27/25 10:00 10 MG Gabapentin 300 mg BID PO 01/22/25 22:00 01/27/25 10:01 300 MG Losartan Potassium 25 mg DAILY PO 01/23/25 10:00 Hold Sacubitril/ Valsartan 0.5 tab DAILY PO 01/23/25 10:00 Hold Spironolactone 12.5 mg DAILY PO 01/23/25 10:00 01/27/25 10:07 12.5 MG Patient Own Medication 1 tab DAILY PO 01/23/25 10:00 UNV Patient Own Medication 1 tab QPM PO 01/22/25 18:00 UNV Patient Own Medication 1 tab BID PO 01/22/25 22:00 UNV Patient Own Medication 1 tab HS PO 01/22/25 22:00 UNV Atorvastatin Calcium 40 mg HS PO 01/22/25 22:00 01/26/25 21:52 40 MG Morphine Sulfate 2 mg Q30MP PRN IV 01/22/25 16:00 01/24/25 19:08 2 MG Ondansetron HCl 4 mg Q4HP PRN IV 01/22/25 16:00 Nitroglycerin 0.4 mg Q5MINP PRN SL 01/22/25 16:00 01/25/25 11:14 0.4 MG Methylprednisolone Sodium Succinate 40 mg Q8HR IV 01/22/25 22:00 01/25/25 06:50 40 MG Quetiapine Fumarate 50 mg HS PO 01/22/25 22:00 01/26/25 21:52 50 MG Metoprolol Succinate 25 mg BID PO 01/22/25 22:00 01/27/25 10:08 25 MG Pantoprazole Sodium 40 mg DAILY IV 01/23/25 10:00 01/27/25 10:07 40 MG Guaifenesin/ Dextromethorphan 10 ml Q4HP PRN PO 01/23/25 17:45 01/26/25 21:54 10 ML Acetaminophen/ Hydrocodone Bitart 1 tab Q4HPRN PRN PO 01/24/25 11:30 01/27/25 10:14 1 TAB Azithromycin 250 ml @ 125 mls/hr DAILY IV 01/26/25 10:00 01/27/25 10:08 125 MLS/HR Laboratory Results Laboratory Tests 01/25/25 05:37 Labs and/or images reviewed: Labs reviewed by me Assessment/Plan Assessment/Plan Acute chest pain r/o nstemi trop x3 negative ekg no stemi acute hypokalemia tobacco dependence Coronary artery disease status post cardiac stents History of [place] Hypertension Hyperlipidemia Atrial fibrillation Congestive heart failure COPD Continuing current management. Advised the patient to stop smoking more than 15 minutes. Continuing with aspirin, pain medication, anticoagulation, hypertensive medication, Solu-Medrol and nebulizer. Replace electrolytes as needed. Cardiac catheterization showed patent stents: patent LAD and Diag stent Moderate non critical LM and RCA disease Still waiting for mortgage consultant for his severe wheezing and shortness for breath. This medical document was created using an electronic medical record system with [employer] direct computerized dictation system. Although this document has been carefully reviewed, there may still be some phonetic and typographical errors. These areas are purely typographical due to imperfections of the software programs, and do not reflect any compromise in the patient's medical care. Plan discussed with: Patient My Orders Orders - STEFFANY VARGAS MD Procedure Category Date Status Time *Consult CONS 01/26/25 Transmitted / 13:25 Date of Service: Jan 27, 2025 Billing Provider: STEFFANY VARGAS MD Common Visit Codes: [id number] INP/OBS CARE(HIGH) STEFFANY VARGAS MD Jan 27, 2025 11:48
--- NOTE | 2025-01-27 11:48 | DVHPN2 ---
Subjective The patient is seen and examined at bedside. The patient has a cardiac catheterization done yesterday. His stents remain patent. No new stent Reviewed: Care Plan, H&P, Labs, Medications, Previous Orders Changes from previous H/P or p: No Changes Eyes: No Pain, No Vision change, No Conjunctivae inflammation, No Eyelid inflammation, No Other, No Redness ENT: No Ear pain, No Ear discharge, No Nose pain, No Nose discharge, No Nose congestion, No Mouth pain, No Mouth swelling, No Throat pain, No Throat swelling, No Other Cardiovascular: Chest Pain; No Palpitations, No Orthopnea, No Paroxysmal Noc. Dyspnea, No Edema, No Lt Headedness, No Other Respiratory: No Cough, No Dry; Shortness of breath, SOB with excertion; No Wheezing, No Hemoptysis, No Pleuritic Pain, No Sputum, No Other Gastrointestinal: No Nausea, No Vomiting, No Abdominal Pain, No Diarrhea, No Constipation, No Melena, No Hematochezia, No Other Genitourinary: No Dysuria, No Frequency, No Incontinence, No Hematuria, No Retention, No Other Musculoskeletal: No other, No neck pain, No shoulder pain, No arm pain, No back pain, No hand pain, No leg pain, No foot pain Skin: No Rash, No Lesions, No Jaundice, No Bruising, No Other Objective Vitals Vital Signs Date Time Temp Pulse Resp B/P (MAP) Pulse Ox O2 Delivery O2 Flow Rate FiO2 01/26/25 10:08 77 138/97 01/26/25 09:36 18 100 01/26/25 09:30 Room Air* 0 21 01/26/25 09:00 97.5 97.5 Intake/Output Intake and Output 01/27/25 07:00 Intake Total 1950 ml Balance 1950 ml Intake Oral 1700 ml IV Total 250 ml # Voids 3 General Appearance: Alert, Oriented X3, Cooperative, No acute distress HEENT: Atraumatic, PERRLA, EOMI, Mucous membr. moist/pink Lungs: Clear to auscultation, Normal air movement Cardiovascular: Regular rate, Normal S1, Normal S2, No murmurs, Gallops, Rubs Abdomen: Normal bowel sounds, Soft, No tenderness Neuro: Cranial nerves 3-12 NL Psych/Mental Status: Mental status NL Medications Current Medications Medications Dose Ordered Sig/Parul Route Start Time Stop Time Status Last Admin Dose Admin Levalbuterol HCl 0.625 mg Q4HR NEB 01/22/25 18:00 01/27/25 09:30 0.625 MG Ipratropium [place] 0.5 mg Q4HR NEB 01/22/25 18:00 01/27/25 09:29 0.5 MG Amiodarone HCl 200 mg BID PO 01/22/25 22:00 01/27/25 10:00 200 MG Buspirone HCl 10 mg DAILY PO 01/23/25 10:00 01/27/25 10:00 10 MG Clopidogrel Bisulfate 75 mg DAILY PO 01/23/25 10:00 01/27/25 10:01 75 MG Cyclobenzaprine HCl 10 mg TIDP PRN PO 01/22/25 16:00 01/24/25 06:27 10 MG Empaglifozin 10 mg DAILY PO 01/23/25 10:00 01/27/25 10:00 10 MG Fluoxetine HCl 10 mg DAILY PO 01/23/25 10:00 01/27/25 10:00 10 MG Gabapentin 300 mg BID PO 01/22/25 22:00 01/27/25 10:01 300 MG Losartan Potassium 25 mg DAILY PO 01/23/25 10:00 Hold Sacubitril/ Valsartan 0.5 tab DAILY PO 01/23/25 10:00 Hold Spironolactone 12.5 mg DAILY PO 01/23/25 10:00 01/27/25 10:07 12.5 MG Patient Own Medication 1 tab DAILY PO 01/23/25 10:00 UNV Patient Own Medication 1 tab QPM PO 01/22/25 18:00 UNV Patient Own Medication 1 tab BID PO 01/22/25 22:00 UNV Patient Own Medication 1 tab HS PO 01/22/25 22:00 UNV Atorvastatin Calcium 40 mg HS PO 01/22/25 22:00 01/26/25 21:52 40 MG Morphine Sulfate 2 mg Q30MP PRN IV 01/22/25 16:00 01/24/25 19:08 2 MG Ondansetron HCl 4 mg Q4HP PRN IV 01/22/25 16:00 Nitroglycerin 0.4 mg Q5MINP PRN SL 01/22/25 16:00 01/25/25 11:14 0.4 MG Methylprednisolone Sodium Succinate 40 mg Q8HR IV 01/22/25 22:00 01/25/25 06:50 40 MG Quetiapine Fumarate 50 mg HS PO 01/22/25 22:00 01/26/25 21:52 50 MG Metoprolol Succinate 25 mg BID PO 01/22/25 22:00 01/27/25 10:08 25 MG Pantoprazole Sodium 40 mg DAILY IV 01/23/25 10:00 01/27/25 10:07 40 MG Guaifenesin/ Dextromethorphan 10 ml Q4HP PRN PO 01/23/25 17:45 01/26/25 21:54 10 ML Acetaminophen/ Hydrocodone Bitart 1 tab Q4HPRN PRN PO 01/24/25 11:30 01/27/25 10:14 1 TAB Azithromycin 250 ml @ 125 mls/hr DAILY IV 01/26/25 10:00 01/27/25 10:08 125 MLS/HR Laboratory Results Laboratory Tests 01/25/25 05:37 Labs and/or images reviewed: Labs reviewed by me Assessment/Plan Assessment/Plan Acute chest pain r/o nstemi trop x3 negative ekg no stemi acute hypokalemia tobacco dependence Coronary artery disease status post cardiac stents History of [place] Hypertension Hyperlipidemia Atrial fibrillation Congestive heart failure COPD Continuing current management. Advised the patient to stop smoking more than 15 minutes. Continuing with aspirin, pain medication, anticoagulation, hypertensive medication, Solu-Medrol and nebulizer. Replace electrolytes as needed. His cardiac catheterization showed patent stent and no new stent was placed. The patient has been ambulate. No chest pain. I am going to discharge him home. However he states that he can not breathe. He very wheezing per physical examined. I am going to hold his discharge and consult bobbin sorter. This medical document was created using an electronic medical record system with [employer] direct computerized dictation system. Although this document has been carefully reviewed, there may still be some phonetic and typographical errors. These areas are purely typographical due to imperfections of the software programs, and do not reflect any compromise in the patient's medical care. Plan discussed with: Patient My Orders Orders - STEFFANY VARGAS MD Procedure Category Date Status Time *Consult CONS 01/26/25 Transmitted / 13:25 Date of Service: Jan 26, 2025 Billing Provider: STEFFANY VARAGS MD Common Visit Codes: [id number] INP/OBS CARE(HIGH) STEFFANY VARGAS MD Jan 27, 2025 11:48
--- NOTE | 2025-01-27 13:26 | DVHINCON2 ---
Date of service: Jan 27, [address] aleksandr vargas Reason for Consultation Acute respiratory failure History of Present Illness Patient is a 64-year old gentleman with a history of COPD, CAD and hypertension who presented with nonspecific chest pain and wheezing. Was seen in the emerge [facility] room where he was admitted for symptoms consistent with acute exacerbation of COPD and pulmonology was consulted to assist in management. Past Medical History COPD,CAD,HTN Family History: Dementia G8 FATHER FH: smoking G8 FATHER FH: throat cancer G8 FATHER Hypertension G8 MOTHER Allergies: Coded Allergies: NO KNOWN ALLERGIES (Unverified , 09/04/21) Home Meds Active Scripts Hydrocodone-Acetaminophen (Hydrocodone Bitartrate/AC 5-325 mg) 1 Tab Tab, 1 TAB PO Q4HPRN PRN, #20 TAB Prov:STEFFANY VARGAS MD 01/26/25 Metoprolol Succinate (Toprol Xl) 50 Mg Tab, 1 TAB PO DAILY, #30 TAB 5 Refills Prov:STEFFANY VARGAS MD 01/26/25 Albuterol Sulfate (Albuterol Sulfate) 0.083 % Neb, 1 VIAL NEB Q4HPRN for 14 Days, #50 VIAL Prov:M[facility]ACHI [facility] 08/22/24 Empagliflozin (Jardiance) 10 Mg Tab, 10 MG PO DAILY for 30 Days, #30 TAB Prov:MALACHI [facility] 08/22/24 Spironolactone (Spironolactone) 25 Mg Tab, 0.5 TAB PO DAILY for 30 Days, #15 TAB 1 Refill Prov:MALACHI [facility] 08/22/24 Sacubitril-Valsartan (Entresto 24-26 mg) 1 Tab Tab, 0.5 TAB PO DAILY for 30 Days, #15 TAB Prov:MALACHI [facility] 08/22/24 Metoprolol Succinate (Metoprolol Succinate Er) 25 Mg Tab, 1 TAB PO BID for 30 Days, #60 TAB 5 Refills Prov:MALACHI [facility] 08/22/24 Atorvastatin Calcium (ATORVASTATIN CALCIUM) 40 Mg Tab, 1 TAB PO QPM for 30 Days, #30 TAB 3 Refills Prov:MALACHI [facility] 08/22/24 Amiodarone Hcl (Amiodarone Hcl) 200 Mg Tab, 1 TAB PO BID for 30 Days, #60 TAB 1 Refill Prov:MALACHI [facility] 08/22/24 Prednisone (Prednisone) 20 Mg Tab, 20 MG PO ONCE for 5 Days, #10 MG Prov:M[facility]ACHI [facility] 08/22/24 Cefdinir (Cefdinir) 300 Mg Cap, 1 CAP PO BID for 5 Days, #14 CAP Prov:M[facility]ACH[facility] 08/22/24 Clopidogrel Bisulfate (Plavix) 75 Mg Tab, 1 TAB PO DAILY for 30 Days, #30 TAB 1 Refill Prov:M[facility]ACH[facility] 08/22/24 Apixaban Base (ELIQUIS) 5 Mg Tab, 5 MG PO BID for 30 Days, #60 TAB Prov:[facility] 08/22/24 Cyclobenzaprine Hcl (Cyclobenzaprine Hcl) 10 Mg Tab, 10 MG PO TIDP PRN for 10 Days, #30 TAB Prov:GUSATVO FLOR MD 02/29/24 Gabapentin (Gabapentin) 300 Mg Cap, 300 MG PO BID for 30 Days, #60 CAP Prov:GUSTAVO FLOR MD 02/29/24 Reported Medications Hydroxyzine Hcl (Hydroxyzine Hcl) 25 Mg Tab, 1 TAB PO TID PRN for ANXIETY 02/23/24 Losartan Potassium (Losartan Potassium) 25 Mg Tab, 1 TAB PO DAILY 02/23/24 Tramadol Hcl (Tramadol Hcl) 50 Mg Tab, 1 TAB PO DAILY PRN for PAIN 02/23/24 Aspirin (Chewable Aspirin) 81 Mg Chw, 1 TAB PO DAILY 02/23/24 Quetiapine Fumerate (QUETIAPINE FUMARATE) 50 Mg Tab, 1 TAB PO HS TAKE 1-2 TABS AT NIGHT. 02/22/24 Fluoxetine Hcl (Fluoxetine Hcl) 10 Mg Tab, 1 CAP PO DAILY 02/22/24 Buspirone Hcl (Buspirone Hcl) 10 Mg Tab, 1 TAB PO DAILY 02/22/24 Vital Signs Vital Signs Date Time Temp Pulse Resp B/P (MAP) Pulse Ox O2 Delivery O2 Flow Rate FiO2 01/27/25 13:00 97.9 71 18 103/69 (80) 96 97.9 01/27/25 09:30 Room Air* 0 21 Labs/Diagnostic Data Labs Test 01/25/25 05:37 01/23/25 05:22 01/22/25 16:18 Range/Units White Blood Count 7.2 4.4-10.8 10^3/uL Red Blood Count 4.01 L 4.5-5.90 10^6/uL Hemoglobin 13.4 L 13.5-17.5 g/dL Hematocrit 40.5 L 41.0-53.0 % Mean Corpuscular Volume 100.9 H 80.0-100.0 fL Mean Corpuscular Hemoglobin 33.3 H 28.0-32.0 pg Mean Corpuscular Hemoglobin Concent 33.0 32.0-36.0 g/dL Red Cell Distribution Width 14.5 H 11.8-14.3 % Platelet Count 198 140-450 10^3/uL Mean Platelet Volume 8.5 6.9-10.8 fL Neutrophils (%) (Auto) 81.8 H 37.0-80.0 % Lymphocytes (%) (Auto) 14.5 10.0-50.0 % Monocytes (%) (Auto) 3.6 0.0-12.0 % Eosinophils (%) (Auto) 0.0 0.0-7.0 % Basophils (%) (Auto) 0.1 0.0-2.0 % Neutrophils # (Auto) 5.9 1.6-8.6 10 ^3/uL Lymphocytes # (Auto) 1.0 0.4-5.4 10 ^3/uL Monocytes # (Auto) 0.3 0-1.3 10 ^3/uL Eosinophils # (Auto) 0 0-0.8 10 ^3/uL Basophils # (Auto) 0 0-0.2 10 ^3/uL Nucleated Red Blood Cells 0.1 % Prothrombin Time 11.2 9.3-11.8 sec Prothrombin Time INR 1.06 0.9-1.15 Activated Partial Thromboplast Time 24.4 L 24.5-34.5 SEC Sodium Level 137 136-145 mmol/L Potassium Level 4.5 3.5-5.1 mmol/L Chloride Level 106 98-107 mmol/L Carbon Dioxide Level 21 20-31 mmol/L Anion Gap 10 5-15 Blood Urea Nitrogen 28 H 9-23 mg/dL Creatinine 1.06 0.700-1.30 mg/dL Glomerular Filtration Rate Calc 78 >90 mL/min BUN/Creatinine Ratio 26.4 H 10.0-20.0 Serum Glucose 158 H 74-106 mg/dL Calcium Level 10.0 8.7-10.4 mg/dL Hemoglobin A1c 5.5 <5.7 % A1C Magnesium Level 2.2 1.6-2.6 mg/dL Total Bilirubin 0.4 0.2-1.0 mg/dL Aspartate Amino Transferase (AST) 46 H 13-40 U/L Alanine Aminotransferase (ALT) 36 7-40 U/L Alkaline Phosphatase 90 46-116 U/L Total Protein 7.2 5.7-8.2 g/dL Albumin 4.6 3.2-4.8 g/dL Triglycerides Level 117 < 150 mg/dL Cholesterol Level 227 H < 200 mg/dL LDL Cholesterol 154 H < 100 mg/dL HDL Cholesterol 63 H 40-59 mg/dL Thyroid Stimulating Hormone (TSH) 0.39 L 0.55-4.78 uIU/mL Troponin I High Sensitivity < 3 L </=54 ng/L Plan/Recommendation Impression Acute hypoxemic respiratory failure Acute COPD exacerbation Atelectasis Pain Patient seen and examined Events Low oxygen requirements On 2 liters nasal cannula Vital signs stable Labs and imaging reviewed Management Supplemental oxygen Titrate to maintain sats 90% or above Incentive spirometry Antibiotics Bronchodilators Steroids for COPD management Transition to Prednisone with taper prior to discharge Monitor renal function Monitor electrolytes Supplement as needed DVT prophylaxis Plan discussed with: Patient ANGELA NAVARRO MD Jan 27, 2025 13:26
[2025-01-28] VITALS (18 sets, daily range): BP systolic 92–144; BP diastolic 64–84; PULSE 70–94; RESP 14–24; TEMP 97.5–98; O2SAT 81–100
[2025-01-28] MEDS ORDERED: methylPREDNISolone SOD SUCC 125 MG/2 ML VL IV SCH (11:00)
[2025-01-28] MEDS: methylPREDNISolone SOD SUCC 125 MG/2 ML VL IV SCH (11:10)
[2025-01-28] MEDS ORDERED: ALBUTEROL SULF 2.5 MG/0.5ML(0.5%) NEB SOLN NEB PRN (12:45)
--- NOTE | 2025-01-28 12:45 | DVHPN2 ---
Reviewed: Care Plan, H&P, Labs, Medications, Previous Orders Changes from previous H/P or p: No Changes General: Per HPI Eyes: No Pain, No Vision change, No Conjunctivae inflammation, No Eyelid inflammation, No Other, No Redness ENT: No Ear pain, No Ear discharge, No Nose pain, No Nose discharge, No Nose congestion, No Mouth pain, No Mouth swelling, No Throat pain, No Throat swelling, No Other Cardiovascular: Chest Pain; No Palpitations, No Orthopnea, No Paroxysmal Noc. Dyspnea, No Edema, No Lt Headedness, No Other Respiratory: No Cough, No Dry; Shortness of breath, SOB with excertion; No Wheezing, No Hemoptysis, No Pleuritic Pain, No Sputum, No Other Gastrointestinal: No Nausea, No Vomiting, No Abdominal Pain, No Diarrhea, No Constipation, No Melena, No Hematochezia, No Other Genitourinary: No Dysuria, No Frequency, No Incontinence, No Hematuria, No Retention, No Other Musculoskeletal: No other, No neck pain, No shoulder pain, No arm pain, No back pain, No hand pain, No leg pain, No foot pain Skin: No Rash, No Lesions, No Jaundice, No Bruising, No Other Objective Vitals Vital Signs Date Time Temp Pulse Resp B/P (MAP) Pulse Ox O2 Delivery O2 Flow Rate FiO2 01/28/25 11:27 74 16 97 01/28/25 09:06 97.6 92/64 (73) 97.6 01/28/25 08:00 Nasal Cannula* 2 28 Intake/Output Intake and Output 01/28/25 06:59 Intake Total 2032 ml Balance 2032 ml Intake Oral 1782 ml IV Total 250 ml # Voids 8 # Bowel Movements 1 General Appearance: Alert, Oriented X3, Cooperative HEENT: Atraumatic Cardiovascular: Regular rate, Normal S1, Normal S2 Abdomen: Normal bowel sounds, Soft Medications Current Medications Medications Dose Ordered Sig/Parul Route Start Time Stop Time Status Last Admin Dose Admin Levalbuterol HCl 0.625 mg Q4HR NEB 01/22/25 18:00 01/28/25 11:12 0.625 MG Ipratropium [place] 0.5 mg Q4HR NEB 01/22/25 18:00 01/28/25 11:12 0.5 MG Amiodarone HCl 200 mg BID PO 01/22/25 22:00 01/28/25 10:00 200 MG Buspirone HCl 10 mg DAILY PO 01/23/25 10:00 01/28/25 10:00 10 MG Clopidogrel Bisulfate 75 mg DAILY PO 01/23/25 10:00 01/28/25 10:00 75 MG Cyclobenzaprine HCl 10 mg TIDP PRN PO 01/22/25 16:00 01/28/25 03:02 10 MG Empaglifozin 10 mg DAILY PO 01/23/25 10:00 01/28/25 10:00 10 MG Fluoxetine HCl 10 mg DAILY PO 01/23/25 10:00 01/28/25 09:59 10 MG Gabapentin 300 mg BID PO 01/22/25 22:00 01/28/25 09:59 300 MG Losartan Potassium 25 mg DAILY PO 01/23/25 10:00 Hold Sacubitril/ Valsartan 0.5 tab DAILY PO 01/23/25 10:00 Hold Spironolactone 12.5 mg DAILY PO 01/23/25 10:00 01/28/25 10:00 12.5 MG Patient Own Medication 1 tab DAILY PO 01/23/25 10:00 UNV Patient Own Medication 1 tab QPM PO 01/22/25 18:00 UNV Patient Own Medication 1 tab BID PO 01/22/25 22:00 UNV Patient Own Medication 1 tab HS PO 01/22/25 22:00 UNV Atorvastatin Calcium 40 mg HS PO 01/22/25 22:00 01/27/25 21:06 40 MG Morphine Sulfate 2 mg Q30MP PRN IV 01/22/25 16:00 01/24/25 19:08 2 MG Ondansetron HCl 4 mg Q4HP PRN IV 01/22/25 16:00 Nitroglycerin 0.4 mg Q5MINP PRN SL 01/22/25 16:00 01/25/25 11:14 0.4 MG Quetiapine Fumarate 50 mg HS PO 01/22/25 22:00 01/27/25 21:06 50 MG Metoprolol Succinate 25 mg BID PO 01/22/25 22:00 01/27/25 21:07 25 MG Pantoprazole Sodium 40 mg DAILY IV 01/23/25 10:00 01/28/25 09:51 40 MG Guaifenesin/ Dextromethorphan 10 ml Q4HP PRN PO 01/23/25 17:45 01/27/25 21:05 10 ML Acetaminophen/ Hydrocodone Bitart 1 tab Q4HPRN PRN PO 01/24/25 11:30 01/28/25 10:11 1 TAB Azithromycin 250 ml @ 125 mls/hr DAILY IV 01/26/25 10:00 01/28/25 09:55 125 MLS/HR Methylprednisolone Sodium Succinate 40 mg Q8H IV 01/28/25 11:00 01/28/25 11:10 40 MG Laboratory Results Laboratory Tests 01/25/25 05:37 Labs and/or images reviewed: Labs reviewed by me, Image(s) reviewed by me Assessment/Plan Assessment/Plan Acute chest pain r/o nstemi acute hypokalemia tobacco dependence chronic problems with continuation of home medication pna acute hypoxic resp failure 01/28/2025: worsening PNA, wheezing, continue with empirical IV ABx Plan discussed with: Patient Date of Service: Jan 28, 2025 Billing Provider: MICHAEL TREVINO DO Common Visit Codes: [id number] INP/OBS CARE(HIGH) MICHAEL TREVINO DO Jan 28, 2025 12:45
[2025-01-28] MEDS: ALPRAZolam 0.5 MG TAB PO PRN (14:51)
[2025-01-28] MEDS: ALBUTEROL SULF 2.5 MG/0.5ML(0.5%) NEB SOLN NEB SCH ×2 (18:43→18:45)
--- NOTE | 2025-01-28 21:27 | DVHPN2 ---
Progress Note - Dictate Date Seen: Jan 28, 2025 Medical Necessity Reason Pt with a Central, PICC or Fol: No Subjective Patient seen and examined at bedside. Remains on supplemental oxygen Overnight events reviewed. vital signs Vital Sign Date Time Temp Pulse Resp B/P (MAP) Pulse Ox O2 Delivery O2 Flow Rate FiO2 01/28/25 21:16 95 121/83 01/28/25 20:29 22 93 2.0 28 01/28/25 20:00 Nasal Cannula* 01/28/25 17:00 97.7 97.7 Total Intake and Output 01/27/25 01/27/25 01/28/25 14:59 22:59 06:59 Intake Total 250 ml 1082 ml 700 ml Balance 250 ml 1082 ml 700 ml medications Current Medications Medications Dose Ordered Sig/Parul Route Start Time Stop Time Status Last Admin Dose Admin Amiodarone HCl 200 mg BID PO 01/22/25 22:00 01/28/25 21:15 200 MG Buspirone HCl 10 mg DAILY PO 01/23/25 10:00 01/28/25 10:00 10 MG Clopidogrel Bisulfate 75 mg DAILY PO 01/23/25 10:00 01/28/25 10:00 75 MG Cyclobenzaprine HCl 10 mg TIDP PRN PO 01/22/25 16:00 01/28/25 17:27 10 MG Empaglifozin 10 mg DAILY PO 01/23/25 10:00 01/28/25 10:00 10 MG Fluoxetine HCl 10 mg DAILY PO 01/23/25 10:00 01/28/25 09:59 10 MG Gabapentin 300 mg BID PO 01/22/25 22:00 01/28/25 21:14 300 MG Losartan Potassium 25 mg DAILY PO 01/23/25 10:00 Hold Sacubitril/ Valsartan 0.5 tab DAILY PO 01/23/25 10:00 Hold Spironolactone 12.5 mg DAILY PO 01/23/25 10:00 01/28/25 10:00 12.5 MG Patient Own Medication 1 tab DAILY PO 01/23/25 10:00 UNV Patient Own Medication 1 tab QPM PO 01/22/25 18:00 UNV Patient Own Medication 1 tab BID PO 01/22/25 22:00 UNV Patient Own Medication 1 tab HS PO 01/22/25 22:00 UNV Atorvastatin Calcium 40 mg HS PO 01/22/25 22:00 01/28/25 21:14 40 MG Morphine Sulfate 2 mg Q30MP PRN IV 01/22/25 16:00 01/24/25 19:08 2 MG Ondansetron HCl 4 mg Q4HP PRN IV 01/22/25 16:00 Nitroglycerin 0.4 mg Q5MINP PRN SL 01/22/25 16:00 01/25/25 11:14 0.4 MG Quetiapine Fumarate 50 mg HS PO 01/22/25 22:00 01/28/25 21:14 50 MG Metoprolol Succinate 25 mg BID PO 01/22/25 22:00 01/28/25 21:16 25 MG Pantoprazole Sodium 40 mg DAILY IV 01/23/25 10:00 01/28/25 09:51 40 MG Guaifenesin/ Dextromethorphan 10 ml Q4HP PRN PO 01/23/25 17:45 01/28/25 15:26 10 ML Acetaminophen/ Hydrocodone Bitart 1 tab Q4HPRN PRN PO 01/24/25 11:30 01/28/25 21:16 1 TAB Azithromycin 250 ml @ 125 mls/hr DAILY IV 01/26/25 10:00 01/28/25 09:55 125 MLS/HR Methylprednisolone Sodium Succinate 40 mg Q8H IV 01/28/25 11:00 01/28/25 18:36 40 MG Alprazolam 0.5 mg Q8HPRN PRN PO 01/28/25 12:45 01/28/25 14:51 0.5 MG Albuterol 2.5 mg Q4HR NEB 01/28/25 18:45 objective Gen.: Patient lying in bed in no apparent distress. On supplemental oxygen. Head: Normocephalic, atraumatic. Eyes: EOMI/PERRLA. Ears: Normal hearing. Normal anatomy. Neck/trachea: Trachea midline, supple. Nose: Normal external anatomy. Mouth: Moist mucous membranes. Chest: Decreased air entry bilaterally. No wheezing or rhonchi. Cardiovascular: Positive S1, positive S2. Regular rate and rhythm. Abdomen: Positive bowel sounds in all 4 quadrants. Soft, non-tender, non- distended. : Deferred. Rectal: Deferred. Skin: Warm, dry. Intact. Extremities: 2+ radial pulses bilaterally. No lower extremity edema. Neuro: Awake, alert, oriented x3. No gross motor or sensory deficits. Cranial nerves II through XII intact. Gait not assessed. laboratory and microbiology Laboratory Tests 01/25/25 05:37 Test 01/25/25 05:37 Range/Units Serum Glucose 158 H 74-106 mg/dL Assessment/Plan Impression: Acute hypoxemic respiratory failure Acute COPD exacerbation Atelectasis Pain Events: Patient seen and examined at bedside Low oxygen requirements On 2 liters nasal cannula Continue bronchodilators IV steroids Antitussive for cough Incentive spirometry Amiodarone PO Pain control Avoid oversedation Labs and imaging reviewed Plan: Supplemental oxygen Titrate to maintain sats 90% or above Incentive spirometry Antibiotics Bronchodilators Steroids for COPD management Transition to Prednisone with taper prior to discharge Monitor renal function Monitor electrolytes Supplement as needed DVT prophylaxis Prognosis: Poor given patient's multiple co-morbidities. Rest of plan per hospitalist and other consultants. Thank you Dr. Bolaños for allowing me to participate in this patient's care. Further recommendations will depend on the patient's clinical course. Please do not hesitate to contact me if you have any questions or concerns. This medical document was created using an electronic medical record system with [employer] computerized dictation system. Although these documentations are being carefully reviewed, there may still be some phonetic and typographical changes. The errors are purely typographical, due to imperfection on the software program, and do not reflect any compromise in the patient's medical care. Dietary Evaluation Review Comments: 1) advance diet as medically feasible 2) Continue current plan of care Expected Outcomes/Goals: To meet >75% estimated needs Fu 2-3 days Plan discussed with: Patient, Other (JONO Velasquez) BRIANDA KAY MD Jan 28, 2025 21:27
[2025-01-29] VITALS (21 sets, daily range): BP systolic 102–142; BP diastolic 65–88; PULSE 62–82; RESP 16–22; TEMP 97.5–98.2; O2SAT 93–100
[2025-01-29 14:12] LABS: Basophils # (auto) 0 10 ^3/uL (0-0.2); Eosinophils # (auto) 0 10 ^3/uL (0-0.8); Monocytes # (auto) 0.4 10 ^3/uL (0-1.3)
[2025-01-29 14:14] LABS: Chloride 98 mmol/L (98-107)
[2025-01-29 14:15] LABS: Anion Gap 10 (5-15); Basophils % (auto) 0.4 % (0.0-2.0); Calcium 10.3 mg/dL (8.7-10.4); Carbon Dioxide 26 mmol/L (20-31); Hematocrit 40.7 % (41.0-53.0); Hemoglobin 14.3 g/dL (13.5-17.5); Lymphocytes % (auto) 10.4 % (10.0-50.0); Mean Corpuscular Hemoglobin 34.5 pg (28.0-32.0); Mean Corpuscular Hgb Conc. 35.2 g/dL (32.0-36.0); Mean Corpuscular Volume 97.9 fL (80.0-100.0); Monocytes % (auto) 4.4 % (0.0-12.0); Neutrophils # (auto) 8.4 10 ^3/uL (1.6-8.6); Neutrophils % (auto) 84.8 % (37.0-80.0); Nucleated Red Blood Cells % 0.1 %; Platelet Count (auto) 210 10^3/uL (140-450); Red Blood Cells 4.16 10^6/uL (4.5-5.90); Red Cell Distribution Width 13.5 % (11.8-14.3); White Blood Cell 9.9 10^3/uL (4.4-10.8)
[2025-01-29 14:20] LABS: BUN/Creatinine Ratio 26.7 (10.0-20.0); Blood Urea Nitrogen 35 mg/dL (9-23); Glucose 163 mg/dL (74-106); Sodium 134 mmol/L (136-145)
--- NOTE | 2025-01-29 14:30 | DVHPN2 ---
Reviewed: Care Plan, H&P, Labs, Medications, Previous Orders Changes from previous H/P or p: No Changes General: Per HPI Eyes: No Pain, No Vision change, No Conjunctivae inflammation, No Eyelid inflammation, No Other, No Redness ENT: No Ear pain, No Ear discharge, No Nose pain, No Nose discharge, No Nose congestion, No Mouth pain, No Mouth swelling, No Throat pain, No Throat swelling, No Other Cardiovascular: Chest Pain; No Palpitations, No Orthopnea, No Paroxysmal Noc. Dyspnea, No Edema, No Lt Headedness, No Other Respiratory: No Cough, No Dry; Shortness of breath, SOB with excertion; No Wheezing, No Hemoptysis, No Pleuritic Pain, No Sputum, No Other Gastrointestinal: No Nausea, No Vomiting, No Abdominal Pain, No Diarrhea, No Constipation, No Melena, No Hematochezia, No Other Genitourinary: No Dysuria, No Frequency, No Incontinence, No Hematuria, No Retention, No Other Musculoskeletal: No other, No neck pain, No shoulder pain, No arm pain, No back pain, No hand pain, No leg pain, No foot pain Skin: No Rash, No Lesions, No Jaundice, No Bruising, No Other Objective Vitals Vital Signs Date Time Temp Pulse Resp B/P (MAP) Pulse Ox O2 Delivery O2 Flow Rate FiO2 01/29/25 13:00 98.2 68 22 135/81 (99) 97 98.2 01/29/25 11:07 Nasal Cannula* 2 28 Intake/Output Intake and Output 01/29/25 07:00 Intake Total 1150 ml Output Total 0 ml Balance 1150 ml Intake Oral 900 ml IV Total 250 ml Output Urine Total 0 ml # Voids 4 General Appearance: Alert, Oriented X3, Cooperative HEENT: Atraumatic Cardiovascular: Regular rate, Normal S1, Normal S2 Abdomen: Normal bowel sounds, Soft Medications Current Medications Medications Dose Ordered Sig/Parul Route Start Time Stop Time Status Last Admin Dose Admin Amiodarone HCl 200 mg BID PO 01/22/25 22:00 01/29/25 09:17 200 MG Buspirone HCl 10 mg DAILY PO 01/23/25 10:00 01/29/25 09:18 10 MG Clopidogrel Bisulfate 75 mg DAILY PO 01/23/25 10:00 01/29/25 09:17 75 MG Cyclobenzaprine HCl 10 mg TIDP PRN PO 01/22/25 16:00 01/29/25 11:18 10 MG Empaglifozin 10 mg DAILY PO 01/23/25 10:00 01/29/25 09:18 10 MG Fluoxetine HCl 10 mg DAILY PO 01/23/25 10:00 01/29/25 09:17 10 MG Gabapentin 300 mg BID PO 01/22/25 22:00 01/29/25 09:17 300 MG Losartan Potassium 25 mg DAILY PO 01/23/25 10:00 Hold Sacubitril/ Valsartan 0.5 tab DAILY PO 01/23/25 10:00 Hold Spironolactone 12.5 mg DAILY PO 01/23/25 10:00 01/29/25 09:17 12.5 MG Patient Own Medication 1 tab DAILY PO 01/23/25 10:00 UNV Patient Own Medication 1 tab QPM PO 01/22/25 18:00 UNV Patient Own Medication 1 tab BID PO 01/22/25 22:00 UNV Patient Own Medication 1 tab HS PO 01/22/25 22:00 UNV Atorvastatin Calcium 40 mg HS PO 01/22/25 22:00 01/28/25 21:14 40 MG Morphine Sulfate 2 mg Q30MP PRN IV 01/22/25 16:00 01/24/25 19:08 2 MG Ondansetron HCl 4 mg Q4HP PRN IV 01/22/25 16:00 Nitroglycerin 0.4 mg Q5MINP PRN SL 01/22/25 16:00 01/25/25 11:14 0.4 MG Quetiapine Fumarate 50 mg HS PO 01/22/25 22:00 01/28/25 21:14 50 MG Metoprolol Succinate 25 mg BID PO 01/22/25 22:00 01/28/25 21:16 25 MG Pantoprazole Sodium 40 mg DAILY IV 01/23/25 10:00 01/29/25 09:08 40 MG Guaifenesin/ Dextromethorphan 10 ml Q4HP PRN PO 01/23/25 17:45 01/29/25 09:23 10 ML Acetaminophen/ Hydrocodone Bitart 1 tab Q4HPRN PRN PO 01/24/25 11:30 01/29/25 07:07 1 TAB Azithromycin 250 ml @ 125 mls/hr DAILY IV 01/26/25 10:00 01/29/25 09:11 125 MLS/HR Alprazolam 0.5 mg Q8HPRN PRN PO 01/28/25 12:45 01/29/25 09:23 0.5 MG Albuterol 2.5 mg Q4HR NEB 01/28/25 18:45 01/29/25 11:07 2.5 MG Methylprednisolone Sodium Succinate 80 mg Q8H IV 01/29/25 13:45 UNV Laboratory Results Laboratory Tests 01/29/25 13:51 Chemistry Test 01/29/25 13:51 Calcium Level Pending Assessment/Plan Assessment/Plan Acute chest pain r/o nstemi acute hypokalemia tobacco dependence chronic problems with continuation of home medication pna acute hypoxic resp failure 01/28/2025: worsening PNA, wheezing, continue with empirical IV ABx 01/29/2025: increasing steroid dose. discussed with pt. Plan discussed with: Patient My Orders Orders - MICHAEL TREVINO DO Procedure Category Date Status Time Basic Metabolic Panel LAB 01/29/25 In Process 13:34 Methylprednisolone PHA 01/29/25 Logged Sod Succ (Solu Medrol 13:45 Date of Service: Jan 29, 2025 Billing Provider: MICHAEL TREVINO DO Common Visit Codes: [id number] INP/OBS CARE(HIGH) MICHAEL TREVINO DO Jan 29, 2025 14:30
[2025-01-29] MEDS ORDERED: methylPREDNISolone SOD SUCC 125 MG/2 ML VL IV SCH (14:33)
--- NOTE | 2025-01-29 19:24 | DVHPN2 ---
Progress Note - Dictate Date Seen: Jan 29, 2025 Medical Necessity Reason Pt with a Central, PICC or Fol: No Subjective Patient seen and examined at bedside. Remains on supplemental oxygen Overnight events reviewed. vital signs Vital Sign Date Time Temp Pulse Resp B/P (MAP) Pulse Ox O2 Delivery O2 Flow Rate FiO2 01/29/25 19:06 78 22 98 01/29/25 19:00 Nasal Cannula* 2 28 01/29/25 17:00 98.2 142/88 (106) 98.2 Total Intake and Output 01/28/25 01/28/25 01/29/25 15:00 23:00 07:00 Intake Total 250 ml 0 ml 900 ml Output Total 0 ml Balance 250 ml 0 ml 900 ml medications Current Medications Medications Dose Ordered Sig/Parul Route Start Time Stop Time Status Last Admin Dose Admin Amiodarone HCl 200 mg BID PO 01/22/25 22:00 01/29/25 09:17 200 MG Buspirone HCl 10 mg DAILY PO 01/23/25 10:00 01/29/25 09:18 10 MG Clopidogrel Bisulfate 75 mg DAILY PO 01/23/25 10:00 01/29/25 09:17 75 MG Cyclobenzaprine HCl 10 mg TIDP PRN PO 01/22/25 16:00 01/29/25 11:18 10 MG Empaglifozin 10 mg DAILY PO 01/23/25 10:00 01/29/25 09:18 10 MG Fluoxetine HCl 10 mg DAILY PO 01/23/25 10:00 01/29/25 09:17 10 MG Gabapentin 300 mg BID PO 01/22/25 22:00 01/29/25 09:17 300 MG Losartan Potassium 25 mg DAILY PO 01/23/25 10:00 Hold Sacubitril/ Valsartan 0.5 tab DAILY PO 01/23/25 10:00 Hold Spironolactone 12.5 mg DAILY PO 01/23/25 10:00 01/29/25 09:17 12.5 MG Patient Own Medication 1 tab DAILY PO 01/23/25 10:00 UNV Patient Own Medication 1 tab QPM PO 01/22/25 18:00 UNV Patient Own Medication 1 tab BID PO 01/22/25 22:00 UNV Patient Own Medication 1 tab HS PO 01/22/25 22:00 UNV Atorvastatin Calcium 40 mg HS PO 01/22/25 22:00 01/28/25 21:14 40 MG Morphine Sulfate 2 mg Q30MP PRN IV 01/22/25 16:00 01/24/25 19:08 2 MG Ondansetron HCl 4 mg Q4HP PRN IV 01/22/25 16:00 Nitroglycerin 0.4 mg Q5MINP PRN SL 01/22/25 16:00 01/25/25 11:14 0.4 MG Quetiapine Fumarate 50 mg HS PO 01/22/25 22:00 01/28/25 21:14 50 MG Metoprolol Succinate 25 mg BID PO 01/22/25 22:00 01/28/25 21:16 25 MG Pantoprazole Sodium 40 mg DAILY IV 01/23/25 10:00 01/29/25 09:08 40 MG Guaifenesin/ Dextromethorphan 10 ml Q4HP PRN PO 01/23/25 17:45 01/29/25 15:06 10 ML Acetaminophen/ Hydrocodone Bitart 1 tab Q4HPRN PRN PO 01/24/25 11:30 01/29/25 15:05 1 TAB Azithromycin 250 ml @ 125 mls/hr DAILY IV 01/26/25 10:00 01/29/25 09:11 125 MLS/HR Alprazolam 0.5 mg Q8HPRN PRN PO 01/28/25 12:45 01/29/25 09:23 0.5 MG Albuterol 2.5 mg Q4HR NEB 01/28/25 18:45 01/29/25 19:00 2.5 MG Methylprednisolone Sodium Succinate 80 mg Q8H IV 01/29/25 20:00 objective Gen.: Patient lying in bed in no apparent distress. On supplemental oxygen. Head: Normocephalic, atraumatic. Eyes: EOMI/PERRLA. Ears: Normal hearing. Normal anatomy. Neck/trachea: Trachea midline, supple. Nose: Normal external anatomy. Mouth: Moist mucous membranes. Chest: Decreased air entry bilaterally. No wheezing or rhonchi. Cardiovascular: Positive S1, positive S2. Regular rate and rhythm. Abdomen: Positive bowel sounds in all 4 quadrants. Soft, non-tender, non- distended. : Deferred. Rectal: Deferred. Skin: Warm, dry. Intact. Extremities: 2+ radial pulses bilaterally. No lower extremity edema. Neuro: Awake, alert, oriented x3. No gross motor or sensory deficits. Cranial nerves II through XII intact. Gait not assessed. laboratory and microbiology Laboratory Tests 01/29/25 13:51 Test 01/29/25 13:51 Range/Units Serum Glucose 163 H 74-106 mg/dL Assessment/Plan Impression: Acute hypoxemic respiratory failure Acute COPD exacerbation Atelectasis Pain Events: Patient seen and examined at bedside Low oxygen requirements On 2 liters nasal cannula Continues to wheeze Continue bronchodilators, made scheduled every 4 hours IV steroids, continue Increase dosage to 80 mg q.8 hours Continue Accu-Cheks, insulin sliding scale Antitussive for cough Incentive spirometry Amiodarone PO Pain control Avoid oversedation Labs and imaging reviewed Plan: Supplemental oxygen Titrate to maintain sats 90% or above Incentive spirometry Antibiotics Bronchodilators Steroids for COPD management Transition to Prednisone with taper prior to discharge Monitor renal function Monitor electrolytes Supplement as needed DVT prophylaxis Prognosis: Poor given patient's multiple co-morbidities. Rest of plan per hospitalist and other consultants. Thank you Dr. Bolaños for allowing me to participate in this patient's care. Further recommendations will depend on the patient's clinical course. Please do not hesitate to contact me if you have any questions or concerns. This medical document was created using an electronic medical record system with [employer] dictation system. Although these documentations are being carefully reviewed, there may still be some phonetic and typographical changes. The errors are purely typographical, due to imperfection on the software program, and do not reflect any compromise in the patient's medical care. Dietary Evaluation Review Comments: 1) advance diet as medically feasible 2) Continue current plan of care Expected Outcomes/Goals: To meet >75% estimated needs Fu 2-3 days Plan discussed with: Patient, Other (JONO Velasquez) BRIANDA KAY MD Jan 29, 2025 19:24
[2025-01-29] MEDS: methylPREDNISolone SOD SUCC 125 MG/2 ML VL IV SCH (20:01)
[2025-01-30] VITALS (20 sets, daily range): BP systolic 113–148; BP diastolic 61–86; PULSE 64–83; RESP 16–20; TEMP 97.3–98.6; O2SAT 92–99
--- NOTE | 2025-01-30 23:16 | DVHPN2 ---
Progress Note - Dictate Date Seen: Jan 30, 2025 Medical Necessity Reason Pt with a Central, PICC or Fol: No Subjective Patient seen and examined at bedside. Remains on supplemental oxygen Overnight events reviewed. vital signs Vital Sign Date Time Temp Pulse Resp B/P (MAP) Pulse Ox O2 Delivery O2 Flow Rate FiO2 01/30/25 22:52 74 20 92 01/30/25 22:42 Room Air 0.0 01/30/25 22:42 21 01/30/25 22:20 119/80 01/30/25 21:00 97.3 97.3 Total Intake and Output 01/29/25 01/29/25 01/30/25 15:00 23:00 07:00 Intake Total 250 ml 1200 ml 850 ml Balance 250 ml 1200 ml 850 ml medications Current Medications Medications Dose Ordered Sig/Parul Route Start Time Stop Time Status Last Admin Dose Admin Amiodarone HCl 200 mg BID PO 01/22/25 22:00 01/30/25 22:18 200 MG Clopidogrel Bisulfate 75 mg DAILY PO 01/23/25 10:00 01/30/25 09:44 75 MG Cyclobenzaprine HCl 10 mg TIDP PRN PO 01/22/25 16:00 01/30/25 20:44 10 MG Empaglifozin 10 mg DAILY PO 01/23/25 10:00 01/30/25 09:46 10 MG Fluoxetine HCl 10 mg DAILY PO 01/23/25 10:00 01/30/25 09:44 10 MG Gabapentin 300 mg BID PO 01/22/25 22:00 01/30/25 22:18 300 MG Losartan Potassium 25 mg DAILY PO 01/23/25 10:00 Hold Sacubitril/ Valsartan 0.5 tab DAILY PO 01/23/25 10:00 Hold Spironolactone 12.5 mg DAILY PO 01/23/25 10:00 01/30/25 09:47 12.5 MG Patient Own Medication 1 tab DAILY PO 01/23/25 10:00 UNV Patient Own Medication 1 tab QPM PO 01/22/25 18:00 UNV Patient Own Medication 1 tab BID PO 01/22/25 22:00 UNV Patient Own Medication 1 tab HS PO 01/22/25 22:00 UNV Atorvastatin Calcium 40 mg HS PO 01/22/25 22:00 01/30/25 22:18 40 MG Morphine Sulfate 2 mg Q30MP PRN IV 01/22/25 16:00 01/24/25 19:08 2 MG Ondansetron HCl 4 mg Q4HP PRN IV 01/22/25 16:00 Nitroglycerin 0.4 mg Q5MINP PRN SL 01/22/25 16:00 01/25/25 11:14 0.4 MG Quetiapine Fumarate 50 mg HS PO 01/22/25 22:00 01/30/25 22:18 50 MG Metoprolol Succinate 25 mg BID PO 01/22/25 22:00 01/30/25 22:20 25 MG Pantoprazole Sodium 40 mg DAILY IV 01/23/25 10:00 01/30/25 09:43 40 MG Guaifenesin/ Dextromethorphan 10 ml Q4HP PRN PO 01/23/25 17:45 01/30/25 22:19 10 ML Acetaminophen/ Hydrocodone Bitart 1 tab Q4HPRN PRN PO 01/24/25 11:30 01/30/25 22:18 1 TAB Azithromycin 250 ml @ 125 mls/hr DAILY IV 01/26/25 10:00 01/30/25 09:52 125 MLS/HR Alprazolam 0.5 mg Q8HPRN PRN PO 01/28/25 12:45 01/30/25 08:34 0.5 MG Albuterol 2.5 mg Q4HR NEB 01/28/25 18:45 01/30/25 22:44 2.5 MG Methylprednisolone Sodium Succinate 80 mg Q8H IV 01/29/25 20:00 01/30/25 20:44 80 MG objective Gen.: Patient lying in bed in no apparent distress. On supplemental oxygen. Head: Normocephalic, atraumatic. Eyes: EOMI/PERRLA. Ears: Normal hearing. Normal anatomy. Neck/trachea: Trachea midline, supple. Nose: Normal external anatomy. Mouth: Moist mucous membranes. Chest: Decreased air entry bilaterally. No wheezing or rhonchi. Cardiovascular: Positive S1, positive S2. Regular rate and rhythm. Abdomen: Positive bowel sounds in all 4 quadrants. Soft, non-tender, non- distended. : Deferred. Rectal: Deferred. Skin: Warm, dry. Intact. Extremities: 2+ radial pulses bilaterally. No lower extremity edema. Neuro: Awake, alert, oriented x3. No gross motor or sensory deficits. Cranial nerves II through XII intact. Gait not assessed. laboratory and microbiology Laboratory Tests 01/29/25 13:51 Test 01/29/25 13:51 Range/Units Serum Glucose 163 H 74-106 mg/dL Assessment/Plan Impression: Acute hypoxemic respiratory failure Acute COPD exacerbation Atelectasis Pain Events: Patient seen and examined at bedside Low oxygen requirements On 2 liters nasal cannula Continues to wheeze Continue bronchodilators q. 4 hours Continue IV steroids - Solu-Medrol q.8 hours Continue antibiotics Antitussive for cough Incentive spirometry Amiodarone PO Pain control Avoid oversedation Labs and imaging reviewed Plan: Supplemental oxygen Titrate to maintain sats 90% or above Incentive spirometry Antibiotics Bronchodilators Steroids for COPD management Transition to Prednisone with taper prior to discharge Monitor renal function Monitor electrolytes Supplement as needed Accu-Cheks, insulin sliding scale DVT prophylaxis Prognosis: Poor given patient's multiple co-morbidities. Rest of plan per hospitalist and other consultants. Thank you Dr. Bolaños for allowing me to participate in this patient's care. Further recommendations will depend on the patient's clinical course. Please do not hesitate to contact me if you have any questions or concerns. This medical document was created using an electronic medical record system with [employer] dictation system. Although these documentations are being carefully reviewed, there may still be some phonetic and typographical changes. The errors are purely typographical, due to imperfection on the software program, and do not reflect any compromise in the patient's medical care. Dietary Evaluation Review Comments: 1) advance diet as medically feasible 2) Continue current plan of care Expected Outcomes/Goals: To meet >75% estimated needs Fu 2-3 days Plan discussed with: Patient, Other (RN Dillon) BRIANDA KAY MD Jan 30, 2025 23:16
[2025-01-31] VITALS (20 sets, daily range): BP systolic 114–143; BP diastolic 76–99; PULSE 42–101; RESP 16–18; TEMP 97.5–98.9; O2SAT 88–99
--- NOTE | 2025-01-31 14:07 | DVHPN2 ---
Reviewed: Care Plan, H&P, Labs, Medications, Previous Orders, Radiology Changes from previous H/P or p: No Changes General: Per HPI Eyes: No Pain, No Vision change, No Conjunctivae inflammation, No Eyelid inflammation, No Other, No Redness ENT: No Ear pain, No Ear discharge, No Nose pain, No Nose discharge, No Nose congestion, No Mouth pain, No Mouth swelling, No Throat pain, No Throat swelling, No Other Cardiovascular: Chest Pain; No Palpitations, No Orthopnea, No Paroxysmal Noc. Dyspnea, No Edema, No Lt Headedness, No Other Respiratory: No Cough, No Dry; Shortness of breath, SOB with excertion; No Wheezing, No Hemoptysis, No Pleuritic Pain, No Sputum, No Other Gastrointestinal: No Nausea, No Vomiting, No Abdominal Pain, No Diarrhea, No Constipation, No Melena, No Hematochezia, No Other Genitourinary: No Dysuria, No Frequency, No Incontinence, No Hematuria, No Retention, No Other Musculoskeletal: No other, No neck pain, No shoulder pain, No arm pain, No back pain, No hand pain, No leg pain, No foot pain Skin: No Rash, No Lesions, No Jaundice, No Bruising, No Other Objective Vitals Vital Signs Date Time Temp Pulse Resp B/P (MAP) Pulse Ox O2 Delivery O2 Flow Rate FiO2 01/31/25 13:59 71 18 98 01/31/25 13:53 Nasal Cannula 2.0 01/31/25 13:53 28 01/31/25 13:00 97.8 128/76 (93) 97.8 Intake/Output Intake and Output 01/31/25 07:00 Intake Total 2600 ml Balance 2600 ml Intake Oral 2350 ml IV Total 250 ml # Voids 4 General Appearance: Alert, Oriented X3, Cooperative, No acute distress HEENT: Atraumatic, PERRLA, EOMI, Mucous membr. moist/pink Neck: Supple Lungs: Clear to auscultation, Normal air movement Cardiovascular: Regular rate, Normal S1, Normal S2, No murmurs, Gallops, Rubs Abdomen: Normal bowel sounds, Soft, No tenderness Neuro: Cranial nerves 3-12 NL Psych/Mental Status: Mental status NL Medications Current Medications Medications Dose Ordered Sig/Parul Route Start Time Stop Time Status Last Admin Dose Admin Amiodarone HCl 200 mg BID PO 01/22/25 22:00 01/31/25 10:50 200 MG Clopidogrel Bisulfate 75 mg DAILY PO 01/23/25 10:00 01/31/25 10:49 75 MG Cyclobenzaprine HCl 10 mg TIDP PRN PO 01/22/25 16:00 01/31/25 13:01 10 MG Empaglifozin 10 mg DAILY PO 01/23/25 10:00 01/31/25 10:50 10 MG Fluoxetine HCl 10 mg DAILY PO 01/23/25 10:00 01/31/25 11:08 10 MG Gabapentin 300 mg BID PO 01/22/25 22:00 01/31/25 10:50 300 MG Losartan Potassium 25 mg DAILY PO 01/23/25 10:00 Hold Sacubitril/ Valsartan 0.5 tab DAILY PO 01/23/25 10:00 Hold Spironolactone 12.5 mg DAILY PO 01/23/25 10:00 01/31/25 10:50 12.5 MG Patient Own Medication 1 tab DAILY PO 01/23/25 10:00 UNV Patient Own Medication 1 tab QPM PO 01/22/25 18:00 UNV Patient Own Medication 1 tab BID PO 01/22/25 22:00 UNV Patient Own Medication 1 tab HS PO 01/22/25 22:00 UNV Atorvastatin Calcium 40 mg HS PO 01/22/25 22:00 01/30/25 22:18 40 MG Morphine Sulfate 2 mg Q30MP PRN IV 01/22/25 16:00 01/24/25 19:08 2 MG Ondansetron HCl 4 mg Q4HP PRN IV 01/22/25 16:00 Nitroglycerin 0.4 mg Q5MINP PRN SL 01/22/25 16:00 01/25/25 11:14 0.4 MG Quetiapine Fumarate 50 mg HS PO 01/22/25 22:00 01/30/25 22:18 50 MG Metoprolol Succinate 25 mg BID PO 01/22/25 22:00 01/31/25 10:49 25 MG Pantoprazole Sodium 40 mg DAILY IV 01/23/25 10:00 01/31/25 10:48 40 MG Guaifenesin/ Dextromethorphan 10 ml Q4HP PRN PO 01/23/25 17:45 01/31/25 04:51 10 ML Acetaminophen/ Hydrocodone Bitart 1 tab Q4HPRN PRN PO 01/24/25 11:30 01/31/25 10:51 1 TAB Azithromycin 250 ml @ 125 mls/hr DAILY IV 01/26/25 10:00 01/31/25 10:48 125 MLS/HR Alprazolam 0.5 mg Q8HPRN PRN PO 01/28/25 12:45 01/31/25 04:51 0.5 MG Albuterol 2.5 mg Q4HR NEB 01/28/25 18:45 01/31/25 13:53 2.5 MG Methylprednisolone Sodium Succinate 80 mg Q8H IV 01/29/25 20:00 01/31/25 04:38 80 MG Laboratory Results Laboratory Tests 01/29/25 13:51 Assessment/Plan Assessment/Plan Acute chest pain r/o nstemi acute hypokalemia tobacco dependence chronic problems with continuation of home medication pna (gram pos/gram neg) acute hypoxic resp failure 01/28/2025: worsening PNA, wheezing, continue with empirical IV ABx 01/29/2025: increasing steroid dose. discussed with pt. 01/30/2025: improving a bit more. still has a lot coughing still Plan discussed with: Patient Date of Service: Jan 30, 2025 Billing Provider: MICHAEL TREVINO DO Common Visit Codes: [id number] INP/OBS CARE(HIGH) MICHAEL TREVINO DO Jan 31, 2025 14:07
--- NOTE | 2025-01-31 14:11 | DVHPN2 ---
Reviewed: Care Plan, H&P, Labs, Medications, Previous Orders, Radiology Changes from previous H/P or p: No Changes General: Per HPI Eyes: No Pain, No Vision change, No Conjunctivae inflammation, No Eyelid inflammation, No Other, No Redness ENT: No Ear pain, No Ear discharge, No Nose pain, No Nose discharge, No Nose congestion, No Mouth pain, No Mouth swelling, No Throat pain, No Throat swelling, No Other Cardiovascular: Chest Pain; No Palpitations, No Orthopnea, No Paroxysmal Noc. Dyspnea, No Edema, No Lt Headedness, No Other Respiratory: No Cough, No Dry; Shortness of breath, SOB with excertion; No Wheezing, No Hemoptysis, No Pleuritic Pain, No Sputum, No Other Gastrointestinal: No Nausea, No Vomiting, No Abdominal Pain, No Diarrhea, No Constipation, No Melena, No Hematochezia, No Other Genitourinary: No Dysuria, No Frequency, No Incontinence, No Hematuria, No Retention, No Other Musculoskeletal: No other, No neck pain, No shoulder pain, No arm pain, No back pain, No hand pain, No leg pain, No foot pain Skin: No Rash, No Lesions, No Jaundice, No Bruising, No Other Objective Vitals Vital Signs Date Time Temp Pulse Resp B/P (MAP) Pulse Ox O2 Delivery O2 Flow Rate FiO2 01/31/25 13:59 71 18 98 01/31/25 13:53 Nasal Cannula 2.0 01/31/25 13:53 28 01/31/25 13:00 97.8 128/76 (93) 97.8 Intake/Output Intake and Output 01/31/25 07:00 Intake Total 2600 ml Balance 2600 ml Intake Oral 2350 ml IV Total 250 ml # Voids 4 General Appearance: Alert, Oriented X3, Cooperative, No acute distress HEENT: Atraumatic, PERRLA, EOMI, Mucous membr. moist/pink Neck: Supple Lungs: Clear to auscultation, Normal air movement Cardiovascular: Regular rate, Normal S1, Normal S2, No murmurs, Gallops, Rubs Abdomen: Normal bowel sounds, Soft, No tenderness Neuro: Cranial nerves 3-12 NL Psych/Mental Status: Mental status NL Medications Current Medications Medications Dose Ordered Sig/Parul Route Start Time Stop Time Status Last Admin Dose Admin Amiodarone HCl 200 mg BID PO 01/22/25 22:00 01/31/25 10:50 200 MG Clopidogrel Bisulfate 75 mg DAILY PO 01/23/25 10:00 01/31/25 10:49 75 MG Cyclobenzaprine HCl 10 mg TIDP PRN PO 01/22/25 16:00 01/31/25 13:01 10 MG Empaglifozin 10 mg DAILY PO 01/23/25 10:00 01/31/25 10:50 10 MG Fluoxetine HCl 10 mg DAILY PO 01/23/25 10:00 01/31/25 11:08 10 MG Gabapentin 300 mg BID PO 01/22/25 22:00 01/31/25 10:50 300 MG Losartan Potassium 25 mg DAILY PO 01/23/25 10:00 Hold Sacubitril/ Valsartan 0.5 tab DAILY PO 01/23/25 10:00 Hold Spironolactone 12.5 mg DAILY PO 01/23/25 10:00 01/31/25 10:50 12.5 MG Patient Own Medication 1 tab DAILY PO 01/23/25 10:00 UNV Patient Own Medication 1 tab QPM PO 01/22/25 18:00 UNV Patient Own Medication 1 tab BID PO 01/22/25 22:00 UNV Patient Own Medication 1 tab HS PO 01/22/25 22:00 UNV Atorvastatin Calcium 40 mg HS PO 01/22/25 22:00 01/30/25 22:18 40 MG Morphine Sulfate 2 mg Q30MP PRN IV 01/22/25 16:00 01/24/25 19:08 2 MG Ondansetron HCl 4 mg Q4HP PRN IV 01/22/25 16:00 Nitroglycerin 0.4 mg Q5MINP PRN SL 01/22/25 16:00 01/25/25 11:14 0.4 MG Quetiapine Fumarate 50 mg HS PO 01/22/25 22:00 01/30/25 22:18 50 MG Metoprolol Succinate 25 mg BID PO 01/22/25 22:00 01/31/25 10:49 25 MG Pantoprazole Sodium 40 mg DAILY IV 01/23/25 10:00 01/31/25 10:48 40 MG Guaifenesin/ Dextromethorphan 10 ml Q4HP PRN PO 01/23/25 17:45 01/31/25 04:51 10 ML Acetaminophen/ Hydrocodone Bitart 1 tab Q4HPRN PRN PO 01/24/25 11:30 01/31/25 10:51 1 TAB Azithromycin 250 ml @ 125 mls/hr DAILY IV 01/26/25 10:00 01/31/25 10:48 125 MLS/HR Alprazolam 0.5 mg Q8HPRN PRN PO 01/28/25 12:45 01/31/25 04:51 0.5 MG Albuterol 2.5 mg Q4HR NEB 01/28/25 18:45 01/31/25 13:53 2.5 MG Methylprednisolone Sodium Succinate 80 mg Q8H IV 01/29/25 20:00 01/31/25 04:38 80 MG Laboratory Results Laboratory Tests 01/29/25 13:51 Labs and/or images reviewed: Labs reviewed by me, Image(s) reviewed by me Assessment/Plan Assessment/Plan Acute chest pain r/o nstemi acute hypokalemia tobacco dependence chronic problems with continuation of home medication pna (gram pos/gram neg) acute hypoxic resp failure 01/28/2025: worsening PNA, wheezing, continue with empirical IV ABx 01/29/2025: increasing steroid dose. discussed with pt. 01/30/2025: improving a bit more. still has a lot coughing still 01/31/2025: continue with current management, improving. weaning down on supplemental O2 Plan discussed with: Patient Date of Service: Jan 31, 2025 Billing Provider: MICHAEL TREVINO DO Common Visit Codes: [id number] INP/OBS CARE(HIGH) MICHAEL TREVINO DO Jan 31, 2025 14:11
--- NOTE | 2025-01-31 20:36 | DVHPN2 ---
Progress Note - Dictate Date Seen: Jan 31, 2025 Medical Necessity Reason Pt with a Central, PICC or Fol: No Subjective Patient seen and examined at bedside. Remains on supplemental oxygen Overnight events reviewed. vital signs Vital Sign Date Time Temp Pulse Resp B/P (MAP) Pulse Ox O2 Delivery O2 Flow Rate FiO2 01/31/25 20:28 Nasal Cannula* 2 28 01/31/25 19:13 94 01/31/25 19:13 72 18 01/31/25 17:05 98.9 127/81 (96) 98.9 Total Intake and Output 01/30/25 01/30/25 01/31/25 15:00 23:00 07:00 Intake Total 250 ml 1400 ml 950 ml Balance 250 ml 1400 ml 950 ml medications Current Medications Medications Dose Ordered Sig/Parul Route Start Time Stop Time Status Last Admin Dose Admin Amiodarone HCl 200 mg BID PO 01/22/25 22:00 01/31/25 10:50 200 MG Clopidogrel Bisulfate 75 mg DAILY PO 01/23/25 10:00 01/31/25 10:49 75 MG Cyclobenzaprine HCl 10 mg TIDP PRN PO 01/22/25 16:00 01/31/25 20:13 10 MG Empaglifozin 10 mg DAILY PO 01/23/25 10:00 01/31/25 10:50 10 MG Fluoxetine HCl 10 mg DAILY PO 01/23/25 10:00 01/31/25 11:08 10 MG Gabapentin 300 mg BID PO 01/22/25 22:00 01/31/25 10:50 300 MG Losartan Potassium 25 mg DAILY PO 01/23/25 10:00 Hold Sacubitril/ Valsartan 0.5 tab DAILY PO 01/23/25 10:00 Hold Spironolactone 12.5 mg DAILY PO 01/23/25 10:00 01/31/25 10:50 12.5 MG Patient Own Medication 1 tab DAILY PO 01/23/25 10:00 UNV Patient Own Medication 1 tab QPM PO 01/22/25 18:00 UNV Patient Own Medication 1 tab BID PO 01/22/25 22:00 UNV Patient Own Medication 1 tab HS PO 01/22/25 22:00 UNV Atorvastatin Calcium 40 mg HS PO 01/22/25 22:00 01/30/25 22:18 40 MG Ondansetron HCl 4 mg Q4HP PRN IV 01/22/25 16:00 Nitroglycerin 0.4 mg Q5MINP PRN SL 01/22/25 16:00 01/25/25 11:14 0.4 MG Quetiapine Fumarate 50 mg HS PO 01/22/25 22:00 01/30/25 22:18 50 MG Metoprolol Succinate 25 mg BID PO 01/22/25 22:00 01/31/25 10:49 25 MG Pantoprazole Sodium 40 mg DAILY IV 01/23/25 10:00 01/31/25 10:48 40 MG Guaifenesin/ Dextromethorphan 10 ml Q4HP PRN PO 01/23/25 17:45 01/31/25 04:51 10 ML Acetaminophen/ Hydrocodone Bitart 1 tab Q4HPRN PRN PO 01/24/25 11:30 01/31/25 20:13 1 TAB Azithromycin 250 ml @ 125 mls/hr DAILY IV 01/26/25 10:00 01/31/25 10:48 125 MLS/HR Alprazolam 0.5 mg Q8HPRN PRN PO 01/28/25 12:45 01/31/25 04:51 0.5 MG Albuterol 2.5 mg Q4HR NEB 01/28/25 18:45 01/31/25 19:13 2.5 MG Methylprednisolone Sodium Succinate 80 mg Q8H IV 01/29/25 20:00 01/31/25 20:13 80 MG objective Gen.: Patient lying in bed in no apparent distress. On supplemental oxygen. Head: Normocephalic, atraumatic. Eyes: EOMI/PERRLA. Ears: Normal hearing. Normal anatomy. Neck/trachea: Trachea midline, supple. Nose: Normal external anatomy. Mouth: Moist mucous membranes. Chest: Decreased air entry bilaterally. No wheezing or rhonchi. Cardiovascular: Positive S1, positive S2. Regular rate and rhythm. Abdomen: Positive bowel sounds in all 4 quadrants. Soft, non-tender, non- distended. : Deferred. Rectal: Deferred. Skin: Warm, dry. Intact. Extremities: 2+ radial pulses bilaterally. No lower extremity edema. Neuro: Awake, alert, oriented x3. No gross motor or sensory deficits. Cranial nerves II through XII intact. Gait not assessed. laboratory and microbiology Laboratory Tests 01/29/25 13:51 Test 01/29/25 13:51 Range/Units Serum Glucose 163 H 74-106 mg/dL Assessment/Plan Impression: Acute hypoxemic respiratory failure Acute COPD exacerbation Atelectasis Pain Events: Patient seen and examined at bedside Low oxygen requirements On 2 liters nasal cannula Wheezing improving. Continue bronchodilators q. 4 hours Continue IV steroids - Solu-Medrol q.8 hours Continue antibiotics Antitussive PRN for cough Incentive spirometry Amiodarone PO Protonix for GI prophylaxis Pain control Avoid oversedation Assess in the AM for stability for discharge. Labs and imaging reviewed Plan: Supplemental oxygen Titrate to maintain sats 90% or above Incentive spirometry Antibiotics Bronchodilators Steroids for COPD management Transition to Prednisone with taper prior to discharge Monitor renal function Monitor electrolytes Supplement as needed Accu-Cheks, insulin sliding scale DVT prophylaxis Prognosis: Poor given patient's multiple co-morbidities. Rest of plan per hospitalist and other consultants. Thank you Dr. Bolaños for allowing me to participate in this patient's care. Further recommendations will depend on the patient's clinical course. Please do not hesitate to contact me if you have any questions or concerns. This medical document was created using an electronic medical record system with [employer] computerized dictation system. Although these documentations are being carefully reviewed, there may still be some phonetic and typographical changes. The errors are purely typographical, due to imperfection on the software program, and do not reflect any compromise in the patient's medical care. Dietary Evaluation Review Comments: 1) advance diet as medically feasible 2) Continue current plan of care Expected Outcomes/Goals: To meet >75% estimated needs Fu 2-3 days Plan discussed with: Patient, Other (RN Dillon) BRIANDA KAY MD Jan 31, 2025 20:36
[2025-02-01] VITALS (14 sets, daily range): BP systolic 126–140; BP diastolic 67–88; PULSE 65–75; RESP 12–18; TEMP 97.6–98.4; O2SAT 92–98
[2025-02-01] MEDS ORDERED: LEVO500T91 PO (11:12)
--- NOTE | 2025-02-02 04:34 | DVHPN2 ---
Progress Note - Dictate Date Seen: Feb 01, 2025 Medical Necessity Reason Pt with a Central, PICC or Fol: No Subjective Patient seen and examined at bedside. Remains on supplemental oxygen Overnight events reviewed. vital signs Vital Sign Date Time Temp Pulse Resp B/P (MAP) Pulse Ox O2 Delivery O2 Flow Rate FiO2 02/01/25 16:22 98.4 74 16 135/78 (97) 92 98.4 02/01/25 14:28 Room Air* 0 21 Total Intake and Output 02/01/25 02/01/25 02/02/25 15:00 23:00 07:00 Intake Total 250 ml 1800 ml Output Total 400 ml Balance 250 ml 1400 ml medications Current Medications Medications Dose Ordered Sig/Parul Route Start Time Stop Time Status Last Admin Dose Admin Patient Own Medication 1 tab DAILY PO 01/23/25 10:00 UNV Patient Own Medication 1 tab QPM PO 01/22/25 18:00 UNV Patient Own Medication 1 tab BID PO 01/22/25 22:00 UNV Patient Own Medication 1 tab HS PO 01/22/25 22:00 UNV objective Gen.: Patient lying in bed in no apparent distress. On supplemental oxygen. Head: Normocephalic, atraumatic. Eyes: EOMI/PERRLA. Ears: Normal hearing. Normal anatomy. Neck/trachea: Trachea midline, supple. Nose: Normal external anatomy. Mouth: Moist mucous membranes. Chest: Decreased air entry bilaterally. No wheezing or rhonchi. Cardiovascular: Positive S1, positive S2. Regular rate and rhythm. Abdomen: Positive bowel sounds in all 4 quadrants. Soft, non-tender, non- distended. : Deferred. Rectal: Deferred. Skin: Warm, dry. Intact. Extremities: 2+ radial pulses bilaterally. No lower extremity edema. Neuro: Awake, alert, oriented x3. No gross motor or sensory deficits. Cranial nerves II through XII intact. Gait not assessed. laboratory and microbiology Laboratory Tests 01/29/25 13:51 Test 01/29/25 13:51 Range/Units Serum Glucose 163 H 74-106 mg/dL Assessment/Plan Impression: Acute hypoxemic respiratory failure Acute COPD exacerbation Atelectasis Pain Events: Patient seen and examined at bedside Low oxygen requirements On 1 LPM nasal cannula Wheezing improving. Continue bronchodilators Continue antibiotics Antitussive PRN for cough Incentive spirometry Amiodarone PO Protonix for GI prophylaxis Pain control Avoid oversedation Patient is stable for discharge from the pulmonary standpoint. Disposition per hospitalist. Labs and imaging reviewed Plan: Supplemental oxygen Titrate to maintain sats 90% or above Incentive spirometry Antibiotics Bronchodilators Steroids for COPD management Transition to Prednisone with taper prior to discharge Monitor renal function Monitor electrolytes Supplement as needed Accu-Cheks, insulin sliding scale DVT prophylaxis Prognosis: Guarded given patient's multiple co-morbidities. Rest of plan per hospitalist and other consultants. Thank you Dr. Bolaños for allowing me to participate in this patient's care. Further recommendations will depend on the patient's clinical course. Please do not hesitate to contact me if you have any questions or concerns. This medical document was created using an electronic medical record system with [employer] dictation system. Although these documentations are being carefully reviewed, there may still be some phonetic and typographical changes. The errors are purely typographical, due to imperfection on the software program, and do not reflect any compromise in the patient's medical care. Dietary Evaluation Review Comments: 1) advance diet as medically feasible 2) Continue current plan of care Expected Outcomes/Goals: To meet >75% estimated needs Fu 2-3 days Plan discussed with: Patient, Other (RN) BRIANDA KAY MD Feb 02, 2025 04:34
--- NOTE | 2025-02-09 23:14 | DVHDS2 ---
Discharge Summary Date of Admission Jan 22, 2025 at 15:53 Date of Discharge: Jan 26, 2025 Labs/Diagnostic Data: Laboratory Results Test 01/29/25 13:51 01/25/25 05:37 01/23/25 05:22 01/22/25 16:18 White Blood Count 9.9 10^3/uL (4.4-10.8) Red Blood Count 4.16 10^6/uL (4.5-5.90) Hemoglobin 14.3 g/dL (13.5-17.5) Hematocrit 40.7 % (41.0-53.0) Mean Corpuscular Volume 97.9 fL (80.0-100.0) Mean Corpuscular Hemoglobin 34.5 pg (28.0-32.0) Mean Corpuscular Hemoglobin Concent 35.2 g/dL (32.0-36.0) Red Cell Distribution Width 13.5 % (11.8-14.3) Platelet Count 210 10^3/uL (140-450) Mean Platelet Volume 8.8 fL (6.9-10.8) Neutrophils (%) (Auto) 84.8 % (37.0-80.0) Lymphocytes (%) (Auto) 10.4 % (10.0-50.0) Monocytes (%) (Auto) 4.4 % (0.0-12.0) Eosinophils (%) (Auto) 0.0 % (0.0-7.0) Basophils (%) (Auto) 0.4 % (0.0-2.0) Neutrophils # (Auto) 8.4 10 ^3/uL (1.6-8.6) Lymphocytes # (Auto) 1.0 10 ^3/uL (0.4-5.4) Monocytes # (Auto) 0.4 10 ^3/uL (0-1.3) Eosinophils # (Auto) 0 10 ^3/uL (0-0.8) Basophils # (Auto) 0 10 ^3/uL (0-0.2) Nucleated Red Blood Cells 0.1 % Sodium Level 134 mmol/L (136-145) Potassium Level 5.0 mmol/L (3.5-5.1) Chloride Level 98 mmol/L (98-107) Carbon Dioxide Level 26 mmol/L (20-31) Anion Gap 10 (5-15) Blood Urea Nitrogen 35 mg/dL (9-23) Creatinine 1.31 mg/dL (0.700-1.30) Glomerular Filtration Rate Calc 61 mL/min (>90) BUN/Creatinine Ratio 26.7 (10.0-20.0) Serum Glucose 163 mg/dL (74-106) Calcium Level 10.3 mg/dL (8.7-10.4) Prothrombin Time 11.2 sec (9.3-11.8) Prothrombin Time INR 1.06 (0.9-1.15) Activated Partial Thromboplast Time 24.4 SEC (24.5-34.5) Hemoglobin A1c 5.5 % A1C (<5.7) Magnesium Level 2.2 mg/dL (1.6-2.6) Total Bilirubin 0.4 mg/dL (0.2-1.0) Aspartate Amino Transferase (AST) 46 U/L (13-40) Alanine Aminotransferase (ALT) 36 U/L (7-40) Alkaline Phosphatase 90 U/L (46-116) Total Protein 7.2 g/dL (5.7-8.2) Albumin 4.6 g/dL (3.2-4.8) Triglycerides Level 117 mg/dL (< 150) Cholesterol Level 227 mg/dL (< 200) LDL Cholesterol 154 mg/dL (< 100) HDL Cholesterol 63 mg/dL (40-59) Thyroid Stimulating Hormone (TSH) 0.39 uIU/mL (0.55-4.78) Troponin I High Sensitivity < 3 ng/L (</=54) Other Laboratory Tests 01/29/25 13:51 Brief Hx & Hospital Course: Acute chest pain r/o nstemi acute hypokalemia tobacco dependence chronic problems with continuation of home medication pna (gram pos/gram neg) acute hypoxic resp failure 01/28/2025: worsening PNA, wheezing, continue with empirical IV ABx 01/29/2025: increasing steroid dose. discussed with pt. 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 Patient was counseled about treatment plan, medications, possible side effects, patientverbalized understanding. All questions were answered to the best of my ability. This discharge took greater then 30 minutes in planning, reviewing documentation, counseling the patient, and discussing with other team members." ASSESSMENT ASSESSMENT Assessment chest pain/angina Date of Service: Feb 01, 2025 Billing Provider: MICHAEL TREVINO DO Common Visit Codes: [id number] DISCH DAY >30min MICHAEL TREVINO DO Feb 09, 2025 23:14
== END 2025-02-01 18:50 | disposition home or self-care (01) | DRG 191 ==
LOC: ER 08:58 → OVERFLOW 15:53 → WEST WING 16:01 → TELE-WESTW 21:40 → WEST WING 01-23 07:39 → TELE-WESTW 01-23 08:20
PROVIDERS: ADMIT Internal Medicine; ATTEND Internal Medicine
PROC: 4A023N7 Measurement of Cardiac Sampling and Pressure, Left Heart, Percutaneous Approach (ICD-10-PCS; principal; 2025-01-25)
PROC: B211YZZ Fluoroscopy of Multiple Coronary Arteries using Other Contrast (ICD-10-PCS; 2025-01-25)
DX: I25.10 Atherosclerotic heart disease of native coronary artery without angina pectoris (principal); J96.01 Acute respiratory failure with hypoxia; J15.69 Pneumonia due to other Gram-negative bacteria; I11.0 Hypertensive heart disease with heart failure; I50.9 Heart failure, unspecified; J15.9 Unspecified bacterial pneumonia; I48.0 Paroxysmal atrial fibrillation; E78.5 Hyperlipidemia, unspecified; E87.6 Hypokalemia; F32.A Depression, unspecified; F41.9 Anxiety disorder, unspecified; J44.1 Chronic obstructive pulmonary disease with (acute) exacerbation; J44.0 Chronic obstructive pulmonary disease with (acute) lower respiratory infection; Z95.5 Presence of coronary angioplasty implant and graft; Z79.01 Long term (current) use of anticoagulants; I25.2 Old myocardial infarction; Z79.84 Long term (current) use of oral hypoglycemic drugs; Z79.2 Long term (current) use of antibiotics; Z79.82 Long term (current) use of aspirin; F17.210 Nicotine dependence, cigarettes, uncomplicated; Z82.49 Family history of ischemic heart disease and other diseases of the circulatory system; Z80.8 Family history of malignant neoplasm of other organs or systems; Z71.6 Tobacco abuse counseling
CPT/HCPCS: 36415; 71045; 78452; 80048; 80053; 80061; 83036; 83735; 84443; 84484; 85025; 85610; 85730; 86850; 86900; 86901; 93005; 93017; 93306; 93458; 94640; 96374; 96375; 96376; 99152; 99291; G0378; J2250; J2405; J2470; Q9967